=== PATIENT | female | born 1950 | race Caucasian/White ===

== ENCOUNTER 2016-05-23 18:45 | Inpatient (IN) | payer OTHER, MEDICARE ==
[~2016-05-23] VITALS: Ht 162.6 cm; Wt 58.1 kg
[~2016-05-23 18:45] MED LIST: 24 HOUR ALLER15.8 ML INH/SOL; ACIDOPHILUS1 EACH PO; ADULT LOW DOSE81 MG; ALDACTONE25 MG PO; AMLODIPINE BESYL5 M1 PO; AMOXICILLIN875 M1 PO; ANTI-ITCH28 GM; ASPIRIN EC81 M1 PO; ATORVASTATIN CA20 M1 PO; ATORVASTATIN CA80 M1 PO; BAYER CHEWABLE81 MG PO; CALCIUM 600 +1 EA10 PO; CARDIZEM CD120 M2 PO; CARVEDILOL3.125 M1 PO; CLOPIDOGREL75 M1 PO; CO Q-10300 MG PO; COREG6.25 M1 PO; CORLANOR PO; COZAAR100 M1 PO; COZAAR50 M1 PO; DILTIAZEM 24HR120 MG PO; DILTIAZEM 24HR180 MG PO; DULERA 100 MCG/13 GM; EDARBI80 M1 PO; FLUTICASONE PRO16 GM; FUROSEMIDE20 M1; FUROSEMIDE40 M1 PO; HALOBETASOL PRO15 G1; HYDRALAZINE HC100 M1 PO; HYDRALAZINE HCL10 M1 PO; HYDRALAZINE HCL50 M1 PO; ISOSORBIDE MONO30 M1 PO; ISOSORBIDE MONO60 M1 PO; LASIX20 M1 PO; LASIX40 M1 PO; LEVOTHYROXINE25 MCG PO; LIPITOR80 M1 PO; LOSARTAN POTAS100 M1 PO; MAGNESIUM400 M1 PO; METOPROLOL SUCC50 M2 PO; MONTELUKAST SOD10 M1 PO; N-ACETYL-L-CYS600 M1 PO; NAC600 M1 PO; NORVASC2.5 M1 PO; OMEGA 3-6-9 11200 MG PO; OMEPRAZOLE40 M1 PO; PANTOPRAZOLE SO40 M1 PO; PATANASE30.5 GM NASB; PLAVIX75 M1 PO; PREDNISONE10 M2 PO; PREDNISONE20 M1 PO; PROAIR HFA8.5 GM INH; RESTASIS1 EACH OPH; SINGULAIR10 M1 PO; SPIRONOLACTONE50 M1 PO; SYNTHROID25 MCG PO; TESSALON PERLE100 M1 PO; XANAX0.25 M1 PO
--- NOTE | 2016-05-23 19:22 | ED DYSPNEA/ASTHMA COMPLAINT ---
History of Present Illness General Chief Complaint: Dyspnea (COPD, CHF, Other) Stated Complaint: DIFF BREATHING X 1DAY, "I THINK I HAVE CHF" 91%O2 Source: patient Exam Limitations: no limitations Vital Signs & Intake/Output Vital Signs & Intake/Output Vital Signs Date Time Temp Pulse Resp B/P Pulse O2 O2 Flow FiO2 Ox Delivery Rate 05/23 2059 76 20 146/66 95 Nasal 2.0L Cannula 05/23 1959 74 20 144/65 96 Nasal 3.0L Cannula 05/23 1953 97 Nasal 4.0L Cannula 05/23 1936 94 Nasal 4.0L Cannula 05/23 1854 99.2 80 26 126/57 94 Room Air Allergies Coded Allergies: NO KNOWN ALLERGIES (05/13/16) Reconcile Medications Acetylcysteine (NAC) 600 MG CAPSULE 1 CAP PO 0830, 2199 LIVER (Reported) Albuterol Sulfate (Proair Hfa) 90 MCG HFA.AER.AD 2 PUF INH Q4-6 PRN PRN COPD (Reported) Alprazolam (Xanax) 0.25 MG TABLET 1 TAB PO BIDP PRN ANXIETY (Reported) Amlodipine Besylate 5 MG TABLET 1 TAB PO DAILY HYPERTENSION Amoxicillin 875 MG TABLET 1 TAB PO BID sinusitis Aspirin (Herb Chewable Aspirin) 81 MG TAB.CHEW 1 TAB PO 2200 HEART HEALTH ( Reported) Atorvastatin Calcium (Lipitor) 80 MG TABLET 1 TAB PO 2200 HLD (Reported) Benzonatate (Tessalon Perle) 100 MG CAPSULE 1 CAP PO TID cough Clopidogrel Bisulfate (Clopidogrel) 75 MG TABLET 1 TAB PO DAILY CABG ( Reported) Cyclosporine (Restasis) 0.05 % DROPERETTE 1 GTT OPH BID EYES (Reported) Diltiazem HCl (Diltiazem 24HR ER) 180 MG CAP.ER.24H 1 CAP PO DAILY CARDIAC ( Reported) Fluticasone Propionate (24 Hour Allergy Relief) 50 MCG/ACTUATION SPRAY.SUSP 2 SPRAY INH/JOCELYNN 0 EACH NOSTRIL (Reported) Furosemide (Lasix) 40 MG TABLET 1 TAB PO DAILY Diuretic Hydralazine HCl 100 MG TABLET 1 TAB PO TID Hypertension Isosorbide Mononitrate (Isosorbide Mononitrate ER) 60 MG TAB.ER.24H 1.5 TAB PO DAILY Bloood pressure Ivabradine HCl (Corlanor) 5 MG TABLET 1 TAB PO 0830, 2200 CHEST PAIN ( Reported) Lactobacillus Acidophilus (Acidophilus) 1 EACH CAPSULE 1 CAP PO 0830 PROBIOTIC (Reported) Levothyroxine Sodium (Synthroid) 25 MCG TABLET 1 TAB PO 0630 THYOID (Reported ) Losartan (Cozaar) 100 MG TABLET 1 TAB PO 0830 Hypertension Magnesium Oxide (Magnesium) 400 MG CAPSULE 1 CAP PO 2200 SUPPLEMENT (Reported ) Montelukast Sodium (Singulair) 10 MG TABLET 1 TAB PO 0830 BREATHING (Reported ) Pantoprazole Sodium 40 MG TABLET.DR 1 TAB PO 0830 GRED (Reported) Prednisone 10 MG TABLET 0 PO SI COPD Take 2 tabs on 05/03/16 Take 1 tab on 05/04/16 Take 1 tab on 05/05/16 then stop. Prednisone 20 MG TABLET 1 TAB PO BID sinusitis Spironolactone 50 MG TABLET 1 TAB PO DAILY HYPERTENSION Triage Note: PT TO TRIAGE FOR POSSIBLE CHF, C/O SOB SINCE LAST NIGHT PROGRESSIVELY GETTING WORSE. HX OF CHF, CAROTID ARTERY STENOSIS,HTN,HIGH CHOL,CHRONIC KIDNEY DISEASE. PT DENIES CHEST PAIN, ABD PAIN, DENIES EDEMA. O2SAT 94% ON RA, PT UNABLE TO SPEAK FULL SENTENCES. PT TO [facility] FOR EKG. Triage Nurses Notes Reviewed? yes Onset: Abrupt Duration: week(s):, constant, continues in ED Timing: recent history Severity: moderate, severe HPI: 66-year-old female comes into emergency room for further evaluation of shortness of breath. Symptoms have been going on for the past week. Patient was just admitted here in the hospital. Patient has history of congestive heart failure as well as COPD. Patient has had a 3 pound weight gain over the past day. Patient has short of breath with any type of ambulation at all. Denies any chest pain currently. Patient was sick a few weeks ago with a sinus infection as well as CHF. Denies any other associated symptoms at this time. (VICKEY LEE) Past History Travel History Traveled to [place] past 21 day No Medical History Any Pertinent Medical History? see below for history Neurological: NONE EENT: NONE Cardiovascular: CHF, hypertension, HYPERLIPIDEMIA CAROTID ARTERY STENOSIS Respiratory: COPD Gastrointestinal: GERD, EGD 10/11- erosive gastritsin and duodenitis Hepatic: NONE Renal: chronic kidney disease (stage 2 CKD), renal artery stenosis Musculoskeletal: NONE Psychiatric: NONE Endocrine: NONE Blood Disorders: NONE Cancer(s): NONE History of MRSA: No History of VRE: No History of CDIFF: No Surgical History Surgical History: EGD CABG X 2 Psychosocial History Who do you live with Spouse Services at Home None What is your primary language [place] Tobacco Use: Never used Family History Family History, If Any: MOTHER Relation not specified for: FHx: stroke Hx Contributory? No (VICKEY LEE) Review of Systems Review of Systems Constitutional: Reports: no symptoms. EENTM: Reports: no symptoms. Respiratory: Reports: see HPI. Cardiovascular: Reports: see HPI. GI: Reports: no symptoms. Genitourinary: Reports: no symptoms. Musculoskeletal: Reports: no symptoms. Skin: Reports: no symptoms. Neurological/Psychological: Reports: no symptoms. Hematologic/Endocrine: Reports: no symptoms. Immunologic/Allergic: Reports: no symptoms. All Other Systems: Reviewed and Negative (VICKEY LEE) Physical Exam Physical Exam General Appearance: moderate distress Head: atraumatic Eyes: Bilateral: normal appearance, EOMI. Ears, Nose, Throat: normal pharynx, normal ENT inspection Neck: normal inspection, full range of motion Respiratory: decreased breath sounds, wheezing, respiratory distress (moderate) Cardiovascular: regular rate/rhythm Extremities: normal inspection Neurologic/Psych: awake, alert, oriented x 3, normal gait, normal mood/affect Skin: intact, normal color Core Measures ACS in differential dx? No Severe Sepsis Present: No Septic Shock Present: No (VICKEY LEE) Progress Differential Diagnosis: asthma, AMI, bronchitis, costochondritis, CHF, COPD, musculoskeletal pain, pericarditis, pulmonary embolism, pneumonia, pneumothorax, rib fracture, unstable angina Plan of Care: Orders Procedure Date/time Status CBC WITHOUT DIFFERENTIAL 05/24 06 Active BASIC ELECTROLYTES PLUS BUN&CR 05/24 06 Active Admit to inpatient 05/23 2158 Active URINE OSMOLALITY 05/23 2154 Active URINE LYTES, SPOT 05/23 2154 Active URINALYSIS 05/23 2154 Active SERUM OSMOLALITY 05/23 2154 Active Pathway - chart 05/23 2149 Active House Staff 05/23 2149 Active Patient Data 05/23 2149 Active Code Status 05/23 2149 Active Patient Data 05/23 2135 Active TROPONIN LEVEL 05/23 185 Complete COMPREHENSIVE METABOLIC PANEL 05/23 185 Complete CBC WITHOUT DIFFERENTIAL 05/23 1854 Complete B-TYPE NATRIURETIC PEP (BNP) 05/23 1854 Complete EKG 05/23 1849 Active VTE Mechanical Prophylaxis 05/23 UNK Active Telemetry/Behavioral Health Professional 05/23 UNK Active Current Medications Sig/Emmanuel Start time Last Medication Dose Stop Time Status Admin Heparin Sodium 5,000 UNIT Q8 05/24 0600 UNVr (Porcine) Oxycodone HCl 5 MG Q6 05/23 2359 UNVr (Roxicodone) Acetaminophen 650 MG Q6P PRN 05/23 2200 UNVr (Tylenol) Laboratory Tests 05/23/161931: Anion Gap 11, Estimated GFR 28 L, BUN/Creatinine Ratio 23.3, Glucose 117 H, Calcium 9.1, Total Bilirubin 0.7, AST 21, ALT 34, Alkaline Phosphatase 62, Troponin I < 0.01, Sdg-K-Hhqdpljgcts Pept 6600 H, Total Protein 6.8, Albumin 3.8, Globulin 3.0, Albumin/Globulin Ratio 1.3, CBC w Diff NO MAN DIFF REQ, RBC 3.51 L, MCV 84.9, MCH 29.7, RDW 16.0 H, MPV 7.1 L, Gran % 80.4 H, Lymphocytes % 7.0 L, Monocytes % 11.9 H, Eosinophils % 0.6, Basophils % 0.1, Absolute Granulocytes 7.2 H, Absolute Lymphocytes 0.6 L, Absolute Monocytes 1.1 H, Absolute Eosinophils 0.1, Absolute Basophils 0, PUBS MCHC 35.0 Diagnostic Imaging: Viewed by Me: Radiology Read. Discussed w/RAD: Radiology Read. Radiology Impression: EXAM TYPE: RAD - XRY-PORTABLE CHEST XRAY EXAMINATION: XR PORTABLE CHEST CLINICAL INFORMATION: Shortness of breath. COMPARISON: Chest x- ray from 05/13/2016. TECHNIQUE: Portable view of the chest was obtained. FINDINGS: The cardiac silhouette is stable and remains enlarged. Mediastinal contours are normal. Sternotomy wires are in place. No airspace opacities or pleural effusions are seen. There are mild degenerative changes in the AC joints. IMPRESSION: Stable mild cardiomegaly with postsurgical changes. No airspace disease. No acute process. DICTATED BY: FABIAN AGUILAR MD DATE/TIME DICTATED:05/23/162006 LOGISTICS PLANNER:JAMESON DATE/TIME TRANSCRIBED:2006 Initial ED EKG: normal intervals, normal sinus rhythm, rate (73), LBBB (VICKEY LEE) Departure Departure Disposition: STILL A PATIENT Condition: Stable Clinical Impression Primary Impression: COPD exacerbation Secondary Impressions: Hyperkalemia, Hyponatremia, Hypoxia Referrals: ANISH MERINO,NELIDA Monsalve (PCP/Family) Referred to [facility] as new patient No Departure Forms: Customer Survey General Discharge Information Admission Note Spoke With: LANCE BATRES MD Documentation of Exam: Documentation of any treatments & extenuating circumstances including Concerns Regarding Discharge (functional status, medication knowledge or non-compliance, living conditions, etc.) that warrant an admission rather than observation: Patient's O2 saturation 80-99% with minimal ambulation. Patient will require supplemental oxygen. Patient will require repeat blood work. Electrolyte management. High potassium here. Patient will require further workup for low sodium level. Pulmonary consultation. Cardiology consultation. Cardiac telemetry. Patient is high risk. (VICKEY LEE) PA/OUTDOOR POWER EQUIPMENT MECHANIC Co-Sign Statement Statement: ED Attending supervision documentation- [X] I saw and evaluated the patient. I have also reviewed all the pertinent lab results and diagnostic results. I agree with the findings and the plan of care as documented in the PA's/OUTDOOR POWER EQUIPMENT MECHANIC's documentation. [X] I have reviewed the ED Record and agree with the PA's/OUTDOOR POWER EQUIPMENT MECHANIC's documentation. [] Additions or exceptions (if any) to the PAs/OUTDOOR POWER EQUIPMENT MECHANIC's note and plan are summarized below: [Cipriano seen and examined this patient. Patient to be admitted for COPD exacerbation. Patient's potassium is 5.6.] (REYNOLD MERINO,FABIAN Brown) Critical Care Note Critical Care Note Critical Care Time: non-applicable (VICKEY LEE)
[2016-05-23 19:43] LABS: ABSOLUTE BASOPHIL COUNT 0 /CUMM (0.0-0.2); ABSOLUTE EOSINOPHIL COUNT 0.1 /CUMM (0.0-0.7); ABSOLUTE GRANULOCYTE CT 7.2 /CUMM (1.4-6.5); ABSOLUTE LYMPH COUNT 0.6 /CUMM (1.2-3.4); ABSOLUTE MONOCYTE COUNT 1.1 /CUMM (0.10-0.60); BASOPHIL % 0.1 % (0.0-2.0); EOSINOPHIL % 0.6 % (0-5); GRANULOCYTE % 80.4 % (42.2-75.2); HEMATOCRIT 29.8 % (37-47); MEAN CORPUSCULAR HGB 29.7 PG (27.0-31.0); MEAN CORPUSCULAR VOLUME 84.9 FL (81.0-99.0); MEAN PLATELET VOLUME 7.1 FL (7.4-10.4); PLATELET COUNT 348 /CUMM (130-400); RED BLOOD CELL CT 3.51 /CUMM (4.20-5.40)
--- NOTE | 2016-05-23 20:11 | RADIOLOGY REPORT ---
EXAMINATION: XR PORTABLE CHEST CLINICAL INFORMATION: Shortness of breath. COMPARISON: Chest x-ray from 05/13/2016. TECHNIQUE: Portable view of the chest was obtained. FINDINGS: The cardiac silhouette is stable and remains enlarged. Mediastinal contours are normal. Sternotomy wires are in place. No airspace opacities or pleural effusions are seen. There are mild degenerative changes in the AC joints. IMPRESSION: Stable mild cardiomegaly with postsurgical changes. No airspace disease. No acute process.
--- NOTE | 2016-05-23 21:38 | History & Physical ---
See Addendum NAYAN VILLALOBOS MD 05/23/16 2138: General Information and HPI Source of Information: patient Exam Limitations: no limitations History of Present Illness: Patient is a 66-year-old female with past medical history of hypertension, hyperlipidemia, hypothyroidism, chronic kidney disease stage II, COPD not on home oxygen (former smoker, quit in September 2015), left bundle-branch block, cardiomyopathy ,diastolic heart failure,double bypass surgery in October 2015 [facility] was complicated by postop cardiac arrest, bilateral pleural effusion with Pseudomonas, with recent admission on 04/13/2016 and 04/26/2016 for acute CHF, presented with chief complaints of slowely progressive dyspnea since 1 -2 weeks. According to her, she had sinusitis 2 weeks ago and was treated by 5 days course of prednisone and amoxicillin. But as she was not improving, so her PCP, Dr. worrell changed amoxicillin to Augmentin. Despite steroids and antibiotics, she continues to have shortness of breath. She went to CHF clinic, 7 days ago and they found that she is having high blood pressure,otherwise, her cardiac function is normal. But patient continues to feel short of breath, so she came to ED for further management. She denies chest pain, orthopnea but feeling short of breath even a small amount of exertion. She claims that she gained 3 pounds weight over one day. Chest x-ray on 05/23/2016 -showed stable mild cardiomegaly with postsurgical changes. No any acute air space disease. Echo on 09/11/2015 -Anterior/anteroseptal hypokinesis,LVEF-35 to 40 %. No evidence of LV thrombus. Allergies/Medications Allergies: Coded Allergies: NO KNOWN ALLERGIES (05/13/16) Home Med list Acetylcysteine (NAC) 600 MG CAPSULE 1 CAP PO BID DIRECTED (Reported) Alprazolam (Xanax) 0.5 MG TABLET 1 TAB PO BIDP PRN AT NIGHT (Reported) Amlodipine Besylate 5 MG TABLET 1 TAB PO DAILY DIRECTED (Reported) Aspirin (Ecotrin*) 81 MG TABLET.DR 1 TAB PO DAILY DIRECTED (Reported) Atorvastatin Calcium 80 MG TABLET 1 TAB PO DAILY DIRECTED (Reported) Cholecalciferol (Vitamin D3) (Vitamin D) 2,000 UNIT CAPSULE 1 CAP PO DAILY DIRECTED (Reported) Clonidine HCl (Clonidine HCl ER) 0.1 MG TAB.ER.12H 1 TAB PO DAILY DIRECTED (Reported) Clopidogrel Bisulfate (Plavix) 75 MG TABLET 1 TAB PO DAILY Heart Health ( Reported) Cyclosporine (Restasis Multidose) 0.05 % DROPS 1 TAB PO DAILY DIRECTED ( Reported) Diltiazem HCl (Diltiazem 24HR ER) 180 MG CAP.ER.24H 1 CAP PO DAILY DIRECTED (Reported) Fluticasone Propionate (Flovent Hfa) 44 MCG AER.W.ADAP 2 PUF INH Q4-6 PRN Bronchitis (Reported) Fluticasone Propionate 50 MCG/ACTUATION SPRAY.SUSP 2 SPRAY NASB DAILY DIRECTED (Reported) Furosemide (Lasix) 40 MG TABLET 1 TAB PO DAILY DIRECTED (Reported) Hydralazine HCl 100 MG TABLET 1 TAB PO TID DIRECTED (Reported) Isosorbide Mononitrate (Isosorbide Mononitrate ER) 60 MG TAB.ER.24H 1 TAB PO DAILY DIRECTED (Reported) Ivabradine HCl (Corlanor) 5 MG TABLET 1 TAB PO BID DIRECTED (Reported) Lactobacillus Acidophilus (Acidophilus) 1 EACH CAPSULE 1 CAP PO DAILY DIRECTED (Reported) Levothyroxine Sodium 25 MCG TABLET 1 TAB PO DAILY DIRECTED (Reported) Losartan Potassium (Cozaar) 25 MG TABLET 1 TAB PO DAILY Blood Pressure ( Reported) Losartan Potassium (Cozaar) 25 MG TABLET 1 TAB PO DAILY DIRECTED (Reported ) Magnesium Oxide (Magnesium) 400 MG CAPSULE 1 CAP PO DAILY DIRECTED ( Reported) Montelukast Sodium 10 MG TABLET 1 TAB PO DAILY DIRECTED (Reported) Pantoprazole Sodium 40 MG TABLET.DR 1 TAB PO EVERY 3 DAYS DIRECTED ( Reported) Sodium Chloride/Sodium Bicarb (Nasa Mist Saline [place]) 0.9 % SPRAY Nasal Dryness (Reported) Spironolactone 50 MG TABLET 1 TAB PO DAILY DIRECTED (Reported) Tiotropium [place] (Spiriva) 18 MCG CAP.W.DEV 1 CAP INH DAILY DIRECTED ( Reported) Past History Travel History Traveled to [place] past 21 day No Medical History Neurological: NONE EENT: NONE Cardiovascular: CHF, hypertension, HYPERLIPIDEMIA CAROTID ARTERY STENOSIS Respiratory: COPD Gastrointestinal: GERD, EGD 10/11- erosive gastritsin and duodenitis Hepatic: NONE Renal: chronic kidney disease (stage 2 CKD), renal artery stenosis Musculoskeletal: NONE Psychiatric: NONE Endocrine: NONE Blood Disorders: NONE Cancer(s): NONE History of MRSA: No History of VRE: No History of CDIFF: No Surgical History Surgical History: EGD CABG X 2 Past Family/Social History Family History Relations & Conditions if any MOTHER Relation not specified for: FHx: stroke Psychosocial History Who Do You Live With? spouse Services at Home: None Living Will? no Functional Ability ADLs Independent: dressing, eating, toileting, bathing. Ambulation: independent IADLs Independent: shopping, housework, finances, food prep, telephone, transportation , medication admin. Review of Systems Review of Systems Constitutional: Reports: malaise, weakness. Denies: fever. EENTM: Reports: nasal pain, throat pain. Cardiovascular: Reports: palpitations. Denies: chest pain, edema, orthopena, peripheral edema. Respiratory: Reports: cough. Denies: hemoptysis, orthopnea, short of breath, stridor, wheezing. GI: Denies: abdominal pain, bloating, constipation, diarrhea, nausea. Genitourinary: Denies: dysuria, frequency, hematuria, nocturia. Musculoskeletal: Denies: back pain, joint pain. Skin: Denies: no symptoms. Neurological/Psychological: Reports: anxiety, depressed, emotional problems. Exam & Diagnostic Data Last 24 Hrs of Vital Signs/I&O Vital Signs Date Time Temp Pulse Resp B/P Pulse O2 O2 Flow FiO2 Ox Delivery Rate 05/24 0112 92 Nasal 2.0L Cannula 05/24 0035 80 142/68 05/23 2330 Nasal 2.0L Cannula 05/232 99.3 76 20 136/64 93 Nasal 2.0L Cannula 05/23 2059 76 20 146/66 95 Nasal 2.0L Cannula 05/239 74 20 144/65 96 Nasal 3.0L Cannula 05/23 1953 97 Nasal 4.0L Cannula 05/23 193 94 Nasal 4.0L Cannula 05/234 99.2 80 26 126/57 94 Room Air Intake & Output 05/24 0800 05/24 0000 05/23 1600 Intake Total 0 Output Total Balance 0 Intake, Oral 0 Patient 58.74 kg Weight Physical Exam General Appearance Alert, Oriented X3, Cooperative, No Acute Distress Skin No Rashes, No Breakdown HEENT Atraumatic, PERRLA, EOMI Neck Supple, increased JVP Cardiovascular Regular Rate, Normal S1, Normal S2 Lungs decreased air entry bilaterally, bilateral basal crepts Abdomen Normal Bowel Sounds, Soft, No Tenderness Neurological Normal Speech Extremities No Clubbing, No Cyanosis, No Edema, Normal Pulses Vascular Normal Pulses, Pulses Symmetrical Assessment/Plan Assessment: Assessment and plan - Patient is a known case of COPD and chronic CHF. She is complaining of slowly progressive weakness and shortness of breath along with hyponatremia, but there is no any swallowing or pedal edema. She is also having borderline high pottassium and her creatine is 1.8, probably secondary to chronic kidney disease. Problem list- Hyponatremia Hyperkalemia Chronic kidney disease stage II COPD, probably acute exacerbation Chronic Sinusitis Chronic CHF Hypothyroidism Hypertension Hyperlipidemia Chronic sinusitis- * Advised sputum culture and the blood culture * We'll follow the culture and if required,than start on antibiotic * We'll follow sinus x-ray COPD acute exacerbation/? Acute on chronic CHF * Patient is having slowly progressive shortness of breath * We will continue nebulization/TRC * Strict intake output charting * We will take consult from fine dining server and follow their recommendation * We'll start her on injection Solu-Medrol 40mg IV 8hrly * We will continue tablet azithromycin Hyponatremia - * It may be secondary to diuresis of fluid retention * We will restrict her fluid to 1500 mL per day * Strict intake output charting * We will regularly follow serum sodium level Chronic kidney disease stage II/hyperkalemia /high creatinine * We will regularly monitor his serum pottassium and creatinine level * Will take the consult from ventilating expert and follow the recommendation * Strict intake output charting Hypertension - * We'll continue home medication as before Hyperlipidemia - * We'll continue atorvastatin as before Hypothyroidism- We'll continue the levothyroxine as before Diet -heart healthy diet with fluid restriction to 1500 mL DVT prophylaxis-ALP S/heparin CODE STATUS-full code As Ranked By This Provider Problem List: 1. Hyponatremia 2. COPD (chronic obstructive pulmonary disease) 3. CAD (coronary artery disease) 4. Hypothyroid 5. HLD (hyperlipidemia) 6. HTN (hypertension) 7. CHF (congestive heart failure) 8. Hyperkalemia Core Measures/Miscellaneous Acute Coronary Syndrome ACS Diagnosis: No Cerebrovascular Accident CVA/TIA Diagnosis: No Congestive Heart Failure CHF Diagnosis: No Venous Thromboembolism VTE Risk Factors: Age > 40 VTE Prophylaxis Ordered Inpt: Mechanical (ALPS/TEDS) No Mech VTE prophylaxis d/t: No contraindications No VTE Pharm Prophylaxis d/t: No contraindications VTE Diagnosis: No VTE Type: NONE VTE Confirmed by (Test): NONE Severe Sepsis Severe Sepsis Present: No Septic Shock Septic Shock Present: No Miscellaneous Documentation Attending Case Discussed With: NELIDA OCONNELL MD Primary Care Physician: NELIDA OCONNELL MD Patient sees these Specialists fine dining server Level of Patient Care: Telemetry ARIS CARRILLO 05/23/16 2332: Resident Review Statement Resident Statement: examined this patient, discussed with international marketing executive, agreed with international marketing executive Other Findings: Patient is a 66-year-old woman with a past medical history significant for COPD not on home oxygen, history of chronic left bundle branch block,Diastolic HF ( cardiomyopathy), splenic infract, coronary bypass 2 (November 25 2015) at [facility] complicated by cardiac arrest, bilateral pleural effusions with pseudomonas infection with subsequent intubation and admission to ICU, recently admitted to [facility] for CHF exacerbation(March 2016) former smoker presented to the ED with a chief complaints of worsening shortness of breath and sinus related congestion. As per patient she has been having trouble breathing associated with some sinus congestion for the last couple of days. She was prescribed amoxicillin and prednisone 20 mg twice a day by by her primary care physician last week, she took the medication without much improvement in her congestion recently switched to Augmentin for sinus infection, patient took medication for one day and then she stopped taking the medication as she did not feel good(felt as if she was having a reaction from the medication). Today her symptoms gotten worse, could not able to breathe . Also she gained 3 pounds of weight. She took her 20 Lasix(twice), her symptoms did not improve and came to the ED for further assessment. Reported headaches with sinus pain. Denies any fever or chills at home and denied any recent infections denies any recent travels. In the ED patient received one-time dose of Solu-Medrol 125 mg Vitals on admission temperature 99.2, pulse 80, respiratory rate 26, blood pressure 126/57 on room air. On examination General Appearance: moderate distress Head: atraumatic Bilateral: normal appearance, EOMI. Ears, Nose, Throat: Throat appears ,dry positive sinus tenderness Neck: normal inspection, full range of motion Respiratory: Decreased respirations bilaterally with some rhonchi. Cardiovascular: regular rate/rhythm Extremities: normal inspection Neurologic/Psych: awake, alert, oriented x 3, normal gait, normal mood/affect Skin: intact, normal color Pertinent labs on admission sodium low 123,, potassium 5.6, bicarbonate low at 19, BUN/creatinine elevated 42/1.8 with GFR 28, elevated proBNP 6600. Troponin negative Pending urine analysis Chest x-ray:Stable mild cardiomegaly with postsurgical changes. No airspace disease. No acute process. Echocardiogram done in August 2015 Limited Echo with Contrast to exclude LV thrombus. Anterior/anteroseptal hypokinesis is again noted. Left ventricular ejection fraction is estimated at 35 to 40 %. No evidence of LV thrombus. Assessment 1. Acute hypoxic respiratory failure due to possible COPD exacerbation/CHF exacerbation 2. Worsening sinus congestion with low-grade fever 3. CAD and ischemic cardiomyopathy s/p CABG. 4. History of hypothyroidism 5 acute on chronic kidney disease stage IIIB 6. History of hypertension hyperlipidemia. plaN 1. Acute hypoxic respiratory failure due to possible COPD exacerbation/CHF exacerbation: * We'll monitor the patient on telemetry floor * Continue oxygen to keep saturation above 92%. * Patient is no more wheezing after getting IV Solu-Medrol 125 mg in the ED, consider IV Solu-Medrol from the morning. * Consider azithromycin for its anti-inflammation properties. * Continue Spiriva, Flonase. * Chest x-ray done in the ED showed mild stable cardiomegaly, will continue home dose of Lasix 40 mg from morning. Will not give any IV Lasix as patient has an evidence of a JACIEL as well * Monitor in's and O's with daily weight checks. * Will obtain cardiology consult in the morning. 2. Worsening sinus congestion with low-grade fever: * Will obtain sinus x-ray. * If there any evidence of infection we'll start the patient on antibiotics. Send sputum cultures and blood cultures. * Obtain rapid flu, strep and Legionella antigens. * Mucinex for cough. * Continue TRC nebs. 3. Hyponatremia: * Check urine lites, urine osmolality and serum osmolality. * Continue 1500 fluid strictio for now(per her fine dining server for CHF) 4. CAD and ischemic cardiomyopathy s/p CABG. * Continue home medications including aspirin, Lipitor, diltiazem, Imdur, hydralazine. 5. History of hypothyroidism * Continue home dose of levothyroxine. 6.acute on chronic kidney disease stage IV: * Hold losartan * Repeat BEP tomorrow * Avoid any nephrotoxic agents. 6. History of hypertension hyperlipidemia. * Continue medications. 7. DVT prophylaxis with subcutaneous heparin. 8. Mild pain controlled with Tylenol 9. Patient is full code
[2016-05-23] MEDS ORDERED: HYDRALAZINE HC100 M1 PO (23:29)
[2016-05-23 23:30] VITALS: BP 142/64
[2016-05-23] MEDS ORDERED: COZAAR25 M1 PO (23:30)
[2016-05-23] MEDS ORDERED: ISOSORBIDE MONO60 M1 PO (23:33)
[2016-05-23] MEDS ORDERED: LASIX40 M1 PO (23:33)
[2016-05-23] MEDS ORDERED: AMLODIPINE BESYL5 M1 PO (23:34)
[2016-05-23] MEDS ORDERED: LEVOTHYROXINE25 MCG PO (23:35)
[2016-05-23] MEDS ORDERED: SPIRONOLACTONE50 M1 PO (23:35)
[2016-05-23] MEDS ORDERED: PANTOPRAZOLE SO40 M1 PO (23:36)
[2016-05-23] MEDS ORDERED: MONTELUKAST SOD10 M1 PO (23:37)
[2016-05-23] MEDS ORDERED: DILTIAZEM 24HR180 MG PO (23:37)
[2016-05-23] MEDS ORDERED: ASPIRIN EC81 M1 PO (23:38)
[2016-05-23] MEDS ORDERED: CORLANOR PO (23:38)
[2016-05-23] MEDS ORDERED: ATORVASTATIN CA80 M1 PO (23:38)
[2016-05-23] MEDS ORDERED: FLUTICASONE PRO16 GM NASB (23:38)
[2016-05-23] MEDS ORDERED: SPIRIVA18 MCG INH (23:40)
[2016-05-23] MEDS ORDERED: RESTASIS MULTI5.5 ML PO (23:41)
[2016-05-23] MEDS ORDERED: CLONIDINE HCL0.1 M1 PO (23:41)
[2016-05-23] MEDS ORDERED: XANAX0.5 M1 PO (23:42)
[2016-05-23] MEDS ORDERED: ACIDOPHILUS1 EACH PO (23:42)
[2016-05-23] MEDS ORDERED: NAC600 M1 PO (23:43)
[2016-05-23] MEDS ORDERED: MAGNESIUM400 M1 PO (23:43)
[2016-05-23] MEDS ORDERED: VITAMIN D2000 UNIT PO (23:44)
[2016-05-24 08:00] VITALS: BP 170/62
[2016-05-24 08:11] LABS: ABSOLUTE BASOPHIL COUNT 0 /CUMM (0.0-0.2); ABSOLUTE EOSINOPHIL COUNT 0 /CUMM (0.0-0.7); ABSOLUTE GRANULOCYTE CT 4.7 /CUMM (1.4-6.5); ABSOLUTE LYMPH COUNT 0.2 /CUMM (1.2-3.4); ABSOLUTE MONOCYTE COUNT 0 /CUMM (0.10-0.60); BASOPHIL % 0.1 % (0.0-2.0); EOSINOPHIL % 0.1 % (0-5); HEMATOCRIT 28.6 % (37-47); MEAN CORPUSCULAR HGB 29.8 PG (27.0-31.0); MEAN CORPUSCULAR HGB CONC 35.1 G/DL (33.0-37.0); MEAN PLATELET VOLUME 7.5 FL (7.4-10.4); PLATELET COUNT 326 /CUMM (130-400); RBC DISTRIBUTION WIDTH 15.9 % (11.5-14.5); RED BLOOD CELL CT 3.36 /CUMM (4.20-5.40)
[2016-05-24 09:11] LABS: GRANULOCYTE % 94.3 % (42.2-75.2)
--- NOTE | 2016-05-24 09:18 | PN- Housestaff ---
Subjective Follow-up For: CHF Exacerbation Tele-Events Since Last Visit: NSR 81-90 No evevnts Subjective: Patient was seen and examined this morning. She is resting comfortably in bed. Patient states that her symptoms have improved. She continues to be on supplemental oxygen by nasal cannula 3 L. Patient states that her shortness of breath has improved. She states that she was able to get some rest although felt initial anxiety over the welfare director. Patient continues to feel congested attributing this to questionable sinusitis versus URI. Patient denies Fever, chills, nausea, vomiting. Review of Systems Constitutional: Reports: see HPI. Objective Last 24 Hrs of Vital Signs/I&O Vital Signs Date Time Temp Pulse Resp B/P Pulse O2 O2 Flow FiO2 Ox Delivery Rate 05/24 1129 84 150/56 05/24 0833 94 162/58 05/24 0832 94 162/58 05/24 0831 94 162/58 05/24 0800 Nasal 3.0L Cannula 05/24 0800 97.5 93 18 170/62 96 Nasal 3.0L Cannula 05/24 0112 92 Nasal 2.0L Cannula 05/24 0035 80 142/68 05/23 2330 Nasal 2.0L Cannula 05/23 2330 98.2 84 26 142/64 93 Nasal 2.0L Cannula 05/23 2302 99.3 76 20 136/64 93 Nasal 2.0L Cannula 05/23 2059 76 20 146/66 95 Nasal 2.0L Cannula 05/23 1959 74 20 144/65 96 Nasal 3.0L Cannula 05/23 1953 97 Nasal 4.0L Cannula 05/23 1936 94 Nasal 4.0L Cannula 05/23 1854 99.2 80 26 126/57 94 Room Air Intake & Output 05/24 1600 05/24 0800 05/24 0000 Intake Total 300 0 Output Total 500 Balance -200 0 Intake, IV 0 Intake, Oral 300 0 Number 0 Bowel Movements Output, Urine 500 Patient 58.57 kg 58.74 kg Weight Physical Exam General Appearance: Alert, Oriented X3, Mild Distress Cardiovascular: Regular Rate, Normal S1, Normal S2 Lungs: Bilaterral Rhonchi Abdomen: Normal Bowel Sounds, Soft, No Tenderness Neurological: Normal Gait, Normal Speech Extremities: No Edema Vascular: Normal Pulses Current Medications: Current Medications Sig/Emmanuel Start time Last Medication Dose Route Stop Time Status Admin Acetaminophen 650 MG Q6P PRN 05/23 2200 AC PO Acetylcysteine 600 MG BID 05/24 1000 DC 05/24 PO 0834 Albuterol Sulfate 3 ML ONCE ONE 05/24 0430 DC 05/24 INH 05/24 0431 0434 Albuterol Sulfate 3 ML ONCE ONE 05/24 0100 DC 05/24 INH 05/24 0101 0100 Albuterol Sulfate 3 ML ONCE ONE 05/23 1930 DC 05/23 INH 05/23 1931 195 Alprazolam 0.25 MG ONCE ONE 05/24 0500 DC 05/24 PO 05/24 0501 0458 Alprazolam 0.25 MG Q12P PRN 05/23 2345 AC 05/24 PO 05/30 2344 0035 Amlodipine Besylate 5 MG DAILY 05/24 1000 AC 05/24 PO 0833 Aspirin Buffered 81 MG DAILY 05/24 1000 AC 05/24 PO 0832 Atorvastatin Calcium 80 MG 1700 05/24 1700 DC PO Atorvastatin Calcium 80 MG 1700 05/24 1700 CAN PO Atorvastatin Calcium 80 MG 1700 05/24 0030 AC 05/24 PO 0035 Azithromycin 500 MG DAILY 05/24 1000 AC 05/24 Sodium Chloride 250 ML IV 1044 Ceftriaxone Sodium 1,000 MG DAILY 05/24 1322 AC IV Clopidogrel Bisulfate 75 MG DAILY 05/24 1000 AC 05/24 PO 1127 Diltiazem HCl 180 MG DAILY 05/24 1000 AC 05/24 PO 0832 Fluticasone 2 SPRAY QPM 05/24 2200 DC Propionate GRISELDA Fluticasone 2 SPRAY QPM 05/24 0030 AC 05/24 Propionate GRISELDA 0036 Furosemide 40 MG DAILY 05/24 1000 DC 05/24 PO 0833 Heparin Sodium 5,000 UNIT Q8 05/24 0600 AC 05/24 (Porcine) SC 0553 Hydralazine HCl 100 MG TID 05/24 0015 AC 05/24 PO 0831 Ipratropium [place] 2.5 ML ONCE ONE 05/23 1930 DC 05/23 INH 05/23 Isosorbide 60 MG DAILY 05/24 1000 AC 05/24 Mononitrate PO 0832 Levothyroxine Sodium 0.025 MG DAILY AC 05/24 0700 AC 05/24 PO 0505 Losartan Potassium 25 MG DAILY 05/24 1000 AC 05/24 PO 1129 Magnesium Oxide 400 MG DAILY 05/24 1000 AC 05/24 PO 0833 Methylprednisolone 40 MG Q6 05/24 0600 AC 05/24 IV 05/24 2355 112 Methylprednisolone 0 .STK-MED ONE 05/23 2049 DC .ROUTE Methylprednisolone 125 MG ONCE ONE 05/23 2045 DC 05/23 IV 05/23 Montelukast Sodium 10 MG 2200 05/24 2200 AC PO Oxycodone HCl 5 MG Q6 05/23 2359 AC PO Patient Own 0 0900,1700 05/24 0900 AC 05/24 Medication PO 0829 Prednisone 50 MG DAILY 05/25 1000 AC PO Sodium Polystyrene 0 .STK-MED ONE 05/23 2148 DC Sulfonate .ROUTE Sodium Polystyrene 60 ML ONCE ONE 05/23 2115 DC 05/23 Sulfonate PO 05/23 Spironolactone 50 MG DAILY 05/24 1000 AC 05/24 PO 0830 Tiotropium [place] 1 PUF DAILY 05/24 1000 AC 05/24 INH 0834 Last 24 Hrs of Lab/Maged Results Last 24 Hrs of Labs/Mics: Laboratory Tests 05/24/16 0720: Anion Gap 11, Estimated GFR 37 L, BUN/Creatinine Ratio 24.3, Serum Osmolality 281 L, CBC w Diff NO MAN DIFF REQ, RBC 3.36 L, MCV 85.0, MCH 29.8, RDW 15.9 H , MPV 7.5, Gran % 94.3 H, Lymphocytes % 4.6 L, Monocytes % 0.9 L, Eosinophils % 0.1, Basophils % 0.1, Absolute Granulocytes 4.7, Absolute Lymphocytes 0.2 L, Absolute Monocytes 0 L, Absolute Eosinophils 0, Absolute Basophils 0, PUBS MCHC 35.1 05/24/16 0140: pH 7.37, pCO2 29 L, pO2 58 L, HCO3 17 L, ABG O2 Sat (Measured) 88.0 L, P-50 (Temp Corrected) Y, Carboxyhemoglobin 0.3 L, O2 Concentration % 2 LPM, Temperature 98.2, O2 Delivery Method N/C, Phlebotomy Draw Site RIGHT BRACHIAL 05/23/162153: Serum Osmolality Cancelled 05/23/16 193: Anion Gap 11, Estimated GFR 28 L, BUN/Creatinine Ratio 23.3, Glucose 117 H, Calcium 9.1, Total Bilirubin 0.7, AST 21, ALT 34, Alkaline Phosphatase 62, Troponin I < 0.01, Zii-Z-Avpiyppxkyv Pept 6600 H, Total Protein 6.8, Albumin 3.8, Globulin 3.0, Albumin/Globulin Ratio 1.3, CBC w Diff NO MAN DIFF REQ, RBC 3.51 L, MCV 84.9, MCH 29.7, RDW 16.0 H, MPV 7.1 L, Gran % 80.4 H, Lymphocytes % 7.0 L, Monocytes % 11.9 H, Eosinophils % 0.6, Basophils % 0.1, Absolute Granulocytes 7.2 H, Absolute Lymphocytes 0.6 L, Absolute Monocytes 1.1 H, Absolute Eosinophils 0.1, Absolute Basophils 0, PUBS MCHC 35.0 Microbiology 05/24 1046 BLOOD: Blood Culture - RECD 05/24 1001 BLOOD: Blood Culture - RECD 05/24 35 LOWER RESP: Respiratory Culture - COLB 05/24 35 LOWER RESP: Gram Stain - COLB Orders Miscellaneous Findings: PATIENT: ANNEL FUENTES PRESENT AGE: 66 PATIENT ACCOUNT NO: [id number] : 48 LOCATION: [facility] ORDERING PHYSICIAN: ARIS CARRILLO MD SERVICE DATE: 05/24/16- EXAM TYPE: RAD - XRY-SINUSES, COMPLETE EXAMINATION: XR SINUSES CLINICAL INFORMATION: Sinus tenderness and congestion. COMPARISON: None. TECHNIQUE: 4 views of the paranasal sinuses are obtained. FINDINGS: There is no apparent mucosal thickening or air-fluid levels in the paranasal sinuses. No other abnormalities are identified. IMPRESSION: Unremarkable paranasal sinuses. DICTATED BY: SACHI CUEVAS MD DATE/TIME DICTATED:05/24/161403 TELESALES AGENT:JAMESON DATE/TIME TRANSCRIBED:05/24/161403 Assessment/Plan Assessment: 1. Acute hypoxic respiratory failure due to possible COPD exacerbation/CHF exacerbation 2. Worsening sinus congestion with low-grade fever 3. CAD and ischemic cardiomyopathy s/p CABG. 4. History of hypothyroidism 5 acute on chronic kidney disease stage IIIB 6. History of hypertension hyperlipidemia. Acute hypoxic respiratory failure due to possible COPD exacerbation/CHF exacerbation: Continue oxygen to keep saturation above 92%. Patient is no more wheezing after getting IV Solu-Medrol 125 mg in the ED, consider IV Solu-Medrol from the morning. Stop IV Solu-Medrol consider prednisone 50 mg. Consider azithromycin for its anti-inflammation properties. Continue Spiriva, Flonase. Chest x-ray done in the ED showed mild stable cardiomegaly, will continue home dose of Lasix 40 mg from morning. Will not give any IV Lasix as patient has an evidence of a JACIEL as well Monitor in's and O's with daily weight checks. Worsening sinus congestion with low-grade fever: Will obtain sinus x-ray: Continue the patient on IV ceftriaxone, for ?sinusitis. Send sputum cultures and blood cultures. Obtain rapid flu, strep and Legionella antigens. Mucinex for cough. Continue TRC nebs. Hyponatremia: Check urine lites, urine osmolality and serum osmolality. 1000 fluid restriction Hold Lasix for today, already administered this am we can decide whether to administered on 05/25/2016. CAD and ischemic cardiomyopathy s/p CABG. Continue home medications including aspirin, Lipitor, diltiazem, Imdur, hydralazine. History of hypothyroidism Continue home dose of levothyroxine. Acute on chronic kidney disease stage IV: Hold losartan, for now, can likely begin tomorrow. Avoid any nephrotoxic agents. History of hypertension and hyperlipidemia. Continue medications. DVT prophylaxis subcutaneous heparin. Code Full code Problem List: 1. Pancreatitis, acute 2. COPD exacerbation 3. Hypoxia 4. Leukocytosis 5. CHF (congestive heart failure) 6. HTN (hypertension) 7. HLD (hyperlipidemia) 8. CHF (congestive heart failure) 9. Uncontrolled hypertension 10. COPD (chronic obstructive pulmonary disease) case management patient 11. COPD (chronic obstructive pulmonary disease) 12. DVT prophylaxis 13. Full code status 14. CAD (coronary artery disease) 15. Hypothyroid 16. Sinusitis, acute 17. Fever 18. Renal insufficiency 19. Hyponatremia syndrome 20. Hyperkalemia 21. Hyponatremia Pain Ratin Pain Location: No Pain Reported Pain Goal: Remain pain free Pain Plan: Tylenol Tomorrow's Labs & Rationales: BEP for renal function creatinine and BUN.
[2016-05-24] MEDS ORDERED: PLAVIX75 M1 PO (09:21)
[2016-05-24] MEDS ORDERED: FLOVENT HFA10.6 GM INH (09:27)
[2016-05-24] MEDS ORDERED: COZAAR25 M1 PO ×2 (09:28→09:36)
[2016-05-24] MEDS ORDERED: NASA MIST SALIN75 ML (09:36)
--- NOTE | 2016-05-24 10:12 | Cons- Nephrology ---
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 Has had mult episodes of JACIEL on past w baseline Cr low 1s --> found increased 1.8 on admit. Also chronic hyponatremia on po fluid restriction @ home & found 123 on admit. Had recent admit for CHF & outpt meds include ARB, Lasix & spironolactone. Has had brown post nasal drip w cough productive white sputum x last 2 weeks Rx w po antibiotics preadmit. No fever but ? rigors at home & begun on IV antibiotics & steroids here. No NSAIDS, vomiting, or diarrhea. No recent IV contrast or documented hypotension. Renal function & hyponatremia improving this morning. Allergies/Medications Allergies: Coded Allergies: NO KNOWN ALLERGIES (05/13/16) Home Med List: Acetylcysteine (NAC) 600 MG CAPSULE 1 CAP PO BID DIRECTED (Reported) Alprazolam (Xanax) 0.5 MG TABLET 1 TAB PO BIDP PRN AT NIGHT (Reported) Amlodipine Besylate 5 MG TABLET 1 TAB PO DAILY DIRECTED (Reported) Aspirin (Ecotrin*) 81 MG TABLET.DR 1 TAB PO DAILY DIRECTED (Reported) Atorvastatin Calcium 80 MG TABLET 1 TAB PO DAILY DIRECTED (Reported) Cholecalciferol (Vitamin D3) (Vitamin D) 2,000 UNIT CAPSULE 1 CAP PO DAILY DIRECTED (Reported) Clonidine HCl (Clonidine HCl ER) 0.1 MG TAB.ER.12H 1 TAB PO DAILY DIRECTED (Reported) Clopidogrel Bisulfate (Plavix) 75 MG TABLET 1 TAB PO DAILY Heart Health ( Reported) Cyclosporine (Restasis Multidose) 0.05 % DROPS 1 TAB PO DAILY DIRECTED ( Reported) Diltiazem HCl (Diltiazem 24HR ER) 180 MG CAP.ER.24H 1 CAP PO DAILY DIRECTED (Reported) Fluticasone Propionate (Flovent Hfa) 44 MCG AER.W.ADAP 2 PUF INH Q4-6 PRN Bronchitis (Reported) Fluticasone Propionate 50 MCG/ACTUATION SPRAY.SUSP 2 SPRAY NASB DAILY DIRECTED (Reported) Furosemide (Lasix) 40 MG TABLET 1 TAB PO DAILY DIRECTED (Reported) Hydralazine HCl 100 MG TABLET 1 TAB PO TID DIRECTED (Reported) Isosorbide Mononitrate (Isosorbide Mononitrate ER) 60 MG TAB.ER.24H 1 TAB PO DAILY DIRECTED (Reported) Ivabradine HCl (Corlanor) 5 MG TABLET 1 TAB PO BID DIRECTED (Reported) Lactobacillus Acidophilus (Acidophilus) 1 EACH CAPSULE 1 CAP PO DAILY DIRECTED (Reported) Levothyroxine Sodium 25 MCG TABLET 1 TAB PO DAILY DIRECTED (Reported) Losartan Potassium (Cozaar) 25 MG TABLET 1 TAB PO DAILY Blood Pressure ( Reported) Losartan Potassium (Cozaar) 25 MG TABLET 1 TAB PO DAILY DIRECTED (Reported ) Magnesium Oxide (Magnesium) 400 MG CAPSULE 1 CAP PO DAILY DIRECTED ( Reported) Montelukast Sodium 10 MG TABLET 1 TAB PO DAILY DIRECTED (Reported) Pantoprazole Sodium 40 MG TABLET.DR 1 TAB PO EVERY 3 DAYS DIRECTED ( Reported) Sodium Chloride/Sodium Bicarb (Nasa Mist Saline [place]) 0.9 % SPRAY Nasal Dryness (Reported) Spironolactone 50 MG TABLET 1 TAB PO DAILY DIRECTED (Reported) Tiotropium [place] (Spiriva) 18 MCG CAP.W.DEV 1 CAP INH DAILY DIRECTED ( Reported) Current Medications: Current Medications Sig/Emmanuel Start time Last Medication Dose Route Stop Time Status Admin Acetaminophen 650 MG Q6P PRN 05/23 2200 AC PO Acetylcysteine 600 MG BID 05/24 1000 AC 05/24 PO 0834 Albuterol Sulfate 3 ML ONCE ONE 05/24 0430 DC 05/24 INH 05/24 043 0434 Albuterol Sulfate 3 ML ONCE ONE 05/24 0100 DC 05/24 INH 05/24 010 0100 Albuterol Sulfate 3 ML ONCE ONE 05/23 1930 DC 05/23 INH 05/23 1931 195 Alprazolam 0.25 MG ONCE ONE 05/24 0500 DC 05/24 PO 05/24 050 0458 Alprazolam 0.25 MG Q12P PRN 05/23 2345 AC 05/24 PO 05/30 234 0035 Amlodipine Besylate 5 MG DAILY 05/24 1000 AC 05/24 PO 0833 Aspirin Buffered 81 MG DAILY 05/24 1000 AC 05/24 PO 0832 Atorvastatin Calcium 80 MG 1700 05/24 1700 DC PO Atorvastatin Calcium 80 MG 1700 05/24 1700 CAN PO Atorvastatin Calcium 80 MG 1700 05/24 0030 AC 05/24 PO 0035 Azithromycin 500 MG DAILY 05/24 1000 AC Sodium Chloride 250 ML IV Clopidogrel Bisulfate 75 MG DAILY 05/24 1000 AC PO Diltiazem HCl 180 MG DAILY 05/24 1000 AC 05/24 PO 0832 Fluticasone 2 SPRAY QPM 05/24 2200 DC Propionate GRISELDA Fluticasone 2 SPRAY QPM 05/24 0030 AC 05/24 Propionate GRISELDA 0036 Furosemide 40 MG DAILY 05/24 1000 AC 05/24 PO 0833 Heparin Sodium 5,000 UNIT Q8 05/24 0600 AC 05/24 (Porcine) SC 0553 Hydralazine HCl 100 MG TID 05/24 0015 AC 05/24 PO 0831 Ipratropium [place] 2.5 ML ONCE ONE 05/23 1930 DC 05/23 INH 05/23 1931 195 Isosorbide 60 MG DAILY 05/24 1000 AC 05/24 Mononitrate PO 0832 Levothyroxine Sodium 0.025 MG DAILY AC 05/24 0700 AC 05/24 PO 0505 Losartan Potassium 25 MG DAILY 05/24 1000 AC PO Magnesium Oxide 400 MG DAILY 05/24 1000 AC 05/24 PO 0833 Methylprednisolone 40 MG Q6 05/24 0600 AC 05/24 IV 0505 Methylprednisolone 0 .STK-MED ONE 05/23 2049 DC .ROUTE Methylprednisolone 125 MG ONCE ONE 05/23 2045 DC 05/23 IV 05/23 Montelukast Sodium 10 MG 2200 05/24 2200 AC PO Oxycodone HCl 5 MG Q6 05/23 2359 AC PO Patient Own 0 0900,1700 05/24 0900 AC 05/24 Medication PO 0829 Sodium Polystyrene 0 .STK-MED ONE 05/23 2148 DC Sulfonate .ROUTE Sodium Polystyrene 60 ML ONCE ONE 05/23 2115 DC 05/23 Sulfonate PO 05/23 Spironolactone 50 MG DAILY 05/24 1000 AC 05/24 PO 0830 Tiotropium [place] 1 PUF DAILY 05/24 1000 AC 05/24 INH 0834 Review of Systems Review of Systems Constitutional: Reports: chills, malaise. EENTM: Reports: nasal congestion. Cardiovascular: Reports: see HPI. Respiratory: Reports: see HPI. GI: Reports: no symptoms. Genitourinary: Reports: no symptoms. Musculoskeletal: Reports: no symptoms. Skin: Reports: no symptoms. Neurological/Psychological: Reports: no symptoms. Hematologic/Endocrine: Reports: no symptoms. Immunologic/Allergic: Reports: no symptoms. 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 Home Who Do You Live With? spouse Services at Home: None Smoking Status: Former Smoker Living Will? no Functional Ability ADLs Independent: dressing, eating, toileting, bathing. Ambulation: independent IADLs Independent: shopping, housework, finances, food prep, telephone, transportation , medication admin. Exam & Diagnostic Data Vital Signs and I&O Vital Signs Date Time Temp Pulse Resp B/P Pulse O2 O2 Flow FiO2 Ox Delivery Rate 05/24 0833 94 162/58 05/24 0832 94 162/58 05/24 0831 94 162/58 05/24 0800 97.5 93 18 170/62 96 Nasal 3.0L Cannula 05/24 0112 92 Nasal 2.0L Cannula 05/24 0035 80 142/68 05/23 2330 Nasal 2.0L Cannula 05/23 2330 98.2 84 26 142/64 93 Nasal 2.0L Cannula 05/23 2302 99.3 76 20 136/64 93 Nasal 2.0L Cannula 05/23 2059 76 20 146/66 95 Nasal 2.0L Cannula 05/239 74 20 144/65 96 Nasal 3.0L Cannula 05/23 1953 97 Nasal 4.0L Cannula 05/23 1936 94 Nasal 4.0L Cannula 05/23 1854 99.2 80 26 126/57 94 Room Air Intake & Output 05/24 04005/23 Intake Total 300 0 Output Total 500 Balance -200 0 Intake, IV 0 Intake, Oral 300 0 Number 0 Bowel Movements Output, Urine 500 Patient 129 lb 129 lb Weight Physical Exam General Appearance: well developed/nourished, alert Head: atraumatic, normal appearance Eyes: Bilateral: normal appearance. Ears, Nose, Throat: normal ENT inspection Neck: normal inspection, supple Respiratory: decreased breath sounds, rhonchi Cardiovascular: regular rate/rhythm, friction rub (none) Gastrointestinal: normal bowel sounds, soft, non-tender, no organomegaly Back: normal inspection Extremities: no edema Neurologic/Psych: no motor/sensory deficits, awake, alert, oriented x 3 Skin: intact, normal color, warm/dry Lymphatic: no anterior cervical shana Results Pertinent Lab Results: Laboratory Tests 05/24 05/24 0720 0140 Blood Gas pH (7.35 - 7.45 PH) 7.37 pCO2 (35 - 45 TORR) 29 L pO2 (80 - 100 TORR) 58 L HCO3 (21 - 28 MEQ/L) 17 L ABG O2 Sat (Measured) (>96.0 %) 88.0 L P-50 (Temp Corrected) Y Carboxyhemoglobin (1.5 - 5.0 %) 0.3 L O2 Concentration % 2 LPM Temperature (97.0 - 100.0 FARH) 98.2 O2 Delivery Method N/C Chemistry Sodium (137 - 145 mmol/L) 127 L Potassium (3.5 - 5.1 mmol/L) 4.8 Chloride (98 - 107 mmol/L) 94 L Carbon Dioxide (22 - 30 mmol/L) 22 Anion Gap (5 - 16) 11 BUN (7 - 17 mg/dL) 34 H Creatinine (0.5 - 1.0 mg/dL) 1.4 H Estimated GFR (>60 ml/min) 37 L BUN/Creatinine Ratio (7 - 25 %) 24.3 Serum Osmolality (285 - 295 MOSM/KG) 281 L Hematology CBC w Diff NO MAN DIFF REQ WBC (4.8 - 10.8 /CUMM) 5.0 RBC (4.20 - 5.40 /CUMM) 3.36 L Hgb (12.0 - 16.0 G/DL) 10.0 L Hct (37 - 47 %) 28.6 L MCV (81.0 - 99.0 FL) 85.0 MCH (27.0 - 31.0 PG) 29.8 RDW (11.5 - 14.5 %) 15.9 H Plt Count (130 - 400 /CUMM) 326 MPV (7.4 - 10.4 FL) 7.5 Gran % (42.2 - 75.2 %) 94.3 H Lymphocytes % (20.5 - 51.1 %) 4.6 L Monocytes % (1.7 - 9.3 %) 0.9 L Eosinophils % (0 - 5 %) 0.1 Basophils % (0.0 - 2.0 %) 0.1 Absolute Granulocytes (1.4 - 6.5 /CUMM) 4.7 Absolute Lymphocytes (1.2 - 3.4 /CUMM) 0.2 L Absolute Monocytes (0.10 - 0.60 /CUMM) 0 L Absolute Eosinophils (0.0 - 0.7 /CUMM) 0 Absolute Basophils (0.0 - 0.2 /CUMM) 0 PUBS MCHC (33.0 - 37.0 G/DL) 35.1 Miscellaneous Phlebotomy Draw Site RIGHT BRACHIAL 05/23 Chemistry Sodium (137 - 145 mmol/L) 123 L Potassium (3.5 - 5.1 mmol/L) 5.6 H Chloride (98 - 107 mmol/L) 93 L Carbon Dioxide (22 - 30 mmol/L) 19 L Anion Gap (5 - 16) 11 BUN (7 - 17 mg/dL) 42 H Creatinine (0.5 - 1.0 mg/dL) 1.8 H Estimated GFR (>60 ml/min) 28 L BUN/Creatinine Ratio (7 - 25 %) 23.3 Glucose (65 - 99 mg/dL) 117 H Serum Osmolality Cancelled Calcium (8.4 - 10.2 mg/dL) 9.1 Total Bilirubin (0.2 - 1.3 mg/dL) 0.7 AST (14 - 36 U/L) 21 ALT (9 - 52 U/L) 34 Alkaline Phosphatase (<127 U/L) 62 Troponin I (< 0.11 ng/ml) < 0.01 Zsm-A-Ppugmsjxfnv Pept (<125 pg/mL) 6600 H Total Protein (6.3 - 8.2 g/dL) 6.8 Albumin (3.5 - 5.0 g/dL) 3.8 Globulin (1.9 - 4.2 gm/dL) 3.0 Albumin/Globulin Ratio (1.1 - 2.2 %) 1.3 Hematology CBC w Diff NO MAN DIFF REQ WBC (4.8 - 10.8 /CUMM) 9.0 RBC (4.20 - 5.40 /CUMM) 3.51 L Hgb (12.0 - 16.0 G/DL) 10.4 L Hct (37 - 47 %) 29.8 L MCV (81.0 - 99.0 FL) 84.9 MCH (27.0 - 31.0 PG) 29.7 RDW (11.5 - 14.5 %) 16.0 H Plt Count (130 - 400 /CUMM) 348 MPV (7.4 - 10.4 FL) 7.1 L Gran % (42.2 - 75.2 %) 80.4 H Lymphocytes % (20.5 - 51.1 %) 7.0 L Monocytes % (1.7 - 9.3 %) 11.9 H Eosinophils % (0 - 5 %) 0.6 Basophils % (0.0 - 2.0 %) 0.1 Absolute Granulocytes (1.4 - 6.5 /CUMM) 7.2 H Absolute Lymphocytes (1.2 - 3.4 /CUMM) 0.6 L Absolute Monocytes (0.10 - 0.60 /CUMM) 1.1 H Absolute Eosinophils (0.0 - 0.7 /CUMM) 0.1 Absolute Basophils (0.0 - 0.2 /CUMM) 0 PUBS MCHC (33.0 - 37.0 G/DL) 35.0 Imaging/Other Studies: EXAMINATION: XR PORTABLE CHEST CLINICAL INFORMATION: Shortness of breath. COMPARISON: Chest x-ray from 05/13/2016. TECHNIQUE: Portable view of the chest was obtained. FINDINGS: The cardiac silhouette is stable and remains enlarged. Mediastinal contours are normal. Sternotomy wires are in place. No airspace opacities or pleural effusions are seen. There are mild degenerative changes in the AC joints. IMPRESSION: Stable mild cardiomegaly with postsurgical changes. No airspace disease. No acute process. Assessment/Plan Assessment/Recommendations Assessment: 1. JACIEL: prerenal & improving; ? overdiuresis in setting of cardiorenal syndrome. 2. Hyponatremia: improving; can't make dx SIADH in setting of cardiomyopathy & diuretics. Needs continued flluid restriction. 3. CKD: mild - mod, stage 2-3A, due to HTN & RV dx w atrophic L kidney Recommendations: 1. fluid restriction 1000 ml/day 2. hold Lasix today 3. serial renal function
--- NOTE | 2016-05-24 11:56 | Cons- Pulmonary ---
General Information and HPI Consulting Request Date of Consult: 05/24/16 Requested By: ER and pt History of Present Illness: Patient is a 66-year-old female with past medical history of hypertension, hyperlipidemia, hypothyroidism, chronic kidney disease stage II, COPD not on home oxygen (former smoker, quit in September 2015), left bundle-branch block, cardiomyopathy ,diastolic heart failure,double bypass surgery in October 2015 [facility] was complicated by postop cardiac arrest, bilateral pleural effusion with Pseudomonas, with recent admission on 04/13/2016 and 04/26/2016 for acute CHF, presented with chief complaints of slowely progressive dyspnea since 1 -2 weeks. According to her, she had sinusitis 2 weeks ago and was treated by 5 days course of prednisone and amoxicillin. But as she was not improving, so her PCP, Dr. worrell changed amoxicillin to Augmentin. Despite steroids and antibiotics, she continues to have shortness of breath. She went to CHF clinic, 7 days ago and they found that she is having high blood pressure,otherwise, her cardiac function is normal. But patient continues to feel short of breath, so she came to ED for further management. She denies chest pain, orthopnea but feeling short of breath even a small amount of exertion. She claims that she gained 3 pounds weight over one day. Chest x-ray on 05/23/2016 -showed stable mild cardiomegaly with postsurgical changes. No any acute air space disease. Echo on 09/11/2015 -Anterior/anteroseptal hypokinesis,LVEF-35 to 40 %. No evidence of LV thrombus. Review of Systems Constitutional: Reports: malaise, weakness. Denies: fever. EENTM: Reports: nasal pain, throat pain. Cardiovascular: Reports: palpitations. Denies: chest pain, edema, orthopena, peripheral edema. Respiratory: Reports: cough. Denies: hemoptysis, orthopnea, short of breath, stridor, wheezing. GI: Denies: abdominal pain, bloating, constipation, diarrhea, nausea. Genitourinary: Denies: dysuria, frequency, hematuria, nocturia. Musculoskeletal: Denies: back pain, joint pain. Skin: Denies: no symptoms. Neurological/Psychological: Reports: anxiety, depressed, emotional problems. Allergies/Medications Allergies: Coded Allergies: NO KNOWN ALLERGIES (05/13/16) Home Med List: Acetylcysteine (NAC) 600 MG CAPSULE 1 CAP PO BID DIRECTED (Reported) Alprazolam (Xanax) 0.5 MG TABLET 1 TAB PO BIDP PRN AT NIGHT (Reported) Amlodipine Besylate 5 MG TABLET 1 TAB PO DAILY DIRECTED (Reported) Aspirin (Ecotrin*) 81 MG TABLET.DR 1 TAB PO DAILY DIRECTED (Reported) Atorvastatin Calcium 80 MG TABLET 1 TAB PO DAILY DIRECTED (Reported) Cholecalciferol (Vitamin D3) (Vitamin D) 2,000 UNIT CAPSULE 1 CAP PO DAILY DIRECTED (Reported) Clonidine HCl (Clonidine HCl ER) 0.1 MG TAB.ER.12H 1 TAB PO DAILY DIRECTED (Reported) Clopidogrel Bisulfate (Plavix) 75 MG TABLET 1 TAB PO DAILY Heart Health ( Reported) Cyclosporine (Restasis Multidose) 0.05 % DROPS 1 TAB PO DAILY DIRECTED ( Reported) Diltiazem HCl (Diltiazem 24HR ER) 180 MG CAP.ER.24H 1 CAP PO DAILY DIRECTED (Reported) Fluticasone Propionate (Flovent Hfa) 44 MCG AER.W.ADAP 2 PUF INH Q4-6 PRN Bronchitis (Reported) Fluticasone Propionate 50 MCG/ACTUATION SPRAY.SUSP 2 SPRAY NASB DAILY DIRECTED (Reported) Furosemide (Lasix) 40 MG TABLET 1 TAB PO DAILY DIRECTED (Reported) Hydralazine HCl 100 MG TABLET 1 TAB PO TID DIRECTED (Reported) Isosorbide Mononitrate (Isosorbide Mononitrate ER) 60 MG TAB.ER.24H 1 TAB PO DAILY DIRECTED (Reported) Ivabradine HCl (Corlanor) 5 MG TABLET 1 TAB PO BID DIRECTED (Reported) Lactobacillus Acidophilus (Acidophilus) 1 EACH CAPSULE 1 CAP PO DAILY DIRECTED (Reported) Levothyroxine Sodium 25 MCG TABLET 1 TAB PO DAILY DIRECTED (Reported) Losartan Potassium (Cozaar) 25 MG TABLET 1 TAB PO DAILY Blood Pressure ( Reported) Losartan Potassium (Cozaar) 25 MG TABLET 1 TAB PO DAILY DIRECTED (Reported ) Magnesium Oxide (Magnesium) 400 MG CAPSULE 1 CAP PO DAILY DIRECTED ( Reported) Montelukast Sodium 10 MG TABLET 1 TAB PO DAILY DIRECTED (Reported) Pantoprazole Sodium 40 MG TABLET.DR 1 TAB PO EVERY 3 DAYS DIRECTED ( Reported) Sodium Chloride/Sodium Bicarb (Nasa Mist Saline [place]) 0.9 % SPRAY Nasal Dryness (Reported) Spironolactone 50 MG TABLET 1 TAB PO DAILY DIRECTED (Reported) Tiotropium [place] (Spiriva) 18 MCG CAP.W.DEV 1 CAP INH DAILY DIRECTED ( Reported) Review of Systems Review of Systems Constitutional: Reports: see HPI. 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 Home Who Do You Live With? spouse Services at Home: None Smoking Status: Former Smoker Living Will? no Functional Ability ADLs Independent: dressing, eating, toileting, bathing. Ambulation: independent IADLs Independent: shopping, housework, finances, food prep, telephone, transportation , medication admin. Exam & Diagnostic Data Last 24 Hrs of Vital Signs/I&O Vital Signs Date Time Temp Pulse Resp B/P Pulse O2 O2 Flow FiO2 Ox Delivery Rate 05/24 1129 84 150/56 05/24 0833 94 162/58 05/24 0832 94 162/58 05/24 0831 94 162/58 05/24 0800 97.5 93 18 170/62 96 Nasal 3.0L Cannula 05/24 0112 92 Nasal 2.0L Cannula 05/24 0035 80 142/68 05/23 2330 Nasal 2.0L Cannula 05/23 2330 98.2 84 26 142/64 93 Nasal 2.0L Cannula 05/23 2302 99.3 76 20 136/64 93 Nasal 2.0L Cannula 05/239 76 20 146/66 95 Nasal 2.0L Cannula 05/23 1959 74 20 144/65 96 Nasal 3.0L Cannula 05/23 1953 97 Nasal 4.0L Cannula 05/23 1936 94 Nasal 4.0L Cannula 05/234 99.2 80 26 126/57 94 Room Air Intake & Output 05/24 1600 05/24 0800 05/24 0000 Intake Total 300 0 Output Total 500 Balance -200 0 Intake, IV 0 Intake, Oral 300 0 Number 0 Bowel Movements Output, Urine 500 Patient 129 lb 129 lb Weight Last 48 Hrs of Labs/Maged: Laboratory Tests 05/24/16 0720: Anion Gap 11, Estimated GFR 37 L, BUN/Creatinine Ratio 24.3, Serum Osmolality 281 L, CBC w Diff NO MAN DIFF REQ, RBC 3.36 L, MCV 85.0, MCH 29.8, RDW 15.9 H , MPV 7.5, Gran % 94.3 H, Lymphocytes % 4.6 L, Monocytes % 0.9 L, Eosinophils % 0.1, Basophils % 0.1, Absolute Granulocytes 4.7, Absolute Lymphocytes 0.2 L, Absolute Monocytes 0 L, Absolute Eosinophils 0, Absolute Basophils 0, PUBS MCHC 35.1 05/24/16 0140: pH 7.37, pCO2 29 L, pO2 58 L, HCO3 17 L, ABG O2 Sat (Measured) 88.0 L, P-50 (Temp Corrected) Y, Carboxyhemoglobin 0.3 L, O2 Concentration % 2 LPM, Temperature 98.2, O2 Delivery Method N/C, Phlebotomy Draw Site RIGHT BRACHIAL 05/23/164: Serum Osmolality Cancelled 05/23/16 1932: Anion Gap 11, Estimated GFR 28 L, BUN/Creatinine Ratio 23.3, Glucose 117 H, Calcium 9.1, Total Bilirubin 0.7, AST 21, ALT 34, Alkaline Phosphatase 62, Troponin I < 0.01, Bbo-W-Lzcvbialneb Pept 6600 H, Total Protein 6.8, Albumin 3.8, Globulin 3.0, Albumin/Globulin Ratio 1.3, CBC w Diff NO MAN DIFF REQ, RBC 3.51 L, MCV 84.9, MCH 29.7, RDW 16.0 H, MPV 7.1 L, Gran % 80.4 H, Lymphocytes % 7.0 L, Monocytes % 11.9 H, Eosinophils % 0.6, Basophils % 0.1, Absolute Granulocytes 7.2 H, Absolute Lymphocytes 0.6 L, Absolute Monocytes 1.1 H, Absolute Eosinophils 0.1, Absolute Basophils 0, PUBS MCHC 35.0 Assessment/Plan Impression/Plan: Physical Exam General Appearance Alert, Oriented X3, Cooperative, No Acute Distress Skin No Rashes, No Breakdown HEENT Atraumatic, PERRLA, EOMI Neck Supple, increased JVP Cardiovascular Regular Rate, Normal S1, Normal S2 Lungs decreased air entry bilaterally, bilateral basal crepts Abdomen Normal Bowel Sounds, Soft, No Tenderness Neurological Normal Speech Extremities No Clubbing, No Cyanosis, No Edema, Normal Pulses Vascular Normal Pulses, Pulses Symmetrical 65-year-old fever with significant cardiac history as noted in H&P recently had a bypass done at [facility] with subsequent cardiac arrest with subsequent adverse effect to high dose of metoprolol (100mg) with effusions with severe baseline copd with fev1 of .9 (not a retainer) with * Chronic systolic CHF exacerbation 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
--- NOTE | 2016-05-24 14:05 | Admission Certification ---
Admission Certification Certification Statement - As attending physician, I certify that at the time of - admission, based on clinical presentation, severity of - symptoms, need for further diagnostic testing and - therapeutic interventions, and risk of adverse outcomes - without in-hospital treatment, in my clinical assessment, - this patient requires an acute hospital stay for a minimum - of two nights or longer. I have also considered psychsocial - factors such as support system, advanced age, financial - issues, cognitive issues, and failed out-patient treatments, - past re-admission history, safety of patient, and lack of - compliance as applicable. Specific rationale supporting this admission is: Agree shortness of breath laceration of COPD history of congestive heart failure acute renal insufficiency on chronic renal insufficiency hyponatremia
--- NOTE | 2016-05-24 14:09 | PN- Att Addend ---
Attending Addendum Attending Brief Note 66-year-old white female with history of hypertension hyperlipidemia hypothyroidism chronic renal disease stage II, COPD myocardial myopathy diastolic congestive heart failure and coronary artery disease comes in with increased shortness of breath despite medical treatment from Dr. Beckett. She also seems to have acute renal insufficiency on top of her chronic renal disease mild hyponatremic she will be admitted will be seen by nephrology and pulmonary treat accordingly Laboratory Tests 05/24 05/24 0720 0140 Blood Gas pH (7.35 - 7.45 PH) 7.37 pCO2 (35 - 45 TORR) 29 L pO2 (80 - 100 TORR) 58 L HCO3 (21 - 28 MEQ/L) 17 L ABG O2 Sat (Measured) (>96.0 %) 88.0 L P-50 (Temp Corrected) Y Carboxyhemoglobin (1.5 - 5.0 %) 0.3 L O2 Concentration % 2 LPM Temperature (97.0 - 100.0 FARH) 98.2 O2 Delivery Method N/C Chemistry Sodium (137 - 145 mmol/L) 127 L Potassium (3.5 - 5.1 mmol/L) 4.8 Chloride (98 - 107 mmol/L) 94 L Carbon Dioxide (22 - 30 mmol/L) 22 Anion Gap (5 - 16) 11 BUN (7 - 17 mg/dL) 34 H Creatinine (0.5 - 1.0 mg/dL) 1.4 H Estimated GFR (>60 ml/min) 37 L BUN/Creatinine Ratio (7 - 25 %) 24.3 Serum Osmolality (285 - 295 MOSM/KG) 281 L Hematology CBC w Diff NO MAN DIFF REQ WBC (4.8 - 10.8 /CUMM) 5.0 RBC (4.20 - 5.40 /CUMM) 3.36 L Hgb (12.0 - 16.0 G/DL) 10.0 L Hct (37 - 47 %) 28.6 L MCV (81.0 - 99.0 FL) 85.0 MCH (27.0 - 31.0 PG) 29.8 RDW (11.5 - 14.5 %) 15.9 H Plt Count (130 - 400 /CUMM) 326 MPV (7.4 - 10.4 FL) 7.5 Gran % (42.2 - 75.2 %) 94.3 H Lymphocytes % (20.5 - 51.1 %) 4.6 L Monocytes % (1.7 - 9.3 %) 0.9 L Eosinophils % (0 - 5 %) 0.1 Basophils % (0.0 - 2.0 %) 0.1 Absolute Granulocytes (1.4 - 6.5 /CUMM) 4.7 Absolute Lymphocytes (1.2 - 3.4 /CUMM) 0.2 L Absolute Monocytes (0.10 - 0.60 /CUMM) 0 L Absolute Eosinophils (0.0 - 0.7 /CUMM) 0 Absolute Basophils (0.0 - 0.2 /CUMM) 0 PUBS MCHC (33.0 - 37.0 G/DL) 35.1 Miscellaneous Phlebotomy Draw Site RIGHT BRACHIAL 05/23 Chemistry Sodium (137 - 145 mmol/L) 123 L Potassium (3.5 - 5.1 mmol/L) 5.6 H Chloride (98 - 107 mmol/L) 93 L Carbon Dioxide (22 - 30 mmol/L) 19 L Anion Gap (5 - 16) 11 BUN (7 - 17 mg/dL) 42 H Creatinine (0.5 - 1.0 mg/dL) 1.8 H Estimated GFR (>60 ml/min) 28 L BUN/Creatinine Ratio (7 - 25 %) 23.3 Glucose (65 - 99 mg/dL) 117 H Serum Osmolality Cancelled Calcium (8.4 - 10.2 mg/dL) 9.1 Total Bilirubin (0.2 - 1.3 mg/dL) 0.7 AST (14 - 36 U/L) 21 ALT (9 - 52 U/L) 34 Alkaline Phosphatase (<127 U/L) 62 Troponin I (< 0.11 ng/ml) < 0.01 Non-T-Hdgyahurrks Pept (<125 pg/mL) 6600 H Total Protein (6.3 - 8.2 g/dL) 6.8 Albumin (3.5 - 5.0 g/dL) 3.8 Globulin (1.9 - 4.2 gm/dL) 3.0 Albumin/Globulin Ratio (1.1 - 2.2 %) 1.3 Hematology CBC w Diff NO MAN DIFF REQ WBC (4.8 - 10.8 /CUMM) 9.0 RBC (4.20 - 5.40 /CUMM) 3.51 L Hgb (12.0 - 16.0 G/DL) 10.4 L Hct (37 - 47 %) 29.8 L MCV (81.0 - 99.0 FL) 84.9 MCH (27.0 - 31.0 PG) 29.7 RDW (11.5 - 14.5 %) 16.0 H Plt Count (130 - 400 /CUMM) 348 MPV (7.4 - 10.4 FL) 7.1 L Gran % (42.2 - 75.2 %) 80.4 H Lymphocytes % (20.5 - 51.1 %) 7.0 L Monocytes % (1.7 - 9.3 %) 11.9 H Eosinophils % (0 - 5 %) 0.6 Basophils % (0.0 - 2.0 %) 0.1 Absolute Granulocytes (1.4 - 6.5 /CUMM) 7.2 H Absolute Lymphocytes (1.2 - 3.4 /CUMM) 0.6 L Absolute Monocytes (0.10 - 0.60 /CUMM) 1.1 H Absolute Eosinophils (0.0 - 0.7 /CUMM) 0.1 Absolute Basophils (0.0 - 0.2 /CUMM) 0 PUBS MCHC (33.0 - 37.0 G/DL) 35.0 Chest x-ray showed no congestive heart failure or acute infiltrates.
--- NOTE | 2016-05-24 14:12 | PN- Att Addend ---
Attending Addendum Attending Brief Note Covering attending note. Patient feels a little better and less short of breath is okay at rest, but with any little exertion but short of breath appreciate pulmonary's and nephrology input and recommendations will continue fluid restriction continue antibiotic therapy, respiratory therapy, monitor labs continue antibiotic therapy. No major changes on physical but no wheezes or crackles at this time. Current Medications Sig/Emmanuel Start time Last Medication Dose Route Stop Time Status Admin Acetaminophen 650 MG Q6P PRN 05/23 2200 AC PO Acetylcysteine 600 MG BID 05/24 1000 DC 05/24 PO 0834 Albuterol Sulfate 3 ML Q4P PRN 05/24 1415 UNV INH Albuterol Sulfate 3 ML ONCE ONE 05/24 0430 DC 05/24 INH 05/24 0431 0434 Albuterol Sulfate 3 ML ONCE ONE 05/24 0100 DC 05/24 INH 05/24 0101 0100 Albuterol Sulfate 3 ML ONCE ONE 05/23 1930 DC 05/23 INH 05/23 193 1952 Alprazolam 0.25 MG ONCE ONE 05/24 0500 DC 05/24 PO 05/24 0501 0458 Alprazolam 0.25 MG Q12P PRN 05/23 2345 AC 05/24 PO 05/30 2344 0035 Amlodipine Besylate 5 MG DAILY 05/24 1000 AC 05/24 PO 0833 Aspirin Buffered 81 MG DAILY 05/24 1000 AC 05/24 PO 0832 Atorvastatin Calcium 80 MG 1700 05/24 1700 DC PO Atorvastatin Calcium 80 MG 1700 05/24 1700 CAN PO Atorvastatin Calcium 80 MG 1700 05/24 0030 AC 05/24 PO 0035 Azithromycin 500 MG DAILY 05/24 1000 AC 05/24 Sodium Chloride 250 ML IV 1044 Ceftriaxone Sodium 1,000 MG DAILY 05/24 1322 AC IV Clopidogrel Bisulfate 75 MG DAILY 05/24 1000 AC 05/24 PO 1127 Diltiazem HCl 180 MG DAILY 05/24 1000 AC 05/24 PO 0832 Fluticasone 2 SPRAY QPM 05/24 2200 DC Propionate GRISELDA Fluticasone 2 PUF Q4-6 PRN 05/24 1400 UNVr Propionate INH Fluticasone 2 SPRAY QPM 05/24 0030 AC 05/24 Propionate GRISELDA 0036 Furosemide 40 MG DAILY 05/24 1000 DC 05/24 PO 0833 Heparin Sodium 5,000 UNIT Q8 05/24 0600 AC 05/24 (Porcine) SC 0553 Hydralazine HCl 100 MG TID 05/24 0015 AC 05/24 PO 0831 Ipratropium [place] 2.5 ML ONCE ONE 05/23 1930 DC 05/23 INH 05/23 Isosorbide 60 MG DAILY 05/24 1000 AC 05/24 Mononitrate PO 0832 Levothyroxine Sodium 0.025 MG DAILY AC 05/24 0700 AC 05/24 PO 0505 Losartan Potassium 25 MG DAILY 05/24 1000 AC 05/24 PO 1129 Magnesium Oxide 400 MG DAILY 05/24 1000 AC 05/24 PO 0833 Methylprednisolone 40 MG Q6 05/24 0600 AC 05/24 IV 05/24 2355 1126 Methylprednisolone 0 .STK-MED ONE 05/23 2049 DC .ROUTE Methylprednisolone 125 MG ONCE ONE 05/23 2045 DC 05/23 IV 05/23 Montelukast Sodium 10 MG 2200 05/24 2200 AC PO Oxycodone HCl 5 MG Q6 PRN 05/24 1356 UNVr PO Oxycodone HCl 5 MG Q6 05/23 2359 DC PO Patient Own 0 0900,1700 05/24 0900 AC 05/24 Medication PO 0829 Prednisone 50 MG DAILY 05/25 1000 AC PO Sodium Polystyrene 0 .STK-MED ONE 05/23 2148 DC Sulfonate .ROUTE Sodium Polystyrene 60 ML ONCE ONE 05/23 2115 DC 05/23 Sulfonate PO 05/23 2116 214 Spironolactone 50 MG DAILY 05/24 1000 AC 05/24 PO 0830 Tiotropium [place] 1 PUF DAILY 05/24 1000 AC 05/24 INH 0834 Laboratory Tests 05/24/16 0720: Anion Gap 11, Estimated GFR 37 L, BUN/Creatinine Ratio 24.3, Serum Osmolality 281 L, CBC w Diff NO MAN DIFF REQ, RBC 3.36 L, MCV 85.0, MCH 29.8, RDW 15.9 H , MPV 7.5, Gran % 94.3 H, Lymphocytes % 4.6 L, Monocytes % 0.9 L, Eosinophils % 0.1, Basophils % 0.1, Absolute Granulocytes 4.7, Absolute Lymphocytes 0.2 L, Absolute Monocytes 0 L, Absolute Eosinophils 0, Absolute Basophils 0, PUBS MCHC 35.1 05/24/16 0140: pH 7.37, pCO2 29 L, pO2 58 L, HCO3 17 L, ABG O2 Sat (Measured) 88.0 L, P-50 (Temp Corrected) Y, Carboxyhemoglobin 0.3 L, O2 Concentration % 2 LPM, Temperature 98.2, O2 Delivery Method N/C, Phlebotomy Draw Site RIGHT BRACHIAL 05/23/162153: Serum Osmolality Cancelled 05/23/161931: Anion Gap 11, Estimated GFR 28 L, BUN/Creatinine Ratio 23.3, Glucose 117 H, Calcium 9.1, Total Bilirubin 0.7, AST 21, ALT 34, Alkaline Phosphatase 62, Troponin I < 0.01, Dwp-U-Hbkoecorqpt Pept 6600 H, Total Protein 6.8, Albumin 3.8, Globulin 3.0, Albumin/Globulin Ratio 1.3, CBC w Diff NO MAN DIFF REQ, RBC 3.51 L, MCV 84.9, MCH 29.7, RDW 16.0 H, MPV 7.1 L, Gran % 80.4 H, Lymphocytes % 7.0 L, Monocytes % 11.9 H, Eosinophils % 0.6, Basophils % 0.1, Absolute Granulocytes 7.2 H, Absolute Lymphocytes 0.6 L, Absolute Monocytes 1.1 H, Absolute Eosinophils 0.1, Absolute Basophils 0, PUBS MCHC 35.0 Microbiology Date/Time Procedure - Status Source Growth 05/24 1046 Blood Culture - RECD BLOOD 05/24 1001 Blood Culture - RECD BLOOD 05/24 0035 Respiratory Culture - COLB LOWER RESP 05/24 0035 Gram Stain - COLB LOWER RESP Vital Signs Date Time Temp Pulse Resp B/P Pulse O2 O2 Flow FiO2 Ox Delivery Rate 05/24 1400 95 Nasal 3.0L Cannula 05/24 1129 84 150/56 05/24 0833 94 162/58 05/24 0832 94 162/58 05/24 0831 94 162/58 05/24 0800 Nasal 3.0L Cannula 05/24 0800 97.5 93 18 170/62 96 Nasal 3.0L Cannula Intake & Output 05/24 1600 Intake Total Output Total Balance Patient 129 lb Weight
--- NOTE | 2016-05-24 14:23 | RADIOLOGY REPORT ---
EXAMINATION: XR SINUSES CLINICAL INFORMATION: Sinus tenderness and congestion. COMPARISON: None. TECHNIQUE: 4 views of the paranasal sinuses are obtained. FINDINGS: There is no apparent mucosal thickening or air-fluid levels in the paranasal sinuses. No other abnormalities are identified. IMPRESSION: Unremarkable paranasal sinuses.
[2016-05-24 16:21] VITALS: BP 148/55
--- NOTE | 2016-05-24 18:14 | Cons- Cardiology ---
General Information and HPI Consulting Request Date of Consult: 05/24/16 Requested By: NELIDA OCONNELL MD History of Present Illness: Paula is a 66 year old female with history of hypertension, dyslipidemia and coronary artery disease s/p CABG x 2 in 2016. She also carries a history of splenic infarct, carotid disease and COPD. It should be noted that this patient had severe bronchospasm on high doses of Metoprolol that resulted in a cardiac arrest after her bypass. She is also reported to have renal artery stenosis. Over the past four days this patient has noted progressively worsening shortness of breath without definite wheezing. As such, she cannot walk even a short distance. She does have some nasal congestion. These symptoms became progressively worse despite antibiotic, steroid and inhaler therapy promting her presentation to the ER. She denies any chest discomfort, lightheadedness or palpitations. Paula did have concern regarding a weight gain of 2-3 pounds although she did not notice any fluid retention. Her blood pressure has been elevated. It should be recalled that even at the time of this patient's prior MS she did not perceive any chest discomfort. This patient is known to have a decreased EF of 35-40% with anterolateral and anterior wall hypokinesis, mild to moderate MR and trace TR. Allergies/Medications Allergies: Coded Allergies: NO KNOWN ALLERGIES (05/13/16) Home Med List: Acetylcysteine (NAC) 600 MG CAPSULE 1 CAP PO BID DIRECTED (Reported) Alprazolam (Xanax) 0.5 MG TABLET 1 TAB PO BIDP PRN AT NIGHT (Reported) Amlodipine Besylate 5 MG TABLET 1 TAB PO DAILY DIRECTED (Reported) Aspirin (Ecotrin*) 81 MG TABLET.DR 1 TAB PO DAILY DIRECTED (Reported) Atorvastatin Calcium 80 MG TABLET 1 TAB PO DAILY DIRECTED (Reported) Cholecalciferol (Vitamin D3) (Vitamin D) 2,000 UNIT CAPSULE 1 CAP PO DAILY DIRECTED (Reported) Clonidine HCl (Clonidine HCl ER) 0.1 MG TAB.ER.12H 1 TAB PO DAILY DIRECTED (Reported) Clopidogrel Bisulfate (Plavix) 75 MG TABLET 1 TAB PO DAILY Heart Health ( Reported) Cyclosporine (Restasis Multidose) 0.05 % DROPS 1 TAB PO DAILY DIRECTED ( Reported) Diltiazem HCl (Diltiazem 24HR ER) 180 MG CAP.ER.24H 1 CAP PO DAILY DIRECTED (Reported) Fluticasone Propionate (Flovent Hfa) 44 MCG AER.W.ADAP 2 PUF INH Q4-6 PRN Bronchitis (Reported) Fluticasone Propionate 50 MCG/ACTUATION SPRAY.SUSP 2 SPRAY NASB DAILY DIRECTED (Reported) Furosemide (Lasix) 40 MG TABLET 1 TAB PO DAILY DIRECTED (Reported) Hydralazine HCl 100 MG TABLET 1 TAB PO TID DIRECTED (Reported) Isosorbide Mononitrate (Isosorbide Mononitrate ER) 60 MG TAB.ER.24H 1 TAB PO DAILY DIRECTED (Reported) Ivabradine HCl (Corlanor) 5 MG TABLET 1 TAB PO BID DIRECTED (Reported) Lactobacillus Acidophilus (Acidophilus) 1 EACH CAPSULE 1 CAP PO DAILY DIRECTED (Reported) Levothyroxine Sodium 25 MCG TABLET 1 TAB PO DAILY DIRECTED (Reported) Losartan Potassium (Cozaar) 25 MG TABLET 1 TAB PO DAILY Blood Pressure ( Reported) Losartan Potassium (Cozaar) 25 MG TABLET 1 TAB PO DAILY DIRECTED (Reported ) Magnesium Oxide (Magnesium) 400 MG CAPSULE 1 CAP PO DAILY DIRECTED ( Reported) Montelukast Sodium 10 MG TABLET 1 TAB PO DAILY DIRECTED (Reported) Pantoprazole Sodium 40 MG TABLET.DR 1 TAB PO EVERY 3 DAYS DIRECTED ( Reported) Sodium Chloride/Sodium Bicarb (Nasa Mist Saline [place]) 0.9 % SPRAY Nasal Dryness (Reported) Spironolactone 50 MG TABLET 1 TAB PO DAILY DIRECTED (Reported) Tiotropium [place] (Spiriva) 18 MCG CAP.W.DEV 1 CAP INH DAILY DIRECTED ( Reported) Past History Travel History Traveled to [place] past 21 day No Medical History Blood Transfusion Hx: Yes Neurological: NONE EENT: NONE Cardiovascular: CHF, hypertension, HYPERLIPIDEMIA CAROTID ARTERY STENOSIS Respiratory: COPD Gastrointestinal: GERD, EGD 10/11- erosive gastritsin and duodenitis Hepatic: NONE Renal: chronic kidney disease (stage 2 CKD), renal artery stenosis Musculoskeletal: NONE Psychiatric: NONE Endocrine: NONE Blood Disorders: NONE Cancer(s): NONE OLIVE PACKER/Reproductive: NONE Surgical History Surgical History: EGD CABG X 2 Family History Relations & Conditions If Any: MOTHER Relation not specified for: FHx: stroke Psychosocial History Where Do You Live? Home Who Do You Live With? spouse Services at Home: None Smoking Status: Former Smoker Living Will? no Functional Ability ADLs Independent: dressing, eating, toileting, bathing. Ambulation: independent IADLs Independent: shopping, housework, finances, food prep, telephone, transportation , medication admin. Exam & Diagnostic Data Vital Signs and I&O Vital Signs Date Time Temp Pulse Resp B/P Pulse O2 O2 Flow FiO2 Ox Delivery Rate 05/24 1621 83 148/55 05/24 1621 98.7 79 18 148/55 93 Room Air 05/24 1400 Nasal 3.0L Cannula 05/24 1400 95 Nasal 3.0L Cannula 05/24 1129 84 150/56 05/24 0833 94 162/58 05/24 0832 94 162/58 05/24 0831 94 162/58 05/24 0800 Nasal 3.0L Cannula 05/24 0800 97.5 93 18 170/62 96 Nasal 3.0L Cannula 05/24 0112 92 Nasal 2.0L Cannula 05/24 0035 80 142/68 05/23 2330 Nasal 2.0L Cannula 05/23 2330 98.2 84 26 142/64 93 Nasal 2.0L Cannula 05/23 2302 99.3 76 20 136/64 93 Nasal 2.0L Cannula 05/239 76 20 146/66 95 Nasal 2.0L Cannula 05/23 1959 74 20 144/65 96 Nasal 3.0L Cannula 05/23 1953 97 Nasal 4.0L Cannula 05/23 1936 94 Nasal 4.0L Cannula 05/23 1854 99.2 80 26 126/57 94 Room Air Intake & Output 05/24 1600 05/24 0800 05/24 0000 05/23 1600 05/23 0800 05/23 0000 Intake Total 425 300 0 Output Total 1500 500 Balance -1075 -200 0 Intake, IV 0 Intake, Oral 425 300 0 Number 0 Bowel Movements Output, Urine 1500 500 Patient 129 lb 129 lb Weight Physical Exam: General: WD/ WN female in NAD; alert and oriented x 3 HEENT: NC/AT, PERRL, EOMI, clear oropharynx Neck: no JVD, bilateral carotid bruits Heart: RRR with 2/6 systolic murmur at the LLSB and RUSB Lungs: clear bilaterally Abdomen: soft, NT, +ve bowel sounds, +ve renal bruit Extremities: no edema Diagnostic Data EKG Results sinus rhythm with LBBB Assessment/Plan Assessment/Plan * I do not think this patient has evidence of decompensated congestive heart failure. Her lungs are clear. She very likely has shortness of breath due to severe hypertensive excursions. This, in turn, is related to renal artery stenosis. I suspect that her left kidney, although perhaps nor functioning to any significant degree, is secreting large amounts of renin through collateral circulation. This patient needs a renal angiogram with measurement of her renin levels. I would avoid dehydration and would hold her diuretics so that her creatinine does not become elevated to the point of being an issue for angiography. Consult Acknowledgment - Thank you for your consult request.
[2016-05-24 21:21] VITALS: BP 158/52
[2016-05-25 08:40] VITALS: BP 160/72
--- NOTE | 2016-05-25 08:43 | PN- Housestaff ---
Subjective Follow-up For: COPD exacerbation Tele-Events Since Last Visit: NSR. HR 75-82. Episode of bradycardia to 55. Subjective: No acute events overnight. Patient seen and examined this morning. She remains dyspneic with minimal exertion. She complains of congestion and cough productive of green sputum. Review of Systems Constitutional: Denies: chills, fever. Cardiovascular: Denies: chest pain. Respiratory: Reports: cough, short of breath, sputum production. Gastrointestinal: Denies: abdominal pain, constipation, diarrhea, nausea, vomiting. Objective Last 24 Hrs of Vital Signs/I&O Vital Signs Date Time Temp Pulse Resp B/P Pulse O2 O2 Flow FiO2 Ox Delivery Rate 05/25 2120 72 160/52 05/25 1854 95 Nasal 2.0L Cannula 05/25 1600 94 Nasal 2.0L Cannula 05/25 1550 65 128/68 05/25 1530 97.6 61 20 12868 94 Nasal 2.0L Cannula 05/25 0921 80 160/72 05/25 0921 80 160/72 05/25 0921 80 160/72 05/25 0920 80 160/72 05/25 0905 93 Room Air 05/25 0840 98.0 80 20 160/72 94 Room Air 05/25 0800 Room Air Intake & Output 05/25 1600 05/25 0800 05/25 0000 Intake Total 470 50 600 Output Total 950 Balance 470 50 -350 Intake, IV 230 Intake, Oral 240 50 600 Output, Urine 950 Patient 58.173 kg Weight Physical Exam General Appearance: Alert, Oriented X3, No Acute Distress HEENT: Mucous Membr. moist/pink Cardiovascular: Regular Rate, Normal S1, Normal S2 Lungs: Diminished Breath Sounds, Bibasilar Wheezes Abdomen: Soft, No Tenderness, Positive Bowel Sounds Current Medications: Current Medications Sig/Emmanuel Start time Last Medication Dose Route Stop Time Status Admin Acetaminophen 650 MG Q6P PRN 05/23 2200 AC PO Albuterol Sulfate 3 ML Q4P PRN 05/24 1415 AC 05/25 INH 1809 Alprazolam 0.5 MG AT BEDTIME NEED.. 05/25 1345 AC PO 05/30 2344 Alprazolam 0.25 MG Q12P PRN 05/23 2345 DC 05/24 PO 05/30 234 0035 Amlodipine Besylate 5 MG DAILY 05/24 1000 AC 05/25 PO 0921 Aspirin Buffered 81 MG DAILY 05/24 1000 AC 05/25 PO 0921 Atorvastatin Calcium 80 MG 1700 05/24 0030 AC 05/25 PO 1601 Azithromycin 500 MG DAILY 05/24 1000 DC 05/25 Sodium Chloride 250 ML IV 0922 Benzocaine/Menthol 1 NEVIN Q2P PRN 05/25 1100 AC 05/25 PO 1158 Ceftazidime 1,000 MG Q12 05/25 1332 AC 05/25 IV 2122 Ceftriaxone Sodium 1,000 MG DAILY 05/24 1322 DC 05/25 IV 0921 Clopidogrel Bisulfate 75 MG DAILY 05/24 1000 AC 05/25 PO 0921 Diltiazem HCl 180 MG DAILY 05/24 1000 AC 05/25 PO 0921 Fluticasone 2 SPRAY DAILY 05/25 1251 AC 05/25 Propionate GRISELDA 1348 Fluticasone 2 PUF BID 05/24 2200 AC 05/25 Propionate INH 2127 Fluticasone 2 SPRAY QPM 05/24 0030 DC 05/24 Propionate GRISELDA 2114 Guaifenesin 600 MG Q12 05/25 1137 AC 05/25 PO 2120 Heparin Sodium 5,000 UNIT Q8 05/24 0600 AC 05/25 (Porcine) SC 2128 Hydralazine HCl 100 MG TID 05/24 0015 AC 05/25 PO 2120 Isosorbide 60 MG DAILY 05/24 1000 AC 05/25 Mononitrate PO 0921 Levothyroxine Sodium 0.025 MG DAILY AC 05/24 0700 AC 05/24 PO 0505 Losartan Potassium 25 MG DAILY 05/24 1000 AC 05/25 PO 0921 Magnesium Oxide 400 MG DAILY 05/24 1000 AC 05/25 PO 0921 Methylprednisolone 40 MG Q6 05/24 0600 DC 05/24 IV 05/24 2355 1621 Montelukast Sodium 10 MG 2200 05/24 2200 AC 05/25 PO 2120 Moxifloxacin HCl 400 MG DAILY 05/25 1056 DC 05/25 PO 1158 Oxycodone HCl 5 MG Q6P PRN 05/24 1356 AC PO Patient Own 0 0900,1700 05/24 0900 AC 05/25 Medication PO 1601 Prednisone 40 MG DAILY 05/26 1000 AC PO Prednisone 50 MG ONCE ONE 05/25 1330 DC 05/25 PO 05/25 1331 1333 Prednisone 50 MG DAILY 05/25 1000 DC PO Tiotropium [place] 1 PUF DAILY 05/24 1000 AC 05/25 INH 1202 Last 24 Hrs of Lab/Maged Results Last 24 Hrs of Labs/Mics: Laboratory Tests 05/25/16 0715: Anion Gap 16, Estimated GFR 45 L, BUN/Creatinine Ratio 25.0 Sputum Cx (05/25): Gram negative rods Orders Radiology Findings: SINUS X-RAY (05/24): Unremarkable paranasal sinuses. CTA ANGIOGRAM ABODMEN (05/25): 1. Atrophic left kidney with similar appearance to the occlusion of the proximal left renal artery. The distal left renal artery is atretic but reconstitutes. The overall appearance of the left renal artery and left kidney is unchanged from prior. 2. Approximately 50% narrowing of the proximal right renal artery, similar to prior. 3. Severe atherosclerotic disease of the aortoiliac system with near complete occlusion of the proximal right common iliac artery, again similar to prior. 4. 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 Assessment/Plan Assessment: 1. Acute hypoxic respiratory failure due to possible COPD exacerbation/CHF exacerbation 2. Worsening sinus congestion with low-grade fever 3. CAD and ischemic cardiomyopathy s/p CABG. 4. History of hypothyroidism 5 acute on chronic kidney disease stage IIIB 6. History of hypertension hyperlipidemia. Renal artery stenosis: CTA Abdomen with severe atherosclerotic disease including occlusion of the proximal L renal artery, 50% narrowing of the proximal R renal artery, near complete occlusion of the R common iliac artery and celiac arteries. Acute hypoxic respiratory failure due to possible COPD exacerbation/CHF exacerbation: Continue oxygen to keep saturation above 92%. Patient is no more wheezing after getting IV Solu-Medrol 125 mg in the ED. Solumedrol IV discontinued. Switched to PO prednisone. Will administer 50 mg today, followed by 40 mg tomorrow. Sputum Cx growing GNR concerning for Pseudomonas which patient has grown in the past. Patient started on ceftazidime 1 g IV Q12H. Azithromycin and ceftriaxone discontinued. Continue Spiriva, Flonase. Chest x-ray done in the ED showed mild stable cardiomegaly. Will not give any IV Lasix as patient has an evidence of a JACIEL as well Monitor in's and O's with daily weight checks. Sinus X-ray unremarkable. Mucinex and lozenges for symptomatic relief. Continue TRC nebs. Hyponatremia: Check urine lites, urine osmolality and serum osmolality. 1000 fluid restriction Continue to hold Lasix. CAD and ischemic cardiomyopathy s/p CABG. Continue home medications including aspirin, Lipitor, diltiazem, Imdur, hydralazine. History of hypothyroidism Continue home dose of levothyroxine. Acute on chronic kidney disease stage IV: Continue home losartan 25 mg PO QD. Avoid any nephrotoxic agents. History of hypertension and hyperlipidemia. Continue medications. DVT prophylaxis subcutaneous heparin. Code Full code Problem List: 1. Pancreatitis, acute 2. COPD exacerbation 3. Hypoxia 4. Leukocytosis 5. CHF (congestive heart failure) 6. HTN (hypertension) 7. HLD (hyperlipidemia) 8. CHF (congestive heart failure) 9. Uncontrolled hypertension 10. COPD (chronic obstructive pulmonary disease) case management patient 11. COPD (chronic obstructive pulmonary disease) 12. DVT prophylaxis 13. Full code status 14. CAD (coronary artery disease) 15. Hypothyroid 16. Sinusitis, acute 17. Fever 18. Renal insufficiency 19. Hyponatremia syndrome 20. Hyperkalemia 21. Hyponatremia 22. Renal artery stenosis Pain Ratin Pain Location: N/A Pain Goal: Remain pain free Pain Plan: Oxicodone 5 mg PO Q6H PRN for moderate pain (scale 4-6) Tylenol 650 mg PO Q6H PRN for mild pain (scale 1-3) Tomorrow's Labs & Rationales: BMP to monitor lytes and kidney function in the setting of JACIEL on CKD
[2016-05-25] MEDS ORDERED: COZAAR25 M1 PO (10:41)
[2016-05-25] MEDS ORDERED: AZITHROMYCIN250 M1 PO (10:50)
[2016-05-25] MEDS ORDERED: PREDNISONE10 M2 PO (10:50)
--- NOTE | 2016-05-25 11:14 | PN- Att Addend ---
Attending Addendum Attending Brief Note Patient reports persistent shortness of breath and bringing up yellow - green sputum. General Appearance: Alert, No Acute Distress Skin: Grossly normal HEENT: PEERLA Neck: Supple, No JVD Cardiovascular: Regular Rate, Normal S1, Normal S2, No Murmurs Lungs: Mild expiratory wheeze at the base Abdomen: Normal Bowel Sounds, Soft, No Tenderness Neurological: Normal Speech, Strength at 5/5 X4 Ext, Cranial Nerves 3-12 NL, Reflexes 2+ Extremities: No Clubbing, No Cyanosis, No Edema Vascular: Normal Pulses Assessment Patient has persistent shortness of breath and now having green sputum. Given history of Pseudomonas and minimal improvement on penicillin would change antibiotics to cover Pseudomonas. Discussed with pulmonary and we will switch antibiotics to IV ceftazidime. In the meantime continue prednisone taper and relax fluid restriction. Plan Change antibiotic to IV ceftazidime and continue azithromycin Prednisone 40 mg and slow taper Relax fluid restriction to 1200 mL per day Send sputum culture Continue blood pressure medication TRC and nebs DVT prophylaxis Current Medications Sig/Emmanuel Start time Last Medication Dose Route Stop Time Status Admin Acetaminophen 650 MG Q6P PRN 05/23 2200 AC PO Acetylcysteine 600 MG BID 05/24 1000 DC 05/24 PO 0834 Albuterol Sulfate 3 ML Q4P PRN 05/24 1415 AC 05/25 INH 1022 Alprazolam 0.25 MG Q12P PRN 05/23 2345 AC 05/24 PO 05/30 2344 0035 Amlodipine Besylate 5 MG DAILY 05/24 1000 AC 05/25 PO 0921 Aspirin Buffered 81 MG DAILY 05/24 1000 AC 05/25 PO 0921 Atorvastatin Calcium 80 MG 1700 05/24 1700 DC PO Atorvastatin Calcium 80 MG 1700 05/24 0030 AC 05/24 PO 1621 Azithromycin 500 MG DAILY 05/24 1000 DC 05/25 Sodium Chloride 250 ML IV 0922 Benzocaine/Menthol 1 NEVIN Q2P PRN 05/25 1100 AC PO Ceftriaxone Sodium 1,000 MG DAILY 05/24 1322 DC 05/25 IV 0921 Clopidogrel Bisulfate 75 MG DAILY 05/24 1000 AC 05/25 PO 0921 Diltiazem HCl 180 MG DAILY 05/24 1000 AC 05/25 PO 0921 Fluticasone 2 SPRAY QPM 05/24 2200 DC Propionate GRISELDA Fluticasone 2 PUF BID 05/24 2200 AC 05/25 Propionate INH 0923 Fluticasone 2 SPRAY QPM 05/24 0030 AC 05/24 Propionate GRISELDA 2114 Heparin Sodium 5,000 UNIT Q8 05/24 0600 AC 05/24 (Porcine) SC 2114 Hydralazine HCl 100 MG TID 05/24 0015 AC 05/25 PO 0920 Isosorbide 60 MG DAILY 05/24 1000 AC 05/25 Mononitrate PO 0921 Levothyroxine Sodium 0.025 MG DAILY AC 05/24 0700 AC 05/24 PO 0505 Losartan Potassium 25 MG DAILY 05/24 1000 AC 05/25 PO 0921 Magnesium Oxide 400 MG DAILY 05/24 1000 AC 05/25 PO 0921 Methylprednisolone 40 MG Q6 05/24 0600 DC 05/24 IV 05/24 2355 1621 Montelukast Sodium 10 MG 2200 05/24 2200 AC 05/24 PO 2114 Moxifloxacin HCl 400 MG DAILY 05/25 1056 AC PO Oxycodone HCl 5 MG Q6P PRN 05/24 1356 AC PO Oxycodone HCl 5 MG Q6 05/23 2359 DC PO Patient Own 0 0900,1700 05/24 0900 AC 05/25 Medication PO 0805 Prednisone 50 MG DAILY 05/25 1000 AC PO Spironolactone 50 MG DAILY 05/24 1000 DC 05/24 PO 0830 Tiotropium [place] 1 PUF DAILY 05/24 1000 AC 05/24 INH 0834 Laboratory Tests 05/25 05/24 05/24 0715 1420 1420 Chemistry Sodium (137 - 145 mmol/L) 132 L Potassium (3.5 - 5.1 mmol/L) 4.6 Chloride (98 - 107 mmol/L) 92 L Carbon Dioxide (22 - 30 mmol/L) 24 Anion Gap (5 - 16) 16 BUN (7 - 17 mg/dL) 30 H Creatinine (0.5 - 1.0 mg/dL) 1.2 H Estimated GFR (>60 ml/min) 45 L BUN/Creatinine Ratio (7 - 25 %) 25.0 Urines Urine Color (YEL,AMB,STR) STRAW Urine Clarity (CLEAR) CLEAR Urine pH (5.0 - 8.0) 6.0 Ur Specific [place] (1.001 - 1.035) 1.015 Urine Protein (NEG,<30 MG/DL) NEG Urine Ketones (NEG) NEG Urine Nitrite (NEG) NEG Urine Bilirubin (NEG) NEG Urine Urobilinogen (0.1 - 1.0 EU/dl) 0.2 Ur Leukocyte Esterase (NEG) NEG Ur Microscopic EXAM NOT REQUIRED Urine Hemoglobin (NEG) NEG Urine Osmolality (300 - 1000 MOSM/KG) 317 Ur Random Creatinine (mg/dL) 22.3 Ur Random Sodium (30 - 90 mmol/L) 54 Ur Random Potassium (mmol/L) 28.0 Fraction Sodium Excret (<1% %) 2.7 H Urine Glucose (N MG/DL) >=1000 H Vital Signs Date Time Temp Pulse Resp B/P Pulse O2 O2 Flow FiO2 Ox Delivery Rate 05/25 0921 80 160/72 05/25 0921 80 160/72 05/25 0921 80 160/72 05/25 0920 80 160/72 05/25 0905 93 Room Air 05/25 0840 98.0 80 20 160/72 94 Room Air 05/25 0800 Room Air 05/24 2121 98.5 88 20 158/52 92 Room Air 05/24 2114 88 158/52 05/24 1942 93 Room Air Room Air 05/24 1621 83 148/55 05/24 1621 98.7 79 18 148/55 93 Room Air 05/24 1400 Nasal 3.0L Cannula 05/24 1400 95 Nasal 3.0L Cannula 05/24 1129 84 150/56
--- NOTE | 2016-05-25 11:15 | PN- Pulmonary ---
Subjective HPI/Critical Care Issues: Complaints some greenish fluorescence sputum more congested Fatigued Renal function is improving Increasing cough. Objective Current Medications: Current Medications Sig/Emmanuel Start time Last Medication Dose Route Stop Time Status Admin Acetaminophen 650 MG Q6P PRN 05/23 2200 AC PO Acetylcysteine 600 MG BID 05/24 1000 DC 05/24 PO 0834 Albuterol Sulfate 3 ML Q4P PRN 05/24 1415 AC 05/25 INH 1022 Alprazolam 0.25 MG Q12P PRN 05/23 2345 AC 05/24 PO 05/30 2344 0035 Amlodipine Besylate 5 MG DAILY 05/24 1000 AC 05/25 PO 0921 Aspirin Buffered 81 MG DAILY 05/24 1000 AC 05/25 PO 0921 Atorvastatin Calcium 80 MG 1700 05/24 1700 DC PO Atorvastatin Calcium 80 MG 1700 05/24 0030 AC 05/24 PO 1621 Azithromycin 500 MG DAILY 05/24 1000 DC 05/25 Sodium Chloride 250 ML IV 0922 Benzocaine/Menthol 1 NEVIN Q2P PRN 05/25 1100 AC PO Ceftriaxone Sodium 1,000 MG DAILY 05/24 1322 DC 05/25 IV 0921 Clopidogrel Bisulfate 75 MG DAILY 05/24 1000 AC 05/25 PO 0921 Diltiazem HCl 180 MG DAILY 05/24 1000 AC 05/25 PO 0921 Fluticasone 2 SPRAY QPM 05/24 2200 DC Propionate GRISELDA Fluticasone 2 PUF BID 05/24 2200 AC 05/25 Propionate INH 0923 Fluticasone 2 SPRAY QPM 05/24 0030 AC 05/24 Propionate GRISELDA 2114 Heparin Sodium 5,000 UNIT Q8 05/24 0600 AC 05/24 (Porcine) SC 2114 Hydralazine HCl 100 MG TID 05/24 0015 AC 05/25 PO 0920 Isosorbide 60 MG DAILY 05/24 1000 AC 05/25 Mononitrate PO 0921 Levothyroxine Sodium 0.025 MG DAILY AC 05/24 0700 AC 05/24 PO 0505 Losartan Potassium 25 MG DAILY 05/24 1000 AC 05/25 PO 0921 Magnesium Oxide 400 MG DAILY 05/24 1000 AC 05/25 PO 0921 Methylprednisolone 40 MG Q6 05/24 0600 DC 05/24 IV 05/24 2355 1621 Montelukast Sodium 10 MG 2200 05/24 2200 AC 05/24 PO 2114 Moxifloxacin HCl 400 MG DAILY 05/25 1056 AC PO Oxycodone HCl 5 MG Q6P PRN 05/24 1356 AC PO Oxycodone HCl 5 MG Q6 05/23 2359 DC PO Patient Own 0 0900,1700 05/24 0900 AC 05/25 Medication PO 0805 Prednisone 50 MG DAILY 05/25 1000 AC PO Spironolactone 50 MG DAILY 05/24 1000 DC 05/24 PO 0830 Tiotropium [place] 1 PUF DAILY 05/24 1000 AC 05/24 INH 0834 Vital Signs & I&O Last 24 Hrs of Vitals and I&O: Vital Signs Date Time Temp Pulse Resp B/P Pulse O2 O2 Flow FiO2 Ox Delivery Rate 05/25 09 80 160/72 05/25 0921 80 160/72 05/25 0921 80 160/72 05/25 0920 80 160/72 05/25 0905 93 Room Air 05/25 0840 98.0 80 20 160/72 94 Room Air 05/25 0800 Room Air 05/24 2121 98.5 88 20 158/52 92 Room Air 05/24 2114 88 158/52 05/24 1942 93 Room Air Room Air 05/24 1621 83 148/55 05/24 1621 98.7 79 18 148/55 93 Room Air 05/24 1400 Nasal 3.0L Cannula 05/24 1400 95 Nasal 3.0L Cannula 05/24 1129 84 150/56 Intake & Output 05/25 1600 05/25 0800 05/25 0000 Intake Total 50 600 Output Total 950 Balance 50 -350 Intake, Oral 50 600 Output, Urine 950 Patient 128 lb Weight Impression/Plan Impression/Plan Impression/Plan: Physical Exam General Appearance Alert, Oriented X3, Cooperative, No Acute Distress Skin No Rashes, No Breakdown HEENT Atraumatic, PERRLA, EOMI Neck Supple, increased JVP Cardiovascular Regular Rate, Normal S1, Normal S2 Lungs decreased air entry bilaterally, bilateral basal crepts Abdomen Normal Bowel Sounds, Soft, No Tenderness Neurological Normal Speech Extremities No Clubbing, No Cyanosis, No Edema, Normal Pulses Vascular Normal Pulses, Pulses Symmetrical 65-year-old fever with significant cardiac history as noted in H&P recently had a bypass done at [facility] with subsequent cardiac arrest with subsequent adverse effect to high dose of metoprolol (100mg) with effusions with severe baseline copd with fev1 of .9 (not a retainer) with * Increasing greenish sputum suggestive of Pseudomonas infection with bronchitis and sinusitis * Chronic systolic CHF exacerbation 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
--- NOTE | 2016-05-25 11:33 | PN- Cardiology ---
Subjective Subjective: * Patient continues to report a congested cough with poor mobilization of secretions. She remains short of breath. * Improved creatinine Objective Vital Signs and I&Os Vital Signs Date Time Temp Pulse Resp B/P Pulse O2 O2 Flow FiO2 Ox Delivery Rate 05/25 0921 80 160/72 05/25 0921 80 160/72 05/25 0921 80 160/72 05/25 0920 80 160/72 05/25 0905 93 Room Air 05/25 0840 98.0 80 20 160/72 94 Room Air 05/25 0800 Room Air 05/24 2121 98.5 88 20 158/52 92 Room Air 05/24 2114 88 158/52 05/24 1942 93 Room Air Room Air 05/24 1621 83 148/55 05/24 1621 98.7 79 18 14855 93 Room Air 05/24 1400 Nasal 3.0L Cannula 05/24 1400 95 Nasal 3.0L Cannula 05/24 1129 84 150/56 Intake & Output 05/25 1600 05/25 0800 05/25 0000 05/24 1600 05/24 0800 05/24 0000 Intake Total 50 600 425 300 0 Output Total 950 1500 500 Balance 50 -350 -1075 -200 0 Intake, IV 0 Intake, Oral 50 600 425 300 0 Number 0 Bowel Movements Output, Urine 950 1500 500 Patient 128 lb 129 lb 129 lb Weight Physical Exam: General: WD/ WN female in NAD; alert and oriented x 3 HEENT: NC/AT, PERRL, EOMI, clear oropharynx Heart: RRR with 2/6 systolic murmur at the LLSB and RUSB Lungs: clear bilaterally Extremities: no edema Assessment/Plan Assessment/Plan * This patient needs a renal angiogram with renin vein sampling. This is an interventional radiology procedure and is different from the CT angiogram that she just received. We do need to limit contrast unless necessary for diagnosis or treatment. Follow patient's chest X-ray but hold Lasix for now. Follow BUN and creatinine. Continue telemetry? Yes
[2016-05-25 15:30] VITALS: BP 128/68
--- NOTE | 2016-05-25 19:29 | CT SCAN REPORT ---
EXAMINATION: CT ANGIOGRAM ABDOMEN CLINICAL INFORMATION: Rule out worsening renal artery stenosis left kidney. Elevated blood pressures. COMPARISON: CT abdomen and pelvis with contrast 05/01/2016. TECHNIQUE: Multiple axial images were obtained through the abdomen following the administration of 125 mL of Optiray 320 intravenous contrast. Images were reviewed on a dedicated 3-D workstation. DLP: 510.89 mGy-cm. FINDINGS: VASCULAR: 1. 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 There is good opacification of the celiac axis distally, the splenic artery and hepatic arteries are well opacified. There is robust flow through the pancreaticoduodenal arcade attributed through the inferior pancreaticoduodenal artery and GDA suggesting retrograde flow through this collateral system, the appearance is similar to the prior. 2. Renal Arteries: There is occlusion of the proximal left renal artery with reconstitution distally. This appearance is similar to prior, this corresponds with the atrophic left kidney. There is a moderate stenosis (approximately 50% narrowing) at the origin of the right renal artery, the distal right renal artery appears patent. 3. Abdominal Aorta: Severe diffuse atherosclerotic disease throughout the abdominal aorta, most prominent in the distal abdominal aorta extending into the right greater than left iliac arteries. 4. Iliac Arteries: There is diffuse calcified and noncalcified atherosclerotic disease with near complete occlusion of the right common iliac artery at its origin, this appearance is similar to the prior. There is mild to moderate narrowing at the origin of the left common iliac artery. NONVASCULAR: LUNG BASES: Motion artifact degrades image quality in the lung bases. The lung bases are clear. LIVER, GALLBLADDER, AND BILIARY TREE: The liver is normal in size, shape, and attenuation. No focal hepatic lesion or biliary ductal dilatation is present. The gallbladder is unremarkable with no evidence of radiopaque gallstones, gallbladder wall thickening, or obvious pericholecystic inflammatory changes. PANCREAS: Unremarkable. SPLEEN: Unremarkable. ADRENAL GLANDS: Unremarkable. KIDNEYS AND URETERS: The left kidney is atrophic. No hydronephrosis or focal renal lesions are appreciated. No renal calculi are identified. GASTROINTESTINAL TRACT: The small and large bowel are unremarkable. The appendix is not visualized. ABDOMINAL WALL: No significant hernia is appreciated. LYMPH NODES: Normal. OSSEOUS STRUCTURES: No destructive bony lesions. IMPRESSION: 1. Atrophic left kidney with similar appearance to the occlusion of the proximal left renal artery. The distal left renal artery is atretic but reconstitutes. The overall appearance of the left renal artery and left kidney is unchanged from prior. 2. Approximately 50% narrowing of the proximal right renal artery, similar to prior. 3. Severe atherosclerotic disease of the aortoiliac system with near complete occlusion of the proximal right common iliac artery, again similar to prior. 4. 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
--- NOTE | 2016-05-25 20:08 | Patient Discharge Instructions ---
Discharge Instructions General Discharge Information You were seen/treated for: Bronchitis with Pseudomonas Renal artery stenosis Hypertension Chronic systolic congestive heart failure Watch for these problems: Fever, nausea, vomiting, chills, weakness, increased generalized edema. Palpitations. Chest pain. Shortness of breath. If you have any adverse reactions from any of the medications prescribed please inform your primary care physician and you may be required to come back to the emergency department. Thank you for allowing us to be part of your care. Special Instructions: Please follow-up with your primary care physician, Dr Recinos on 06/05/2016. This is for a post hospital discharge follow-up. You will need to speak to your primary care physician about your new medication changes. For now we have recomended that you take your lasix as needed, you will need to inquire with Dr Recinos and your Qc Manager what they would like to do regarding this medication. Please follow-up with the regulatory affairs director on 06/10/2016. We have provided you with a referral. Please follow-up with the agricultural agent on 06/10/2016. We have provided you with a referral. Begin your Flovent when you begin the 5 mg of Prednisone, 06/13/2016. You will need would need oxygen if SA02 is less than 89% upon ambulation Diet Continue normal diet: No Recommended Diet: Heart Healthy Activity Full Activity/No Limits: No Activity Self Limited: Yes (As Tolerated) Acute Coronary Syndrome Inclusion Criteria At DC or during hospital stay patient has or had the following: ACS DIAGNOSIS No Discharge Core Measures Meds if any: Prescribed or Continued at Discharge Meds if any: NOT Prescribed or Continued at Discharge Congestive Heart Failure Inclusion Criteria At DC or during hospital stay patient has or had the following: CHF DIAGNOSIS No Discharge Core Measures Meds if any: Prescribed or Continued at Discharge Meds if any: NOT Prescribed or Continued at Discharge Cerebrovascular accident Inclusion Criteria At DC or during hospital stay patient has or had the following: CVA/TIA Diagnosis No Discharge Core Measures Meds if any: Prescribed or Continued at Discharge Meds if any: NOT Prescribed or Continued at Discharge Venous thromboembolism Inclusion Criteria VTE Diagnosis No VTE Type NONE VTE Confirmed by (Test) NONE Discharge Core Measures - Per Current guidelines, there needs to be overlap - treatment for the first 5 days of Warfarin therapy. - If discharged on Warfarin prior to 5 days of - overlap therapy, the patient will need to be - assessed for post discharge needs including - *Post discharge parental anticoagulation - *Warfarin and/or parental anticoagulation education - *Follow up date to check INR post discharge At least 5 days overlap therapy as Inpatient No Meds if any: Prescribed or Continued at Discharge Note: Overlap Therapy is Warfarin and Anticoagulant Meds if any: NOT Prescribed or Continued at Discharge
[2016-05-25 23:27] VITALS: BP 160/52
--- NOTE | 2016-05-26 06:13 | PN- Housestaff ---
Subjective Follow-up For: Chest Pain Diabetes Tele-Events Since Last Visit: NSR 70s Midnight: QRS Changes Subjective: Ms Fuentes was seen and examined this morning. She states that she feels worse compared to the last 24 hours. Patient states that she is finding very difficult to catch her breath and continues to be dyspneic. Patient also continues to experience a cough. Productive in nature. Patient states she is unable to bring up sputum. Patient states that yesterday she saw evidence of green sputum. Patient states that her throat continues to burn and has received relief from eating an English Ice. Patient reports pain in right shoulder attributed to repeated coughing. Pain is rated 6 out of 10. Improved with positional changes. Patient denies any fever, chills, nausea, vomiting. Review of Systems Constitutional: Reports: see HPI. Denies: chills, fever, malaise. Objective Last 24 Hrs of Vital Signs/I&O Vital Signs Date Time Temp Pulse Resp B/P Pulse O2 O2 Flow FiO2 Ox Delivery Rate 05/26 0806 97.9 76 18 174/60 92 Nasal 2.0L Cannula 05/26 0800 Nasal 2.0L Cannula 05/26 0233 95 Nasal 2.0L Cannula 05/26 0000 93 Nasal 2.0L Cannula 05/25 2327 98.5 72 20 160/52 95 Nasal 2.0L Cannula 05/25 2120 72 160/52 05/25 1854 95 Nasal 2.0L Cannula 05/25 1600 94 Nasal 2.0L Cannula 05/25 1550 65 128/68 05/25 1530 97.6 61 20 128/68 94 Nasal 2.0L Cannula 05/25 0921 80 160/72 05/25 0921 80 160/72 05/25 0921 80 160/72 05/25 0920 80 160/72 05/25 0905 93 Room Air Intake & Output 05/26 1600 05/26 0800 05/26 0000 Intake Total 200 400 Output Total 400 750 Balance -200 -350 Intake, IV 40 Intake, Oral 200 360 Output, Urine 400 750 Patient 59.08 kg Weight Physical Exam General Appearance: Alert, Oriented X3, Cooperative, Moderate Distress Lymphatic: Cervical nl Cardiovascular: Regular Rate, Normal S1, Normal S2 Lungs: Bilateral Expiratory [place] Abdomen: Normal Bowel Sounds, Soft, No Tenderness Neurological: Normal Speech, Strength at 5/5 X4 Ext Extremities: No Clubbing, No Cyanosis, No Edema Current Medications: Current Medications Sig/Emmanuel Start time Last Medication Dose Route Stop Time Status Admin Acetaminophen 650 MG Q6P PRN 05/23 2200 AC PO Albuterol Sulfate 3 ML Q4P PRN 05/24 1415 AC 05/26 INH 0232 Alprazolam 0.25 MG AT BEDTIME NEED.. 05/25 2245 AC 05/26 PO 0217 Alprazolam 0.5 MG AT BEDTIME NEED.. 05/25 1345 DC PO 05/30 2344 Alprazolam 0.25 MG Q12P PRN 05/23 2345 DC 05/24 PO 05/30 2344 0035 Amlodipine Besylate 5 MG DAILY 05/24 1000 AC 05/25 PO 0921 Aspirin Buffered 81 MG DAILY 05/24 1000 AC 05/25 PO 0921 Atorvastatin Calcium 80 MG 1700 05/24 0030 AC 05/25 PO 1601 Azithromycin 500 MG DAILY 05/24 1000 DC 05/25 Sodium Chloride 250 ML IV 0922 Benzocaine/Menthol 1 NEVIN Q2P PRN 05/25 1100 AC 05/25 PO 1158 Bisacodyl 10 MG DAILY 05/26 1000 AC PO Ceftazidime 1,000 MG Q12 05/25 1332 AC 05/25 IV 2122 Ceftriaxone Sodium 1,000 MG DAILY 05/24 1322 DC 05/25 IV 0921 Clopidogrel Bisulfate 75 MG DAILY 05/24 1000 AC 05/25 PO 0921 Diltiazem HCl 180 MG DAILY 05/24 1000 AC 05/25 PO 0921 Fluticasone 2 SPRAY BID 05/26 1000 AC Propionate GRISELDA Fluticasone 2 SPRAY DAILY 05/25 1251 DC 05/25 Propionate GRISELDA 1348 Fluticasone 2 PUF BID 05/24 2200 AC 05/25 Propionate INH 2127 Fluticasone 2 SPRAY QPM 05/24 0030 DC 05/24 Propionate GRISELDA 2114 Guaifenesin 600 MG Q12 05/25 1137 AC 05/25 PO 2120 Heparin Sodium 5,000 UNIT Q8 05/24 0600 AC 05/26 (Porcine) SC 0541 Hydralazine HCl 100 MG TID 05/24 0015 AC 05/25 PO 2120 Isosorbide 60 MG DAILY 05/24 1000 AC 05/25 Mononitrate PO 0921 Levothyroxine Sodium 0.025 MG DAILY AC 05/24 0700 AC 05/26 PO 0541 Lorazepam 0.5 MG .STK-MED ONE 05/25 2238 DC PO 05/25 2239 Losartan Potassium 25 MG DAILY 05/24 1000 AC 05/25 PO 0921 Magnesium Oxide 400 MG DAILY 05/24 1000 AC 05/25 PO 0921 Montelukast Sodium 10 MG 2200 05/24 2200 AC 05/25 PO 2120 Moxifloxacin HCl 400 MG DAILY 05/25 1056 DC 05/25 PO 1158 Nystatin 5 ML 4 TIMES/DAY PRN 05/26 0900 UNVr PO Oxycodone HCl 5 MG Q6P PRN 05/24 1356 AC PO Patient Own 0 0900,1700 05/24 0900 AC 05/26 Medication PO 0806 Polyethylene Glycol 17 GM DAILY 05/26 1000 AC PO Prednisone 40 MG DAILY 05/26 1000 AC PO Prednisone 50 MG ONCE ONE 05/25 1330 DC 05/25 PO 05/25 1331 1333 Prednisone 50 MG DAILY 05/25 1000 DC PO Senna 187 MG AT BEDTIME 05/26 2200 AC PO Tiotropium [place] 1 PUF DAILY 05/24 1000 AC 05/25 INH 1202 Last 24 Hrs of Lab/Maged Results Last 24 Hrs of Labs/Mics: Laboratory Tests 05/26/16 0531: Anion Gap 11, Estimated GFR 49 L, BUN/Creatinine Ratio 29.1 H Orders Miscellaneous Findings: PATIENT: ANNEL FUENTES PRESENT AGE: 66 PATIENT ACCOUNT NO: [id number] : 48 LOCATION: [facility] ORDERING PHYSICIAN: SARAH FUENTES MD SERVICE DATE: 05/26/16- EXAM TYPE: RAD - XRY-PORTABLE CHEST XRAY EXAMINATION: XR PORTABLE CHEST CLINICAL INFORMATION: Dyspnea. COMPARISON: 05/23/2016 TECHNIQUE: Portable view of the chest was obtained. FINDINGS: Lungs are well expanded and clear. Again noted is the large cardiac silhouette. No focal consolidation, pulmonary edema, pleural effusion or pneumothorax. Atherosclerotic calcification of the aorta. Old, healed fractures of right posterior ninth and 10th ribs. IMPRESSION: 1. Cardiomegaly. 2. No acute pulmonary disease compared to 05/23/2016. DICTATED BY: JERRY CALDERÓN MD Assessment/Plan Assessment: 1. Acute hypoxic respiratory failure due to possible COPD exacerbation/CHF exacerbation 2. Worsening sinus congestion with low-grade fever 3. CAD and ischemic cardiomyopathy s/p CABG. 4. History of hypothyroidism 5 acute on chronic kidney disease stage IIIB 6. History of hypertension hyperlipidemia. Renal artery stenosis: CTA Abdomen with severe atherosclerotic disease including occlusion of the proximal L renal artery, 50% narrowing of the proximal R renal artery, near complete occlusion of the R common iliac artery and celiac arteries. Patient might have right renal stent placement as an outpatient. Acute hypoxic respiratory failure due to possible COPD exacerbation/CHF exacerbation: Continue oxygen to keep saturation above 92%. Patient is no more wheezing after getting IV Solu-Medrol 125 mg in the ED. Solumedrol IV discontinued. Switched to PO prednisone. Will administer 50 mg today, followed by 40 mg tomorrow, Patient can get 40 mg on 05/27/2016 and then subsequently reduced by 10 mg for the next 3 days followed by 20mg for the next 3 days. Sputum Cx growing GNR concerning for Pseudomonas which patient has grown in the past. Patient started on ceftazidime 1 g IV Q12H. Azithromycin and ceftriaxone discontinued. Continue Spiriva, Flonase. Chest x-ray done in the ED showed mild stable cardiomegaly. Will not give any IV Lasix as patient has an evidence of a JACIEL as well Monitor in's and O's with daily weight checks. Sinus X-ray unremarkable. Mucinex and lozenges for symptomatic relief. X-ray done 05/26/2016 showed no acute pulmonary change and/or worsening of pulmonary congestion since 05/23/2016. Continue TRC nebs. Questionable Oral candidiasis/thrush Nystatin swish and swallow. 4 times a day. Likely due to prednisone usage. Hyponatremia: Check urine lites, urine osmolality and serum osmolality. 1000 fluid restriction Continue to hold Lasix. CAD and ischemic cardiomyopathy s/p CABG. Continue home medications including aspirin, Lipitor, diltiazem, Imdur, hydralazine. Patient's blood pressure elevated, 174/60, the patient may benefit from revision of amlodipine to 10 mg on 05/27/2016. In the interim we will monitor and patient may get 5 mg of hydralazine if patients remain consistently elevated. History of hypothyroidism Continue home dose of levothyroxine. Acute on chronic kidney disease stage IV: Continue home losartan 25 mg PO QD. Avoid any nephrotoxic agents. History of hypertension and hyperlipidemia. Continue medications. DVT prophylaxis subcutaneous heparin. Code Full code Problem List: 1. Pancreatitis, acute 2. COPD exacerbation 3. Hypoxia 4. Leukocytosis 5. CHF (congestive heart failure) 6. HTN (hypertension) 7. HLD (hyperlipidemia) 8. CHF (congestive heart failure) 9. Uncontrolled hypertension 10. COPD (chronic obstructive pulmonary disease) case management patient 11. COPD (chronic obstructive pulmonary disease) 12. DVT prophylaxis 13. Full code status 14. CAD (coronary artery disease) 15. Hypothyroid 16. Sinusitis, acute 17. Fever 18. Renal insufficiency 19. Hyponatremia syndrome 20. Hyperkalemia 21. Hyponatremia 22. Renal artery stenosis Pain Ratin Pain Location: Right Shoulder Pain Goal: Remain pain free Pain Plan: Tylenol Percocet Tomorrow's Labs & Rationales: BEP: Monitor Renal Function and Na Level.
[2016-05-26 08:06] VITALS: BP 174/60
--- NOTE | 2016-05-26 08:08 | RADIOLOGY REPORT ---
EXAMINATION: XR PORTABLE CHEST CLINICAL INFORMATION: Dyspnea. COMPARISON: 05/23/2016 TECHNIQUE: Portable view of the chest was obtained. FINDINGS: Lungs are well expanded and clear. Again noted is the large cardiac silhouette. No focal consolidation, pulmonary edema, pleural effusion or pneumothorax. Atherosclerotic calcification of the aorta. Old, healed fractures of right posterior ninth and 10th ribs. IMPRESSION: 1. Cardiomegaly. 2. No acute pulmonary disease compared to 05/23/2016.
--- NOTE | 2016-05-26 09:02 | PN- Att Addend ---
Attending Addendum Attending Brief Note Patient reports persistent shortness of breath and bringing up yellow - green sputum. Patient complains of burning in her chest. General Appearance: Alert, No Acute Distress Skin: Grossly normal HEENT: PEERLA Neck: Supple, No JVD Cardiovascular: Regular Rate, Normal S1, Normal S2, No Murmurs Lungs: Mild expiratory wheeze at the base Abdomen: Normal Bowel Sounds, Soft, No Tenderness Neurological: Normal Speech, Strength at 5/5 X4 Ext, Cranial Nerves 3-12 NL, Reflexes 2+ Extremities: No Clubbing, No Cyanosis, No Edema Vascular: Normal Pulses Assessment Patient has persistent shortness of breath. Gram-positive rods in sputum likely pseudomonas she is currently on ceftazidime. In the meantime continue prednisone taper and fluid restriction. CTA suggested similar findings and possible right renal artery may be intervenable. However this will be pursued as outpatient. Possible esophageal candidiasis although sputum culture does not show fungal element. Empirically we will treat with nystatin. Plan IV ceftazidime and continue azithromycin Nystatin swish and swallow 4 times a day Prednisone 40 mg and slow taper fluid restriction to 1200 mL per day and monitor sodium levels Continue blood pressure medication TRC and nebs DVT prophylaxis Current Medications Sig/Emmanuel Start time Last Medication Dose Route Stop Time Status Admin Acetaminophen 650 MG Q6P PRN 05/23 2200 AC PO Albuterol Sulfate 3 ML Q4P PRN 05/24 1415 AC 05/26 INH 0232 Alprazolam 0.25 MG AT BEDTIME NEED.. 05/25 2245 AC 05/26 PO 0217 Alprazolam 0.5 MG AT BEDTIME NEED.. 05/25 1345 DC PO 05/30 2344 Alprazolam 0.25 MG Q12P PRN 05/23 2345 DC 05/24 PO 05/30 2344 0035 Amlodipine Besylate 5 MG DAILY 05/24 1000 AC 05/25 PO 0921 Aspirin Buffered 81 MG DAILY 05/24 1000 AC 05/25 PO 0921 Atorvastatin Calcium 80 MG 1700 05/24 0030 AC 05/25 PO 1601 Azithromycin 500 MG DAILY 05/24 1000 DC 05/25 Sodium Chloride 250 ML IV 0922 Benzocaine/Menthol 1 NEVIN Q2P PRN 05/25 1100 AC 05/25 PO 1158 Bisacodyl 10 MG DAILY 05/26 1000 AC PO Ceftazidime 1,000 MG Q12 05/25 1332 AC 05/25 IV 2122 Ceftriaxone Sodium 1,000 MG DAILY 05/24 1322 DC 05/25 IV 0921 Clopidogrel Bisulfate 75 MG DAILY 05/24 1000 AC 05/25 PO 0921 Diltiazem HCl 180 MG DAILY 05/24 1000 AC 05/25 PO 0921 Fluticasone 2 SPRAY BID 05/26 1000 AC Propionate GRISELDA Fluticasone 2 SPRAY DAILY 05/25 1251 DC 05/25 Propionate GRISELDA 1348 Fluticasone 2 PUF BID 05/24 2200 AC 05/25 Propionate INH 2127 Fluticasone 2 SPRAY QPM 05/24 0030 DC 05/24 Propionate GRISELDA 2114 Guaifenesin 600 MG Q12 05/25 1137 AC 05/25 PO 2120 Heparin Sodium 5,000 UNIT Q8 05/24 0600 AC 05/26 (Porcine) SC 0541 Hydralazine HCl 100 MG TID 05/24 0015 AC 05/25 PO 2120 Isosorbide 60 MG DAILY 05/24 1000 AC 05/25 Mononitrate PO 0921 Levothyroxine Sodium 0.025 MG DAILY AC 05/24 0700 AC 05/26 PO 0541 Lorazepam 0.5 MG .STK-MED ONE 05/25 2238 DC PO 05/25 2239 Losartan Potassium 25 MG DAILY 05/24 1000 AC 05/25 PO 0921 Magnesium Oxide 400 MG DAILY 05/24 1000 AC 05/25 PO 0921 Montelukast Sodium 10 MG 2200 05/24 2200 AC 05/25 PO 2120 Moxifloxacin HCl 400 MG DAILY 05/25 1056 DC 05/25 PO 1158 Nystatin 5 ML 4 TIMES/DAY PRN 05/26 0900 UNVr PO Oxycodone HCl 5 MG Q6P PRN 05/24 1356 AC PO Patient Own 0 0900,1700 05/24 0900 AC 05/26 Medication PO 0806 Polyethylene Glycol 17 GM DAILY 05/26 1000 AC PO Prednisone 40 MG DAILY 05/26 1000 AC PO Prednisone 50 MG ONCE ONE 05/25 1330 DC 05/25 PO 05/25 1331 1333 Prednisone 50 MG DAILY 05/25 1000 DC PO Senna 187 MG AT BEDTIME 05/26 2200 AC PO Tiotropium [place] 1 PUF DAILY 05/24 1000 AC 05/25 INH 1202 Laboratory Tests 05/26 0531 Chemistry Sodium (137 - 145 mmol/L) 129 L Potassium (3.5 - 5.1 mmol/L) 4.9 Chloride (98 - 107 mmol/L) 94 L Carbon Dioxide (22 - 30 mmol/L) 24 Anion Gap (5 - 16) 11 BUN (7 - 17 mg/dL) 32 H Creatinine (0.5 - 1.0 mg/dL) 1.1 H Estimated GFR (>60 ml/min) 49 L BUN/Creatinine Ratio (7 - 25 %) 29.1 H Vital Signs Date Time Temp Pulse Resp B/P Pulse O2 O2 Flow FiO2 Ox Delivery Rate 05/26 0806 97.9 76 18 174/60 92 Nasal 2.0L Cannula 05/26 0800 Nasal 2.0L Cannula 05/26 0233 95 Nasal 2.0L Cannula 05/26 0000 93 Nasal 2.0L Cannula 05/25 2327 98.5 72 20 160/52 95 Nasal 2.0L Cannula 05/25 2120 72 160/52 05/25 1854 95 Nasal 2.0L Cannula 05/25 1600 94 Nasal 2.0L Cannula 05/25 1550 65 128/68 05/25 1530 97.6 61 20 128/68 94 Nasal 2.0L Cannula 05/25 0921 80 160/72 05/25 0921 80 160/72 05/25 0921 80 160/72 05/25 0920 80 160/72 05/25 0905 93 Room Air
--- NOTE | 2016-05-26 09:25 | PN- Pulmonary ---
Subjective HPI/Critical Care Issues: Still coughing and wheezing and short of breath Significantly anxious Afebrile Coughing copious amounts of yellow phlegm Vital signs reviewed On 2 L nasal cannula Laboratory data reviewed creatinine down to 1.1 Sodium up to 129 White count stable at 5 Objective Current Medications: Current Medications Sig/Emmanuel Start time Last Medication Dose Route Stop Time Status Admin Acetaminophen 650 MG Q6P PRN 05/23 2200 AC PO Albuterol Sulfate 3 ML Q4P PRN 05/24 1415 AC 05/26 INH 0232 Alprazolam 0.25 MG AT BEDTIME NEED.. 05/25 2245 AC 05/26 PO 0217 Alprazolam 0.5 MG AT BEDTIME NEED.. 05/25 1345 DC PO 05/30 2344 Alprazolam 0.25 MG Q12P PRN 05/23 2345 DC 05/24 PO 05/30 2344 0035 Amlodipine Besylate 5 MG DAILY 05/24 1000 AC 05/25 PO 0921 Aspirin Buffered 81 MG DAILY 05/24 1000 AC 05/25 PO 0921 Atorvastatin Calcium 80 MG 1700 05/24 0030 AC 05/25 PO 1601 Azithromycin 500 MG DAILY 05/24 1000 DC 05/25 Sodium Chloride 250 ML IV 0922 Benzocaine/Menthol 1 NEVIN Q2P PRN 05/25 1100 AC 05/25 PO 1158 Bisacodyl 10 MG DAILY 05/26 1000 AC PO Ceftazidime 1,000 MG Q12 05/25 1332 AC 05/25 IV 2122 Ceftriaxone Sodium 1,000 MG DAILY 05/24 1322 DC 05/25 IV 0921 Clopidogrel Bisulfate 75 MG DAILY 05/24 1000 AC 05/25 PO 0921 Diltiazem HCl 180 MG DAILY 05/24 1000 AC 05/25 PO 0921 Fluticasone 2 SPRAY BID 05/26 1000 AC Propionate GRISELDA Fluticasone 2 SPRAY DAILY 05/25 1251 DC 05/25 Propionate GRISELDA 1348 Fluticasone 2 PUF BID 05/24 2200 AC 05/25 Propionate INH 2127 Fluticasone 2 SPRAY QPM 05/24 0030 DC 05/24 Propionate GRISELDA 2114 Guaifenesin 600 MG Q12 05/25 1137 AC 05/25 PO 2120 Heparin Sodium 5,000 UNIT Q8 05/24 0600 AC 05/26 (Porcine) SC 0541 Hydralazine HCl 100 MG TID 05/24 0015 AC 05/25 PO 2120 Isosorbide 60 MG DAILY 05/24 1000 AC 05/25 Mononitrate PO 0921 Levothyroxine Sodium 0.025 MG DAILY AC 05/24 0700 AC 05/26 PO 0541 Lorazepam 0.5 MG .STK-MED ONE 05/25 2238 DC PO 05/25 2239 Losartan Potassium 25 MG DAILY 05/24 1000 AC 05/25 PO 0921 Magnesium Oxide 400 MG DAILY 05/24 1000 AC 05/25 PO 0921 Montelukast Sodium 10 MG 2200 05/24 2200 AC 05/25 PO 2120 Moxifloxacin HCl 400 MG DAILY 05/25 1056 DC 05/25 PO 1158 Nystatin 5 ML 4 TIMES/DAY PRN 05/26 0900 AC PO Oxycodone HCl 5 MG Q6P PRN 05/24 1356 AC PO Patient Own 0 0900,1700 05/24 0900 AC 05/26 Medication PO 0806 Polyethylene Glycol 17 GM DAILY 05/26 1000 AC PO Prednisone 40 MG DAILY 05/26 1000 AC PO Prednisone 50 MG ONCE ONE 05/25 1330 DC 05/25 PO 05/25 1331 1333 Prednisone 50 MG DAILY 05/25 1000 DC PO Senna 187 MG AT BEDTIME 05/26 2200 AC PO Tiotropium [place] 1 PUF DAILY 05/24 1000 AC 05/25 INH 1202 Vital Signs & I&O Last 24 Hrs of Vitals and I&O: Vital Signs Date Time Temp Pulse Resp B/P Pulse O2 O2 Flow FiO2 Ox Delivery Rate 05/26 0806 97.9 76 18 174/60 92 Nasal 2.0L Cannula 05/26 0800 Nasal 2.0L Cannula 05/26 0233 95 Nasal 2.0L Cannula 05/26 0000 93 Nasal 2.0L Cannula 05/25 2327 98.5 72 20 160/52 95 Nasal 2.0L Cannula 05/25 2120 72 160/52 05/25 1854 95 Nasal 2.0L Cannula 05/25 1600 94 Nasal 2.0L Cannula 05/25 1550 65 128/68 05/25 1530 97.6 61 20 12868 94 Nasal 2.0L Cannula Intake & Output 05/26 1600 05/26 0800 05/26 0000 Intake Total 200 400 Output Total 400 750 Balance -200 -350 Intake, IV 40 Intake, Oral 200 360 Output, Urine 400 750 Patient 130 lb Weight Impression/Plan Impression/Plan Impression/Plan: Physical Exam General Appearance Alert, Oriented X3, Cooperative, No Acute Distress Skin No Rashes, No Breakdown HEENT Atraumatic, PERRLA, EOMI Neck Supple, increased JVP Cardiovascular Regular Rate, Normal S1, Normal S2 Lungs decreased air entry bilaterally, bilateral basal crepts Abdomen Normal Bowel Sounds, Soft, No Tenderness Neurological Normal Speech Extremities No Clubbing, No Cyanosis, No Edema, Normal Pulses Vascular Normal Pulses, Pulses Symmetrical 65-year-old fever with significant cardiac history as noted in H&P recently had a bypass done at [facility] with subsequent cardiac arrest with subsequent adverse effect to high dose of metoprolol (100mg) with effusions with severe baseline copd with fev1 of .9 (not a retainer) with * Increasing greenish sputum suggestive of Pseudomonas infection with bronchitis and sinusitis * Chronic systolic CHF exacerbation 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
--- NOTE | 2016-05-26 10:49 | PN- Cardiology ---
Subjective Subjective: Patient still complains of shortness of breath along with weakness. She denies chest discomfort. Review of Systems: Eyes no blurred or double vision Ears no deafness or ringing Nose and throat no recurrent sinusitis Lungs per history of present illness Heart per history of present illness Abdomen no nausea vomiting Musculoskeletal occasional muscle and joint pains Psych no anxiety or depression Neuro without recurrent headache or seizures Endocrine no heat or cold intolerance Objective Vital Signs and I&Os Vital Signs Date Time Temp Pulse Resp B/P Pulse O2 O2 Flow FiO2 Ox Delivery Rate 05/26 1008 93 Nasal 2.0L Cannula 05/26 0951 76 174/60 05/26 0951 76 174/60 05/26 0951 76 174/60 05/26 0950 76 174/60 05/26 0806 97.9 76 18 17460 92 Nasal 2.0L Cannula 05/26 0800 Nasal 2.0L Cannula 05/26 0233 95 Nasal 2.0L Cannula 05/26 0000 93 Nasal 2.0L Cannula 05/25 2327 98.5 72 20 160/52 95 Nasal 2.0L Cannula 05/25 2120 72 160/52 05/25 1854 95 Nasal 2.0L Cannula 05/25 1600 94 Nasal 2.0L Cannula 05/25 1550 65 128/68 05/25 1530 97.6 61 20 128/68 94 Nasal 2.0L Cannula Intake & Output 05/26 1600 05/26 0800 05/26 0000 05/25 1600 05/25 0800 05/25 0000 Intake Total 200 400 470 50 600 Output Total 400 750 950 Balance -200 -350 470 50 -350 Intake, IV 40 230 Intake, Oral 200 360 240 50 600 Output, Urine 400 750 950 Patient 130 lb 128 lb Weight Physical Exam: Patient is a well-developed well-nourished female appearing in no acute distress HEENT is unremarkable Neck is supple there is no JVD Lungs diffuse rhonchi and wheezes bilaterally Heart regular rhythm S1 and S2 are normal no murmurs gallops or rubs Abdomen bowel sounds positive Extremities without edema Current Medications: Current Medications Sig/Emmanuel Start time Last Medication Dose Route Stop Time Status Admin Acetaminophen 650 MG Q6P PRN 05/23 2200 AC PO Albuterol Sulfate 3 ML Q4P PRN 05/24 1415 AC 05/26 INH 1005 Alprazolam 0.25 MG AT BEDTIME NEED.. 05/25 2245 AC 05/26 PO 0217 Alprazolam 0.5 MG AT BEDTIME NEED.. 05/25 1345 DC PO 05/30 2344 Alprazolam 0.25 MG Q12P PRN 05/23 2345 DC 05/24 PO 05/30 2344 0035 Amlodipine Besylate 5 MG DAILY 05/24 1000 AC 05/26 PO 0951 Aspirin Buffered 81 MG DAILY 05/24 1000 AC 05/26 PO 0951 Atorvastatin Calcium 80 MG 1700 05/24 0030 AC 05/25 PO 1601 Azithromycin 500 MG DAILY 05/24 1000 DC 05/25 Sodium Chloride 250 ML IV 0922 Benzocaine/Menthol 1 NEVIN Q2P PRN 05/25 1100 AC 05/25 PO 1158 Bisacodyl 10 MG DAILY 05/26 1000 AC 05/26 PO 0952 Ceftazidime 1,000 MG Q12 05/25 1332 AC 05/26 IV 1000 Ceftriaxone Sodium 1,000 MG DAILY 05/24 1322 DC 05/25 IV 0921 Clopidogrel Bisulfate 75 MG DAILY 05/24 1000 AC 05/26 PO 0952 Diltiazem HCl 180 MG DAILY 05/24 1000 AC 05/26 PO 0950 Fluticasone 2 SPRAY BID 05/26 1000 AC 05/26 Propionate GRISELDA 1000 Fluticasone 2 SPRAY DAILY 05/25 1251 DC 05/25 Propionate GRISELDA 1348 Fluticasone 2 PUF BID 05/24 2200 AC 05/25 Propionate INH 2127 Fluticasone 2 SPRAY QPM 05/24 0030 DC 05/24 Propionate GRISELDA 2114 Guaifenesin 600 MG Q12 05/25 1137 AC 05/26 PO 0951 Heparin Sodium 5,000 UNIT Q8 05/24 0600 AC 05/26 (Porcine) SC 0541 Hydralazine HCl 100 MG TID 05/24 0015 AC 05/26 PO 0950 Isosorbide 60 MG DAILY 05/24 1000 AC 05/26 Mononitrate PO 0951 Levothyroxine Sodium 0.025 MG DAILY AC 05/24 0700 AC 05/26 PO 0541 Lorazepam 0.5 MG .STK-MED ONE 05/25 2238 DC PO 05/25 2239 Losartan Potassium 25 MG DAILY 05/24 1000 AC 05/26 PO 0951 Magnesium Oxide 400 MG DAILY 05/24 1000 AC 05/26 PO 0951 Montelukast Sodium 10 MG 2200 05/24 2200 AC 05/25 PO 2120 Moxifloxacin HCl 400 MG DAILY 05/25 1056 DC 05/25 PO 1158 Nystatin 5 ML 4 TIMES/DAY PRN 05/26 0900 AC PO Oxycodone HCl 5 MG Q6P PRN 05/24 1356 AC PO Patient Own 0 0900,1700 05/24 0900 AC 05/26 Medication PO 0806 Polyethylene Glycol 17 GM DAILY 05/26 1000 AC 05/26 PO 0949 Prednisone 40 MG DAILY 05/26 1000 AC 05/26 PO 0952 Prednisone 50 MG ONCE ONE 05/25 1330 DC 05/25 PO 05/25 1331 1333 Prednisone 50 MG DAILY 05/25 1000 DC PO Senna 187 MG AT BEDTIME 05/26 2200 AC PO Tiotropium [place] 1 PUF DAILY 05/24 1000 AC 05/25 INH 1202 Results Last 48 Hrs of Labs/Mics: Laboratory Tests 05/26/16 0531: Anion Gap 11, Estimated GFR 49 L, BUN/Creatinine Ratio 29.1 H 05/25/16 0715: Anion Gap 16, Estimated GFR 45 L, BUN/Creatinine Ratio 25.0 05/24/16 1420: Urine Color STRAW, Urine Clarity CLEAR, Urine pH 6.0, Ur Specific [place] 1.015, Urine Protein NEG, Urine Ketones NEG, Urine Nitrite NEG, Urine Bilirubin NEG, Urine Urobilinogen 0.2, Ur Leukocyte Esterase NEG, Ur Microscopic EXAM NOT REQUIRED, Urine Hemoglobin NEG, Urine Glucose >=1000 H 05/24/16 1420: Urine Osmolality 317, Ur Random Creatinine 22.3, Ur Random Sodium 54, Ur Random Potassium 28.0, Fraction Sodium Excret 2.7 H Telemetry personally reviewed sinus rhythm Assessment/Plan Assessment/Plan 1. Coronary disease status post recent coronary artery bypass surgery 2. Respiratory insufficiency with acute exacerbation of COPD along with bronchitis and sinusitis secondary to Pseudomonas 3. Renal artery stenosis 4. Hypertension 5. Chronic renal insufficiency 6. History of bronchospasm secondary to metoprolol Recommendations 1. Continue aggressive pulmonary management per Dr. Mata 2. Patient will require outpatient workup of her renal artery stenosis with possible stenting 3. Continue current medications. If her blood pressure remains poorly controlled consider increasing amlodipine to 10 mg daily Continue telemetry? Yes
[2016-05-26 16:11] VITALS: BP 158/50
[2016-05-26 22:08] VITALS: BP 144/64
--- NOTE | 2016-05-27 06:10 | PN- Housestaff ---
Subjective Follow-up For: Sinusitis Psedemonas Bronchitis Tele-Events Since Last Visit: Normal sinus rhythm 70s to 80s Subjective: Ms Recio was seen and examined this morning. She was resting comfortably seated on the bed. Patient states overnight she had multiple episodes of being anxious secondary to dyspnea and air hunger. She attributes this to use of humidified oxygen. This morning however the patient does state that she feels that her symptoms have drastically improved. She still has episodes of dyspnea however feels that these episodes are better than they were yesterday. Patient also reports to improve appetite and is currently feeling hungry awaiting breakfast. Patient denies any fever, chills, nausea, vomiting. Patient states she continues to feel right-sided shoulder pain. Pain is rated at a 4 out of 10 in severity. Likely due to attributed to repeated coughing. Patient has requested her Restasis eyedrops to be administered this morning. Review of Systems Constitutional: Reports: see HPI. Denies: chills, fever, weakness. Objective Last 24 Hrs of Vital Signs/I&O Vital Signs Date Time Temp Pulse Resp B/P Pulse O2 O2 Flow FiO2 Ox Delivery Rate 05/27 0148 92 Nasal 2.0L Cannula 05/27 0000 Nasal 2.0L Cannula 05/26 2208 98.2 72 24 144/64 91 Nasal 2.0L Cannula 05/26 2131 75 144/64 05/26 1745 91 Nasal 2.0L Cannula 05/26 1634 74 158/50 05/26 1611 98.1 74 20 158/50 91 Nasal 2.0L Cannula 05/26 1008 93 Nasal 2.0L Cannula 05/26 0951 76 174/60 05/26 0951 76 174/60 05/26 0951 76 174/60 05/26 0950 76 174/60 05/26 0806 97.9 76 18 174/60 92 Nasal 2.0L Cannula 05/26 0800 Nasal 2.0L Cannula Intake & Output 05/27 0800 05/27 0000 05/26 1600 Intake Total 50 480 620 Output Total 550 300 950 Balance -500 180 -330 Intake, IV 0 20 Intake, Oral 50 480 600 Number 1 1 Bowel Movements Output, Urine 550 300 950 Patient 58.287 kg Weight Physical Exam General Appearance: Alert, Oriented X3, Cooperative, No Acute Distress Cardiovascular: Regular Rate, Normal S1, Normal S2 Lungs: Diffuse Expratory Rhonchi and wheezing. Abdomen: Normal Bowel Sounds, Soft, No Tenderness, No Abdominal Bruits Neurological: Normal Speech, Strength at 5/5 X4 Ext Extremities: No Clubbing, No Cyanosis, No Edema Current Medications: Current Medications Sig/Emmanuel Start time Last Medication Dose Route Stop Time Status Admin Acetaminophen 650 MG Q6P PRN 05/23 2200 AC PO Acetylcysteine 600 MG BID 05/27 1000 UNVr PO Albuterol Sulfate 3 ML EVERY 4 HRS/AWAKE 05/26 2000 AC 05/27 INH 0133 Albuterol Sulfate 3 ML Q4P PRN 05/24 1415 DC 05/26 INH 1351 Alprazolam 0.25 MG ONCE ONE 05/27 0115 DC 05/27 PO 05/27 0116 0114 Alprazolam 0.25 MG AT BEDTIME NEED.. 05/25 2245 AC 05/26 PO 2233 Amlodipine Besylate 5 MG DAILY 05/24 1000 AC 05/26 PO 0951 Artificial Tears 2 GTT 4 TIMES/DAY PRN 05/27 0715 AC OPH Aspirin Buffered 81 MG DAILY 05/24 1000 AC 05/26 PO 0951 Atorvastatin Calcium 80 MG 1700 05/24 0030 AC 05/26 PO 1634 Benzocaine/Menthol 1 NEVIN Q2P PRN 05/25 1100 AC 05/25 PO 1158 Bisacodyl 10 MG DAILY 05/26 1000 AC 05/26 PO 0952 Ceftazidime 1,000 MG Q12 05/25 1332 AC 05/26 IV 2142 Clopidogrel Bisulfate 75 MG DAILY 05/24 1000 AC 05/26 PO 0952 Diltiazem HCl 180 MG DAILY 05/24 1000 AC 05/26 PO 0950 Fluticasone 2 SPRAY BID 05/26 1000 AC 05/26 Propionate GRISELDA 2131 Fluticasone 2 PUF BID 05/24 2200 AC 05/25 Propionate INH 2127 Guaifenesin 600 MG Q12 05/25 1137 AC 05/26 PO 2131 Heparin Sodium 5,000 UNIT Q8 05/24 0600 AC 05/27 (Porcine) SC 0535 Hydralazine HCl 100 MG TID 05/24 0015 AC 05/26 PO 2131 Isosorbide 60 MG DAILY 05/24 1000 AC 05/26 Mononitrate PO 0951 Lactobacillus 1 CAP DAILY PRN 05/27 0715 AC Acidophilus PO Levothyroxine Sodium 0.025 MG DAILY AC 05/24 0700 AC 05/27 PO 0535 Losartan Potassium 25 MG DAILY 05/24 1000 AC 05/26 PO 0951 Magnesium Oxide 400 MG DAILY 05/24 1000 AC 05/26 PO 0951 Montelukast Sodium 10 MG 2200 05/24 2200 AC 05/26 PO 2132 Non-Formulary 0 SEE ADMIN CRITERIA 05/27 0745 UNVr Medication ANY Nystatin 5 ML 4 TIMES/DAY 05/26 1141 AC 05/26 PO 2131 Nystatin 5 ML 4 TIMES/DAY PRN 05/26 0900 DC PO Oxycodone HCl 5 MG Q6P PRN 05/24 1356 AC PO Patient Medication 1 ED .STK-MED ONE 05/26 1402 DC Teaching ED 05/26 1403 Patient Own 0 0900,1700 05/24 0900 AC 05/26 Medication PO 1635 Polyethylene Glycol 17 GM DAILY 05/26 1000 AC 05/26 PO 0949 Prednisone 40 MG DAILY 05/26 1000 AC 05/26 PO 0952 Senna 187 MG AT BEDTIME 05/26 2200 AC 05/26 PO 2132 Tiotropium [place] 1 PUF DAILY 05/24 1000 AC 05/25 INH 1202 Last 24 Hrs of Lab/Maged Results Last 24 Hrs of Labs/Mics: Laboratory Tests 05/27/16 0530: Anion Gap 8, Estimated GFR > 60, BUN/Creatinine Ratio 25.6 H Assessment/Plan Assessment: 1. Acute hypoxic respiratory failure due to possible COPD exacerbation/CHF exacerbation 2. Worsening sinus congestion with low-grade fever 3. CAD and ischemic cardiomyopathy s/p CABG. 4. History of hypothyroidism 5 acute on chronic kidney disease stage IIIB 6. History of hypertension hyperlipidemia. Renal artery stenosis: CTA Abdomen with severe atherosclerotic disease including occlusion of the proximal L renal artery, 50% narrowing of the proximal R renal artery, near complete occlusion of the R common iliac artery and celiac arteries. Patient might have right renal stent placement as an outpatient. Acute hypoxic respiratory failure due to possible COPD exacerbation/CHF exacerbation: Continue oxygen to keep saturation above 92%. Patient is no more wheezing after getting IV Solu-Medrol 125 mg in the ED. Solumedrol IV discontinued. Switched to PO prednisone. Will administer 50 mg today, followed by 40 mg tomorrow, Patient can get 40 mg on 05/27/2016 done patient's symptoms we can decide whether patient can benefit from prednisone taper (to 30 mg) versus not. Sputum Cx growing Pseudomonas which patient has grown in the past. Patient started on ceftazidime 1 g IV Q12H. patient will receive last dose of ceftazidime 05/27/2016. Likely will be switched to by mouth ciprofloxacin from 05/28 2016. Azithromycin and ceftriaxone discontinued. Hold Spiriva today. Ipratropium/Atrovent every 6 [id number] reported. Chest x-ray done in the ED showed mild stable cardiomegaly. Will not give any IV Lasix as patient has an evidence of a JACIEL as well Monitor in's and O's with daily weight checks. Sinus X-ray unremarkable. Mucinex and lozenges for symptomatic relief. X-ray done 05/26/2016 showed no acute pulmonary change and/or worsening of pulmonary congestion since 05/23/2016. Continue TRC nebs. Questionable Oral candidiasis/thrush Nystatin swish and swallow. 4 times a day. Likely due to prednisone usage. Hyponatremia: Check urine lites, urine osmolality and serum osmolality. 1200 fluid restriction, likely can be administered today. NA livel today: 132 Will hold patient's Lasix today. CAD and ischemic cardiomyopathy s/p CABG. Continue home medications including aspirin, Lipitor, diltiazem, Imdur, hydralazine 100mg. Patient's blood pressure elevated, 170/74 the patient may benefit from revision of amlodipine to 10 mg on 05/27/2016. In the interim we will monitor and patient may get 5 mg of hydralazine if patients remain consistently elevated. History of hypothyroidism Continue home dose of levothyroxine. Acute on chronic kidney disease stage IV: Continue home losartan 25 mg PO QD. Avoid any nephrotoxic agents. History of hypertension and hyperlipidemia. Continue medications. DVT prophylaxis subcutaneous heparin ALPS and encourage ambulation, patient continues to bleed from abdomen. Code Full code Problem List: 1. Renal artery stenosis 2. Hyponatremia 3. Renal insufficiency 4. Sinusitis, acute 5. CHF (congestive heart failure) 6. COPD (chronic obstructive pulmonary disease) case management patient 7. COPD exacerbation Pain Ratin Pain Location: Right Shoulder Pain Goal: Remain pain free Pain Plan: Tylenol PRN Tomorrow's Labs & Rationales: BEP: Monitor Hyponatremia
[2016-05-27 08:01] VITALS: BP 170/74
--- NOTE | 2016-05-27 09:24 | PN- Att Addend ---
Attending Addendum Attending Brief Note Patient reports improved breathing General Appearance: Alert, No Acute Distress Skin: Grossly normal HEENT: PEERLA Neck: Supple, No JVD Cardiovascular: Regular Rate, Normal S1, Normal S2, No Murmurs Lungs: Mild expiratory wheeze at the base Abdomen: Normal Bowel Sounds, Soft, No Tenderness Neurological: Normal Speech, Strength at 5/5 X4 Ext, Cranial Nerves 3-12 NL, Reflexes 2+ Extremities: No Clubbing, No Cyanosis, No Edema Vascular: Normal Pulses Assessment Sputum culture positive for Pseudomonas. Will transition to oral antibiotics. In the meantime adjust blood pressure medication for optimal blood pressure and observe for 24 hours and likely discharge in a.m. Plan Switch to oral Cipro Prednisone taper fluid restriction to 1200 mL per day and monitor sodium levels Follow consults for accommodation TRC and nebs DVT prophylaxis Current Medications Sig/Emmanuel Start time Last Medication Dose Route Stop Time Status Admin Acetaminophen 650 MG Q6P PRN 05/23 2200 AC PO Acetylcysteine 600 MG BID 05/27 1000 AC 05/27 PO 0913 Albuterol Sulfate 3 ML EVERY 4 HRS/AWAKE 05/26 2000 AC 05/27 INH 0751 Albuterol Sulfate 3 ML Q4P PRN 05/24 1415 DC 05/26 INH 1351 Alprazolam 0.25 MG ONCE ONE 05/27 0115 DC 05/27 PO 05/27 0116 0114 Alprazolam 0.25 MG AT BEDTIME NEED.. 05/25 2245 AC 05/26 PO 2233 Amlodipine Besylate 10 MG DAILY 05/27 1000 AC 05/27 PO 0900 Amlodipine Besylate 5 MG DAILY 05/24 1000 DC 05/26 PO 0951 Artificial Tears 2 GTT 4 TIMES/DAY PRN 05/27 0715 AC 05/27 OPH 0907 Aspirin Buffered 81 MG DAILY 05/24 1000 AC 05/27 PO 0901 Atorvastatin Calcium 80 MG 1700 05/24 0030 AC 05/26 PO 1634 Benzocaine/Menthol 1 NEVIN Q2P PRN 05/25 1100 AC 05/25 PO 1158 Bisacodyl 10 MG DAILY 05/26 1000 AC 05/27 PO 0901 Ceftazidime 1,000 MG Q12 05/25 1332 AC 05/27 IV 0902 Clopidogrel Bisulfate 75 MG DAILY 05/24 1000 AC 05/27 PO 0900 Cyclosporine 1 GTT DAILY 05/27 1000 AC OPH Diltiazem HCl 180 MG DAILY 05/24 1000 AC 05/27 PO 0901 Fluticasone 2 SPRAY BID 05/26 1000 AC 05/27 Propionate GRISELDA 0902 Fluticasone 2 PUF BID 05/24 2200 AC 05/27 Propionate INH 0904 Guaifenesin 600 MG Q12 05/25 1137 AC 05/27 PO 0901 Heparin Sodium 5,000 UNIT Q8 05/24 0600 AC 05/27 (Porcine) SC 0535 Hydralazine HCl 100 MG TID 05/24 0015 AC 05/27 PO 0901 Isosorbide 60 MG DAILY 05/24 1000 AC 05/27 Mononitrate PO 0901 Lactobacillus 1 CAP DAILY PRN 05/27 0715 AC 05/27 Acidophilus PO 0900 Levothyroxine Sodium 0.025 MG DAILY AC 05/24 0700 AC 05/27 PO 0535 Losartan Potassium 25 MG DAILY 05/24 1000 AC 05/27 PO 0901 Magnesium Oxide 400 MG DAILY 05/24 1000 AC 05/27 PO 0901 Montelukast Sodium 10 MG 2200 05/24 2200 AC 05/26 PO 2132 Nystatin 5 ML 4 TIMES/DAY 05/26 1141 AC 05/27 PO 0900 Nystatin 5 ML 4 TIMES/DAY PRN 05/26 0900 DC PO Oxycodone HCl 5 MG Q6P PRN 05/24 1356 AC PO Patient Medication 1 ED .STK-MED ONE 05/26 1402 HI Teaching ED 05/26 1403 Patient Own 0 0900,1700 05/24 0900 AC 05/27 Medication PO 0810 Polyethylene Glycol 17 GM DAILY 05/26 1000 AC 05/26 PO 0949 Prednisone 40 MG DAILY 05/26 1000 AC 05/27 PO 0900 Senna 187 MG AT BEDTIME 05/26 2200 AC 05/26 PO 2132 Tiotropium [place] 1 PUF DAILY 05/24 1000 AC 05/27 INH 0904 Laboratory Tests 05/27 0530 Chemistry Sodium (137 - 145 mmol/L) 132 L Potassium (3.5 - 5.1 mmol/L) 4.9 Chloride (98 - 107 mmol/L) 98 Carbon Dioxide (22 - 30 mmol/L) 27 Anion Gap (5 - 16) 8 BUN (7 - 17 mg/dL) 23 H Creatinine (0.5 - 1.0 mg/dL) 0.9 Estimated GFR (>60 ml/min) > 60 BUN/Creatinine Ratio (7 - 25 %) 25.6 H Vital Signs Date Time Temp Pulse Resp B/P Pulse O2 O2 Flow FiO2 Ox Delivery Rate 05/27 0901 76 170/74 05/27 0901 76 170/74 05/27 0901 76 170/74 05/27 0900 76 170/74 05/27 0801 98.2 76 24 170/74 92 Nasal 3.0L Cannula 05/27 0800 Nasal 2.0L Cannula 05/27 0148 92 Nasal 2.0L Cannula 05/27 0000 Nasal 2.0L Cannula 05/26 2208 98.2 72 24 144/64 91 Nasal 2.0L Cannula 05/26 2131 75 144/64 05/26 1745 91 Nasal 2.0L Cannula 05/26 1634 74 158/50 05/26 1611 98.1 74 20 158/50 91 Nasal 2.0L Cannula 05/26 1008 93 Nasal 2.0L Cannula 05/26 0951 76 174/60 05/26 0951 76 174/60 05/26 0951 76 174/60 05/26 0950 76 174/60
--- NOTE | 2016-05-27 10:09 | PN- Pulmonary ---
Subjective HPI/Critical Care Issues: Still wheezing fatigued afebrile Cough has improved Objective Current Medications: Current Medications Sig/Emmanuel Start time Last Medication Dose Route Stop Time Status Admin Acetaminophen 650 MG Q6P PRN 05/23 2200 AC PO Acetylcysteine 600 MG BID 05/27 1000 AC 05/27 PO 0913 Albuterol Sulfate 3 ML EVERY 4 HRS/AWAKE 05/26 2000 AC 05/27 INH 0751 Albuterol Sulfate 3 ML Q4P PRN 05/24 1415 DC 05/26 INH 1351 Alprazolam 0.25 MG ONCE ONE 05/27 0115 DC 05/27 PO 05/27 0116 0114 Alprazolam 0.25 MG AT BEDTIME NEED.. 05/25 2245 AC 05/26 PO 2233 Amlodipine Besylate 10 MG DAILY 05/27 1000 AC 05/27 PO 0900 Amlodipine Besylate 5 MG DAILY 05/24 1000 DC 05/26 PO 0951 Artificial Tears 2 GTT 4 TIMES/DAY PRN 05/27 0715 AC 05/27 OPH 0907 Aspirin Buffered 81 MG DAILY 05/24 1000 AC 05/27 PO 0901 Atorvastatin Calcium 80 MG 1700 05/24 0030 AC 05/26 PO 1634 Benzocaine/Menthol 1 NEVIN Q2P PRN 05/25 1100 AC 05/25 PO 1158 Bisacodyl 10 MG DAILY 05/26 1000 AC 05/27 PO 0901 Ceftazidime 1,000 MG Q12 05/25 1332 DC 05/27 IV 0902 Ciprofloxacin 500 MG BID 05/27 2200 UNVr PO 05/31 2159 Clopidogrel Bisulfate 75 MG DAILY 05/24 1000 AC 05/27 PO 0900 Cyclosporine 1 GTT 05/27 2200 AC OPH Cyclosporine 1 GTT DAILY 05/27 1000 DC OPH Diltiazem HCl 180 MG DAILY 05/24 1000 AC 05/27 PO 0901 Fluticasone 2 SPRAY BID 05/26 1000 AC 05/27 Propionate GRISELDA 0902 Fluticasone 2 PUF BID 05/24 2200 AC 05/27 Propionate INH 0904 Guaifenesin 600 MG Q12 05/25 1137 AC 05/27 PO 0901 Heparin Sodium 5,000 UNIT Q8 05/24 0600 AC 05/27 (Porcine) SC 0535 Hydralazine HCl 100 MG TID 05/24 0015 AC 05/27 PO 0901 Isosorbide 60 MG DAILY 05/24 1000 AC 05/27 Mononitrate PO 0901 Lactobacillus 1 CAP DAILY PRN 05/27 0715 AC 05/27 Acidophilus PO 0900 Levothyroxine Sodium 0.025 MG DAILY AC 05/24 0700 AC 05/27 PO 0535 Losartan Potassium 25 MG DAILY 05/24 1000 AC 05/27 PO 0901 Magnesium Oxide 400 MG DAILY 05/24 1000 AC 05/27 PO 0901 Montelukast Sodium 10 MG 2200 05/24 2200 AC 05/26 PO 2132 Nystatin 5 ML 4 TIMES/DAY 05/26 1141 AC 05/27 PO 0900 Nystatin 5 ML 4 TIMES/DAY PRN 05/26 0900 DC PO Oxycodone HCl 5 MG Q6P PRN 05/24 1356 AC PO Patient Medication 1 ED .STK-MED ONE 05/26 1402 DC Teaching ED 05/26 1403 Patient Own 0 0900,1700 05/24 0900 AC 05/27 Medication PO 0810 Polyethylene Glycol 17 GM DAILY 05/26 1000 AC 05/26 PO 0949 Prednisone 30 MG DAILY 05/28 1000 UNVr PO Prednisone 40 MG DAILY 05/26 1000 DC 05/27 PO 0900 Senna 187 MG AT BEDTIME 05/26 2200 AC 05/26 PO 2132 Tiotropium [place] 1 PUF DAILY 05/24 1000 AC 05/27 INH 0904 Vital Signs & I&O Last 24 Hrs of Vitals and I&O: Vital Signs Date Time Temp Pulse Resp B/P Pulse O2 O2 Flow FiO2 Ox Delivery Rate 05/27 0933 92 Nasal 3.0L Cannula 05/27 0901 76 170/74 05/27 0901 76 170/74 05/27 0901 76 170/74 05/27 0900 76 170/74 05/27 0801 98.2 76 24 170/74 92 Nasal 3.0L Cannula 05/27 0800 Nasal 2.0L Cannula 05/27 0148 92 Nasal 2.0L Cannula 05/27 0000 Nasal 2.0L Cannula 05/26 2208 98.2 72 24 144/64 91 Nasal 2.0L Cannula 05/26 2131 75 144/64 05/26 1745 91 Nasal 2.0L Cannula 05/26 1634 74 158/50 05/26 1611 98.1 74 20 158/50 91 Nasal 2.0L Cannula 05/26 1008 93 Nasal 2.0L Cannula Intake & Output 05/27 1600 05/27 0800 05/27 0000 Intake Total 50 480 Output Total 550 300 Balance -500 180 Intake, IV 0 Intake, Oral 50 480 Number 1 Bowel Movements Output, Urine 550 300 Patient 129 lb Weight Impression/Plan Impression/Plan Impression/Plan: Physical Exam General Appearance Alert, Oriented X3, Cooperative, No Acute Distress Skin No Rashes, No Breakdown HEENT Atraumatic, PERRLA, EOMI Neck Supple, increased JVP Cardiovascular Regular Rate, Normal S1, Normal S2 Lungs decreased air entry bilaterally, bilateral basal crepts Abdomen Normal Bowel Sounds, Soft, No Tenderness Neurological Normal Speech Extremities No Clubbing, No Cyanosis, No Edema, Normal Pulses Vascular Normal Pulses, Pulses Symmetrical 65-year-old fever with significant cardiac history as noted in H&P recently had a bypass [facility] with subsequent cardiac arrest with subsequent adverse effect to high dose of metoprolol (100mg) with effusions with severe baseline copd with fev1 of .9 (not a retainer) with * Increasing greenish sputum suggestive of Pseudomonas infection with bronchitis and sinusitis * Chronic systolic CHF exacerbation 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
[2016-05-27 10:53] VITALS: BP 198/60
--- NOTE | 2016-05-27 11:25 | Transfer of Care Summary ---
Hospital Course Course Hospital Course: Patient is a 66-year-old woman with a past medical history significant for COPD not on home oxygen, history of chronic left bundle branch block, Diastolic HF ( cardiomyopathy), splenic infract, coronary bypass 2 (November 25 2015) at [facility] complicated by cardiac arrest, bilateral pleural effusions with pseudomonas infection with subsequent intubation and admission to ICU, recently admitted to [facility] for CHF exacerbation(March 2016) former smoker presented to the ED (05/23/2016) with a chief complaints of worsening shortness of breath and sinus related congestion. Assessment: 1. Acute hypoxic respiratory failure due to possible COPD exacerbation/CHF exacerbation 2. Pseudemonal Pneumonia 3. CAD and ischemic cardiomyopathy s/p CABG. 4. History of hypothyroidism 5 Acute on chronic kidney disease stage IIIB 6. History of hypertension hyperlipidemia. #Renal artery stenosis: CTA Abdomen with severe atherosclerotic disease including occlusion of the proximal L renal artery, 50% narrowing of the proximal R renal artery, near complete occlusion of the R common iliac artery and celiac arteries. Patient might have right renal stent placement as an outpatient. #Acute hypoxic respiratory failure due to possible COPD exacerbation/CHF exacerbation: Solumedrol IV discontinued. Switched to PO prednisone. Patient was receiving 50 mg prednisone. On day 4 of admission she was started on 40 mg prednisone which was supposed to be tapered over the next 3 days. She received 40 mg of prednisone on 05/27/2016. Patient also started on Ceftazidime (05/25), after sputum culture was positive for Pseudomonas, sensitivities also include ciprofloxacin, gentamicin, meropenem. Monitor in's and O's with daily weight checks. On 05/19/2016 patient was started on dual nebs and Spiriva was held. Mucinex and lozenges for symptomatic relief. X-ray done 05/26/2016 showed no acute pulmonary change and/or worsening of pulmonary congestion since 05/23/2016. Continue [facility] nebs. #Questionable Oral candidiasis/thrush She has been using prednisone and may have questionable oral thrush. Nystatin swish and swallow. 4 times a day, ordered on 05/26/2016. #Hyponatremia: She has currently been on a fluid restriction due to hyponatremia. Sodium level today was 132. Lasix was being held however this morning was given to her due to her acute change in respiratory function. #CAD and ischemic cardiomyopathy s/p CABG. She has been continued on home medications including Aspirin (81mg), Lipitor ( 80mg), diltiazem (180 mg), Imdur (60mg), hydralazine 100 mg. Patient's blood pressure elevated, 170/74 the patient may benefit from revision of amlodipine to 10 mg which was increased on 05/27/2016. #History of hypothyroidism Continue home dose of levothyroxine 0.025 mg per day. #DVT prophylaxis Patient has been receiving subcutaneous heparin. #Code Full code. Pertinent Lab Results: SERVICE DATE: 05/25/16- EXAM TYPE: CAT - CT ABD ANGIOGRAM EXAMINATION: CT ANGIOGRAM ABDOMEN CLINICAL INFORMATION: Rule out worsening renal artery stenosis left kidney. Elevated blood pressures. COMPARISON: CT abdomen and pelvis with contrast 05/01/2016. TECHNIQUE: Multiple axial images were obtained through the abdomen following the administration of 125 mL of Optiray 320 intravenous contrast. Images were reviewed on a dedicated 3-D workstation. DLP: 510.89 mGy-cm. FINDINGS: VASCULAR: 1. 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 There is good opacification of the celiac axis distally, the splenic artery and hepatic arteries are well opacified. There is robust flow through the pancreaticoduodenal arcade attributed through the inferior pancreaticoduodenal artery and GDA suggesting retrograde flow through this collateral system, the appearance is similar to the prior. 2. Renal Arteries: There is occlusion of the proximal left renal artery with reconstitution distally. This appearance is similar to prior, this corresponds with the atrophic left kidney. There is a moderate stenosis (approximately 50% narrowing) at the origin of the right renal artery, the distal right renal artery appears patent. 3. Abdominal Aorta: Severe diffuse atherosclerotic disease throughout the abdominal aorta, most prominent in the distal abdominal aorta extending into the right greater than left iliac arteries. 4. Iliac Arteries: There is diffuse calcified and noncalcified atherosclerotic disease with near complete occlusion of the right common iliac artery at its origin, this appearance is similar to the prior. There is mild to moderate narrowing at the origin of the left common iliac artery. NONVASCULAR: LUNG BASES: Motion artifact degrades image quality in the lung bases. The lung bases are clear. LIVER, GALLBLADDER, AND BILIARY TREE: The liver is normal in size, shape, and attenuation. No focal hepatic lesion or biliary ductal dilatation is present. The gallbladder is unremarkable with no evidence of radiopaque gallstones, gallbladder wall thickening, or obvious pericholecystic inflammatory changes. PANCREAS: Unremarkable. SPLEEN: Unremarkable. ADRENAL GLANDS: Unremarkable. KIDNEYS AND URETERS: The left kidney is atrophic. No hydronephrosis or focal renal lesions are appreciated. No renal calculi are identified. GASTROINTESTINAL TRACT: The small and large bowel are unremarkable. The appendix is not visualized. ABDOMINAL WALL: No significant hernia is appreciated. LYMPH NODES: Normal. OSSEOUS STRUCTURES: No destructive bony lesions. IMPRESSION: 1. Atrophic left kidney with similar appearance to the occlusion of the proximal left renal artery. The distal left renal artery is atretic but reconstitutes. The overall appearance of the left renal artery and left kidney is unchanged from prior. 2. Approximately 50% narrowing of the proximal right renal artery, similar to prior. 3. Severe atherosclerotic disease of the aortoiliac system with near complete occlusion of the proximal right common iliac artery, again similar to prior. 4. 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 DICTATED BY: VINCE MERINO,CANDICE Vega SERVICE DATE: 05/24/16- EXAM TYPE: RAD - XRY-SINUSES, COMPLETE EXAMINATION: XR SINUSES CLINICAL INFORMATION: Sinus tenderness and congestion. COMPARISON: None. TECHNIQUE: 4 views of the paranasal sinuses are obtained. FINDINGS: There is no apparent mucosal thickening or air-fluid levels in the paranasal sinuses. No other abnormalities are identified. IMPRESSION: Unremarkable paranasal sinuses. DICTATED BY: SACHI CUEVAS MD Assessment/Plan: She has now been transferred to the ICU and is currently in room [address]. Att[address] Mills has been made aware. Norris Mata MD legal arbitrator has also been made aware. Follow-up stat CBC, chest x-ray, ABG, troponin. There is no apparent mucosal thickening or air-fluid levels in the paranasal sinuses. No other abnormalities are identified. IMPRESSION: Unremarkable paranasal sinuses. DICTATED BY: SACHI CUEVAS MD Assessment/Plan: She has now been transferred to the ICU and is currently in room [address]. [address] Mills as been made aware. Norris Mata MD legal arbitrator has also been made aware. Follow-up stat CBC, chest x-ray, ABG, troponin.
[2016-05-27 11:44] LABS: ABSOLUTE BASOPHIL COUNT 0 /CUMM (0.0-0.2); ABSOLUTE EOSINOPHIL COUNT 0 /CUMM (0.0-0.7); ABSOLUTE LYMPH COUNT 1.1 /CUMM (1.2-3.4); ABSOLUTE MONOCYTE COUNT 1.3 /CUMM (0.10-0.60); BASOPHIL % 0.2 % (0.0-2.0); EOSINOPHIL % 0 % (0-5); GRANULOCYTE % 85.8 % (42.2-75.2); MEAN CORPUSCULAR HGB 29.4 PG (27.0-31.0); MEAN CORPUSCULAR HGB CONC 34.7 G/DL (33.0-37.0); MEAN CORPUSCULAR VOLUME 84.7 FL (81.0-99.0); MEAN PLATELET VOLUME 7.2 FL (7.4-10.4); PLATELET COUNT 380 /CUMM (130-400); RBC DISTRIBUTION WIDTH 16.4 % (11.5-14.5); RED BLOOD CELL CT 3.77 /CUMM (4.20-5.40)
--- NOTE | 2016-05-27 11:50 | RADIOLOGY REPORT ---
EXAMINATION: XR PORTABLE CHEST CLINICAL INFORMATION: Worsening congestion COMPARISON: 05/26/2016 also 04/26/2016 and 05/23/2016 TECHNIQUE: AP portable FINDINGS: Mild cephalization of the vasculature.. Similar to previous. No overt failure. Lung elise are grossly clear. No infiltrate. No effusion. IMPRESSION: Mild cephalization of vasculature. This may be baseline however appears slightly more prominent compared to multiple previous exams. No overt failure
--- NOTE | 2016-05-27 13:21 | PN- Cardiology ---
Subjective Subjective: Patient seen on the floor this morning and again in the ICU just now. Earlier today she was very short of breath despite nebulizer tx. She was also very tachypneic. I gave her a dose of IV Lasix x 1 and moved her to the ICU for closer monitoring. I discussed with Dr. Mata and we also gave her a dose of IV Solumedrol as she was bronchospastic. She is feeling a little better now but still with dyspnea and a productive cough. Objective Vital Signs and I&Os Vital Signs Date Time Temp Pulse Resp B/P Pulse O2 O2 Flow FiO2 Ox Delivery Rate 05/27 1200 93 Nasal 3.0L Cannula 05/27 1121 94 Nasal 3.0L Cannula 05/27 1053 76 26 198/60 95 Nasal 3.0L Cannula 05/27 1035 95 Nasal 3.0L Cannula 05/27 0933 92 Nasal 3.0L Cannula 05/27 0901 76 170/74 05/27 0901 76 170/74 05/27 0901 76 170/74 05/27 0900 76 170/74 05/27 0801 98.2 76 24 170/74 92 Nasal 3.0L Cannula 05/27 0800 Nasal 2.0L Cannula 05/27 0148 92 Nasal 2.0L Cannula 05/27 0000 Nasal 2.0L Cannula 05/26 2208 98.2 72 24 144/64 91 Nasal 2.0L Cannula 05/26 2131 75 144/64 05/26 1745 91 Nasal 2.0L Cannula 05/26 1634 74 158/50 05/26 1611 98.1 74 20 158/50 91 Nasal 2.0L Cannula Intake & Output 05/27 1600 05/27 0800 05/27 0000 05/26 1600 05/26 0800 05/26 0000 Intake Total 232 50 480 620 200 400 Output Total 550 300 950 400 750 Balance 232 -500 180 -330 -200 -350 Intake, IV 32 0 20 40 Intake, Oral 200 50 480 600 200 360 Number 1 1 Bowel Movements Output, Urine 550 300 950 400 750 Patient 129 lb 130 lb Weight Physical Exam: General: tachypniec, on nebulizer Eyes: No obvious scleral icterus. HEENT: No jugular venous distention or abnormal jugular venous pulsations. Cardiovascular: Normal intensity S1/S2. Regular. Respiratory: bilateral wheezes noted Abdomen: soft, no rebound tenderness Musculoskeletal: No cyanosis noted, no edema Skin: Warm Neurologic: No gross focal deficits noted. Current Medications: Current Medications Sig/Emmanuel Start time Last Medication Dose Route Stop Time Status Admin Acetaminophen 650 MG Q6P PRN 05/23 2200 AC PO Acetylcysteine 600 MG BID 05/27 1000 AC 05/27 PO 0913 Albuterol Sulfate 3 ML Q6 PRN 05/27 1045 AC 05/27 INH 1105 Albuterol Sulfate 3 ML EVERY 4 HRS/AWAKE 05/26 2000 AC 05/27 INH 1038 Albuterol Sulfate 3 ML Q4P PRN 05/24 1415 DC 05/26 INH 1351 Alprazolam 0.25 MG ONCE PRN 05/27 1015 AC 05/27 PO 06/03 1014 1033 Alprazolam 0.25 MG ONCE ONE 05/27 0115 DC 05/27 PO 05/27 0116 0114 Alprazolam 0.25 MG AT BEDTIME NEED.. 05/25 2245 AC 05/26 PO 2233 Amlodipine Besylate 10 MG DAILY 05/27 1000 AC 05/27 PO 0900 Amlodipine Besylate 5 MG DAILY 05/24 1000 DC 05/26 PO 0951 Artificial Tears 2 GTT 4 TIMES/DAY PRN 05/27 0715 AC 05/27 OPH 0907 Aspirin Buffered 81 MG DAILY 05/24 1000 AC 05/27 PO 0901 Atorvastatin Calcium 80 MG 1700 05/24 0030 AC 05/26 PO 1634 Benzocaine/Menthol 1 NEVIN Q2P PRN 05/25 1100 AC 05/25 PO 1158 Bisacodyl 10 MG DAILY 05/26 1000 AC 05/27 PO 0901 Ceftazidime 1,000 MG ONCE ONE 05/27 2200 AC IV 05/27 2201 Ceftazidime 1,000 MG Q12 05/25 1332 DC 05/27 IV 0902 Ciprofloxacin 500 MG BID 05/28 1000 AC PO 05/31 2159 Clopidogrel Bisulfate 75 MG DAILY 05/24 1000 AC 05/27 PO 0900 Cyclosporine 1 GTT 0 05/27 2200 AC OPH Cyclosporine 1 GTT DAILY 05/27 1000 DC OPH Diltiazem HCl 180 MG DAILY 05/24 1000 AC 05/27 PO 0901 Fluticasone 2 SPRAY BID 05/26 1000 AC 05/27 Propionate GRISELDA 0902 Fluticasone 2 PUF BID 05/24 2200 AC 05/25 Propionate INH 2127 Furosemide 20 MG ONCE ONE 05/27 1100 DC 05/27 IV 05/27 1101 1054 Guaifenesin 600 MG Q12 05/25 1137 AC 05/27 PO 0901 Heparin Sodium 5,000 UNIT Q8 05/24 0600 AC 05/27 (Porcine) SC 0535 Hydralazine HCl 100 MG TID 05/24 0015 AC 05/27 PO 0901 Ipratropium [place] 2.5 ML Q6 05/27 1200 DC 05/27 INH 1037 Isosorbide 60 MG DAILY 05/24 1000 AC 05/27 Mononitrate PO 0901 Lactobacillus 1 CAP DAILY PRN 05/27 0715 AC 05/27 Acidophilus PO 0900 Levothyroxine Sodium 0.025 MG DAILY AC 05/24 0700 AC 05/27 PO 0535 Losartan Potassium 25 MG DAILY 05/24 1000 AC 05/27 PO 0901 Magnesium Oxide 400 MG DAILY 05/24 1000 AC 05/27 PO 0901 Methylprednisolone 60 MG ONCE ONE 05/27 1130 DC 05/27 IV 05/27 1131 1132 Montelukast Sodium 10 MG 2200 05/24 2200 AC 05/26 PO 2132 Nystatin 5 ML 4 TIMES/DAY 05/26 1141 AC 05/26 PO 2131 Oxycodone HCl 5 MG Q6P PRN 05/24 1356 AC PO Patient Medication 1 ED .STK-MED ONE 05/26 1402 [facility] 05/26 1403 Patient Own 0 0900,1700 05/24 0900 AC 05/27 Medication PO 0810 Polyethylene Glycol 17 GM DAILY 05/26 1000 AC 05/26 PO 0949 Prednisone 40 MG DAILY 05/28 1000 AC PO Prednisone 40 MG DAILY 05/26 1000 DC 05/27 PO 0900 Senna 187 MG AT BEDTIME 05/26 2200 AC 05/26 PO 2132 Tiotropium [place] 1 PUF DAILY 05/24 1000 DC 05/25 INH 1202 Results Last 48 Hrs of Labs/Mics: Laboratory Tests 05/27/16 1145: pH 7.43, pCO2 42, pO2 73 L, HCO3 27, ABG O2 Sat (Measured) 95.0 L, Carboxyhemoglobin 0.2 L, O2 Concentration % 3LPM, Temperature 98.2, O2 Delivery Method NC, Phlebotomy Draw Site LEFT RADIAL 05/27/16 1125: Troponin I 0.01 05/27/16 1125: Lactic Acid 1.7, CBC w Diff NO MAN DIFF REQ, RBC 3.77 L, MCV 84.7, MCH 29.4, RDW 16.4 H, MPV 7.2 L, Gran % 85.8 H, Lymphocytes % 6.4 L, Monocytes % 7.6, Eosinophils % 0, Basophils % 0.2, Absolute Granulocytes 15.0 H, Absolute Lymphocytes 1.1 L, Absolute Monocytes 1.3 H, Absolute Eosinophils 0, Absolute Basophils 0, PUBS MCHC 34.7 05/27/16 1106: CBC w Diff Cancelled, WBC Cancelled, RBC Cancelled, Hgb Cancelled, Hct Cancelled , MCV Cancelled, MCH Cancelled, RDW Cancelled, Plt Count Cancelled, MPV Cancelled, PUBS MCHC Cancelled 05/27/16 0530: Anion Gap 8, Estimated GFR > 60, BUN/Creatinine Ratio 25.6 H, Total Bilirubin 0.4, Direct Bilirubin 0.3, AST 29, ALT 44, Alkaline Phosphatase 62, Total Protein 6.4, Albumin 3.6 05/26/16 0531: Anion Gap 11, Estimated GFR 49 L, BUN/Creatinine Ratio 29.1 H Recent Imaging Studies: Telemetry tracings personally reviewed, shows SR with IVCD CXR 05/26 IMPRESSION: 1. Cardiomegaly. 2. No acute pulmonary disease compared to 05/23/2016. Assessment/Plan Assessment/Plan 1. Bronchitis with Pseudomonas 2. Acute on chronic CKD with hyperkalemia, improved 3. Severe COPD with beta paty intolerance 4. Ischemic cardiomyopathy status post recent CABG (EF 30-35%) 5. Chronic LBBB 6. Severe PVD with Hx aortic/vascular disease felt to be the cause of previous splenic infarcts 7. Nicotine dependence, in remission 8. Hypertension, uncontrolled 9. Renal artery stenosis with near occlusion of the left renal artery 10. Chronic systolic congestive heart failure 11. Hypovolemic hyponatremia, improved Patient was in acute respiratory distress when I saw her today despite active nebulizer tx. She was bronchospastic on exam. I gave her a STAT dose of IV Lasix given her hx of recurrent flash pulmonary edema. I moved her to the ICU for closer monitoring but she did not require intubation. I discussed with Dr. Mata and she was given a dose of IV steroids x 1. BP remains above goal and if no objection from Renal I would favor restarting Aldactone 25 mg daily and titrating up her ARB dose while watching her K+ and keeping a strict low K+ diet. Hold additional Lasix for now. Abx/steroid regimen per pulmonary. Clonidine to be used only PRN as per my previous instructions. I had extensive previous discussion with Renal regarding her AIDAN and it was felt that Renal artery intervention was not likely to be of clinical benefit at this time. Follow-up Renal recommendations regarding the AIDAN but I suspect we should maximize the ARB/aldactone if possible before we consider high risk intervention. Foreign Santoyo MD [facility] Continue telemetry? Yes
[2016-05-27 14:05] LABS: WHITE BLOOD CELL COUNT 17.5 /CUMM (4.8-10.8)
[2016-05-27 16:00] VITALS: BP 136/58
[2016-05-28] VITALS: BP 118/68
[2016-05-28 06:05] LABS: ABSOLUTE BASOPHIL COUNT 0 /CUMM (0.0-0.2); ABSOLUTE EOSINOPHIL COUNT 0 /CUMM (0.0-0.7); ABSOLUTE GRANULOCYTE CT 8.5 /CUMM (1.4-6.5); ABSOLUTE LYMPH COUNT 0.7 /CUMM (1.2-3.4); ABSOLUTE MONOCYTE COUNT 0.5 /CUMM (0.10-0.60); BASOPHIL % 0.2 % (0.0-2.0); EOSINOPHIL % 0 % (0-5); HEMATOCRIT 29.1 % (37-47); MEAN CORPUSCULAR HGB 29.5 PG (27.0-31.0); MEAN CORPUSCULAR HGB CONC 34.4 G/DL (33.0-37.0); MEAN CORPUSCULAR VOLUME 85.5 FL (81.0-99.0); MEAN PLATELET VOLUME 7.1 FL (7.4-10.4); PLATELET COUNT 337 /CUMM (130-400); RBC DISTRIBUTION WIDTH 16.1 % (11.5-14.5); WHITE BLOOD CELL COUNT 9.6 /CUMM (4.8-10.8)
--- NOTE | 2016-05-28 07:04 | PN- Att Addend ---
Attending Addendum Attending Brief Note pt feeles better,on BIPAP this am. BP 160/74 S1 S2N lUNGS ,Bilaieral exp wheezing amd some scasttrerd ronchi. Bipedal edema Ass. Acutr Bronchitis , ct current abx do CXR CT WITH BP MEDS PT GOES INTOFLASH PULMONARY EDEMA.
[2016-05-28 08:00] VITALS: BP 170/60
--- NOTE | 2016-05-28 09:33 | PN- Pulmonary ---
Subjective HPI/Critical Care Issues: Went into acute resp failure yesterday Appeared to have had acute flash pulm edema Pt did diuresis and Did receive intravenous Lasix and steroids. She was treated with the low-dose morphine as well and BiPAP was used. Doing much better today. Feels much improved. Cough and wheezing is improved. Vital signs a stable O2 sat 96% on 3 L and blood pressure 168. No chest pain chest discomfort. Patient did have 3 L of diuresis yesterday. Significant data chest x-ray showed mild pulmonary edema blood work revealed a creatinine is 1.0 BUN is 27 sodium 131 and sputum is growing Pseudomonas with the sensitivity to Cipro patient also has a scant growth of mold most likely colonization probably Aspergillus. Objective Current Medications: Current Medications Sig/Emmanuel Start time Last Medication Dose Route Stop Time Status Admin Acetaminophen 650 MG Q6P PRN 05/23 2200 AC PO Acetylcysteine 600 MG BID 05/27 1000 AC 05/28 PO 0854 Albuterol Sulfate 3 ML Q6 PRN 05/27 1045 AC 05/27 INH 1408 Albuterol Sulfate 3 ML EVERY 4 HRS/AWAKE 05/26 2000 AC 05/28 INH 0752 Alprazolam 0.25 MG ONCE PRN 05/27 1015 AC 05/27 PO 06/03 1014 1033 Alprazolam 0.25 MG AT BEDTIME NEED.. 05/25 2245 AC 05/27 PO 2214 Amlodipine Besylate 10 MG DAILY 05/27 1000 AC 05/28 PO 0854 Artificial Tears 2 GTT 4 TIMES/DAY PRN 05/27 0715 AC 05/27 OPH 0907 Aspirin Buffered 81 MG DAILY 05/24 1000 AC 05/28 PO 0853 Atorvastatin Calcium 80 MG 1700 05/24 0030 AC 05/27 PO 1634 Benzocaine/Menthol 1 NEVIN Q2P PRN 05/25 1100 AC 05/25 PO 1158 Bisacodyl 10 MG DAILY 05/26 1000 AC 05/28 PO 0852 Ceftazidime 1,000 MG ONCE ONE 05/27 2200 DC 05/27 IV 05/27 2201 2148 Ceftazidime 1,000 MG Q12 05/25 1332 DC 05/27 IV 0902 Ciprofloxacin 500 MG BID 05/28 1000 AC 05/28 PO 05/31 2159 0852 Clopidogrel Bisulfate 75 MG DAILY 05/24 1000 AC 05/28 PO 0854 Cyclosporine 1 GTT 2200 05/27 2200 AC 05/27 OPH 2148 Cyclosporine 1 GTT DAILY 05/27 1000 DC OPH Diltiazem HCl 180 MG DAILY 05/24 1000 AC 05/28 PO 0852 Fluticasone 2 SPRAY BID 05/26 1000 AC 05/28 Propionate GRISELDA 0857 Fluticasone 2 PUF BID 05/24 2200 AC 05/28 Propionate INH 0856 Furosemide 20 MG ONCE ONE 05/27 1445 DC 05/27 IV 05/27 1446 1452 Furosemide 20 MG ONCE ONE 05/27 1100 DC 05/27 IV 05/27 1101 1054 Furosemide 40 MG .STK-MED ONE 05/27 1045 DC IV 05/27 1046 Glycerin 2 SPRAY Q2P PRN 05/27 1745 AC 05/27 PO 1839 Guaifenesin 10 ML .STK-MED ONE 05/27 1414 DC PO 05/27 1415 Guaifenesin 600 MG Q12 05/25 1137 AC 05/28 PO 0857 Guaifenesin/ 10 ML ONCE ONE 05/27 1415 DC 05/27 Dextromethorphan PO 05/27 1416 1419 Heparin Sodium 5,000 UNIT Q8 05/24 0600 AC 05/28 (Porcine) SC 0555 Hydralazine HCl 100 MG TID 05/24 0015 AC 05/28 PO 0554 Ipratropium [place] 2.5 ML EVERY 4 HRS/AWAKE 05/27 1600 AC 05/28 INH 0752 Ipratropium [place] 2.5 ML Q6 05/27 1200 DC 05/27 INH 1037 Isosorbide 60 MG DAILY 05/24 1000 AC 05/28 Mononitrate PO 0852 Lactobacillus 1 CAP DAILY PRN 05/27 0715 AC 05/27 Acidophilus PO 0900 Levothyroxine Sodium 0.025 MG DAILY AC 05/24 0700 AC 05/28 PO 0553 Losartan Potassium 100 MG DAILY 05/28 1000 AC PO Losartan Potassium 25 MG DAILY 05/24 1000 DC 05/28 PO 0853 Magnesium Oxide 400 MG DAILY 05/24 1000 AC 05/28 PO 0853 Methylprednisolone 60 MG ONCE ONE 05/27 1130 DC 05/27 IV 05/27 1131 1132 Methylprednisolone 80 MG .STK-MED ONE 05/27 1128 DC IM 05/27 1129 Montelukast Sodium 10 MG 2200 05/24 2200 AC 05/27 PO 2148 Morphine Sulfate 2 MG ONCE ONE 05/27 1445 DC 05/27 IV 05/27 1446 1453 Nystatin 5 ML 4 TIMES/DAY 05/26 1141 AC 05/28 PO 0855 Oxycodone HCl 5 MG Q6P PRN 05/24 1356 AC PO Patient Own 0 0900,1700 05/24 0900 AC 05/28 Medication PO 0850 Polyethylene Glycol 17 GM DAILY 05/26 1000 AC 05/28 PO 0855 Prednisone 40 MG DAILY 05/28 1000 AC 05/28 PO 0854 Prednisone 40 MG DAILY 05/26 1000 DC 05/27 PO 0900 Senna 187 MG AT BEDTIME 05/26 2200 AC 05/27 PO 2148 Tiotropium [place] 1 PUF DAILY 05/24 1000 DC 05/25 INH 1202 Vital Signs & I&O Last 24 Hrs of Vitals and I&O: Vital Signs Date Time Temp Pulse Resp B/P Pulse O2 O2 Flow FiO2 Ox Delivery Rate 05/28 0554 97.6 80 20 168/74 05/28 0400 96 Nasal 3.0L Cannula 05/28 0051 80 98 05/28 0000 98 BIPAP 30% 05/28 0000 97.8 84 24 118/68 98 BIPAP 30% 05/27 2227 83 97 05/27 2148 74 122/74 05/27 2000 95 Nasal 3.0L Cannula 05/27 1816 96 Nasal 3.0L Cannula 05/27 1635 69 130/80 05/27 1600 94 BIPAP 30% 05/27 1600 97.9 70 26 136/58 94 BIPAP 30% 05/27 1506 85 95 05/27 1200 93 Nasal 3.0L Cannula 05/27 1121 94 Nasal 3.0L Cannula 05/27 1053 76 26 198/60 95 Nasal 3.0L Cannula 05/27 1035 95 Nasal 3.0L Cannula 05/27 0933 92 Nasal 3.0L Cannula Intake & Output 05/28 1600 05/28 0800 05/28 0000 Intake Total 240 690 Output Total 800 1800 Balance -560 -1110 Intake, IV 30 Intake, Oral 240 660 Output, Urine 800 1800 Impression/Plan Impression/Plan Impression/Plan: Physical Exam General Appearance Alert, Oriented X3, Cooperative, No Acute Distress Skin No Rashes, No Breakdown HEENT Atraumatic, PERRLA, EOMI Neck Supple, increased JVP Cardiovascular Regular Rate, Normal S1, Normal S2 Lungs decreased air entry bilaterally, bilateral basal crepts Abdomen Normal Bowel Sounds, Soft, No Tenderness Neurological Normal Speech Extremities No Clubbing, No Cyanosis, No Edema, Normal Pulses Vascular Normal Pulses, Pulses Symmetrical 65-year-old fever with significant cardiac history as noted in H&P recently had a bypass done at [facility] with subsequent cardiac arrest with subsequent adverse effect to high dose of metoprolol (100mg) with effusions with severe baseline copd with fev1 of .9 (not a retainer) with * acute shortness of breath yesterday due to flash pulmonary edema now much better after diuresis. Suggestive of acute systolic and diastolic heart failure * Increasing greenish sputum suggestive of Pseudomonas infection with bronchitis and sinusitis * Chronic systolic CHF exacerbation. patient now also is growing scant growth of yeast which will identify most likely Aspergillus conization no clinical evidence suggestive of invasive aspergillosis at this time. 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, with AIDAN now with sig HTN now with mild JACIEL due to prerenal state * Previous effusion now resolved (post cabg effusion) * CAD s/p CABG * Chronic Angina/ anxiety/gerd/pafib/htn/hypothyroid on toni supp/HLD with previous sig tobacco use * Sig AIDAN, severe hypertension causing flash pulmonary edema as well and patient is not a great candidate for revascularization REC Prn bipap Prn morphine PO to cipro Prednisone 40 mg daily and wean in 14 days Cont her current inhaler regimen, Start duoneb atc q6hrs, hold spiriva Fluid restriction and hold lasix Adequate bp control Will follow
--- NOTE | 2016-05-28 10:24 | PN- Cardiology ---
Subjective Subjective: Patient is feeling much better today. Denies the shortness of breath now. No chest pain or palpitations. Objective Vital Signs and I&Os Vital Signs Date Time Temp Pulse Resp B/P Pulse O2 O2 Flow FiO2 Ox Delivery Rate 05/28 0800 93 Nasal 3.0L Cannula 05/28 0800 97.9 78 20 170/60 93 Nasal 3.0L Cannula 05/28 0755 94 Nasal 3.0L Cannula 05/28 0554 97.6 80 20 168/74 05/28 0400 96 Nasal 3.0L Cannula 05/28 0051 80 98 05/28 0000 98 BIPAP 30% 05/28 0000 97.8 84 24 118/68 98 BIPAP 30% 05/27 2227 83 97 05/27 2148 74 122/74 05/27 2000 95 Nasal 3.0L Cannula 05/27 1816 96 Nasal 3.0L Cannula 05/27 1635 69 130/80 05/27 1600 94 BIPAP 30% 05/27 1600 97.9 70 26 136/58 94 BIPAP 30% 05/27 1506 85 95 05/27 1200 93 Nasal 3.0L Cannula 05/27 1121 94 Nasal 3.0L Cannula 05/27 1053 76 26 198/60 95 Nasal 3.0L Cannula 05/27 1035 95 Nasal 3.0L Cannula Intake & Output 05/28 1600 05/28 0800 05/28 0000 05/27 1600 05/27 0800 05/27 0000 Intake Total 240 690 437 50 480 Output Total 800 1800 800 550 300 Balance -560 -1110 -363 -500 180 Intake, IV 30 57 0 Intake, Oral 240 660 380 50 480 Number 1 1 Bowel Movements Output, Urine 800 1800 800 550 300 Patient 129 lb Weight Physical Exam: General: No distress Eyes: No obvious scleral icterus. HEENT: No jugular venous distention or abnormal jugular venous pulsations. Cardiovascular: Normal intensity S1/S2. Regular. Respiratory: Trace bilateral wheezes Abdomen: soft, no rebound tenderness Musculoskeletal: No cyanosis noted, no edema Skin: Warm Neurologic: No gross focal deficits noted. Current Medications: Current Medications Sig/Emmanuel Start time Last Medication Dose Route Stop Time Status Admin Acetaminophen 650 MG Q6P PRN 05/23 2200 AC PO Acetylcysteine 600 MG BID 05/27 1000 AC 05/28 PO 0854 Albuterol Sulfate 3 ML Q6 PRN 05/27 1045 AC 05/27 INH 1408 Albuterol Sulfate 3 ML EVERY 4 HRS/AWAKE 05/26 2000 AC 05/28 INH 0752 Alprazolam 0.25 MG ONCE PRN 05/27 1015 AC 05/27 PO 06/03 1014 1033 Alprazolam 0.25 MG AT BEDTIME NEED.. 05/25 2245 AC 05/27 PO 2214 Amlodipine Besylate 10 MG DAILY 05/27 1000 AC 05/28 PO 0854 Artificial Tears 2 GTT 4 TIMES/DAY PRN 05/27 0715 AC 05/27 OPH 0907 Aspirin Buffered 81 MG DAILY 05/24 1000 AC 05/28 PO 0853 Atorvastatin Calcium 80 MG 1700 05/24 0030 AC 05/27 PO 1634 Benzocaine/Menthol 1 NEVIN Q2P PRN 05/25 1100 AC 05/25 PO 1158 Bisacodyl 10 MG DAILY 05/26 1000 AC 05/28 PO 0852 Ceftazidime 1,000 MG ONCE ONE 05/27 2200 DC 05/27 IV 05/27 2201 2148 Ciprofloxacin 500 MG BID 05/28 1000 AC 05/28 PO 05/31 2159 0852 Clopidogrel Bisulfate 75 MG DAILY 05/24 1000 AC 05/28 PO 0854 Cyclosporine 1 GTT 2200 05/27 2200 AC 05/27 OPH 2148 Diltiazem HCl 180 MG DAILY 05/24 1000 AC 05/28 PO 0852 Fluticasone 2 SPRAY BID 05/26 1000 AC 05/28 Propionate GRISELDA 0857 Fluticasone 2 PUF BID 05/24 2200 AC 05/28 Propionate INH 0856 Furosemide 20 MG ONCE ONE 05/27 1445 DC 05/27 IV 05/27 1446 1452 Furosemide 20 MG ONCE ONE 05/27 1100 DC 05/27 IV 05/27 1101 1054 Furosemide 40 MG .STK-MED ONE 05/27 1045 DC IV 05/27 1046 Glycerin 2 SPRAY Q2P PRN 05/27 1745 AC 05/27 PO 1839 Guaifenesin 10 ML .STK-MED ONE 05/27 1414 DC PO 05/27 1415 Guaifenesin 600 MG Q12 05/25 1137 AC 05/28 PO 0857 Guaifenesin/ 10 ML ONCE ONE 05/27 1415 DC 05/27 Dextromethorphan PO 05/27 1416 1419 Heparin Sodium 5,000 UNIT Q8 05/24 0600 AC 05/28 (Porcine) SC 0555 Hydralazine HCl 100 MG TID 05/24 0015 AC 05/28 PO 0554 Ipratropium [place] 2.5 ML EVERY 4 HRS/AWAKE 05/27 1600 AC 05/28 INH 0752 Ipratropium [place] 2.5 ML Q6 05/27 1200 DC 05/27 INH 1037 Isosorbide 60 MG DAILY 05/24 1000 AC 05/28 Mononitrate PO 0852 Lactobacillus 1 CAP DAILY PRN 05/27 0715 AC 05/27 Acidophilus PO 0900 Levothyroxine Sodium 0.025 MG DAILY AC 05/24 0700 AC 05/28 PO 0553 Losartan Potassium 100 MG DAILY 05/28 1000 AC PO Losartan Potassium 25 MG DAILY 05/24 1000 DC 05/28 PO 0853 Magnesium Oxide 400 MG DAILY 05/24 1000 AC 05/28 PO 0853 Methylprednisolone 60 MG ONCE ONE 05/27 1130 DC 05/27 IV 05/27 1131 1132 Methylprednisolone 80 MG .STK-MED ONE 05/27 1128 DC IM 05/27 1129 Montelukast Sodium 10 MG 2200 05/24 2200 AC 05/27 PO 2148 Morphine Sulfate 2 MG ONCE ONE 05/27 1445 DC 05/27 IV 05/27 1446 1453 Nystatin 5 ML 4 TIMES/DAY 05/26 1141 AC 05/28 PO 0855 Oxycodone HCl 5 MG Q6P PRN 05/24 1356 AC PO Patient Own 0 0900,1700 05/24 0900 AC 05/28 [place] PO 0850 Polyethylene Glycol 17 GM DAILY 05/26 1000 AC 05/28 PO 0855 Prednisone 40 MG DAILY 05/28 1000 AC 05/28 PO 0854 Senna 187 MG AT BEDTIME 05/26 2200 AC 05/27 PO 2148 Results Last 48 Hrs of Labs/Mics: Laboratory Tests 05/28/16 0545: Anion Gap 10, Estimated GFR 55 L, Glucose 217 H, Calcium 9.4, Phosphorus 3.2, Magnesium 2.2, Total Bilirubin 0.5, AST 18, ALT 36, Albumin 3.5, CBC w Diff NO MAN DIFF REQ, RBC 3.40 L, MCV 85.5, MCH 29.5, RDW 16.1 H, MPV 7.1 L, Gran % 88.0 H, Lymphocytes % 6.9 L, Monocytes % 4.9, Eosinophils % 0, Basophils % 0.2 , Absolute Granulocytes 8.5 H, Absolute Lymphocytes 0.7 L, Absolute Monocytes 0.5, Absolute Eosinophils 0, Absolute Basophils 0, PUBS MCHC 34.4 05/27/16 1145: pH 7.43, pCO2 42, pO2 73 L, HCO3 27, ABG O2 Sat (Measured) 95.0 L, Carboxyhemoglobin 0.2 L, O2 Concentration % 3LPM, Temperature 98.2, O2 Delivery Method NC, Phlebotomy Draw Site LEFT RADIAL 05/27/16 1125: Troponin I 0.01 05/27/16 1125: Lactic Acid 1.7, CBC w Diff NO MAN DIFF REQ, RBC 3.77 L, MCV 84.7, MCH 29.4, RDW 16.4 H, MPV 7.2 L, Gran % 85.8 H, Lymphocytes % 6.4 L, Monocytes % 7.6, Eosinophils % 0, Basophils % 0.2, Absolute Granulocytes 15.0 H, Absolute Lymphocytes 1.1 L, Absolute Monocytes 1.3 H, Absolute Eosinophils 0, Absolute Basophils 0, PUBS MCHC 34.7 05/27/16 1106: CBC w Diff Cancelled, WBC Cancelled, RBC Cancelled, Hgb Cancelled, Hct Cancelled , MCV Cancelled, MCH Cancelled, RDW Cancelled, Plt Count Cancelled, MPV Cancelled, PUBS MCHC Cancelled 05/27/16 0530: Anion Gap 8, Estimated GFR > 60, BUN/Creatinine Ratio 25.6 H, Total Bilirubin 0.4, Direct Bilirubin 0.3, AST 29, ALT 44, Alkaline Phosphatase 62, Total Protein 6.4, Albumin 3.6 Recent Imaging Studies: Telemetry tracings were personally reviewed and shows sinus rhythm Chest x-ray from yesterday IMPRESSION: Mild cephalization of vasculature. This may be baseline however appears slightly more prominent compared to multiple previous exams. No overt failure Abdominal CT from 05/25 1. Atrophic left kidney with similar appearance to the occlusion of the proximal left renal artery. The distal left renal artery is atretic but reconstitutes. The overall appearance of the left renal artery and left kidney is unchanged from prior. 2. Approximately 50% narrowing of the proximal right renal artery, similar to prior. 3. Severe atherosclerotic disease of the aortoiliac system with near complete occlusion of the proximal right common iliac artery, again similar to prior. 4. 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 Assessment/Plan Assessment/Plan 1. Bronchitis with Pseudomonas 2. Acute on chronic CKD with hyperkalemia, improved 3. Severe COPD with beta paty intolerance 4. Ischemic cardiomyopathy status post recent CABG (EF 30-35%) 5. Chronic LBBB 6. Severe PVD with Hx aortic/vascular disease felt to be the cause of previous splenic infarcts 7. Nicotine dependence, in remission 8. Hypertension, uncontrolled 9. Renal artery stenosis with near occlusion of the left renal artery 10. Chronic systolic congestive heart failure 11. Hypovolemic hyponatremia, improved Patient significantly improved today. Would hold additional Lasix for now. Losartan has been increased. If no objection from renal consider restarting Aldactone 25 mg daily while watching her potassium and keeping a strict low potassium diet. Check metabolic panels daily. Abx/steroid regimen per pulmonary. Clonidine to be used only PRN as per my previous instructions. Recommend increasing the Imdur to 90 mg by mouth daily. Foreign [place] MD [facility] Continue telemetry? Yes
--- NOTE | 2016-05-28 12:30 | RADIOLOGY REPORT ---
EXAMINATION: XR PORTABLE CHEST CLINICAL INFORMATION: Short of breath with cough. COMPARISON: 05/27/2016 and multiple additional prior studies dating back to 06/03/2012 TECHNIQUE: Portable view of the chest was obtained. FINDINGS: No significant interval change. Minimal pulmonary vascular congestion. No focal consolidation, pleural effusion or pneumothorax. Stable mild cardiomegaly. Atherosclerosis thoracic aorta. Anterior chest surgery with median sternotomy wires and mediastinal surgical clips. Healed or healing right posterior rib fractures. IMPRESSION: No interval change and no evidence of acute cardiopulmonary process. Stable mild pulmonary vascular congestion and cardiomegaly.
--- NOTE | 2016-05-28 13:54 | PN- Resident CRCU ---
Subjective HPI/CRCU Issues: Patient is a 66-year-old woman with a past medical history significant for COPD not on home oxygen, history of chronic left bundle branch block, Diastolic HF ( cardiomyopathy), splenic infract, coronary bypass 2 (November 25 2015) at [facility] complicated by cardiac arrest, bilateral pleural effusions with pseudomonas infection with subsequent intubation and admission to ICU, recently admitted to [facility] for CHF exacerbation(March 2016) former smoker presented to the ED (05/23/2016) with a chief complaints of worsening shortness of breath and sinus related congestion. she is admitted to telemetry and got treated for pneudomonas bronchitis/ sinusitis with ceftazidime IV. Yesterday she is found to be acutely short of breath, hypoxic transfered to ICU after recieving a dose of furosemide 20mg for close monitoring. 24 Hour Events: I saw and examined the patient today morning. yesterday patient was given a single dose of IV solumedrol 60mg after coming to ICU. She was better for some time and again started to have shortness of breath with tripod positioning. She is placed on Bipap. Eventually she got better. She was stable through out the night without any acute events. Objective Vital Signs & I&O Last 8 Hrs of Vitals and I&O: Intake & Output 05/28 1600 Intake Total 300 Output Total 400 Balance -100 Intake, IV 0 Intake, Oral 300 Number 1 Bowel Movements Output, Urine 400 Patient 58.287 kg Weight VS stable overnight Afebrile HR 70-88 in SR BP 108-178/74mmHg 3L NC now Currently OFF bipap, IVF and drips I/O - 1355/3400 - net negative balance of 2000 as received 40mg IV lasix Exam General Appearance: well developed/nourished, no apparent distress, alert, awake , comfortable Head: atraumatic, normal appearance Ears, Nose, Throat: normal pharynx, normal ENT inspection, hearing grossly normal Neck: normal inspection, supple Respiratory: chest non-tender, no respiratory distress, diffuse expiratory wheezes present, but much improved compared to yesterday Cardiovascular: regular rate/rhythm, normal peripheral pulses Gastrointestinal: normal bowel sounds, soft, non-tender Extremities: normal inspection, normal capillary refill, normal range of motion Cranial Nerves: normal hearing, normal speech, PERRL Current Medications: Current Medications Sig/Emmanuel Start time Last Medication Dose Route Stop Time Status Admin Acetaminophen 650 MG Q6P PRN 05/23 2200 AC PO Acetylcysteine 600 MG BID 05/27 1000 AC 05/28 PO 0854 Albuterol Sulfate 3 ML Q6 PRN 05/27 1045 AC 05/27 INH 1408 Albuterol Sulfate 3 ML EVERY 4 HRS/AWAKE 05/26 2000 AC 05/28 INH 1727 Alprazolam 0.25 MG ONCE PRN 05/27 1015 AC 05/27 PO 06/03 1014 1033 Alprazolam 0.25 MG AT BEDTIME NEED.. 05/25 2245 AC 05/27 PO 2214 Amlodipine Besylate 10 MG DAILY 05/27 1000 AC 05/28 PO 0854 Artificial Tears 2 GTT 4 TIMES/DAY PRN 05/27 0715 AC 05/27 OPH 0907 Aspirin Buffered 81 MG DAILY 05/24 1000 AC 05/28 PO 0853 Atorvastatin Calcium 80 MG 1700 05/24 0030 AC 05/28 PO 1644 Benzocaine/Menthol 1 NEVIN Q2P PRN 05/25 1100 AC 05/25 PO 1158 Bisacodyl 10 MG DAILY 05/26 1000 AC 05/28 PO 0852 Ceftazidime 1,000 MG ONCE ONE 05/27 2200 DC 05/27 IV 05/27 220 2148 Ciprofloxacin 500 MG BID 05/28 1000 AC 05/28 PO 05/31 2159 0852 Clonidine 0.1 MG DAILY NEEDED PRN 05/28 1115 AC PO Clonidine 0.1 MG FOUR TIMES A DAY PRN 05/28 1100 DC PO Clopidogrel Bisulfate 75 MG DAILY 05/24 1000 AC 05/28 PO 0854 Cyclosporine 1 GTT 2200 05/27 2200 AC 05/27 OPH 2148 Diltiazem HCl 180 MG DAILY 05/24 1000 AC 05/28 PO 0852 Fluticasone 2 SPRAY BID 05/26 1000 AC 05/28 Propionate GRISELDA 0857 Fluticasone 2 PUF BID 05/24 2200 AC 05/28 Propionate INH 0856 Glycerin 2 SPRAY Q2P PRN 05/27 1745 AC 05/27 PO 1839 Guaifenesin 600 MG Q12 05/25 1137 AC 05/28 PO 0857 Heparin Sodium 5,000 UNIT Q8 05/24 0600 AC 05/28 (Porcine) SC 1441 Hydralazine HCl 100 MG TID 05/24 0015 AC 05/28 PO 1645 Ipratropium [place] 2.5 ML EVERY 4 HRS/AWAKE 05/27 1600 AC 05/28 INH 1728 Isosorbide 90 MG DAILY 05/29 1000 AC Mononitrate PO Isosorbide 60 MG DAILY 05/24 1000 DC 05/28 Mononitrate PO 0852 Lactobacillus 1 CAP DAILY PRN 05/27 0715 AC 05/27 Acidophilus PO 0900 Levothyroxine Sodium 0.025 MG DAILY AC 05/24 0700 AC 05/28 PO 0553 Losartan Potassium 100 MG DAILY 05/29 1000 AC PO Losartan Potassium 75 MG ONCE ONE 05/28 1500 DC 05/28 PO 05/28 1501 1646 Losartan Potassium 100 MG DAILY 05/28 1000 DC PO Losartan Potassium 25 MG DAILY 05/24 1000 DC 05/28 PO 0853 Magnesium Oxide 400 MG DAILY 05/24 1000 AC 05/28 PO 0853 Montelukast Sodium 10 MG 2200 05/24 2200 AC 05/27 PO 2148 Nystatin 5 ML 4 TIMES/DAY 05/26 1141 AC 05/28 PO 1751 Oxycodone HCl 5 MG Q6P PRN 05/24 1356 AC PO Patient Own 0 0900,1700 05/24 0900 AC 05/28 Medication PO 1646 Polyethylene Glycol 17 GM DAILY 05/26 1000 AC 05/28 PO 0855 Prednisone 40 MG DAILY 05/28 1000 AC 05/28 PO 0854 Senna 187 MG AT BEDTIME 05/26 2200 AC 05/27 PO 2148 Antibiotics Antibiotic: ciprofloxacin IV/PO? PO Impression/Plan Impression/Problem List Impression: Patient is a 66-year-old woman with a past medical history significant for COPD not on home oxygen, history of chronic left bundle branch block, Diastolic HF ( cardiomyopathy), splenic infract, coronary bypass 2 (November 25 2015) at [facility] complicated by cardiac arrest, bilateral pleural effusions with pseudomonas infection with subsequent intubation and admission to ICU, recently admitted to [facility] for CHF exacerbation(March 2016) former smoker presented to the ED (05/23/2016) with a chief complaints of worsening shortness of breath and sinus related congestion. Assessment: 1. Acute hypoxic respiratory failure due to possible COPD exacerbation/CHF exacerbation 2. Pseudemonal Pneumonia 3. CAD and ischemic cardiomyopathy s/p CABG. 4. History of hypothyroidism 5 Acute on chronic kidney disease stage IIIB 6. History of hypertension hyperlipidemia. Acute hypoxic respiratory failure due to possible COPD exacerbation/CHF exacerbation: * Intially started on IV solumedrol which was switched to oral prednisone, however yesterday received another single dose of IV solumedrol 60mg. * Today we restarted her oral dose of 40mg and would continue for a total of 14days. * Started on Ceftaz initially which was switched to PO cipro today as her cultures are positive for pseudomonas and sensitive for ceftaz and cipro. * On 05/19/2016 patient was started on dual nebs and Spiriva was held. * Mucinex and lozenges for symptomatic relief. * X-ray done 05/26/2016 showed no acute pulmonary change and/or worsening of pulmonary congestion since 05/23/2016. * CXR yesterday demonstrated cephalization of veins - however a repeat CXR today demonstrated no acute changes. * Continue [facility] nebs. ?? Oral candidiasis/thrush * She has been using prednisone and had questionable oral thrush. * Nystatin swish and swallow 4 times a day, ordered on 05/26/2016. Hyponatremia: * She has currently been on a fluid restriction due to hyponatremia. * Sodium level today was 131. * Lasix was being held however yesterday morning was given to her due to her acute change in respiratory function. CAD and ischemic cardiomyopathy s/p CABG. * She has been continued on home medications including Aspirin (81mg), Lipitor ( 80mg), diltiazem (180 mg), Imdur (60mg), hydralazine 100 mg. * Current dose of Imdur increased from 60mg to 90mg today. Her amlodipine dose increased to 10mg - however her BP found to be elevated so after consulting renal her losartan dose increased to 100mg today. * Depending on her creatinine level tomorrow we will consider restarting Aldactone 25mg daily as per renal and cardiac recommendations. Renal artery stenosis: * CTA Abdomen with severe atherosclerotic disease including occlusion of the proximal L renal artery, 50% narrowing of the proximal R renal artery, near complete occlusion of the R common iliac artery and celiac arteries. * Patient might have right renal stent placement as an outpatient. History of hypothyroidism * Continue home dose of levothyroxine 0.025 mg per day. DVT prophylaxis * subcutaneous heparin. Code * Full code. Problem List: 1. COPD exacerbation 2. Leukocytosis 3. CHF (congestive heart failure) 4. Renal artery stenosis 5. Hyponatremia 6. Sinusitis, acute 7. CAD (coronary artery disease) Pain Ratin Tomorrow's Labs & Rationales: ICU bundle and cbc Plan DVT/Prophylaxis: pharmacological, heparin SC Code Status: Full Code
[2016-05-28 16:00] VITALS: BP 140/50
[2016-05-28 20:56] VITALS: BP 162/60
[2016-05-28 23:00] VITALS: BP 130/50
[2016-05-29 06:12] LABS: ABSOLUTE BASOPHIL COUNT 0 /CUMM (0.0-0.2); ABSOLUTE EOSINOPHIL COUNT 0 /CUMM (0.0-0.7); ABSOLUTE GRANULOCYTE CT 6.6 /CUMM (1.4-6.5); ABSOLUTE LYMPH COUNT 1.3 /CUMM (1.2-3.4); ABSOLUTE MONOCYTE COUNT 0.8 /CUMM (0.10-0.60); BASOPHIL % 0.2 % (0.0-2.0); EOSINOPHIL % 0.1 % (0-5); GRANULOCYTE % 75.9 % (42.2-75.2); HEMATOCRIT 27.5 % (37-47); MEAN CORPUSCULAR HGB 29.5 PG (27.0-31.0); MEAN CORPUSCULAR HGB CONC 34.4 G/DL (33.0-37.0); MEAN CORPUSCULAR VOLUME 85.8 FL (81.0-99.0); MEAN PLATELET VOLUME 7.3 FL (7.4-10.4); PLATELET COUNT 320 /CUMM (130-400); RBC DISTRIBUTION WIDTH 15.9 % (11.5-14.5); RED BLOOD CELL CT 3.21 /CUMM (4.20-5.40); WHITE BLOOD CELL COUNT 8.7 /CUMM (4.8-10.8)
--- NOTE | 2016-05-29 07:01 | PN- Att Addend ---
Attending Addendum Attending Brief Note Covering attending note. Patient looks a lot better this morning she is comfortable sitting in the chair, has no shortness of breath mild coughing. Currently on oxygen Vital signs blood pressure Blood pressure is 130/50 heart rate is 65 respirations are 20 temperature is 97.4 O2 sat is 95% on 2 L. I&O's intake is 350 output is 600 On examination patient is awake alert oriented JVD is not raised S1-S2 is normal Lungs shows air entry equal bilaterally with expiratory wheezing and expiration is slightly prolonged no rhonchi present Abdomen is soft nontender bowel sounds are present Labs shows hemoglobin is 9.5 hematocrit is 27.5 Sodium is 129 potassium 5.2 chloride is 94 bicarbonate is 28 Chest x-ray shows no acute cardiothoracic process Assessment History of for acute bronchitis the presence of Pseudomonas infection Acute on chronic systolic and diastolic heart failure. History of renal artery stenosis Per pulmonology questionable Aspergillus:: Isolation. History of severe peripheral vascular disease and previous history of spontaneous infarction the spleen Plan start the patient for ambulation Consider pulmonary rehabilitation at [facility] Patient is to have home oxygen
--- NOTE | 2016-05-29 07:58 | PN- Housestaff ---
Subjective Follow-up For: CAP Tele-Events Since Last Visit: Sinus bradycardia sinus rhythm's 55-71 Subjective: Ms Recio was seen and examined this morning. She is resting comfortably in bed. Patient reports no issues overnight. Feels much better and markedly improved since admission to the ICU. Patient was able to woke up early this morning and have a shower. Patient states that her cough has improved. Cough is dry in nature and nonoproductive. Patient continues to be on supplemental oxygen 3 L. Patient denies any chest pain and chest discomfort. She denies any shortness of breath. She denies any fever, chills, nausea, vomiting. She reports good appetite and is tolerating by mouth intake well. Does report that she would like to discontinue the Mucinex due to general dryness. Review of Systems Constitutional: Reports: see HPI. Denies: chills, fever, malaise. Objective Last 24 Hrs of Vital Signs/I&O Vital Signs Date Time Temp Pulse Resp B/P Pulse O2 O2 Flow FiO2 Ox Delivery Rate 05/29 0000 95 Nasal 3.0L Cannula 05/28 2300 97.4 65 20 130/50 95 Nasal 3.0L Cannula 05/28 2236 65 130/50 05/28 2056 98.2 69 20 162/60 92 Nasal 3.0L Cannula 05/28 1733 95 Nasal 3.0L Cannula 05/28 1600 96 Nasal 3.0L Cannula 05/28 1600 98.7 67 20 140/50 96 Nasal 3.0L Cannula 05/28 1218 95 Nasal 3.0L Cannula 05/28 0800 93 Nasal 3.0L Cannula 05/28 08 97.9 78 20 170/60 93 Nasal 3.0L Cannula Intake & Output 05/29 0800 05/29 0000 05/28 1600 Intake Total 350 300 300 Output Total 600 300 400 Balance -250 0 -100 Intake, IV 0 Intake, Oral 350 300 300 Number 1 Bowel Movements Output, Urine 600 300 400 Patient 58.287 kg Weight Physical Exam General Appearance: Alert, Oriented X3, Cooperative, No Acute Distress Cardiovascular: Regular Rate, Normal S1, Normal S2, No Murmurs Lungs: Mild Expiratory Rhonchi/Wheezing Abdomen: Normal Bowel Sounds, Soft, No Tenderness Neurological: Normal Gait Extremities: No Edema Current Medications: Current Medications Sig/Emmanuel Start time Last Medication Dose Route Stop Time Status Admin Acetaminophen 650 MG Q6P PRN 05/23 2200 AC PO Acetylcysteine 600 MG BID 05/27 1000 AC 05/28 PO 2224 Albuterol Sulfate 3 ML Q6 PRN 05/27 1045 AC 05/27 INH 1408 Albuterol Sulfate 3 ML EVERY 4 HRS/AWAKE 05/26 2000 AC 05/28 INH 2147 Alprazolam 0.25 MG ONCE PRN 05/27 1015 AC 05/27 PO 06/03 1014 1033 Alprazolam 0.25 MG AT BEDTIME NEED.. 05/25 2245 AC 05/28 PO 2224 Amlodipine Besylate 10 MG DAILY 05/27 1000 AC 05/28 PO 0854 Artificial Tears 2 GTT 4 TIMES/DAY PRN 05/27 0715 AC 05/27 OPH 0907 Aspirin Buffered 81 MG DAILY 05/24 1000 AC 05/28 PO 0853 Atorvastatin Calcium 80 MG 1700 05/24 0030 AC 05/28 PO 1644 Benzocaine/Menthol 1 NEVIN Q2P PRN 05/25 1100 AC 05/25 PO 1158 Bisacodyl 10 MG DAILY 05/26 1000 AC 05/28 PO 0852 Ciprofloxacin 500 MG BID 05/28 1000 AC 05/28 PO 05/31 2159 2230 Clonidine 0.1 MG DAILY NEEDED PRN 05/28 1115 AC PO Clonidine 0.1 MG FOUR TIMES A DAY PRN 05/28 1100 DC PO Clopidogrel Bisulfate 75 MG DAILY 05/24 1000 AC 05/28 PO 0854 Cyclosporine 1 GTT 2200 05/27 2200 AC 05/28 OPH 2223 Diltiazem HCl 180 MG DAILY 05/24 1000 AC 05/28 PO 0852 Fluticasone 2 SPRAY BID 05/26 1000 AC 05/28 Propionate GRISELDA 2230 Fluticasone 2 PUF BID 05/24 2200 AC 05/28 Propionate INH 2230 Glycerin 2 SPRAY Q2P PRN 05/27 1745 AC 05/27 PO 1839 Guaifenesin 600 MG Q12 05/25 1137 DC 05/28 PO 2230 Heparin Sodium 5,000 UNIT Q8 05/24 0600 AC 05/29 (Porcine) SC 0534 Hydralazine HCl 100 MG TID 05/24 0015 AC 05/28 PO 2236 Ipratropium [place] 2.5 ML EVERY 4 HRS/AWAKE 05/27 1600 AC 05/28 INH 2148 Isosorbide 90 MG DAILY 05/29 1000 AC Mononitrate PO Isosorbide 60 MG DAILY 05/24 1000 DC 05/28 Mononitrate PO 0852 Lactobacillus 1 CAP DAILY PRN 05/27 0715 AC 05/27 Acidophilus PO 0900 Levothyroxine Sodium 0.025 MG DAILY AC 05/24 0700 AC 05/29 PO 0534 Losartan Potassium 100 MG DAILY 05/29 1000 AC PO Losartan Potassium 75 MG ONCE ONE 05/28 1500 DC 05/28 PO 05/28 1501 1646 Losartan Potassium 100 MG DAILY 05/28 1000 DC PO Losartan Potassium 25 MG DAILY 05/24 1000 DC 05/28 PO 0853 Magnesium Oxide 400 MG DAILY 05/24 1000 AC 05/28 PO 0853 Montelukast Sodium 10 MG 2200 05/24 2200 AC 05/28 PO 2230 Nystatin 5 ML 4 TIMES/DAY 05/26 1141 AC 05/28 PO 2224 Oxycodone HCl 5 MG Q6P PRN 05/24 1356 AC PO Patient Own 0 0900,1700 05/24 0900 AC 05/28 Medication PO 1646 Polyethylene Glycol 17 GM DAILY 05/26 1000 AC 05/28 PO 0855 Prednisone 40 MG DAILY 05/28 1000 AC 05/28 PO 0854 Senna 187 MG AT BEDTIME 05/26 2200 AC 05/27 PO 2148 Last 24 Hrs of Lab/Maged Results Last 24 Hrs of Labs/Mics: Laboratory Tests 05/29/16 0525: Anion Gap 7, Estimated GFR 55 L, Glucose 151 H, Calcium 9.0, Phosphorus 3.2, Magnesium 1.9, Total Bilirubin 0.4, AST 16, ALT 33, Albumin 3.1 L, CBC w Diff NO MAN DIFF REQ, RBC 3.21 L, MCV 85.8, MCH 29.5, RDW 15.9 H, MPV 7.3 L, Gran % 75.9 H, Lymphocytes % 14.8 L, Monocytes % 9.0, Eosinophils % 0.1, Basophils % 0.2, Absolute Granulocytes 6.6 H, Absolute Lymphocytes 1.3, Absolute Monocytes 0.8 H, Absolute Eosinophils 0, Absolute Basophils 0, PUBS MCHC 34.4 Assessment/Plan Assessment: 1. Acute hypoxic respiratory failure due to possible COPD exacerbation/CHF exacerbation 2. Worsening sinus congestion with low-grade fever 3. CAD and ischemic cardiomyopathy s/p CABG. 4. History of hypothyroidism 5 acute on chronic kidney disease stage IIIB 6. History of hypertension hyperlipidemia. Renal artery stenosis: CTA Abdomen with severe atherosclerotic disease including occlusion of the proximal L renal artery, 50% narrowing of the proximal R renal artery, near complete occlusion of the R common iliac artery and celiac arteries. Patient might have right renal stent placement as an outpatient. Acute hypoxic respiratory failure due to possible COPD exacerbation/CHF exacerbation: Continue oxygen to keep saturation above 92%. Patient is no more wheezing after getting IV Solu-Medrol 125 mg in the ED. Solumedrol IV discontinued. Switched to PO prednisone. Will administer 50 mg today, followed by 40 mg tomorrow, Patient can get 40 mg on 05/27/2016 done patient's symptoms we can decide whether patient can benefit from prednisone taper (to 30 mg) versus not. Sputum Cx growing Pseudomonas which patient has grown in the past. Patient started on ceftazidime 1 g IV Q12H. patient will receive last dose of ceftazidime 05/27/2016. Likely will be switched to by mouth ciprofloxacin from 05/28 2016. Azithromycin and ceftriaxone discontinued. Hold Spiriva today. Ipratropium/Atrovent every 6 [id number] reported. Chest x-ray done in the ED showed mild stable cardiomegaly. Will not give any IV Lasix as patient has an evidence of a JACIEL as well Monitor in's and O's with daily weight checks. Sinus X-ray unremarkable. Mucinex and lozenges for symptomatic relief. X-ray done 05/26/2016 showed no acute pulmonary change and/or worsening of pulmonary congestion since 05/23/2016. Continue TRC nebs. Questionable Oral candidiasis/thrush Nystatin swish and swallow. 4 times a day. Likely due to prednisone usage. Hyponatremia: Check urine lites, urine osmolality and serum osmolality. 1200 fluid restriction, likely can be administered today. NA level today: 129 Will hold patient's Lasix today. CAD and ischemic cardiomyopathy s/p CABG. Continue home medications including aspirin, Lipitor, diltiazem, Imdur, hydralazine 100mg. Patient's blood pressure elevated, 170/74 the patient may benefit from revision of amlodipine to 10 mg on 05/27/2016. In the interim we will monitor and patient may get 5 mg of hydralazine if patients remain consistently elevated. Current dose of Imdur increased from 60mg to 90mg 05/28/2016, Her amlodipine dose increased to 10mg - however her BP found to be elevated so after consulting renal her losartan dose increased to 100mg today. Continue 100mg Depending on her creatinine level tomorrow we will consider restarting Aldactone 25mg daily as per renal and cardiac recommendations. We will hold Aldactone for now. History of hypothyroidism Continue home dose of levothyroxine. Acute on chronic kidney disease stage IV: Continue home losartan 100 mg PO QD. Avoid any nephrotoxic agents. History of hypertension and hyperlipidemia. Continue medications. DVT prophylaxis subcutaneous heparin ALPS and encourage ambulation, patient continues to bleed from abdomen. Code Full code Problem List: 1. COPD (chronic obstructive pulmonary disease) 2. CHF (congestive heart failure) 3. Renal artery stenosis 4. Hyponatremia 5. Hyperkalemia Pain Ratin Pain Location: Right Shoulder Pain Goal: Remain pain free Pain Plan: Tylenol PRN Tomorrow's Labs & Rationales: BEP
[2016-05-29 08:37] VITALS: BP 168/62
--- NOTE | 2016-05-29 10:53 | PN- Pulmonary ---
Subjective HPI/Critical Care Issues: Ms Recio was seen and examined this morning. She is resting comfortably in bed. Patient reports no issues overnight. Feels much better and markedly improved since admission to the ICU. Patient was able to woke up early this morning and have a shower. Patient states that her cough has improved. Cough is dry in nature and nonoproductive. Patient continues to be on supplemental oxygen 3 L. Patient denies any chest pain and chest discomfort. She denies any shortness of breath. She denies any fever, chills, nausea, vomiting. She reports good appetite and is tolerating by mouth intake well. Does report that she would like to discontinue the Mucinex due to general dryness. Review of Systems Constitutional: Reports: see HPI. Denies: chills, fever, malaise. Objective Current Medications: Current Medications Sig/Emmanuel Start time Last Medication Dose Route Stop Time Status Admin Acetaminophen 650 MG Q6P PRN 05/23 2200 AC PO Acetylcysteine 600 MG BID 05/27 1000 AC 05/29 PO 0912 Albuterol Sulfate 3 ML Q6 PRN 05/27 1045 AC 05/27 INH 1408 Albuterol Sulfate 3 ML EVERY 4 HRS/AWAKE 05/26 2000 AC 05/29 INH 0819 Alprazolam 0.25 MG ONCE PRN 05/27 1015 AC 05/27 PO 06/03 1014 1033 Alprazolam 0.25 MG AT BEDTIME NEED.. 05/25 2245 AC 05/28 PO 2224 Amlodipine Besylate 10 MG DAILY 05/27 1000 AC 05/29 PO 0911 Artificial Tears 2 GTT 4 TIMES/DAY PRN 05/27 0715 AC 05/27 OPH 0907 Aspirin Buffered 81 MG DAILY 05/24 1000 AC 05/29 PO 0911 Atorvastatin Calcium 80 MG 1700 05/24 0030 AC 05/28 PO 1644 Benzocaine/Menthol 1 NEVIN Q2P PRN 05/25 1100 AC 05/25 PO 1158 Bisacodyl 10 MG DAILY 05/26 1000 AC 05/28 PO 0852 Ciprofloxacin 500 MG BID 05/28 1000 AC 05/29 PO 05/31 2159 0910 Clonidine 0.1 MG DAILY NEEDED PRN 05/28 1115 AC PO Clonidine 0.1 MG FOUR TIMES A DAY PRN 05/28 1100 DC PO Clopidogrel Bisulfate 75 MG DAILY 05/24 1000 AC 05/29 PO 0911 Cyclosporine 1 GTT 2200 05/27 2200 AC 05/28 OPH 2223 Diltiazem HCl 180 MG DAILY 05/24 1000 AC 05/29 PO 0910 Fluticasone 2 SPRAY BID 05/26 1000 AC 05/29 Propionate GRISELDA 0909 Fluticasone 2 PUF BID 05/24 2200 AC 05/29 Propionate INH 0909 Glycerin 2 SPRAY Q2P PRN 05/27 1745 AC 05/27 PO 1839 Guaifenesin 600 MG Q12 05/25 1137 DC 05/28 PO 2230 Heparin Sodium 5,000 UNIT Q8 05/24 0600 AC 05/29 (Porcine) SC 0534 Hydralazine HCl 100 MG TID 05/24 0015 AC 05/29 PO 0910 Ipratropium [place] 2.5 ML EVERY 4 HRS/AWAKE 05/27 1600 AC 05/29 INH 0820 Isosorbide 90 MG DAILY 05/29 1000 AC 05/29 Mononitrate PO 0910 Isosorbide 60 MG DAILY 05/24 1000 DC 05/28 Mononitrate PO 0852 Lactobacillus 1 CAP DAILY PRN 05/27 0715 AC 05/27 Acidophilus PO 0900 Levothyroxine Sodium 0.025 MG DAILY AC 05/24 0700 AC 05/29 PO 0534 Losartan Potassium 100 MG DAILY 05/29 1000 AC 05/29 PO 0910 Losartan Potassium 75 MG ONCE ONE 05/28 1500 DC 05/28 PO 05/28 1501 1646 Losartan Potassium 100 MG DAILY 05/28 1000 DC PO Magnesium Oxide 400 MG DAILY 05/24 1000 AC 05/29 PO 0911 Montelukast Sodium 10 MG 0 05/24 2200 AC 05/28 PO 2230 Nystatin 5 ML 4 TIMES/DAY 05/26 1141 AC 05/29 PO 0909 Oxycodone HCl 5 MG Q6P PRN 05/24 1356 AC PO Patient Own 0 0900,1700 05/24 0900 AC 05/29 Medication PO 0832 Polyethylene Glycol 17 GM DAILY 05/26 1000 AC 05/28 PO 0855 Prednisone 40 MG DAILY 05/28 1000 AC 05/29 PO 0911 Senna 187 MG AT BEDTIME 05/26 2200 AC 05/27 PO 2148 Vital Signs & I&O Last 24 Hrs of Vitals and I&O: Laboratory Tests 05/29 05/28 0525 0545 Chemistry Sodium (137 - 145 mmol/L) 129 L 131 L Potassium (3.5 - 5.1 mmol/L) 5.2 H 5.1 Chloride (98 - 107 mmol/L) 94 L 91 L Carbon Dioxide (22 - 30 mmol/L) 28 30 Anion Gap (5 - 16) 7 10 BUN (7 - 17 mg/dL) 30 H 27 H Creatinine (0.5 - 1.0 mg/dL) 1.0 1.0 Estimated GFR (>60 ml/min) 55 L 55 L Glucose (65 - 99 mg/dL) 151 H 217 H Calcium (8.4 - 10.2 mg/dL) 9.0 9.4 Phosphorus (2.5 - 4.5 mg/dL) 3.2 3.2 Magnesium (1.6 - 2.3 mg/dL) 1.9 2.2 Total Bilirubin (0.2 - 1.3 mg/dL) 0.4 0.5 AST (14 - 36 U/L) 16 18 ALT (9 - 52 U/L) 33 36 Albumin (3.5 - 5.0 g/dL) 3.1 L 3.5 Hematology CBC w Diff NO MAN DIFF REQ NO MAN DIFF REQ WBC (4.8 - 10.8 /CUMM) 8.7 9.6 RBC (4.20 - 5.40 /CUMM) 3.21 L 3.40 L Hgb (12.0 - 16.0 G/DL) 9.5 L 10.0 L Hct (37 - 47 %) 27.5 L 29.1 L MCV (81.0 - 99.0 FL) 85.8 85.5 MCH (27.0 - 31.0 PG) 29.5 29.5 RDW (11.5 - 14.5 %) 15.9 H 16.1 H Plt Count (130 - 400 /CUMM) 320 337 MPV (7.4 - 10.4 FL) 7.3 L 7.1 L Gran % (42.2 - 75.2 %) 75.9 H 88.0 H Lymphocytes % (20.5 - 51.1 %) 14.8 L 6.9 L Monocytes % (1.7 - 9.3 %) 9.0 4.9 Eosinophils % (0 - 5 %) 0.1 0 Basophils % (0.0 - 2.0 %) 0.2 0.2 Absolute Granulocytes (1.4 - 6.5 /CUMM) 6.6 H 8.5 H Absolute Lymphocytes (1.2 - 3.4 /CUMM) 1.3 0.7 L Absolute Monocytes (0.10 - 0.60 /CUMM) 0.8 H 0.5 Absolute Eosinophils (0.0 - 0.7 /CUMM) 0 0 Absolute Basophils (0.0 - 0.2 /CUMM) 0 0 PUBS MCHC (33.0 - 37.0 G/DL) 34.4 34.4 05/27 05/27 05/27 1145 1125 1125 Blood Gas pH (7.35 - 7.45 PH) 7.43 pCO2 (35 - 45 TORR) 42 pO2 (80 - 100 TORR) 73 L HCO3 (21 - 28 MEQ/L) 27 ABG O2 Sat (Measured) (>96.0 %) 95.0 L Carboxyhemoglobin (1.5 - 5.0 %) 0.2 L O2 Concentration % 3LPM Temperature (97.0 - 100.0 FARH) 98.2 O2 Delivery Method NC Chemistry Lactic Acid (0.7 - 2.1 mmol/L) 1.7 Troponin I (< 0.11 ng/ml) 0.01 Hematology CBC w Diff NO MAN DIFF REQ WBC (4.8 - 10.8 /CUMM) 17.5 H RBC (4.20 - 5.40 /CUMM) 3.77 L Hgb (12.0 - 16.0 G/DL) 11.1 L Hct (37 - 47 %) 32.0 L MCV (81.0 - 99.0 FL) 84.7 MCH (27.0 - 31.0 PG) 29.4 RDW (11.5 - 14.5 %) 16.4 H Plt Count (130 - 400 /CUMM) 380 MPV (7.4 - 10.4 FL) 7.2 L Gran % (42.2 - 75.2 %) 85.8 H Lymphocytes % (20.5 - 51.1 %) 6.4 L Monocytes % (1.7 - 9.3 %) 7.6 Eosinophils % (0 - 5 %) 0 Basophils % (0.0 - 2.0 %) 0.2 Absolute Granulocytes (1.4 - 6.5 /CUMM) 15.0 H Absolute Lymphocytes (1.2 - 3.4 /CUMM) 1.1 L Absolute Monocytes (0.10 - 0.60 /CUMM) 1.3 H Absolute Eosinophils (0.0 - 0.7 /CUMM) 0 Absolute Basophils (0.0 - 0.2 /CUMM) 0 PUBS MCHC (33.0 - 37.0 G/DL) 34.7 Miscellaneous Phlebotomy Draw Site LEFT RADIAL 05/27 1106 Hematology CBC w Diff Cancelled WBC Cancelled RBC Cancelled Hgb Cancelled Hct Cancelled MCV Cancelled MCH Cancelled RDW Cancelled Plt Count Cancelled MPV Cancelled PUBS MCHC Cancelled Microbiology Date/Time Procedure - Status Source Growth 05/27 1730 Surveillance Culture - RECD GI 05/27 1125 Surveillance Culture - COMP UPPER RESP Vital Signs Date Time Temp Pulse Resp B/P Pulse O2 O2 Flow FiO2 Ox Delivery Rate 05/29 0911 61 168/62 05/29 0910 61 168/62 05/29 0910 61 168/62 05/29 0910 61 168/62 05/29 0837 98.0 61 20 168/62 98 Nasal Cannula 05/29 0821 95 Nasal 1.0L Cannula 05/29 0800 98 Nasal 3.0L Cannula 05/29 0000 95 Nasal 3.0L Cannula 05/28 2300 97.4 65 20 130/50 95 Nasal 3.0L Cannula 05/28 2236 65 130/50 05/28 2056 98.2 69 20 162/60 92 Nasal 3.0L Cannula 05/28 1733 95 Nasal 3.0L Cannula 05/28 1600 96 Nasal 3.0L Cannula 05/28 1600 98.7 67 20 140/50 96 Nasal 3.0L Cannula 05/28 1218 95 Nasal 3.0L Cannula Intake & Output 05/29 1600 05/29 0800 05/29 0000 Intake Total 350 300 Output Total 600 300 Balance -250 0 Intake, Oral 350 300 Output, Urine 600 300 Impression/Plan Impression/Plan Impression/Plan: Physical Exam General Appearance Alert, Oriented X3, Cooperative, No Acute Distress Skin No Rashes, No Breakdown HEENT Atraumatic, PERRLA, EOMI Neck Supple, increased JVP Cardiovascular Regular Rate, Normal S1, Normal S2 Lungs decreased air entry bilaterally, bilateral basal crepts Abdomen Normal Bowel Sounds, Soft, No Tenderness Neurological Normal Speech Extremities No Clubbing, No Cyanosis, No Edema, Normal Pulses Vascular Normal Pulses, Pulses Symmetrical 65-year-old fever with significant cardiac history as noted in H&P recently had a bypass done at [facility] with subsequent cardiac arrest with subsequent adverse effect to high dose of metoprolol (100mg) with effusions with severe baseline copd with fev1 of .9 (not a retainer) with * Resovled acute hypoxic resp failure due to flash pulmonary edema now much better after diuresis. Suggestive of acute systolic and diastolic heart failure * Pseudomonas infection with bronchitis and sinusitis. Patient now also is growing scant growth of yeast which will identify most likely Aspergillus conization no clinical evidence suggestive of invasive aspergillosis at this time. * ACOPDE * Chronic systolic CHF exacerbation. 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
--- NOTE | 2016-05-29 11:37 | PN- Cardiology ---
Subjective Subjective: Mild dyspnea today. No chest pain or palpitations. Still with productive cough. Objective Vital Signs and I&Os Vital Signs Date Time Temp Pulse Resp B/P Pulse O2 O2 Flow FiO2 Ox Delivery Rate 05/29 0911 61 168/62 05/29 0910 61 168/62 05/29 0910 61 168/62 05/29 0910 61 168/62 05/29 0837 98.0 61 20 168/62 98 Nasal Cannula 05/29 0821 95 Nasal 1.0L Cannula 05/29 0800 98 Nasal 3.0L Cannula 05/29 0000 95 Nasal 3.0L Cannula 05/28 2300 97.4 65 20 130/50 95 Nasal 3.0L Cannula 05/28 2236 65 130/50 05/28 2056 98.2 69 20 162/60 92 Nasal 3.0L Cannula 05/28 1733 95 Nasal 3.0L Cannula 05/28 1600 96 Nasal 3.0L Cannula 05/28 1600 98.7 67 20 140/50 96 Nasal 3.0L Cannula 05/28 1218 95 Nasal 3.0L Cannula Intake & Output 05/29 1600 05/29 0800 05/29 0000 05/28 1600 05/28 0800 05/28 0000 Intake Total 350 300 300 240 690 Output Total 600 300 247 602 3920 Balance -250 0 -100 -560 -1110 Intake, IV 0 30 Intake, Oral 350 300 300 240 660 Number 1 Bowel Movements Output, Urine 600 300 [phone] Patient 129 lb Weight Physical Exam: General: No distress, on nasal cannula Eyes: No obvious scleral icterus. HEENT: No jugular venous distention or abnormal jugular venous pulsations. Cardiovascular: Normal intensity S1/S2. Regular. Respiratory: Coarse upper respiratory sounds Abdomen: soft, no rebound tenderness Musculoskeletal: No cyanosis noted, no edema Skin: Warm Neurologic: No gross focal deficits noted. Current Medications: Current Medications Sig/Emmanuel Start time Last Medication Dose Route Stop Time Status Admin Acetaminophen 650 MG Q6P PRN 05/23 2200 AC PO Acetylcysteine 600 MG BID 05/27 1000 AC 05/29 PO 0912 Albuterol Sulfate 3 ML Q6 PRN 05/27 1045 AC 05/27 INH 1408 Albuterol Sulfate 3 ML EVERY 4 HRS/AWAKE 05/26 2000 AC 05/29 INH 0819 Alprazolam 0.25 MG ONCE PRN 05/27 1015 AC 05/27 PO 06/03 1014 1033 Alprazolam 0.25 MG AT BEDTIME NEED.. 05/25 2245 AC 05/28 PO 2224 Amlodipine Besylate 10 MG DAILY 05/27 1000 AC 05/29 PO 0911 Artificial Tears 2 GTT 4 TIMES/DAY PRN 05/27 0715 AC 05/27 OPH 0907 Aspirin Buffered 81 MG DAILY 05/24 1000 AC 05/29 PO 0911 Atorvastatin Calcium 80 MG 1700 05/24 0030 AC 05/28 PO 1644 Benzocaine/Menthol 1 NEVIN Q2P PRN 05/25 1100 AC 05/25 PO 1158 Bisacodyl 10 MG DAILY 05/26 1000 AC 05/28 PO 0852 Ciprofloxacin 500 MG BID 05/28 1000 AC 05/29 PO 05/31 2159 0910 Clonidine 0.1 MG DAILY NEEDED PRN 05/28 1115 AC PO Clopidogrel Bisulfate 75 MG DAILY 05/24 1000 AC 05/29 PO 0911 Cyclosporine 1 GTT 2200 05/27 2200 AC 05/28 OPH 2223 Diltiazem HCl 180 MG DAILY 05/24 1000 AC 05/29 PO 0910 Fluticasone 2 SPRAY BID 05/26 1000 AC 05/29 Propionate GRISELDA 0909 Fluticasone 2 PUF BID 05/24 2200 AC 05/29 Propionate INH 0909 Glycerin 2 SPRAY Q2P PRN 05/27 1745 AC 05/27 PO 1839 Guaifenesin 600 MG Q12 05/25 1137 DC 05/28 PO 2230 Heparin Sodium 5,000 UNIT Q8 05/24 0600 AC 05/29 (Porcine) SC 0534 Hydralazine HCl 100 MG TID 05/24 0015 AC 05/29 PO 0910 Ipratropium [place] 2.5 ML EVERY 4 HRS/AWAKE 05/27 1600 AC 05/29 INH 0820 Isosorbide 90 MG DAILY 05/29 1000 AC 05/29 Mononitrate PO 0910 Lactobacillus 1 CAP DAILY PRN 05/27 0715 AC 05/27 Acidophilus PO 0900 Levothyroxine Sodium 0.025 MG DAILY AC 05/24 0700 AC 05/29 PO 0534 Losartan Potassium 100 MG DAILY 05/29 1000 AC 05/29 PO 0910 Losartan Potassium 75 MG ONCE ONE 05/28 1500 DC 05/28 PO 05/28 1501 1646 Losartan Potassium 100 MG DAILY 05/28 1000 DC PO Magnesium Oxide 400 MG DAILY 05/24 1000 AC 05/29 PO 0911 Montelukast Sodium 10 MG 2200 05/24 2200 AC 05/28 PO 2230 Nystatin 5 ML 4 TIMES/DAY 05/26 1141 AC 05/29 PO 0909 Oxycodone HCl 5 MG Q6P PRN 05/24 1356 AC PO Patient Own 0 0900,1700 05/24 0900 AC 05/29 Med[place] PO 0832 Polyethylene Glycol 17 GM DAILY 05/26 1000 AC 05/28 PO 0855 Prednisone 40 MG DAILY 05/28 1000 AC 05/29 PO 0911 Senna 187 MG AT BEDTIME 05/26 2200 AC 05/27 PO 2148 Results Last 48 Hrs of Labs/Mics: Laboratory Tests 05/29/16 0525: Anion Gap 7, Estimated GFR 55 L, Glucose 151 H, Calcium 9.0, Phosphorus 3.2, Magnesium 1.9, Total Bilirubin 0.4, AST 16, ALT 33, Albumin 3.1 L, CBC w Diff NO MAN DIFF REQ, RBC 3.21 L, MCV 85.8, MCH 29.5, RDW 15.9 H, MPV 7.3 L, Gran % 75.9 H, Lymphocytes % 14.8 L, Monocytes % 9.0, Eosinophils % 0.1, Basophils % 0.2, Absolute Granulocytes 6.6 H, Absolute Lymphocytes 1.3, Absolute Monocytes 0.8 H, Absolute Eosinophils 0, Absolute Basophils 0, PUBS MCHC 34.4 05/28/16 0545: Anion Gap 10, Estimated GFR 55 L, Glucose 217 H, Calcium 9.4, Phosphorus 3.2, Magnesium 2.2, Total Bilirubin 0.5, AST 18, ALT 36, Albumin 3.5, CBC w Diff NO MAN DIFF REQ, RBC 3.40 L, MCV 85.5, MCH 29.5, RDW 16.1 H, MPV 7.1 L, Gran % 88.0 H, Lymphocytes % 6.9 L, Monocytes % 4.9, Eosinophils % 0, Basophils % 0.2 , Absolute Granulocytes 8.5 H, Absolute Lymphocytes 0.7 L, Absolute Monocytes 0.5, Absolute Eosinophils 0, Absolute Basophils 0, PUBS MCHC 34.4 05/27/16 1145: pH 7.43, pCO2 42, pO2 73 L, HCO3 27, ABG O2 Sat (Measured) 95.0 L, Carboxyhemoglobin 0.2 L, O2 Concentration % 3LPM, Temperature 98.2, O2 Delivery Method NC, Phlebotomy Draw Site LEFT RADIAL 05/27/16 112: Troponin I 0.01 05/27/16 1125: Lactic Acid 1.7, CBC w Diff NO MAN DIFF REQ, RBC 3.77 L, MCV 84.7, MCH 29.4, RDW 16.4 H, MPV 7.2 L, Gran % 85.8 H, Lymphocytes % 6.4 L, Monocytes % 7.6, Eosinophils % 0, Basophils % 0.2, Absolute Granulocytes 15.0 H, Absolute Lymphocytes 1.1 L, Absolute Monocytes 1.3 H, Absolute Eosinophils 0, Absolute Basophils 0, PUBS MCHC 34.7 Microbiology 05/27 1730 GI: Surveillance Culture - COMP VANC RESIST ENTEROCOCCUS 05/27 112 UPPER RESP: Surveillance Culture - COMP Recent Imaging Studies: Telemetry tracings were personally reviewed and show sinus rhythm with left bundle-branch block Assessment/Plan Assessment/Plan 1. Bronchitis with Pseudomonas 2. Acute on chronic CKD with hyperkalemia, improved 3. Severe COPD with beta paty intolerance 4. Ischemic cardiomyopathy status post recent CABG (EF 30-35%) 5. Chronic LBBB 6. Severe PVD with Hx aortic/vascular disease felt to be the cause of previous splenic infarcts 7. Nicotine dependence, in remission 8. Hypertension, uncontrolled 9. Renal artery stenosis with near occlusion of the left renal artery 10. Chronic systolic congestive heart failure 11. Hyponatremia Still with a productive cough. Potassium 5.2 so would hold off on restarting the Aldactone while continuing the ARB. Sodium still low. Would follow-up with renal , probably need to continue holding Lasix. Check metabolic panels daily. Abx/ steroid regimen per pulmonary. Clonidine to be used only PRN. Foreign Santoyo MD [facility] Continue telemetry? Yes
[2016-05-29 13:00] VITALS: BP 198/58
--- NOTE | 2016-05-29 16:05 | PN- Nephrology ---
Assessment/Plan Assessment: known severe vascular disease with atrophic L kidney and occluded L renal artery. Agree that no role for angioplasty of kidney given small kidney ( essentially [facility] Kidney). Prior to ACEI nephrectomy sometimes helped with HTN related to this but typically use of ACEI/ARB should counteract the hypertensive effects of renin release. Given K 5.2 would not add aldactone at this time. If K improves could consider adding aldactone at some point in the future. Discussed with housestaff. Suggestion: . Subjective Subjective: Asked to resee pt re addition of aldactone. Pt with persistent HTN. Losartan increased to 100 mg yesterday. Objective Vital Signs and I&Os F on Bipap 198/59 98 T 98 Lungs clear Cor RRR Abd soft Ext neg edema Results Pertinent Lab Results: 129 / 94 / 30 5.2 / 28 / 1.0\
[2016-05-29 16:45] VITALS: BP 140/52
[2016-05-30] VITALS: BP 148/50
--- NOTE | 2016-05-30 08:06 | PN- Housestaff ---
GINA MERINO,[facility] 05/30/16 0805: Subjective Follow-up For: CAP Tele-Events Since Last Visit: SR- SB 57-70 No Events Subjective: Patient seen and examined. Resting comfortably. Patiet states she slept very well last night and feels markedly better. She denies any acute events overnight. Patient denies any SOB or dyspnea. She denies any fever, chills, nausea, vomiting. Review of Systems Constitutional: Reports: see HPI. Objective Last 24 Hrs of Vital Signs/I&O Vital Signs Date Time Temp Pulse Resp B/P Pulse O2 O2 Flow FiO2 Ox Delivery Rate 05/30 1747 96 Nasal 3.0L Cannula 05/30 1622 120/60 05/30 1613 93 Nasal 1.0L Cannula 05/30 1557 97.6 57 20 124/56 92 05/30 1040 65 156/60 05/30 1040 65 156/60 05/30 1040 156/60 05/30 1038 156/60 05/30 0843 96.9 67 20 152/62 94 Nasal 1.0L Cannula 05/30 0809 95 Nasal 1.0L Cannula 05/30 0800 Nasal 3.0L Cannula 05/30 0000 93 Nasal 3.0L Cannula 05/30 0000 97.5 71 20 148/50 93 Nasal 3.0L Cannula 05/29 2129 71 148/50 Intake & Output 05/30 1600 05/30 0800 05/30 0000 Intake Total 500 400 640 Output Total 1000 1000 550 Balance -500 -600 90 Intake, Oral 500 400 640 Output, Urine 1000 1000 550 Patient 58.627 kg Weight Physical Exam General Appearance: Alert, Oriented X3, Cooperative Cardiovascular: Regular Rate, Normal S1, Normal S2 Lungs: Clear to Auscultation Abdomen: Normal Bowel Sounds, Soft, No Tenderness Neurological: Normal Gait, Normal Speech, Strength at 5/5 X4 Ext Extremities: No Edema Vascular: Normal Pulses Current Medications: Current Medications Sig/Emmanuel Start time Last Medication Dose Route Stop Time Status Admin Acetaminophen 650 MG Q6P PRN 05/23 2200 AC PO Acetylcysteine 600 MG BID 05/27 1000 AC 05/30 PO 1039 Albuterol Sulfate 3 ML Q6 PRN 05/27 1045 AC 05/27 INH 1408 Albuterol Sulfate 3 ML EVERY 4 HRS/AWAKE 05/26 2000 AC 12/31 INH 1612 Alprazolam 0.25 MG ONCE PRN 05/27 1015 AC 05/27 PO 06/03 1014 1033 Alprazolam 0.25 MG AT BEDTIME NEED.. 05/25 2245 AC 05/30 PO 0045 Amlodipine Besylate 10 MG DAILY 05/27 1000 AC 05/30 PO 1040 Artificial Tears 2 GTT 4 TIMES/DAY PRN 05/27 0715 AC 05/27 OPH 0907 Aspirin Buffered 81 MG DAILY 05/24 1000 AC 05/30 PO 1037 Atorvastatin Calcium 80 MG 1700 05/24 0030 AC 05/30 PO 1617 Benzocaine/Menthol 1 NEVIN Q2P PRN 05/25 1100 AC 05/25 PO 1158 Bisacodyl 10 MG DAILY 05/26 1000 AC 05/30 PO 1038 Ciprofloxacin 500 MG BID 05/28 1000 AC 05/30 PO 05/31 2159 1037 Clonidine 0.1 MG DAILY NEEDED PRN 05/28 1115 AC 05/29 PO 1313 Clopidogrel Bisulfate 75 MG DAILY 05/24 1000 AC 05/30 PO 1037 Cyclosporine 1 GTT 2200 05/27 2200 AC 05/29 OPH 2115 Diltiazem HCl 180 MG DAILY 05/24 1000 AC 05/30 PO 1041 Fluticasone 2 SPRAY BID 05/26 1000 AC 05/30 Propionate GRISELDA 1031 Fluticasone 2 PUF BID 05/24 2200 AC 05/30 Propionate INH 1033 Glycerin 2 SPRAY Q2P PRN 05/27 1745 AC 05/27 PO 1839 Heparin Sodium 5,000 UNIT Q8 05/24 0600 AC 05/30 (Porcine) SC 1434 Hydralazine HCl 100 MG TID 05/24 0015 AC 05/30 PO 1622 Ipratropium [place] 2.5 ML EVERY 4 HRS/AWAKE 05/27 1600 AC 05/30 INH 1612 Isosorbide 90 MG DAILY 05/29 1000 AC 05/30 Mononitrate PO 1038 Lactobacillus 1 CAP DAILY PRN 05/27 0715 AC 05/27 Acidophilus PO 0900 Levothyroxine Sodium 0.025 MG DAILY AC 05/24 0700 AC 05/30 PO 0657 Losartan Potassium 100 MG DAILY 05/29 1000 AC 05/30 PO 1040 Magnesium Oxide 400 MG DAILY 05/24 1000 AC 05/30 PO 1037 Montelukast Sodium 10 MG 2200 05/24 2200 AC 05/29 PO 2115 Nystatin 5 ML 4 TIMES/DAY 05/26 1141 DC 05/30 PO 1035 Oxycodone HCl 5 MG Q6P PRN 05/24 1356 AC PO Patient Own 0 0900,1700 05/24 0900 AC 05/30 Medication PO 1623 Polyethylene Glycol 17 GM DAILY 05/26 1000 AC 05/28 PO 0855 Prednisone 40 MG DAILY 05/28 1000 AC 05/30 PO 1038 Senna 187 MG AT BEDTIME 05/26 2200 AC 05/27 PO 2148 Last 24 Hrs of Lab/Maged Results Last 24 Hrs of Labs/Mics: Laboratory Tests 05/30/16 0640: Anion Gap 4 L, Estimated GFR 55 L, BUN/Creatinine Ratio 30.0 H, CBC w Diff NO MAN DIFF REQ, RBC 3.28 L, MCV 84.9, MCH 29.7, RDW 16.1 H, MPV 7.3 L, Gran % 73.3, Lymphocytes % 16.4 L, Monocytes % 9.6 H, Eosinophils % 0.5, Basophils % 0.2, Absolute Granulocytes 5.5, Absolute Lymphocytes 1.2, Absolute Monocytes 0.7 H, Absolute Eosinophils 0, Absolute Basophils 0, PUBS MCHC 35.0 Assessment/Plan Assessment: 1. Acute hypoxic respiratory failure due to possible COPD exacerbation/CHF exacerbation 2. Worsening sinus congestion with low-grade fever 3. CAD and ischemic cardiomyopathy s/p CABG. 4. History of hypothyroidism 5 acute on chronic kidney disease stage IIIB 6. History of hypertension hyperlipidemia. Renal artery stenosis: CTA Abdomen with severe atherosclerotic disease including occlusion of the proximal L renal artery, 50% narrowing of the proximal R renal artery, near complete occlusion of the R common iliac artery and celiac arteries. Patient might have right renal stent placement as an outpatient. Acute hypoxic respiratory failure due to possible COPD exacerbation/CHF exacerbation: Continue oxygen to keep saturation above 92%. Patient is no more wheezing after getting IV Solu-Medrol 125 mg in the ED. Solumedrol IV discontinued. Switched to PO prednisone. Will administer 50 mg today, followed by 40 mg tomorrow, Patient can get 40 mg on 05/27/2016 done patient's symptoms we can decide whether patient can benefit from prednisone taper (to 30 mg) versus not. Sputum Cx growing Pseudomonas which patient has grown in the past. Patient started on ceftazidime 1 g IV Q12H. patient will receive last dose of ceftazidime 05/27/2016. Continue Predinone 40MG. Likely will be switched to by mouth ciprofloxacin from 05/28 2016. Azithromycin and ceftriaxone discontinued. Hold Spiriva today. Ipratropium/Atrovent every 6 [id number] reported. Chest x-ray done in the ED showed mild stable cardiomegaly. Will not give any IV Lasix as patient has an evidence of a JACIEL as well Monitor in's and O's with daily weight checks. Sinus X-ray unremarkable. Mucinex and lozenges for symptomatic relief. X-ray done 05/26/2016 showed no acute pulmonary change and/or worsening of pulmonary congestion since 05/23/2016. Continue TRC nebs. Questionable Oral candidiasis/thrush Nystatin swish and swallow. 4 times a day. Likely due to prednisone usage. Hyponatremia: Check urine lites, urine osmolality and serum osmolality. 1200 fluid restriction, likely can be administered today. NA level today: 128 Will hold patient's Lasix today. CAD and ischemic cardiomyopathy s/p CABG. Continue home medications including aspirin, Lipitor, diltiazem, Imdur, hydralazine 100mg. Patient's blood pressure elevated, 124/56 the patient may benefit from revision of amlodipine to 10 mg on 05/27/2016. In the interim we will monitor and patient may get 5 mg of hydralazine if patients remain consistently elevated. Current dose of Imdur increased from 60mg to 90mg 05/28/2016, Her amlodipine dose increased to 10mg - however her BP found to be elevated so after consulting renal her losartan dose increased to 100mg today. Continue 100mg Depending on her creatinine level tomorrow we will consider restarting Aldactone 25mg daily as per renal and cardiac recommendations. We will hold Aldactone for now. History of hypothyroidism Continue home dose of levothyroxine. Acute on chronic kidney disease stage IV: Continue home losartan 100 mg PO QD. Avoid any nephrotoxic agents. History of hypertension and hyperlipidemia. Continue medications. DVT prophylaxis subcutaneous heparin ALPS and encourage ambulation, patient continues to bleed from abdomen. Code Full code Problem List: 1. Pancreatitis, acute 2. COPD exacerbation 3. Hypoxia 4. Leukocytosis 5. CHF (congestive heart failure) 6. HTN (hypertension) 7. HLD (hyperlipidemia) 8. CHF (congestive heart failure) 9. Uncontrolled hypertension 10. COPD (chronic obstructive pulmonary disease) case management patient 11. COPD (chronic obstructive pulmonary disease) 12. DVT prophylaxis 13. Full code status 14. CAD (coronary artery disease) 15. Hypothyroid 16. Sinusitis, acute 17. Fever 18. Renal insufficiency 19. Hyponatremia syndrome 20. Hyperkalemia 21. Hyponatremia 22. Renal artery stenosis Pain Ratin Pain Location: NA Pain Goal: Remain pain free Pain Plan: tylenol PRN Tomorrow's Labs & Rationales: CBC: Monitor H/H and WBC in the setting of CAP BEP: monitor CR and K levels CANDICE AMOS MD 05/30/16 1400: Attending MD Review Statement Attending Statement Attending MD Statement: examined this patient, agreed w/resident/PA/[employer], discussed with family, reviewed EMR data (avail), amended to note Attending Assessment/Plan: Mrs. Recio was interviewed and examined with members of her family present. Her EMR was reviewed. She still notes productive cough and is concerned about her labile blood pressures. She states at approximately 1600 hrs. yesterday she had an episode of elevated blood pressure which was accompanied by flash pulmonary edema. She is afebrile. Blood pressure is in the mid 150's systolic.and O2 sats are stable on supplemental oxygen. Pulmonary exam shows decreased breath sounds but no rales, rhonchi, or wheezes are appreciated. Cardiovascular exam is benign area Her potassium level today is 5.0. She had a very short run of asymptomatic ventricular tachycardia at approximately 0930 hrs. this At present we should continue her present antihypertensive regimen including clonidine when necessary. We should continue to withhold her spironolactone as her potassium remains borderline elevated. We should continue her ciprofloxacin for her Pseudomonas pulmonary infection. We should also increase the patient's activity level. Other maintenance medications and modalities will be continued.
[2016-05-30 08:08] LABS: ABSOLUTE BASOPHIL COUNT 0 /CUMM (0.0-0.2); ABSOLUTE EOSINOPHIL COUNT 0 /CUMM (0.0-0.7); ABSOLUTE GRANULOCYTE CT 5.5 /CUMM (1.4-6.5); ABSOLUTE LYMPH COUNT 1.2 /CUMM (1.2-3.4); ABSOLUTE MONOCYTE COUNT 0.7 /CUMM (0.10-0.60); BASOPHIL % 0.2 % (0.0-2.0); EOSINOPHIL % 0.5 % (0-5); GRANULOCYTE % 73.3 % (42.2-75.2); HEMATOCRIT 27.9 % (37-47); MEAN CORPUSCULAR HGB 29.7 PG (27.0-31.0); MEAN CORPUSCULAR VOLUME 84.9 FL (81.0-99.0); MEAN PLATELET VOLUME 7.3 FL (7.4-10.4); PLATELET COUNT 302 /CUMM (130-400); RBC DISTRIBUTION WIDTH 16.1 % (11.5-14.5); RED BLOOD CELL CT 3.28 /CUMM (4.20-5.40); WHITE BLOOD CELL COUNT 7.6 /CUMM (4.8-10.8)
[2016-05-30 08:43] VITALS: BP 152/62
--- NOTE | 2016-05-30 12:48 | PN- Cardiology ---
Subjective Subjective: Feeling better. Shortness of breath improving. Still with intermittent cough. No chest pain. No palpitations. No diaphoresis. No nausea or vomiting. Objective Vital Signs and I&Os Vital Signs Date Time Temp Pulse Resp B/P Pulse O2 O2 Flow FiO2 Ox Delivery Rate 05/30 1040 65 156/60 05/30 1040 65 156/60 05/30 1040 156/60 05/30 1038 156/60 05/30 0843 96.9 67 20 152/62 94 Nasal 1.0L Cannula 05/30 0809 95 Nasal 1.0L Cannula 05/30 0000 93 Nasal 3.0L Cannula 05/30 0000 97.5 71 20 148/50 93 Nasal 3.0L Cannula 05/29 2129 71 148/50 05/29 1657 60 140/52 05/29 1645 97.4 60 20 140/52 93 Nasal 3.0L Cannula 05/29 1644 95 Nasal 2.0L Cannula 05/29 1320 98 96 05/29 1313 88 198/59 05/29 1300 86 24 198/58 91 Nasal 1.0L Cannula Intake & Output 05/30 1600 05/30 0800 05/30 0000 05/29 1600 05/29 0800 05/29 0000 Intake Total 400 640 600 350 300 Output Total 1000 550 600 300 Balance -600 90 600 -250 0 Intake, Oral 400 640 600 350 300 Number 1 Bowel Movements Output, Urine 1000 550 600 300 Patient 129 lb Weight Physical Exam: General: No distress, on nasal cannula Eyes: No obvious scleral icterus. HEENT: No jugular venous distention or abnormal jugular venous pulsations. Cardiovascular: Normal intensity S1/S2. Regular. Respiratory: Coarse upper respiratory sounds Abdomen: soft, no rebound tenderness Musculoskeletal: No cyanosis noted, no edema Skin: Warm Neurologic: No gross focal deficits noted. Current Medications: Current Medications Sig/Emmanuel Start time Last Medication Dose Route Stop Time Status Admin Acetaminophen 650 MG Q6P PRN 05/23 2200 AC PO Acetylcysteine 600 MG BID 05/27 1000 AC 05/30 PO 1039 Albuterol Sulfate 3 ML Q6 PRN 05/27 1045 AC 05/27 INH 1408 Albuterol Sulfate 3 ML EVERY 4 HRS/AWAKE 05/26 2000 AC 05/30 INH 1143 Alprazolam 0.25 MG ONCE PRN 05/27 1015 AC 05/27 PO 06/03 1014 1033 Alprazolam 0.25 MG AT BEDTIME NEED.. 05/25 2245 AC 05/30 PO 0045 Amlodipine Besylate 10 MG DAILY 05/27 1000 AC 05/30 PO 1040 Artificial Tears 2 GTT 4 TIMES/DAY PRN 05/27 0715 AC 05/27 OPH 0907 Aspirin Buffered 81 MG DAILY 05/24 1000 AC 05/30 PO 1037 Atorvastatin Calcium 80 MG 1700 05/24 0030 AC 05/29 PO 1657 Benzocaine/Menthol 1 NEVIN Q2P PRN 05/25 1100 AC 05/25 PO 1158 Bisacodyl 10 MG DAILY 05/26 1000 AC 05/30 PO 1038 Ciprofloxacin 500 MG BID 05/28 1000 AC 05/30 PO 05/31 2159 1037 Clonidine 0.1 MG DAILY NEEDED PRN 05/28 1115 AC 05/29 PO 1313 Clopidogrel Bisulfate 75 MG DAILY 05/24 1000 AC 05/30 PO 1037 Cyclosporine 1 GTT 2200 05/27 2200 AC 05/29 OPH 2115 Diltiazem HCl 180 MG DAILY 05/24 1000 AC 05/30 PO 1041 Fluticasone 2 SPRAY BID 05/26 1000 AC 05/30 Propionate GRISELDA 1031 Fluticasone 2 PUF BID 05/24 2200 AC 05/30 Propionate INH 1033 Glycerin 2 SPRAY Q2P PRN 05/27 1745 AC 05/27 PO 1839 Heparin Sodium 5,000 UNIT Q8 05/24 0600 AC 05/30 (Porcine) SC 0658 Hydralazine HCl 100 MG TID 05/24 0015 AC 05/30 PO 1040 Ipratropium [place] 2.5 ML EVERY 4 HRS/AWAKE 05/27 1600 AC 05/30 INH 1143 Isosorbide 90 MG DAILY 05/29 1000 AC 05/30 Mononitrate PO 1038 Lactobacillus 1 CAP DAILY PRN 05/27 0715 AC 05/27 Acidophilus PO 0900 Levothyroxine Sodium 0.025 MG DAILY AC 05/24 0700 AC 05/30 PO 0657 Losartan Potassium 100 MG DAILY 05/29 1000 AC 05/30 PO 1040 Magnesium Oxide 400 MG DAILY 05/24 1000 AC 05/30 PO 1037 Montelukast Sodium 10 MG 2200 05/24 2200 AC 05/29 PO 2115 Nystatin 5 ML 4 TIMES/DAY 05/26 1141 DC 05/30 PO 1035 Oxycodone HCl 5 MG Q6P PRN 05/24 1356 AC PO Patient Own 0 0900,1700 05/24 0900 AC 05/30 Medication PO 0846 Polyethylene Glycol 17 GM DAILY 05/26 1000 AC 05/28 PO 0855 Prednisone 40 MG DAILY 05/28 1000 AC 05/30 PO 1038 Senna 187 MG AT BEDTIME 05/26 2200 AC 05/27 PO 2148 Results Last 48 Hrs of Labs/Mics: Laboratory Tests 05/30/16 0640: Anion Gap 4 L, Estimated GFR 55 L, BUN/Creatinine Ratio 30.0 H, CBC w Diff NO MAN DIFF REQ, RBC 3.28 L, MCV 84.9, MCH 29.7, RDW 16.1 H, MPV 7.3 L, Gran % 73.3, Lymphocytes % 16.4 L, Monocytes % 9.6 H, Eosinophils % 0.5, Basophils % 0.2, Absolute Granulocytes 5.5, Absolute Lymphocytes 1.2, Absolute Monocytes 0.7 H, Absolute Eosinophils 0, Absolute Basophils 0, PUBS MCHC 35.0 05/29/16 0525: Anion Gap 7, Estimated GFR 55 L, Glucose 151 H, Calcium 9.0, Phosphorus 3.2, Magnesium 1.9, Total Bilirubin 0.4, AST 16, ALT 33, Albumin 3.1 L, CBC w Diff NO MAN DIFF REQ, RBC 3.21 L, MCV 85.8, MCH 29.5, RDW 15.9 H, MPV 7.3 L, Gran % 75.9 H, Lymphocytes % 14.8 L, Monocytes % 9.0, Eosinophils % 0.1, Basophils % 0.2, Absolute Granulocytes 6.6 H, Absolute Lymphocytes 1.3, Absolute Monocytes 0.8 H, Absolute Eosinophils 0, Absolute Basophils 0, PUBS MCHC 34.4 Recent Imaging Studies: Chest x-ray: No interval change and no evidence of acute cardiopulmonary process. Stable mild pulmonary vascular congestion and cardiomegaly. Assessment/Plan Assessment/Plan 1. Bronchitis with Pseudomonas 2. Acute on chronic CKD with hyperkalemia, improved 3. Severe COPD with beta paty intolerance 4. Ischemic cardiomyopathy status post recent CABG (EF 30-35%) 5. Chronic LBBB 6. Severe PVD with Hx aortic/vascular disease felt to be the cause of previous splenic infarcts 7. Nicotine dependence, in remission 8. Hypertension, uncontrolled 9. Renal artery stenosis with near occlusion of the left renal artery 10. Chronic systolic congestive heart failure 11. Hyponatremia Plan: * Continue current dose of losartan. * Continue clonidine, Imdur, and amlodipine. * Blood pressure mildly elevated this morning. Will continue to monitor and adjust medications as necessary. Continue telemetry? Yes
[2016-05-30 15:57] VITALS: BP 124/56
[2016-05-31 01:00] VITALS: BP 112/54
[2016-05-31 08:10] VITALS: BP 128/64
[2016-05-31 08:58] LABS: ABSOLUTE BASOPHIL COUNT 0 /CUMM (0.0-0.2); ABSOLUTE EOSINOPHIL COUNT 0 /CUMM (0.0-0.7); ABSOLUTE GRANULOCYTE CT 6.3 /CUMM (1.4-6.5); ABSOLUTE LYMPH COUNT 1.1 /CUMM (1.2-3.4); ABSOLUTE MONOCYTE COUNT 0.7 /CUMM (0.10-0.60); BASOPHIL % 0.1 % (0.0-2.0); EOSINOPHIL % 0.2 % (0-5); GRANULOCYTE % 77.4 % (42.2-75.2); HEMATOCRIT 29.9 % (37-47); MEAN CORPUSCULAR HGB 29.6 PG (27.0-31.0); MEAN CORPUSCULAR HGB CONC 34.7 G/DL (33.0-37.0); MEAN CORPUSCULAR VOLUME 85.3 FL (81.0-99.0); MEAN PLATELET VOLUME 7.5 FL (7.4-10.4); PLATELET COUNT 305 /CUMM (130-400); RBC DISTRIBUTION WIDTH 16.2 % (11.5-14.5); WHITE BLOOD CELL COUNT 8.1 /CUMM (4.8-10.8)
--- NOTE | 2016-05-31 14:44 | PN- Cardiology ---
Subjective Subjective: The patient complains of severe sore throat. No further palpitations. No chest pain. No diaphoresis. No shortness of breath. ekg monitor reveals a 6 beat run of ventricular tachycardia at 8:00 AM on May 30 with no further ventricular tachycardia since that time. Objective Vital Signs and I&Os Vital Signs Date Time Temp Pulse Resp B/P Pulse O2 O2 Flow FiO2 Ox Delivery Rate 05/31 1000 78 118/60 05/31 1000 78 118/60 05/31 0959 78 118/60 05/31 0959 78 118/60 05/31 0810 98.0 78 20 128/64 96 Nasal 1.0L Cannula 05/31 0802 95 Nasal 1.0L Cannula 05/31 0800 95 Nasal 1.0L Cannula 05/31 0100 97.7 76 20 112/54 94 Nasal 1.0L Cannula 05/31 0000 93 Nasal 2.0L Cannula 05/30 2157 72 120/60 05/30 1747 96 Nasal 3.0L Cannula 05/30 1622 120/60 05/30 1613 93 Nasal 1.0L Cannula 05/30 1557 97.6 57 20 124/56 92 Intake & Output 05/31 1600 05/31 0800 05/31 0000 05/30 1600 05/30 0800 05/30 0000 Intake Total 50 100 500 400 640 Output Total 364 066 8616 1000 550 Balance -850 -300 -500 -600 90 Intake, Oral 50 100 500 400 640 Output, Urine 217 737 7361 1000 550 Patient 126 lb 129 lb Weight Physical Exam: General: No distress, on nasal cannula Eyes: No obvious scleral icterus. HEENT: No jugular venous distention or abnormal jugular venous pulsations. Cardiovascular: Normal intensity S1/S2. Regular. Respiratory: Coarse upper respiratory sounds Abdomen: soft, no rebound tenderness Musculoskeletal: No cyanosis noted, no edema Skin: Warm Neurologic: No gross focal deficits noted. Current Medications: Current Medications Sig/Emmanuel Start time Last Medication Dose Route Stop Time Status Admin Acetaminophen 650 MG Q6P PRN 05/23 2200 AC PO Acetylcysteine 600 MG BID 05/27 1000 AC 05/31 PO 1000 Albuterol Sulfate 3 ML Q6 PRN 05/27 1045 AC 05/27 INH 1408 Albuterol Sulfate 3 ML EVERY 4 HRS/AWAKE 05/26 2000 AC 05/31 INH 1110 Alprazolam 0.25 MG ONCE PRN 05/27 1015 AC 05/31 PO 06/03 1014 0321 Alprazolam 0.25 MG AT BEDTIME NEED.. 05/25 2245 AC 05/30 PO 2208 Amlodipine Besylate 10 MG DAILY 05/27 1000 AC 05/31 PO 1000 Artificial Tears 2 GTT 4 TIMES/DAY PRN 05/27 0715 AC 05/27 OPH 0907 Aspirin Buffered 81 MG DAILY 05/24 1000 AC 05/31 PO 1000 Atorvastatin Calcium 80 MG 1700 05/24 0030 AC 05/30 PO 1617 Benzocaine/Menthol 1 NEVIN Q2P PRN 05/25 1100 AC 05/25 PO 1158 Bisacodyl 10 MG DAILY 05/26 1000 AC 05/31 PO 0959 Ciprofloxacin 500 MG BID 05/28 1000 AC 05/31 PO 05/31 2159 1000 Clonidine 0.1 MG DAILY NEEDED PRN 05/28 1115 AC 05/29 PO 1313 Clopidogrel Bisulfate 75 MG DAILY 05/24 1000 AC 05/31 PO 1000 Cyclosporine 1 GTT 2200 05/27 2200 AC 05/30 OPH 2159 Diltiazem HCl 180 MG DAILY 05/24 1000 AC 05/31 PO 1000 Fluticasone 2 SPRAY BID 05/26 1000 AC 05/31 Propionate GRISELDA 1003 Fluticasone 2 PUF BID 05/24 2200 AC 05/31 Propionate INH 1004 Glycerin 2 SPRAY Q2P PRN 05/27 1745 AC 05/27 PO 1839 Heparin Sodium 5,000 UNIT Q8 05/24 0600 AC 05/31 (Porcine) SC 1354 Hydralazine HCl 100 MG TID 05/24 0015 AC 05/31 PO 0959 Ipratropium [place] 2.5 ML EVERY 4 HRS/AWAKE 05/27 1600 AC 05/31 INH 1109 Isosorbide 90 MG DAILY 05/29 1000 AC 05/31 Mononitrate PO 0959 Lactobacillus 1 CAP DAILY PRN 05/27 0715 AC 05/27 Acidophilus PO 0900 Levothyroxine Sodium 0.025 MG DAILY AC 05/31 0700 AC 05/31 PO 0653 Levothyroxine Sodium 0.025 MG DAILY AC 05/24 0700 DC 05/30 PO 0657 Losartan Potassium 100 MG DAILY 05/29 1000 AC 05/31 PO 1000 Magnesium Oxide 400 MG DAILY 05/24 1000 AC 05/31 PO 1000 Montelukast Sodium 10 MG 2200 12/25 2200 AC 05/30 PO 2200 Oxycodone HCl 5 MG Q6P PRN 05/24 1356 DC PO Patient Own 0 0900,1700 05/24 0900 AC 05/31 Medication PO 0842 Polyethylene Glycol 17 GM DAILY 05/26 1000 AC 05/28 PO 0855 Prednisone 40 MG DAILY 05/28 1000 AC 05/31 PO 1000 Senna 187 MG AT BEDTIME 05/26 2200 AC 05/30 PO 2200 Results Last 48 Hrs of Labs/Mics: Laboratory Tests 05/31/16 0630: Anion Gap 10, Estimated GFR 55 L, BUN/Creatinine Ratio 30.0 H, CBC w Diff NO MAN DIFF REQ, RBC 3.50 L, MCV 85.3, MCH 29.6, RDW 16.2 H, MPV 7.5, Gran % 77.4 H, Lymphocytes % 13.3 L, Monocytes % 9.0, Eosinophils % 0.2, Basophils % 0.1, Absolute Granulocytes 6.3, Absolute Lymphocytes 1.1 L, Absolute Monocytes 0.7 H, Absolute Eosinophils 0, Absolute Basophils 0, PUBS MCHC 34.7 05/30/16 0640: Anion Gap 4 L, Estimated GFR 55 L, BUN/Creatinine Ratio 30.0 H, CBC w Diff NO MAN DIFF REQ, RBC 3.28 L, MCV 84.9, MCH 29.7, RDW 16.1 H, MPV 7.3 L, Gran % 73.3, Lymphocytes % 16.4 L, Monocytes % 9.6 H, Eosinophils % 0.5, Basophils % 0.2, Absolute Granulocytes 5.5, Absolute Lymphocytes 1.2, Absolute Monocytes 0.7 H, Absolute Eosinophils 0, Absolute Basophils 0, PUBS MCHC 35.0 Assessment/Plan Assessment/Plan 1. Bronchitis with Pseudomonas 2. Acute on chronic CKD with hyperkalemia, improved 3. Severe COPD with beta paty intolerance 4. Ischemic cardiomyopathy status post recent CABG (EF 30-35%) 5. Chronic LBBB 6. Severe PVD with Hx aortic/vascular disease felt to be the cause of previous splenic infarcts 7. Nicotine dependence, in remission 8. Hypertension, uncontrolled 9. Renal artery stenosis with near occlusion of the left renal artery 10. Chronic systolic congestive heart failure 11. 6 beat run of ventricular tachycardia noted, with no recurrence Plan: * Continue current dose of losartan. * Continue clonidine, Imdur, and amlodipine. The blood pressure is under control. * Monitor for further ventricular arrhythmias. Continue telemetry? Yes
--- NOTE | 2016-05-31 14:59 | PN- Att Addend ---
Attending Addendum Attending Brief Note Mrs. Recio notesa severe sore throat and nasal stuffiness today. She also notes that she isdeconditioned is and is having difficulty ambulating. Blood pressures over the last 24 hours have been in the 120+ or -10 range systolically. We should continue her current antihypertensive regimen. We should also continue with physical therapy. A throat culture should be obtained, saline gargles and nasal lavage should also be initiated.
[2016-05-31 15:00] VITALS: BP 98/44
[2016-05-31 23:00] VITALS: BP 150/52
[2016-06-01 07:51] LABS: ABSOLUTE BASOPHIL COUNT 0 /CUMM (0.0-0.2); ABSOLUTE EOSINOPHIL COUNT 0 /CUMM (0.0-0.7); ABSOLUTE GRANULOCYTE CT 7.9 /CUMM (1.4-6.5); ABSOLUTE LYMPH COUNT 1.1 /CUMM (1.2-3.4); ABSOLUTE MONOCYTE COUNT 0.7 /CUMM (0.10-0.60); BASOPHIL % 0.2 % (0.0-2.0); EOSINOPHIL % 0.3 % (0-5); GRANULOCYTE % 80.8 % (42.2-75.2); MEAN CORPUSCULAR HGB 29.8 PG (27.0-31.0); MEAN CORPUSCULAR HGB CONC 34.6 G/DL (33.0-37.0); MEAN PLATELET VOLUME 7.5 FL (7.4-10.4); PLATELET COUNT 307 /CUMM (130-400); RBC DISTRIBUTION WIDTH 16.7 % (11.5-14.5); RED BLOOD CELL CT 4.06 /CUMM (4.20-5.40); WHITE BLOOD CELL COUNT 9.8 /CUMM (4.8-10.8)
[2016-06-01 09:02] VITALS: BP 158/68
--- NOTE | 2016-06-01 09:18 | PN- Housestaff ---
Subjective Follow-up For: CAP Tele-Events Since Last Visit: NSR. HR 60-70s. No events. Subjective: No acute events overnight. Patient seen and examined this morning. She complains of nasal congestion and sore throat. She continues to have shortness of breath and cough productive of yellowish sputum. Respiratory treatments have been helping. Review of Systems Constitutional: Reports: see HPI. Objective Last 24 Hrs of Vital Signs/I&O Vital Signs Date Time Temp Pulse Resp B/P Pulse O2 O2 Flow FiO2 Ox Delivery Rate 06/01 2231 77 130/60 06/01 1635 90/58 06/01 1530 98.0 77 20 90/50 92 Room Air 06/01 0946 73 158/68 06/01 0944 73 158/68 06/01 0943 73 158/68 06/01 0942 73 158/68 06/01 0908 95 Room Air 06/01 0902 98.3 73 18 158/68 94 Nasal 1.0L Cannula 06/01 0800 94 Room Air 06/01 0000 94 Nasal 1.0L Cannula 05/31 2300 98.0 70 20 150/52 94 Nasal 1.0L Cannula Intake & Output 06/01 1600 06/01 0800 06/01 0000 Intake Total 660 240 460 Output Total 700 200 500 Balance -40 40 -40 Intake, Oral 660 240 460 Number 1 Bowel Movements Output, Urine 700 200 500 Patient 57.606 kg Weight Physical Exam General Appearance: Alert, Oriented X3, No Acute Distress HEENT: Mucous Membr. moist/pink Cardiovascular: Regular Rate, Normal S1, Normal S2 Lungs: Coarse Breath Sounds and Expiratory Wheezes, Diminished Breath Sounds Abdomen: Soft, No Tenderness, Positive Bowel Sounds Extremities: No Clubbing, No Cyanosis, No Edema Current Medications: Current Medications Sig/Emmanuel Start time Last Medication Dose Route Stop Time Status Admin Acetaminophen 650 MG Q6P PRN 05/23 2200 AC PO Acetylcysteine 600 MG BID 05/27 1000 AC 06/01 PO 2229 Albuterol Sulfate 3 ML Q6 PRN 05/27 1045 AC 05/27 INH 1408 Albuterol Sulfate 3 ML EVERY 4 HRS/AWAKE 05/26 2000 AC 06/01 INH 2200 Alprazolam 0.25 MG ONCE PRN 05/27 1015 AC 05/31 PO 06/03 1014 2128 Alprazolam 0.25 MG AT BEDTIME NEED.. 05/25 2245 AC 05/30 PO 2208 Amlodipine Besylate 10 MG DAILY 05/27 1000 AC 06/01 PO 0946 Artificial Tears 2 GTT 4 TIMES/DAY PRN 05/27 0715 AC 05/27 OPH 0907 Aspirin Buffered 81 MG DAILY 05/24 1000 AC 06/01 PO 0944 Atorvastatin Calcium 80 MG 1700 05/24 0030 AC 06/01 PO 1636 Benzocaine/Menthol 1 NEVIN Q2P PRN 05/25 1100 AC 05/25 PO 1158 Bisacodyl 10 MG DAILY 05/26 1000 AC 05/31 PO 0959 Ciprofloxacin 500 MG BID 06/01 2200 AC 06/01 PO 06/05 2159 2230 Clonidine 0.1 MG DAILY NEEDED PRN 05/28 1115 AC 05/29 PO 1313 Clopidogrel Bisulfate 75 MG DAILY 05/24 1000 AC 06/01 PO 0944 Cyclosporine 1 GTT 2200 05/27 2200 AC 06/01 OPH 2233 Diltiazem HCl 180 MG DAILY 05/24 1000 AC 06/01 PO 0943 Fluticasone 2 SPRAY BID 05/26 1000 AC 06/01 Propionate GRISELDA 2232 Fluticasone 2 PUF BID 05/24 2200 AC 06/01 Propionate INH 2232 Glycerin 2 SPRAY Q2P PRN 05/27 1745 AC 05/27 PO 1839 Heparin Sodium 5,000 UNIT Q8 05/24 0600 AC 06/01 (Porcine) SC 2232 Hydralazine HCl 100 MG TID 05/24 0015 AC 06/01 PO 2231 Ipratropium [place] 2.5 ML EVERY 4 HRS/AWAKE 05/27 1600 AC 06/01 INH 2200 Isosorbide 90 MG DAILY 05/29 1000 AC 06/01 Mononitrate PO 0943 Lactobacillus 1 CAP DAILY PRN 05/27 0715 AC 05/27 Acidophilus PO 0900 Levothyroxine Sodium 0.025 MG DAILY AC 05/31 0700 AC 06/01 PO 0558 Losartan Potassium 100 MG DAILY 05/29 1000 AC 06/01 PO 0944 Magnesium Oxide 400 MG ONE ONE 06/01 1530 DC 06/01 PO 06/01 1531 1636 Magnesium Oxide 400 MG DAILY 05/24 1000 AC 06/01 PO 0944 Montelukast Sodium 10 MG 2200 05/24 2200 AC 06/01 PO 2228 Patient Medication 1 UNIT 2200 06/01 2199 [place] 06/01 Teaching ED 06/01 2200 2231 Patient Own 0 0900,1700 05/24 0900 AC 06/01 Medication PO 1635 Polyethylene Glycol 17 GM DAILY 05/26 1000 AC 05/28 PO 0855 Prednisone 40 MG DAILY 05/28 1000 AC 06/01 PO 0944 Senna 187 MG AT BEDTIME 05/26 2200 AC 05/30 PO 2200 Sodium Chloride 2 SPRAY Q4P PRN 05/31 1815 AC 05/31 GRISELDA 1911 Last 24 Hrs of Lab/Maged Results Last 24 Hrs of Labs/Mics: Laboratory Tests 06/01/16 0620: Anion Gap 12, Estimated GFR 55 L, BUN/Creatinine Ratio 33.0 H, Magnesium 1.9, CBC w Diff NO MAN DIFF REQ, RBC 4.06 L, MCV 86.0, MCH 29.8, RDW 16.7 H, MPV 7.5, Gran % 80.8 H, Lymphocytes % 11.3 L, Monocytes % 7.4, Eosinophils % 0.3, Basophils % 0.2, Absolute Granulocytes 7.9 H, Absolute Lymphocytes 1.1 L, Absolute Monocytes 0.7 H, Absolute Eosinophils 0, Absolute Basophils 0, PUBS MCHC 34.6 Assessment/Plan Assessment: 1. Acute hypoxic respiratory failure due to possible COPD exacerbation/CHF exacerbation 2. Worsening sinus congestion with low-grade fever 3. CAD and ischemic cardiomyopathy s/p CABG. 4. History of hypothyroidism 5 acute on chronic kidney disease stage IIIB 6. History of hypertension hyperlipidemia. Renal artery stenosis: CTA Abdomen with severe atherosclerotic disease including occlusion of the proximal L renal artery, 50% narrowing of the proximal R renal artery, near complete occlusion of the R common iliac artery and celiac arteries. Patient might have right renal stent placement as an outpatient. Acute hypoxic respiratory failure due to possible COPD exacerbation/CHF exacerbation: Continue oxygen to keep saturation above 92%. Patient is currently on prednisone 40 mg QD. Depending on patient's symptoms it will be decided whether patient can benefit from prednisone taper (to 30 mg) versus not. Sputum Cx growing Pseudomonas which patient has grown in the past. Patient received ceftazidime 1 g IV Q12H and was later switched to ciprofloxacin. Continue to hold Spiriva. Ipratropium/Atrovent every 6 [id number] reported. Chest x-ray done in the ED showed mild stable cardiomegaly. Will not give any IV Lasix as patient has an evidence of a JACIEL as well Monitor in's and O's with daily weight checks. Sinus X-ray unremarkable. Mucinex and lozenges for symptomatic relief. X-ray done 05/26/2016 showed no acute pulmonary change and/or worsening of pulmonary congestion since 05/23/2016. Continue TRC nebs. Deconditioning From prolonged hospitalization. Patient will need aggressive physical therapy. Questionable Oral candidiasis/thrush Nystatin swish and swallow. 4 times a day. Likely due to prednisone usage. Hyponatremia: Check urine lites, urine osmolality and serum osmolality. 1200 fluid restriction, likely can be administered today. NA level today: 130 Will hold patient's Lasix today. CAD and ischemic cardiomyopathy s/p CABG. Continue home medications including aspirin, Lipitor, diltiazem, Imdur, hydralazine 100mg. Blood pressure is currently under control. Current dose of Imdur increased from 60mg to 90mg 05/28/2016, Her amlodipine dose increased to 10mg - however her BP found to be elevated so after consulting renal her losartan dose increased to 100mg today. Continue 100mg Depending on her creatinine level tomorrow we will consider restarting Aldactone 25mg daily as per renal and cardiac recommendations. We will hold Aldactone for now. History of hypothyroidism Continue home dose of levothyroxine. Acute on chronic kidney disease stage IV: Continue home losartan 100 mg PO QD. Avoid any nephrotoxic agents. History of hypertension and hyperlipidemia. Continue medications. DVT prophylaxis subcutaneous heparin ALPS and encourage ambulation, patient continues to bleed from abdomen. Code Full code Problem List: 1. Pancreatitis, acute 2. COPD exacerbation 3. Hypoxia 4. Leukocytosis 5. CHF (congestive heart failure) 6. HTN (hypertension) 7. HLD (hyperlipidemia) 8. CHF (congestive heart failure) 9. Uncontrolled hypertension 10. COPD (chronic obstructive pulmonary disease) case management patient 11. COPD (chronic obstructive pulmonary disease) 12. DVT prophylaxis 13. Full code status 14. CAD (coronary artery disease) 15. Hypothyroid 16. Sinusitis, acute 17. Fever 18. Renal insufficiency 19. Hyponatremia syndrome 20. Hyperkalemia 21. Hyponatremia 22. Renal artery stenosis 23. Physical deconditioning Pain Ratin Pain Location: N/A Pain Goal: Remain pain free Pain Plan: Tylenol 650 mg PO Q6H PRN for mild pain (scale 1-3) Tomorrow's Labs & Rationales: BMP and Mg to monitor lytes and kidney function in the setting of electrolyte disturbances
--- NOTE | 2016-06-01 09:30 | PN- Att Addend ---
Attending Addendum Attending Brief Note Attending note. Still has a lot of cough and congestion and hoarseness of voice. Oral examination was essentially normal suspect the patient of candidiasis. She is using the bipap at night, has got chronic cough and shortness of breath and deconditioned can barely walk a few steps. Blood pressure is 158/60 heart rate is 70 respirations are 20 temperature is 98.3 Oral examination was fairly normal S1-S2 is normal Lungs shows diminished air entry with coarse breath sounds and expiratory wheezing Labs Sodium is improving to 130 Assessment #1 chronic respiratory failure secondary to severe COPD, this is one of for multiple admissions to the hospital for chronic respiratory failure secondary to severe COPD as well as CHF combination. She had multiple admissions to the ICU as well as to telemetry secondary to this chronic respiratory failure Patient might benefit the outpatient the acute rehabilitation at [facility]. #2 fluctuation of blood pressure secondary to renal artery stenosis causing flash pulmonary edema but that has been stable for a while now. #3 deconditioning from prolonged hospitalization patient is not able to walk bili 10 steps will need aggressive physical therapy.
[2016-06-01 10:07] LABS: HEMATOCRIT 34.9 % (37-47)
--- NOTE | 2016-06-01 13:40 | PN- Cardiology ---
Subjective Subjective: Feeling better. Sore throat is improving. No chest pain. No palpitations. Shortness of breath is improving. She is currently receiving a nebulizer treatment. Objective Vital Signs and I&Os Vital Signs Date Time Temp Pulse Resp B/P Pulse O2 O2 Flow FiO2 Ox Delivery Rate 06/01 0946 73 158/68 06/01 0944 73 158/68 06/01 0943 73 158/68 06/01 0942 73 158/68 06/01 0908 95 Room Air 06/01 0902 98.3 73 18 158/68 94 Nasal 1.0L Cannula 06/01 0800 94 Room Air 06/01 0000 94 Nasal 1.0L Cannula 05/31 2300 98.0 70 20 150/52 94 Nasal 1.0L Cannula 05/31 2127 70 158/52 05/31 1750 67 98/44 05/31 1718 93 Nasal 1.0L Cannula 05/31 1500 98.4 67 20 98/44 90 Nasal 1.0L Cannula Intake & Output 06/01 1600 06/01 0800 06/01 0000 05/31 1600 05/31 0800 05/31 0000 Intake Total 240 460 360 50 100 Output Total 200 500 900 900 400 Balance 40 -40 -540 -850 -300 Intake, Oral 240 460 360 50 100 Number 1 1 Bowel Movements Output, Urine 200 500 900 900 400 Patient 127 lb 126 lb Weight Physical Exam: General: No distress, on nasal cannula Eyes: No obvious scleral icterus. HEENT: No jugular venous distention or abnormal jugular venous pulsations. Cardiovascular: Normal intensity S1/S2. Regular. Respiratory: Coarse upper respiratory sounds Abdomen: soft, no rebound tenderness Musculoskeletal: No cyanosis noted, no edema Skin: Warm Neurologic: No gross focal deficits noted. Current Medications: Current Medications Sig/Emmanuel Start time Last Medication Dose Route Stop Time Status Admin Acetaminophen 650 MG Q6P PRN 05/23 2200 AC PO Acetylcysteine 600 MG BID 05/27 1000 AC 06/01 PO 0944 Albuterol Sulfate 3 ML Q6 PRN 05/27 1045 AC 05/27 INH 1408 Albuterol Sulfate 3 ML EVERY 4 HRS/AWAKE 05/26 2000 AC 06/01 INH 1336 Alprazolam 0.25 MG ONCE PRN 05/27 1015 AC 05/31 PO 06/03 1014 2128 Alprazolam 0.25 MG AT BEDTIME NEED.. 05/25 2245 AC 05/30 PO 2208 Amlodipine Besylate 10 MG DAILY 05/27 1000 AC 06/01 PO 0946 Artificial Tears 2 GTT 4 TIMES/DAY PRN 05/27 0715 AC 05/27 OPH 0907 Aspirin Buffered 81 MG DAILY 05/24 1000 AC 06/01 PO 0944 Atorvastatin Calcium 80 MG 1700 05/24 0030 AC 05/31 PO 1749 Benzocaine/Menthol 1 NEVIN Q2P PRN 05/25 1100 AC 05/25 PO 1158 Bisacodyl 10 MG DAILY 05/26 1000 AC 05/31 PO 0959 Ciprofloxacin 500 MG BID 06/01 2200 AC PO 06/05 2159 Ciprofloxacin 500 MG BID 05/28 1000 DC 05/31 PO 05/31 2159 1000 Clonidine 0.1 MG DAILY NEEDED PRN 05/28 1115 AC 05/29 PO 1313 Clopidogrel Bisulfate 75 MG DAILY 05/24 1000 AC 06/01 PO 0944 Cyclosporine 1 GTT 0 05/27 2200 AC 05/31 OPH 2128 Diltiazem HCl 180 MG DAILY 05/24 1000 AC 06/01 PO 0943 Fluticasone 2 SPRAY BID 05/26 1000 AC 06/01 Propionate GRISELDA 0944 Fluticasone 2 PUF BID 05/24 2200 AC 05/31 Propionate INH 2127 Glycerin 2 SPRAY Q2P PRN 05/27 1745 AC 05/27 PO 1839 Heparin Sodium 5,000 UNIT Q8 05/24 0600 AC 06/01 (Porcine) SC 0559 Hydralazine HCl 100 MG TID 05/24 0015 AC 06/01 PO 0942 Ipratropium [place] 2.5 ML EVERY 4 HRS/AWAKE 05/27 1600 AC 06/01 INH 1337 Isosorbide 90 MG DAILY 05/29 1000 AC 06/01 Mononitrate PO 0943 Lactobacillus 1 CAP DAILY PRN 05/27 0715 AC 05/27 Acidophilus PO 0900 Levothyroxine Sodium 0.025 MG DAILY AC 05/31 0700 AC 06/01 PO 0558 Losartan Potassium 100 MG DAILY 05/29 1000 AC 06/01 PO 0944 Magnesium Oxide 400 MG DAILY 05/24 1000 AC 06/01 PO 0944 Montelukast Sodium 10 MG 2200 05/24 2200 AC 05/31 PO 2128 Oxycodone HCl 5 MG Q6P PRN 05/24 1356 DC PO Patient Medication 1 UNIT 0 06/01 2199 Teaching ED 06/01 2200 Patient Own 0 0900,1700 05/24 0900 AC 06/01 Medication PO 0819 Polyethylene Glycol 17 GM DAILY 05/26 1000 AC 05/28 PO 0855 Prednisone 40 MG DAILY 05/28 1000 AC 06/01 PO 0944 Senna 187 MG AT BEDTIME 05/26 2200 AC 05/30 PO 2200 Sodium Chloride 2 SPRAY Q4P PRN 05/31 1815 AC 05/31 GRISELDA 1911 Results Last 48 Hrs of Labs/Mics: Laboratory Tests 06/01/16 0620: Anion Gap 12, Estimated GFR 55 L, BUN/Creatinine Ratio 33.0 H, CBC w Diff NO MAN DIFF REQ, RBC 4.06 L, MCV 86.0, MCH 29.8, RDW 16.7 H, MPV 7.5, Gran % 80.8 H, Lymphocytes % 11.3 L, Monocytes % 7.4, Eosinophils % 0.3, Basophils % 0.2, Absolute Granulocytes 7.9 H, Absolute Lymphocytes 1.1 L, Absolute Monocytes 0.7 H, Absolute Eosinophils 0, Absolute Basophils 0, PUBS MCHC 34.6 05/31/16 0630: Anion Gap 10, Estimated GFR 55 L, BUN/Creatinine Ratio 30.0 H, CBC w Diff NO MAN DIFF REQ, RBC 3.50 L, MCV 85.3, MCH 29.6, RDW 16.2 H, MPV 7.5, Gran % 77.4 H, Lymphocytes % 13.3 L, Monocytes % 9.0, Eosinophils % 0.2, Basophils % 0.1, Absolute Granulocytes 6.3, Absolute Lymphocytes 1.1 L, Absolute Monocytes 0.7 H, Absolute Eosinophils 0, Absolute Basophils 0, PUBS MCHC 34.7 Assessment/Plan Assessment/Plan 1. Bronchitis with Pseudomonas 2. Acute on chronic CKD with hyperkalemia, improved 3. Severe COPD with beta paty intolerance 4. Ischemic cardiomyopathy status post recent CABG (EF 30-35%) 5. Chronic LBBB 6. Severe PVD with Hx aortic/vascular disease felt to be the cause of previous splenic infarcts 7. Nicotine dependence, in remission 8. Hypertension, uncontrolled 9. Renal artery stenosis with near occlusion of the left renal artery 10. Chronic systolic congestive heart failure 11. 6 beat run of ventricular tachycardia noted, with no recurrence Plan: * Continue current dose of losartan. * Continue clonidine, Imdur, and amlodipine. The blood pressure is under control. * Monitor for further ventricular arrhythmias. Continue telemetry? Yes
[2016-06-01 15:30] VITALS: BP 90/50
[2016-06-01 22:00] VITALS: BP 130/60
--- NOTE | 2016-06-02 05:52 | PN- Housestaff ---
Subjective Follow-up For: CAP Tele-Events Since Last Visit: NSR [id number] Subjective: Ms Recio was seen and examined this morning. She is seated comfortably in bed. Patient reports that she feels remarkably better since yesterday. Patient denies any shortness of breath and difficulty breathing. Patient continues to be on oxygen via nasal cannula. Continues to report of coughing mildly productive of yellowish and greenish sputum. Patient reports a good appetite although reports weight loss. She states she's lost approximately 10 kg since been admitted. Patient denies any fever, chills, nausea, vomiting. Review of Systems Constitutional: Reports: see HPI. Denies: chills, fever, weakness. Objective Last 24 Hrs of Vital Signs/I&O Vital Signs Date Time Temp Pulse Resp B/P Pulse O2 O2 Flow FiO2 Ox Delivery Rate 06/01 2231 77 130/60 06/01 2200 7.8 77 20 130/60 97 Room Air 06/01 1750 93 Nasal 1.0L Cannula 06/01 1635 90/58 /02 1530 98.0 77 20 90/50 92 Room Air 06/01 0946 73 158/68 06/01 0944 73 158/68 06/01 0943 73 158/68 / 0942 73 158/68 /02 0908 95 Room Air 06/01 0902 98.3 73 18 158/68 94 Nasal 1.0L Cannula 06/01 0800 94 Room Air Intake & Output 06/02 0800 06/02 0000 06/01 1600 Intake Total 100 340 660 Output Total 1400 700 700 Balance -1300 -360 -40 Intake, Oral 100 340 660 Output, Urine 1400 700 700 Patient 57.379 kg Weight Physical Exam General Appearance: Alert, Oriented X3, Cooperative HEENT: ?White Discoloration on room of mouth Cardiovascular: Regular Rate, Normal S1, Normal S2 Lungs: Clear to Auscultation Abdomen: Normal Bowel Sounds, Soft, No Tenderness Neurological: Normal Gait, Normal Speech, Strength at 5/5 X4 Ext Extremities: No Edema Vascular: Normal Pulses Current Medications: Current Medications Sig/Emmanuel Start time Last Medication Dose Route Stop Time Status Admin Acetaminophen 650 MG Q6P PRN 05/23 2200 AC PO Acetylcysteine 600 MG BID 05/27 1000 AC 06/01 PO 2229 Albuterol Sulfate 3 ML Q6 PRN 05/27 1045 AC 05/27 INH 1408 Albuterol Sulfate 3 ML EVERY 4 HRS/AWAKE 05/26 2000 AC 06/01 INH 2200 Alprazolam 0.25 MG ONCE PRN 05/27 1015 AC 06/02 PO 06/03 1014 0144 Alprazolam 0.25 MG AT BEDTIME NEED.. 05/25 2245 AC 06/01 PO 2241 Amlodipine Besylate 10 MG DAILY 05/27 1000 AC 06/01 PO 0946 Artificial Tears 2 GTT 4 TIMES/DAY PRN 05/27 0715 AC 05/27 OPH 0907 Aspirin Buffered 81 MG DAILY 05/24 1000 AC 06/01 PO 0944 Atorvastatin Calcium 80 MG 1700 05/24 0030 AC 06/01 PO 1636 Benzocaine/Menthol 1 NEVIN Q2P PRN 05/25 1100 AC 05/25 PO 1158 Bisacodyl 10 MG DAILY 05/26 1000 AC 05/31 PO 0959 Ciprofloxacin 500 MG BID 06/01 2200 AC 06/01 PO 06/05 2159 2230 Clonidine 0.1 MG DAILY NEEDED PRN 05/28 1115 AC 05/29 PO 1313 Clopidogrel Bisulfate 75 MG DAILY 05/24 1000 AC 06/01 PO 0944 Cyclosporine 1 GTT 2200 05/27 2200 AC 06/01 OPH 2233 Diltiazem HCl 180 MG DAILY 05/24 1000 AC 06/01 PO 0943 Fluticasone 2 SPRAY BID 05/26 1000 AC 06/01 Propionate GRISELDA 2232 Fluticasone 2 PUF BID 05/24 2200 AC 06/01 Propionate INH 2232 Glycerin 2 SPRAY Q2P PRN 05/27 1745 AC 05/27 PO 1839 Heparin Sodium 5,000 UNIT Q8 05/24 0600 AC 06/01 (Porcine) SC 2232 Hydralazine HCl 100 MG TID 05/24 0015 AC 06/01 PO 2231 Ipratropium [place] 2.5 ML EVERY 4 HRS/AWAKE 05/27 1600 AC 06/01 INH 2200 Isosorbide 90 MG DAILY 05/29 1000 AC 06/01 Mononitrate PO 0943 Lactobacillus 1 CAP DAILY PRN 05/27 0715 AC 05/27 Acidophilus PO 0900 Levothyroxine Sodium 0.025 MG DAILY AC 05/31 0700 AC 06/01 PO 0558 Losartan Potassium 100 MG DAILY 12/30 1000 AC 06/01 PO 0944 Magnesium Oxide 400 MG ONE ONE 06/01 1530 DC 06/01 PO 06/01 1531 1636 Magnesium Oxide 400 MG DAILY 05/24 1000 AC 06/01 PO 0944 Montelukast Sodium 10 MG 05/24 2200 AC 06/01 PO 2228 Patient Medication 1 UNIT 06/010 DC 06/01 Teaching ED 06/01 2201 2231 Patient Own 0 0900,1700 05/24 0900 AC 06/01 Medication PO 1635 Polyethylene Glycol 17 GM DAILY 05/26 1000 AC 05/28 PO 0855 Prednisone 40 MG DAILY 05/28 1000 AC 06/01 PO 0944 Senna 187 MG AT BEDTIME 05/26 2200 AC 05/30 PO 2200 Sodium Chloride 2 SPRAY Q4P PRN 05/31 1815 AC 05/31 GRISELDA 1911 Last 24 Hrs of Lab/Maged Results Last 24 Hrs of Labs/Mics: Laboratory Tests 06/02/16 0625: Sodium Pending, Potassium Pending, Chloride Pending, Carbon Dioxide Pending, Anion Gap Pending, BUN Pending, Creatinine Pending, BUN/Creatinine Ratio Pending , Magnesium Pending Assessment/Plan Assessment: 1. Acute hypoxic respiratory failure due to possible COPD exacerbation/CHF exacerbation 2. Worsening sinus congestion with low-grade fever 3. CAD and ischemic cardiomyopathy s/p CABG. 4. History of hypothyroidism 5 acute on chronic kidney disease stage IIIB 6. History of hypertension hyperlipidemia. Renal artery stenosis: CTA Abdomen with severe atherosclerotic disease including occlusion of the proximal L renal artery, 50% narrowing of the proximal R renal artery, near complete occlusion of the R common iliac artery and celiac arteries. Patient might have right renal stent placement as an outpatient. Acute hypoxic respiratory failure due to possible COPD exacerbation/CHF exacerbation: Continue oxygen to keep saturation above 92%. Sputum Cx growing Pseudomonas which patient has grown in the past. Patient received ceftazidime 1 g IV Q12H and was later switched to ciprofloxacin. Ciprofloxacin 500mg, Total antibiotics of 14 days. Prednisone 30mg. Continue to hold Spiriva. Ipratropium/Atrovent every 6 [id number] reported. Chest x-ray done in the ED showed mild stable cardiomegaly. Will not give any IV Lasix as patient has evidence of a JACIEL as well Monitor in's and O's with daily weight checks. Sinus X-ray unremarkable. Mucinex and lozenges for symptomatic relief. X-ray done 05/26/2016 showed no acute pulmonary change and/or worsening of pulmonary congestion since 05/23/2016. Continue TRC nebs. Deconditioning From prolonged hospitalization. Patient will need aggressive physical therapy. Questionable Oral candidiasis/thrush Nystatin swish and swallow. 4 times a day. Likely due to prednisone usage. Throat culture taken, we will await recomendations from ENT. Hyponatremia: Check urine lites, urine osmolality and serum osmolality. 1200 fluid restriction, likely can be administered today. NA level today: 128 Continue to hold patient's Lasix today. CAD and ischemic cardiomyopathy s/p CABG. Continue home medications including aspirin, Lipitor, diltiazem, Imdur, hydralazine 100mg. Blood pressure is currently under control. Current dose of Imdur increased from 60mg to 90mg 05/28/2016, Her amlodipine dose increased to 10mg - however her BP found to be elevated so after consulting renal her losartan dose increased to 100mg today. Continue 100mg Depending on her creatinine level tomorrow we will consider restarting Aldactone 25mg daily as per renal and cardiac recommendations. We will hold Aldactone for now. #History of hypothyroidism Continue home dose of levothyroxine. #Acute on chronic kidney disease stage IV: Continue home losartan 100 mg PO QD. Avoid any nephrotoxic agents. #History of hypertension and hyperlipidemia. Continue medications. #DVT prophylaxis subcutaneous heparin ALPS and encourage ambulation, #Code Full code Problem List: 1. Physical deconditioning 2. Renal artery stenosis 3. Hyponatremia 4. Renal insufficiency 5. CAD (coronary artery disease) 6. COPD (chronic obstructive pulmonary disease) 7. CHF (congestive heart failure) Pain Ratin Pain Location: No Pain Pain Goal: Remain pain free Pain Plan: Tylenol PRN Tomorrow's Labs & Rationales: BEP: Monitor Na in the setting of Hyponatremia. Monitor Cr
--- NOTE | 2016-06-02 07:59 | PN- Att Addend ---
Attending Addendum Attending Brief Note Laboratory Tests 06/02 624 Chemistry Sodium Pending Potassium Pending Chloride Pending Carbon Dioxide Pending Anion Gap Pending BUN Pending Creatinine Pending BUN/Creatinine Ratio Pending Magnesium Pending Vital Signs Date Time Temp Pulse Resp B/P Pulse O2 O2 Flow FiO2 Ox Delivery Rate 06/01 2231 77 130/60 06/01 2200 7.8 77 20 130/60 97 Room Air 06/01 1750 93 Nasal 1.0L Cannula 06/01 1635 90/58 / 1530 98.0 77 20 90/50 92 Room Air 06/01 0946 73 158/68 06/01 0944 73 158/68 06/01 0943 73 158/68 06/01 0942 73 158/68 06/01 0908 95 Room Air 06/01 0902 98.3 73 18 158/68 94 Nasal 1.0L Cannula 06/01 0800 94 Room Air Intake & Output 06/02 0800 06/02 0000 06/01 1600 Intake Total 100 340 660 Output Total 1400 700 700 Balance -1300 -360 -40 Intake, Oral 100 340 660 Output, Urine 1400 700 700 Patient 127 lb Weight Attending note. Patient has got hoarseness of voice dysphonia of for hernia as well as pain while speaking and also swallowing. Obtained ENT consult to for direct laryngoscopy. On examination there was no evidence of candidiasis. Chronic systolic heart failure slight improvement chest x-ray is clearing up CVS stage IV COPD with exacerbation patient is slightly getting better but needs pulmonary rehabilitation suggested patient go to [place] for pulmonary rehabilitation as patient has multiple admissions to the ICU in the past 3 months for exacerbation of COPD as well as flash pulmonary edema secondary to uncontrolled hypertension secondary to renal artery stenosis.
[2016-06-02 09:22] VITALS: BP 140/60
--- NOTE | 2016-06-02 09:26 | PN- Cardiology ---
Subjective Subjective: Patient still complains of fatigue along with the store throat. She finds it difficult to swallow. She denies chest pain. Review of Systems: Eyes no blurred or double vision Ears no deafness or ringing Nose and throat pain with difficulty swallowing Lungs per history of present illness Heart per history of present illness Abdomen no nausea vomiting Musculoskeletal occasional muscle and joint pains Psych no anxiety or depression Neuro without recurrent headache or seizures Endocrine no heat or cold intolerance Objective Vital Signs and I&Os Vital Signs Date Time Temp Pulse Resp B/P Pulse O2 O2 Flow FiO2 Ox Delivery Rate 06/02 0922 98.1 64 20 140/60 95 Room Air 06/02 0903 64 140/60 06/02 0903 64 140/60 06/02 0903 64 140/60 06/02 0902 64 140/60 06/02 0818 95 Room Air Room Air 06/01 2231 77 130/60 06/01 2200 7.8 77 20 130/60 97 Room Air 06/01 1750 93 Nasal 1.0L Cannula 06/01 1635 90/58 06/01 1530 98.0 77 20 90/50 92 Room Air 06/01 0946 73 158/68 06/01 0944 73 158/68 06/01 0943 73 158/68 06/01 0942 73 158/68 Intake & Output 06/02 1600 06/02 0800 06/02 0000 06/01 1600 06/01 0800 06/01 0000 Intake Total 100 340 660 240 460 Output Total 1400 700 700 200 500 Balance -1300 -360 -40 40 -40 Intake, Oral 100 340 660 240 460 Number 1 Bowel Movements Output, Urine 1400 700 700 200 500 Patient 127 lb 127 lb Weight Physical Exam: Patient is a well-developed well-nourished female appearing in no acute distress HEENT is unremarkable Neck is supple there is no JVD Lungs decreased air entry bilaterally Heart regular rhythm S1 and S2 are normal no murmurs gallops or rubs Abdomen bowel sounds positive Extremities without edema Current Medications: Current Medications Sig/Emmanuel Start time Last Medication Dose Route Stop Time Status Admin Acetaminophen 650 MG Q6P PRN 05/23 2200 AC PO Acetylcysteine 600 MG BID 05/27 1000 AC 06/02 PO 0901 Albuterol Sulfate 3 ML Q6 PRN 05/27 1045 AC 05/27 INH 1408 Albuterol Sulfate 3 ML EVERY 4 HRS/AWAKE 05/26 2000 AC 06/02 INH 0814 Alprazolam 0.25 MG ONCE PRN 05/27 1015 AC 06/02 PO 06/03 1014 0144 Alprazolam 0.25 MG AT BEDTIME NEED.. 05/25 2245 AC 06/01 PO 2241 Amlodipine Besylate 10 MG DAILY 05/27 1000 AC 06/02 PO 0903 Artificial Tears 2 GTT 4 TIMES/DAY PRN 05/27 0715 AC 05/27 OPH 0907 Aspirin Buffered 81 MG DAILY 05/24 1000 AC 06/02 PO 0903 Atorvastatin Calcium 80 MG 1700 05/24 0030 AC 06/01 PO 1636 Benzocaine/Menthol 1 NEVIN Q2P PRN 05/25 1100 AC 05/25 PO 1158 Bisacodyl 10 MG DAILY 05/26 1000 AC 05/31 PO 0959 Ciprofloxacin 500 MG BID 06/01 2200 AC 06/02 PO 06/05 2159 0903 Clonidine 0.1 MG DAILY NEEDED PRN 05/28 1115 AC 05/29 PO 1313 Clopidogrel Bisulfate 75 MG DAILY 05/24 1000 AC 06/02 PO 0904 Cyclosporine 1 GTT 2200 05/27 2200 AC 06/01 OPH 2233 Diltiazem HCl 180 MG DAILY 05/24 1000 AC 06/02 PO 0903 Fluticasone 2 SPRAY BID 05/26 1000 AC 06/01 Propionate GRISELDA 2232 Fluticasone 2 PUF BID 05/24 2200 AC 06/01 Propionate INH 2232 Glycerin 2 SPRAY Q2P PRN 05/27 1745 AC 05/27 PO 1839 Heparin Sodium 5,000 UNIT Q8 05/24 0600 AC 06/02 (Porcine) SC 0600 Hydralazine HCl 100 MG TID 05/24 0015 AC 06/02 PO 0902 Ipratropium [place] 2.5 ML EVERY 4 HRS/AWAKE 05/27 1600 AC 06/02 INH 0814 Isosorbide 90 MG DAILY 05/29 1000 AC 06/02 Mononitrate PO 0903 Lactobacillus 1 CAP DAILY PRN 05/27 0715 AC 05/27 Acidophilus PO 0900 Levothyroxine Sodium 0.025 MG DAILY AC 05/31 0700 AC 06/02 PO 0700 Losartan Potassium 100 MG DAILY 05/29 1000 AC 06/02 PO 0903 Magnesium Oxide 400 MG ONE ONE 06/01 1530 DC 06/01 PO 06/01 1531 1636 Magnesium Oxide 400 MG DAILY 05/24 1000 AC 06/02 PO 0903 Montelukast Sodium 10 MG 2200 05/240 AC 06/01 PO 2228 Patient Medication 1 UNIT 0 06/01 2199 AL 06/01 Teaching ED 06/01 2200 2231 Patient Own 0 0900,1700 05/24 0900 AC 06/02 Medication PO 0901 Polyethylene Glycol 17 GM DAILY 05/26 1000 AC 05/28 PO 0855 Prednisone 40 MG DAILY 05/28 1000 AC 06/02 PO 0904 Senna 187 MG AT BEDTIME 05/26 2200 AC 05/30 PO 2200 Sodium Chloride 2 SPRAY Q4P PRN 05/31 1815 AC 05/31 GRISELDA 1911 Results Last 48 Hrs of Labs/Mics: Laboratory Tests 06/02/16 0625: Anion Gap 9, Estimated GFR 55 L, BUN/Creatinine Ratio 28.0 H, Magnesium 1.9 06/01/16 0620: Anion Gap 12, Estimated GFR 55 L, BUN/Creatinine Ratio 33.0 H, Magnesium 1.9, CBC w Diff NO MAN DIFF REQ, RBC 4.06 L, MCV 86.0, MCH 29.8, RDW 16.7 H, MPV 7.5, Gran % 80.8 H, Lymphocytes % 11.3 L, Monocytes % 7.4, Eosinophils % 0.3, Basophils % 0.2, Absolute Granulocytes 7.9 H, Absolute Lymphocytes 1.1 L, Absolute Monocytes 0.7 H, Absolute Eosinophils 0, Absolute Basophils 0, PUBS MCHC 34.6 Telemetry reviewed sinus rhythm Assessment/Plan Assessment/Plan 1. Coronary disease status post recent coronary artery bypass surgery 2. Respiratory insufficiency with acute exacerbation of COPD along with bronchitis and sinusitis secondary to Pseudomonas 3. Renal artery stenosis 4. Hypertension 5. Chronic renal insufficiency 6. History of bronchospasm secondary to metoprolol Recommendations 1. Continue aggressive pulmonary management per Dr. Mata 2. Patient will require outpatient workup of her renal artery stenosis with possible stenting 3. Continue current medications. 4. ENT consult is pending Continue telemetry? Yes
--- NOTE | 2016-06-02 10:59 | Discharge Summary ---
See Addendum Visit Information Visit Dates Admission Date: 05/23/16 Discharge Date: 06/04/16 Hospital Course Course Attending Physician: NELIDA OCONNELL MD Primary Care Physician: NELIDA OCONNELL MD Hospital Course: Paula 58-year-old woman with a medical history of COPD (not oxygen dependent), old left bundle branch block diastolic heart failure splenic infarction coronary bypass 2 coronary artery disease bilateral pleural effusions with pseudomonal pneumonia requiring intubation admission to ICU, recent admission in March 2016 for CHF exacerbation who was admitted to the telemetry floor yet again with acute hypoxic respiratory failure due to possible CRPS patient CHF exacerbation, she did have worsening sinus congestion with a low-grade fever. Sputum cultures did grow pseudomonas aeruginosa, she did have a surveillance culture (rectal) positive for VRE. She was treated with ceftazidime and steroids, diuresis with Lasix. She was briefly monitored in the ICU, however no intubation required. CT angiogram there is occlusion of the proximal left renal artery with reconstitution distally, there is moderate stenosis proximally percent narrowing at the origin of the right renal artery no require outpatient workup for renal artery stenosis. The patient was transitioned to oral ciprofloxacin after improvement in her cardiopulmonary status. She will need pulmonary rehabilitation and [place]. Problems Pseudomonal pneumonia Acute congestive heart failure COPD exacerbation Unilateral renal artery stenosis Allergies: Coded Allergies: NO KNOWN ALLERGIES (06/01/16) Disposition Summary Disposition Principal Diagnosis: Pseudomonal pneumonia Additional Diagnosis: Acute congestive heart failure COPD exacerbation Unilateral renal artery stenosis Discharge Disposition: str Discharge Instructions General Discharge Information Code Status: Full Code Patient's Diet: Heart failure diet Patient's Activity: Self-limited Follow-Up Instructions/Appts: Follow-up with Yusuf Santoyo MD (cardiology), Diana Mata MD (pulmonary), Ag Haynes MD (nephrology), Nelida Oconnell MD (primary medical doctor) Medications at Discharge Discharge Medications: Stop taking the following medications: Furosemide (Lasix) 40 MG TABLET ORAL DAILY Amlodipine Besylate (Amlodipine Besylate) 5 MG TABLET ORAL DAILY Qty = 30 Spironolactone (Spironolactone) 50 MG TABLET ORAL DAILY Qty = 30 Alprazolam (Xanax) 0.5 MG TABLET ORAL 2 x Daily as needed as needed for AT NIGHT Losartan Potassium (Cozaar) 25 MG TABLET ORAL DAILY Continue taking these medications: Hydralazine HCl (Hydralazine HCl) 100 MG TABLET 1 Tablet ORAL THREE TIMES DAILY Qty = 90 Instructions: Do not take if Systolic Blood Pressure is < 120 mmhg. Comments: Last Taken: 06/04/16 Time: 8:15 AM Isosorbide Mononitrate (Isosorbide Mononitrate ER) 60 MG TAB.ER.24H 1 Tablet ORAL DAILY Comments: Last Taken: 06/04/16 Time: 815 AM Levothyroxine Sodium (Levothyroxine Sodium) 25 MCG TABLET 1 Tablet ORAL DAILY Days = 90 Comments: Last Taken: 06/04/16 Time: 7:15 AM Pantoprazole Sodium (Pantoprazole Sodium) 40 MG TABLET.DR 1 Tablet ORAL EVERY 3 DAYS Days = 30 Comments: Last Taken: 06/04/16 Time: 7:15 AM Diltiazem HCl (Diltiazem 24HR ER) 180 MG CAP.ER.24H 1 Capsule ORAL DAILY Comments: Last Taken: 06/04/16 Time: 815 PM Montelukast Sodium (Montelukast Sodium) 10 MG TABLET 1 Tablet ORAL DAILY Comments: Last Taken: 06/03/16 Time: 10 PM Ivabradine HCl (Corlanor) 5 MG TABLET 1 Tablet ORAL TWICE DAILY Comments: NOT GIVEN IN THE HOSPITAL Atorvastatin Calcium (Atorvastatin Calcium) 80 MG TABLET 1 Tablet ORAL DAILY Comments: Last Taken: 06/03/16 Time: 5 PM Aspirin (Ecotrin*) 81 MG TABLET.DR 1 Tablet ORAL DAILY Comments: Last Taken: 06/04/16 Time: 815 AM Fluticasone Propionate (Fluticasone Propionate) 50 MCG/ACTUATION SPRAY.SUSP [address] [place] Both sides of nose DAILY Comments: NOT GIVEN IN THE HOSPITAL Tiotropium [place] (Spiriva) 18 MCG CAP.W.DEV 1 Capsule Inhale through mouth DAILY Comments: NOT GIVEN IN THE HOSPITAL Clonidine HCl (Clonidine HCl ER) 0.1 MG TAB.ER.12H 1 Tablet ORAL DAILY Instructions: To be taken is Systolic Blood Pressure is above 180mmHg Comments: Last Taken: 05/29/16 Time: 1:15 PM Cyclosporine (Restasis Multidose) 0.05 % DROPS 1 Tablet ORAL DAILY Days = 15 Comments: Last Taken: 06/03/16 Time: 10 PM Lactobacillus Acidophilus (Acidophilus) 1 EACH CAPSULE 1 Capsule ORAL DAILY Comments: Last Taken: 05/27/16 Time: 9 AM Acetylcysteine (NAC) 600 MG CAPSULE 1 Capsule ORAL TWICE DAILY Comments: Last Taken: 06/04/16 Time: 815 AM Magnesium Oxide (Magnesium) 400 MG CAPSULE 1 Capsule ORAL DAILY Comments: Last Taken: 06/04/16 Time: 8:15 AM Cholecalciferol (Vitamin D3) (Vitamin D) 2,000 UNIT CAPSULE 1 Capsule ORAL DAILY Comments: NOT GIVEN IN THE HOSPITAL Fluticasone Propionate (Flovent Hfa) 44 MCG AER.W.ADAP 2 Puff Inhale through mouth EVERY 4-6 HOURS as needed for Bronchitis Comments: Last Taken: 06/01/16 Time: 1030 PM Sodium Chloride/Sodium Bicarb ([place] Saline [place]) 0.9 % SPRAY Comments: Last Taken: 05/31/16 Time: 7 PM Clopidogrel Bisulfate (Plavix) 75 MG TABLET 1 Tablet ORAL DAILY Days = 30 This prescription has been renewed Start taking the following new medications: Ciprofloxacin HCl (Cipro) 500 MG TABLET 1 Tablet ORAL TWICE DAILY Days = 4 No Refills Comments: Last Taken: 06/04/16 Time: 8:15 AM Prednisone (Prednisone) 10 MG TABLET 1 Tablet ORAL TWICE DAILY Qty = 15 No Refills Instructions: Please take the following: From: 06/05 to 06/06, please take three tablets daily. From: 06/07 to 06/09, please take two tablets daily From: 06/10 to 06/12, please take one tablet daily From: 06/13 to 06/15, please take 5 mg, we have provided you with a separate prescription. Comments: Last Taken: 06/04/16 Time: 8:15 AM Albuterol Sulfate (Albuterol Sulfate) 2.5 MG/3 ML (0.083 %) VIAL.NEB 3 [place] Inhale through mouth NEEDED as needed for COPD Days = 30 No Refills Comments: Last Taken: 06/04/16 Time: 7:45 AM Amlodipine Besylate (Norvasc) 10 MG TABLET 10 [place] ORAL DAILY Days = 30 No Refills Comments: Last Taken: 06/04/16 Time: 8:15 AM Alprazolam (Xanax) 0.25 MG TABLET 0.25 [place] ORAL AT BEDTIME NEEDED as needed for ANXIETY Days = 30 No Refills Hydralazine HCl (Hydralazine HCl) 50 MG TABLET 100 [place] ORAL THREE TIMES DAILY Days = 30 No Refills Prednisone (Prednisone) 5 MG TABLET 1 Tablet ORAL DAILY Days = 3 No Refills Instructions: Please take this medication from 06/13/2016 to 06/16/2016. Losartan (Cozaar) 100 MG TABLET 1 Tablet ORAL DAILY Qty = 30 No Refills Comments: Last Taken: 06/04/16 Time: 8:15 AM Nystatin (Nystatin) 100,000 UNIT/ML ORAL.SUSP 5 [place] ORAL 4 TIMES A DAY Qty = 200 No Refills Comments: Last Taken: 06/04/16 Time: 8:15 AM Furosemide (Lasix) 40 MG TABLET 1 Tablet ORAL DAILY as needed for Volume Overload Qty = 30 No Refills Instructions: Please use this medication as needed to prevent volume overload. Comments: NOT GIVEN IN THE HOSPITAL Copies To: ANISH MERINO,NELIDA Monsalve; MALLORY MERINO,AG [place]; RAHEEL MERINO,DIAAN [place]; OSVALDO MERINO, [facility]
--- NOTE | 2016-06-02 15:47 | PN- Pulmonary ---
Subjective HPI/Critical Care Issues: Still has dyspnea Fatigue Anxious about going home Ros other murphy neg Oxygenation improving Objective Current Medications: Current Medications Sig/Emmanuel Start time Last Medication Dose Route Stop Time Status Admin Acetaminophen 650 MG Q6P PRN 05/23 2200 AC PO Acetylcysteine 600 MG BID 05/27 1000 AC 06/02 PO 0901 Albuterol Sulfate 3 ML Q6 06/02 1800 AC INH Albuterol Sulfate 3 ML Q6 PRN 05/27 1045 AC 05/27 INH 06/02 1759 1408 Albuterol Sulfate 3 ML EVERY 4 HRS/AWAKE 05/26 2000 AC 06/02 INH 1229 Alprazolam 0.25 MG ONCE ONE 06/02 1245 DC PO 06/02 1246 Alprazolam 0.25 MG ONCE PRN 05/27 1015 AC 06/02 PO 06/03 1014 0144 Alprazolam 0.25 MG AT BEDTIME NEED.. 05/25 2245 AC 06/01 PO 2241 Amlodipine Besylate 10 MG DAILY 05/27 1000 AC 06/02 PO 0903 Artificial Tears 2 GTT 4 TIMES/DAY PRN 05/27 0715 AC 05/27 OPH 0907 Aspirin Buffered 81 MG DAILY 05/24 1000 AC 06/02 PO 0903 Atorvastatin Calcium 80 MG 1700 05/24 0030 AC 06/01 PO 1636 Benzocaine/Menthol 1 NEVIN Q2P PRN 05/25 1100 AC 05/25 PO 1158 Bisacodyl 10 MG DAILY 05/26 1000 AC 05/31 PO 0959 Ciprofloxacin 500 MG BID 06/01 2200 AC 06/02 PO 06/05 2159 0903 Clonidine 0.1 MG DAILY NEEDED PRN 05/28 1115 AC 05/29 PO 1313 Clopidogrel Bisulfate 75 MG DAILY 05/24 1000 AC 06/02 PO 0904 Cyclosporine 1 GTT 0 05/27 2200 AC 06/01 OPH 2233 Diltiazem HCl 180 MG DAILY 05/24 1000 AC 06/02 PO 0903 Fluticasone 2 SPRAY BID 05/26 1000 AC 06/01 Propionate GRISELDA 2232 Fluticasone 2 PUF BID 05/24 2200 AC 06/01 Propionate INH 2232 Glycerin 2 SPRAY Q2P PRN 05/27 1745 AC 05/27 PO 1839 Heparin Sodium 5,000 UNIT Q8 05/24 0600 AC 01/03 (Porcine) SC 1452 Hydralazine HCl 100 MG TID 05/24 0015 AC 06/02 PO 0902 Hydromorphone HCl 1 MG Q6 PRN 06/02 1500 AC PO Ipratropium [place] 2.5 ML EVERY 4 HRS/AWAKE 05/27 1600 AC 06/02 INH 1231 Isosorbide 90 MG DAILY 05/29 1000 AC 06/02 Mononitrate PO 0903 Lactobacillus 1 CAP DAILY PRN 05/27 0715 AC 05/27 Acidophilus PO 0900 Levothyroxine Sodium 0.025 MG DAILY AC 05/31 0700 AC 06/02 PO 0700 Losartan Potassium 100 MG DAILY 05/29 1000 AC 06/02 PO 0903 Magnesium Oxide 400 MG DAILY 05/24 1000 AC 06/02 PO 0903 Montelukast Sodium 10 MG 05/24 2200 AC 06/01 PO 2228 Patient Medication 1 UNIT 06/01 AL 06/01 Teaching ED 06/01 220 2231 Patient Own 0 0900,1700 05/24 0900 AC 06/02 Medication PO 0901 Polyethylene Glycol 17 GM DAILY 05/26 1000 AC 05/28 PO 0855 Prednisone 40 MG DAILY 05/28 1000 AC 06/02 PO 0904 Senna 187 MG AT BEDTIME 05/26 2200 AC 05/30 PO 2200 Sodium Chloride 2 SPRAY Q4P PRN 05/31 1815 AC 05/31 GRISELDA 1911 Laboratory Tests 06/02 06/01 0625 0620 Chemistry Sodium (137 - 145 mmol/L) 128 L 130 L Potassium (3.5 - 5.1 mmol/L) 4.4 4.5 Chloride (98 - 107 mmol/L) 95 L 93 L Carbon Dioxide (22 - 30 mmol/L) 24 25 Anion Gap (5 - 16) 9 12 BUN (7 - 17 mg/dL) 28 H 33 H Creatinine (0.5 - 1.0 mg/dL) 1.0 1.0 Estimated GFR (>60 ml/min) 55 L 55 L BUN/Creatinine Ratio (7 - 25 %) 28.0 H 33.0 H Magnesium (1.6 - 2.3 mg/dL) 1.9 1.9 Hematology CBC w Diff NO MAN DIFF REQ WBC (4.8 - 10.8 /CUMM) 9.8 RBC (4.20 - 5.40 /CUMM) 4.06 L Hgb (12.0 - 16.0 G/DL) 12.1 Hct (37 - 47 %) 34.9 L MCV (81.0 - 99.0 FL) 86.0 MCH (27.0 - 31.0 PG) 29.8 RDW (11.5 - 14.5 %) 16.7 H Plt Count (130 - 400 /CUMM) 307 MPV (7.4 - 10.4 FL) 7.5 Gran % (42.2 - 75.2 %) 80.8 H Lymphocytes % (20.5 - 51.1 %) 11.3 L Monocytes % (1.7 - 9.3 %) 7.4 Eosinophils % (0 - 5 %) 0.3 Basophils % (0.0 - 2.0 %) 0.2 Absolute Granulocytes (1.4 - 6.5 /CUMM) 7.9 H Absolute Lymphocytes (1.2 - 3.4 /CUMM) 1.1 L Absolute Monocytes (0.10 - 0.60 /CUMM) 0.7 H Absolute Eosinophils (0.0 - 0.7 /CUMM) 0 Absolute Basophils (0.0 - 0.2 /CUMM) 0 PUBS MCHC (33.0 - 37.0 G/DL) 34.6 Microbiology Date/Time Procedure - Status Source Growth 06/02 1050 Head/Neck Culture - RES HEAD/NECK 06/02 1050 Gram Stain - RES HEAD/NECK 06/02 1050 Upper Respiratory Culture - RECD UPPER RESP Vital Signs & I&O Last 24 Hrs of Vitals and I&O: Vital Signs Date Time Temp Pulse Resp B/P Pulse O2 O2 Flow FiO2 Ox Delivery Rate 06/02 0922 98.1 64 20 140/60 95 Room Air 06/02 0903 64 140/60 06/02 0903 64 140/60 06/02 0903 64 140/60 06/02 0902 64 140/60 06/02 0818 95 Room Air Room Air 06/01 2231 77 130/60 06/01 2200 7.8 77 20 130/60 97 Room Air 06/01 1750 93 Nasal 1.0L Cannula 06/01 1635 90/58 Intake & Output 06/02 1600 06/02 0800 06/02 0000 Intake Total 100 340 Output Total 1400 700 Balance -1300 -360 Intake, Oral 100 340 Output, Urine 1400 700 Patient 127 lb Weight Impression/Plan Impression/Plan Impression/Plan: Physical Exam General Appearance Alert, Oriented X3, Cooperative, No Acute Distress Skin No Rashes, No Breakdown HEENT Atraumatic, PERRLA, EOMI Neck Supple, increased JVP Cardiovascular Regular Rate, Normal S1, Normal S2 Lungs decreased air entry bilaterally, bilateral basal crepts Abdomen Normal Bowel Sounds, Soft, No Tenderness Neurological Normal Speech Extremities No Clubbing, No Cyanosis, No Edema, Normal Pulses Vascular Normal Pulses, Pulses Symmetrical 65-year-old fever with significant cardiac history as noted in H&P recently had a bypass done at [facility] with subsequent cardiac arrest with subsequent adverse effect to high dose of metoprolol (100mg) with effusions with severe baseline copd with fev1 of .9 (not a retainer) with * Resovled acute hypoxic resp failure due to flash pulmonary edema now much better after diuresis. Suggestive of acute systolic and diastolic heart failure * Pseudomonas infection with bronchitis and sinusitis. Patient now also is growing scant growth of yeast which will identify most likely Aspergillus conization no clinical evidence suggestive of invasive aspergillosis at this time. * ACOPDE * Chronic systolic CHF exacerbation. 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, with AIDAN now with sig HTN now with mild JACIEL due to prerenal state * Previous effusion now resolved (post cabg effusion) * CAD s/p CABG * Chronic Angina/ anxiety/gerd/pafib/htn/hypothyroid on toni supp/HLD with previous sig tobacco use * Sig AIDAN, severe hypertension causing flash pulmonary edema as well and patient is not a great candidate for revascularization * Hoarse voice with no sig thrush REC Dc bipap Prn dilautid po PO to cipro for total abx of 14 days Prednisone 30 mg daily and wean in 14 days Cont her current inhaler regimen, Start duoneb atc q6hrs, hold spiriva Adequate bp control Pt would need home oxygen and then would need out pt pulm rehab Will follow
[2016-06-02] MEDS ORDERED: PREDNISONE10 M2 PO (16:08)
[2016-06-02] MEDS ORDERED: CIPRO500 M1 PO (16:11)
[2016-06-02 16:30] VITALS: BP 102/56
--- NOTE | 2016-06-02 18:56 | Cons- Ear,Nose&Throat ---
General Information and HPI Consulting Request Date of Consult: 06/02/16 Requested By: NELIDA OCONNELL MD Reason for Consult: Throat pain, difficulty swallowing, hoarseness Source of Information: patient Exam Limitations: no limitations History of Present Illness: 66-year-old female with multiple medical problems admitted to [facility] for COPD exacerbation and pneumonia. The patient was saw placed on the nebulizers Solu-Medrol and antibiotics. Her breathing has gotten somewhat better. Within the last 4 days patient to have throat pain and difficulty swallowing. This was accompanied by hoarseness. Allergies/Medications Allergies: Coded Allergies: NO KNOWN ALLERGIES (06/01/16) Home Med List: Acetylcysteine (NAC) 600 MG CAPSULE 1 CAP PO BID DIRECTED (Reported) Alprazolam (Xanax) 0.5 MG TABLET 1 TAB PO BIDP PRN AT NIGHT (Reported) Amlodipine Besylate 5 MG TABLET 1 TAB PO DAILY DIRECTED (Reported) Aspirin (Ecotrin*) 81 MG TABLET.DR 1 TAB PO DAILY DIRECTED (Reported) Atorvastatin Calcium 80 MG TABLET 1 TAB PO DAILY DIRECTED (Reported) Cholecalciferol (Vitamin D3) (Vitamin D) 2,000 UNIT CAPSULE 1 CAP PO DAILY DIRECTED (Reported) Ciprofloxacin HCl (Cipro) 500 MG TABLET 1 TAB PO BID Pneumonia Clonidine HCl (Clonidine HCl ER) 0.1 MG TAB.ER.12H 1 TAB PO DAILY DIRECTED (Reported) Clopidogrel Bisulfate (Plavix) 75 MG TABLET 1 TAB PO DAILY Heart Health ( Reported) Cyclosporine (Restasis Multidose) 0.05 % DROPS 1 TAB PO DAILY DIRECTED ( Reported) Diltiazem HCl (Diltiazem 24HR ER) 180 MG CAP.ER.24H 1 CAP PO DAILY DIRECTED (Reported) Fluticasone Propionate (Flovent Hfa) 44 MCG AER.W.ADAP 2 PUF INH Q4-6 PRN Bronchitis (Reported) Fluticasone Propionate 50 MCG/ACTUATION SPRAY.SUSP 2 SPRAY NASB DAILY DIRECTED (Reported) Furosemide (Lasix) 40 MG TABLET 1 TAB PO DAILY DIRECTED (Reported) Hydralazine HCl 100 MG TABLET 1 TAB PO TID DIRECTED (Reported) Isosorbide Mononitrate (Isosorbide Mononitrate ER) 60 MG TAB.ER.24H 1 TAB PO DAILY DIRECTED (Reported) Ivabradine HCl (Corlanor) 5 MG TABLET 1 TAB PO BID DIRECTED (Reported) Lactobacillus Acidophilus (Acidophilus) 1 EACH CAPSULE 1 CAP PO DAILY DIRECTED (Reported) Levothyroxine Sodium 25 MCG TABLET 1 TAB PO DAILY DIRECTED (Reported) Losartan Potassium (Cozaar) 25 MG TABLET 1 TAB PO DAILY Blood Pressure ( Reported) Magnesium Oxide (Magnesium) 400 MG CAPSULE 1 CAP PO DAILY DIRECTED ( Reported) Montelukast Sodium 10 MG TABLET 1 TAB PO DAILY DIRECTED (Reported) Pantoprazole Sodium 40 MG TABLET.DR 1 TAB PO EVERY 3 DAYS DIRECTED ( Reported) Prednisone 10 MG TABLET 1 TAB PO BID COPD Exacerbation Please take the following: From: 06/04 to 06/09, please take three tablets daily. From: 06/10 to 06/12, please take two tablets daily From: 06/13 to 06/15, please take one tablet daily Then Stop. Sodium Chloride/Sodium Bicarb ([place]asa Mist Saline [place]) 0.9 % SPRAY Nasal Dryness (Reported) Spironolactone 50 MG TABLET 1 TAB PO DAILY DIRECTED (Reported) Tiotropium [place] (Spiriva) 18 MCG CAP.W.DEV 1 CAP INH DAILY DIRECTED ( Reported) Current Medications: Current Medications Sig/Emmanuel Start time Last Medication Dose Route Stop Time Status Admin Acetaminophen 650 MG Q6P PRN 05/23 2200 AC PO Acetylcysteine 600 MG BID 05/27 1000 AC 06/02 PO 0901 Albuterol Sulfate 3 ML Q6 06/02 1800 DC INH Albuterol Sulfate 3 ML Q6 PRN 05/27 1045 DC 05/27 INH 06/02 1759 1408 Albuterol Sulfate 3 ML EVERY 4 HRS/AWAKE 05/26 2000 AC 06/02 INH 1619 Alprazolam 0.25 MG ONCE ONE 06/02 1245 DC 06/02 PO 06/02 1246 1230 Alprazolam 0.25 MG ONCE PRN 05/27 1015 AC 06/02 PO 06/03 1014 0144 Alprazolam 0.25 MG AT BEDTIME NEED.. 05/25 2245 AC 06/01 PO 2241 Amlodipine Besylate 10 MG DAILY 05/27 1000 AC 06/02 PO 0903 Artificial Tears 2 GTT 4 TIMES/DAY PRN 05/27 0715 AC 05/27 OPH 0907 Aspirin Buffered 81 MG DAILY 05/24 1000 AC 06/02 PO 0903 Atorvastatin Calcium 80 MG 1700 05/24 0030 AC 06/02 PO 1647 Benzocaine/Menthol 1 NEVIN Q2P PRN 05/25 1100 AC 05/25 PO 1158 Bisacodyl 10 MG DAILY 05/26 1000 AC 05/31 PO 0959 Ciprofloxacin 500 MG BID 06/01 2200 AC 06/02 PO 06/05 2159 0903 Clonidine 0.1 MG DAILY NEEDED PRN 05/28 1115 AC 05/29 PO 1313 Clopidogrel Bisulfate 75 MG DAILY 05/24 1000 AC 06/02 PO 0904 Cyclosporine 1 GTT 05/27 2200 AC 06/01 OPH 2233 Diltiazem HCl 180 MG DAILY 05/24 1000 AC 06/02 PO 0903 Fluticasone 2 SPRAY BID 05/26 1000 AC 06/01 Propionate GRISELDA 2232 Fluticasone 2 PUF BID 05/24 2200 AC 06/01 Propionate INH 2232 Glycerin 2 SPRAY Q2P PRN 05/27 1745 AC 05/27 PO 1839 Heparin Sodium 5,000 UNIT Q8 05/24 0600 AC 06/02 (Porcine) SC 1452 Hydralazine HCl 100 MG TID 05/24 0015 AC 06/02 PO 0902 Hydromorphone HCl 1 MG Q6 PRN 06/02 1500 AC PO Ipratropium [place] 2.5 ML EVERY 4 HRS/AWAKE 05/27 1600 AC 06/02 INH 1619 Isosorbide 90 MG DAILY 05/29 1000 AC 06/02 Mononitrate PO 0903 Lactobacillus 1 CAP DAILY PRN 05/27 0715 AC 05/27 Acidophilus PO 0900 Levothyroxine Sodium 0.025 MG DAILY AC 05/31 0700 AC 06/02 PO 0700 Losartan Potassium 100 MG DAILY 05/29 1000 AC 06/02 PO 0903 Magnesium Oxide 400 MG DAILY 05/24 1000 AC 06/02 PO 0903 Montelukast Sodium 10 MG 05/24 2200 AC 06/01 PO 2228 Patient Medication 1 UNIT 06/01 DC 06/01 Teaching ED 06/01 2200 223 Patient Own 0 0900,1700 05/24 0900 AC 06/02 Medication PO 0901 Polyethylene Glycol 17 GM DAILY 05/26 1000 AC 05/28 PO 0855 Prednisone 30 MG DAILY 06/03 1000 AC PO Prednisone 40 MG DAILY 05/28 1000 DC 06/02 PO 0904 Senna 187 MG AT BEDTIME 05/26 2200 AC 05/30 PO 2200 Sodium Chloride 2 SPRAY Q4P PRN 05/31 1815 AC 05/31 GRISELDA 1911 Past History Medical History Blood Transfusion Hx: Yes Neurological: NONE EENT: NONE Cardiovascular: CHF, hypertension, HYPERLIPIDEMIA CAROTID ARTERY STENOSIS Respiratory: COPD Gastrointestinal: GERD, EGD 10/11- erosive gastritsin and duodenitis Hepatic: NONE Renal: chronic kidney disease (stage 2 CKD), renal artery stenosis Musculoskeletal: NONE Psychiatric: NONE Endocrine: NONE Blood Disorders: NONE Cancer(s): NONE 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 Home Who Do You Live With? spouse Services at Home: None Smoking Status: Former Smoker Living Will? no Functional Ability ADLs Independent: dressing, eating, toileting, bathing. Ambulation: independent IADLs Independent: shopping, housework, finances, food prep, telephone, transportation , medication admin. Review of Systems Review of Systems: Noncontributory Exam & Diagnostic Data Vital Signs and I&O Vital Signs Date Time Temp Pulse Resp B/P Pulse O2 O2 Flow FiO2 Ox Delivery Rate 06/02 1647 102/56 06/02 1630 98.5 68 20 102/56 94 Room Air 06/02 1620 95 Room Air Room Air 06/02 0922 98.1 64 20 140/60 95 Room Air 06/02 0903 64 140/60 06/02 0903 64 140/60 06/02 0903 64 140/60 06/02 0902 64 140/60 06/02 0818 95 Room Air Room Air 06/02 0800 95 Room Air Room Air 06/01 2231 77 130/60 06/01 2200 7.8 77 20 130/60 97 Room Air Intake & Output 06/02 1600 06/02 0800 06/02 0000 06/01 1600 06/01 0806/01 0000 Intake Total 410 100 340 660 240 460 Output Total 350 1400 700 700 200 500 Balance 60 -1300 -360 -40 40 -40 Intake, Oral 410 100 340 660 240 460 Number 1 Bowel Movements Output, Urine 350 1400 700 700 200 500 Patient 127 lb 127 lb Weight Well-developed, well-nourished female without acute distress Head: normocephalic, atraumatic Ears: Canals- clear; Tympanic Membranes- clear Nose: Septum- midline ; Turbinates- mild hypertrophy ; Airway-adequate Oral cavity: Mucosa-mild scattered cheesy white exudates, Tongue- cheesy white exudates Oropharynx: Posterior wall- clear Neck: supple Fiberoptic laryngoscopy: Fiberoptic scope inserted via left nostril Nasal fossa: Turbinates- hypertrophied, erythema, thickened secretions Nasopharynx: Diffuse mucosal erythema Hypopharynx: Piriform sinuses-Clear; posterior wall-; mucosa- scattered thickened secretions, cheesy white exudates Larynx: Epiglottis- intact; vocal cords-mobile, mild edema, no erythema; posterior commissure-clear; esophageal inlet-intact Assessment/Plan Assessment/Plan 1. Acute sinusitis Patient is currently on antibiotics and steroids 2. Acute laryngitis Most likely viral in etiology rec supportive therapy such high humidity face mask, room humidifier 3. Dysphagia, secondary to r/o mild hypopharyngeal, supraglottic candidiasis rec oral cavity cultures, already done Please consider restarting nystatin at this time, especially since patient is on antibiotics and steroids Aloevera juice for comfort Consult Acknowledgment - Thank you for your consult request. Attending MD Review Statement Attending Statement Attending MD Statement: examined this patient, discuss w/resident/PA/COMMERCIAL REAL ESTATE ATTORNEY
[2016-06-02 23:00] VITALS: BP 108/58
--- NOTE | 2016-06-03 05:39 | PN- Housestaff ---
Subjective Follow-up For: CAP Bronchitis Flash Pulmonary Edema Tele-Events Since Last Visit: NSR 60's - 70's Subjective: Ms Recio was seen and examined this morning. She is resting comfortably in bed. She reports no issues overnight and was able to sleep well. Patient continues to complain of throat pain. Pain is rated at an 8 out of 10 in severity. Described as a raw pain. She was seen yesterday by Dr. Payan recommended oral nystatin, the patient has begun. She denies any shortness of breath wheezing or dyspnea. Patient also reports mild GERD symptoms. Improved with administration of PPI. Patient denies any fever, chills, nausea, vomiting. Review of Systems Constitutional: Denies: chills, diaphoresis, fever, malaise. Objective Last 24 Hrs of Vital Signs/I&O Vital Signs Date Time Temp Pulse Resp B/P Pulse O2 O2 Flow FiO2 Ox Delivery Rate 06/03 0000 Room Air 06/02 2300 97.3 74 24 108/58 95 Room Air 06/02 2206 75 108/56 06/02 1647 102/56 06/02 1630 98.5 68 20 102/56 94 Room Air 06/02 1620 95 Room Air Room Air 06/02 0922 98.1 64 20 140/60 95 Room Air 06/02 0903 64 140/60 06/02 0903 64 140/60 06/02 0903 64 140/60 06/02 0902 64 140/60 06/02 0818 95 Room Air Room Air 06/02 0800 95 Room Air Room Air Intake & Output 06/03 0800 06/03 0000 06/02 1600 Intake Total 300 410 Output Total 650 350 Balance -350 60 Intake, IV 0 Intake, Oral 300 410 Number 0 Bowel Movements Output, Urine 650 350 Patient 58.06 kg Weight Physical Exam General Appearance: Alert, Oriented X3, Cooperative Cardiovascular: Regular Rate, Normal S1, Normal S2 Lungs: Clear to Auscultation Abdomen: Normal Bowel Sounds, Soft, No Tenderness Neurological: Normal Gait, Normal Speech Extremities: No Edema Vascular: Normal Pulses Current Medications: Current Medications Sig/Emmanuel Start time Last Medication Dose Route Stop Time Status Admin Acetaminophen 650 MG Q6P PRN 05/23 2200 AC PO Acetylcysteine 600 MG BID 05/27 1000 AC 06/02 PO 2201 Albuterol Sulfate 3 ML Q6 06/02 1800 DC INH Albuterol Sulfate 3 ML Q6 PRN 05/27 1045 DC 05/27 INH 06/02 1759 1408 Albuterol Sulfate 3 ML EVERY 4 HRS/AWAKE 05/26 2000 AC 06/02 INH 2010 Alprazolam 0.25 MG ONCE ONE 06/02 1245 DC 06/02 PO 06/02 1246 1230 Alprazolam 0.25 MG ONCE PRN 05/27 1015 AC 06/02 PO 06/03 1014 0144 Alprazolam 0.25 MG AT BEDTIME NEED.. 05/25 2245 AC 06/02 PO 2201 Amlodipine Besylate 10 MG DAILY 05/27 1000 AC 06/02 PO 0903 Artificial Tears 2 GTT 4 TIMES/DAY PRN 05/27 0715 AC 05/27 OPH 0907 Aspirin Buffered 81 MG DAILY 05/24 1000 AC 06/02 PO 0903 Atorvastatin Calcium 80 MG 1700 05/24 0030 AC 06/02 PO 1647 Benzocaine/Menthol 1 NEVIN Q2P PRN 05/25 1100 AC 05/25 PO 1158 Bisacodyl 10 MG DAILY 05/26 1000 AC 05/31 PO 0959 Ciprofloxacin 500 MG BID 06/01 2200 AC 06/02 PO 06/05 2159 2201 Clonidine 0.1 MG DAILY NEEDED PRN 05/28 1115 AC 05/29 PO 1313 Clopidogrel Bisulfate 75 MG DAILY 05/24 1000 AC 06/02 PO 0904 Cyclosporine 1 GTT 2200 05/27 2200 AC 06/02 OPH 2205 Diltiazem HCl 180 MG DAILY 05/24 1000 AC 06/02 PO 0903 Fluticasone 2 SPRAY BID 05/26 1000 AC 06/01 Propionate GRISELDA 2232 Fluticasone 2 PUF BID 05/24 2200 AC 06/01 Propionate INH 2232 Glycerin 2 SPRAY Q2P PRN 05/27 1745 AC 05/27 PO 1839 Heparin Sodium 5,000 UNIT Q8 05/24 0600 AC 06/03 (Porcine) SC 0645 Hydralazine HCl 100 MG TID 05/24 0015 AC 06/02 PO 0902 Hydromorphone HCl 1 MG Q6 PRN 06/02 1500 AC PO Ipratropium [place] 2.5 ML EVERY 4 HRS/AWAKE 05/27 1600 AC 06/02 INH 2011 Isosorbide 90 MG DAILY 05/29 1000 AC 06/02 Mononitrate PO 0903 Lactobacillus 1 CAP DAILY PRN 05/27 0715 AC 05/27 Acidophilus PO 0900 Levothyroxine Sodium 0.025 MG DAILY AC 05/31 0700 AC 06/03 PO 0645 Losartan Potassium 100 MG DAILY 05/29 1000 AC 06/02 PO 0903 Magnesium Oxide 400 MG DAILY 05/24 1000 AC 06/02 PO 0903 Montelukast Sodium 10 MG 2200 05/24 2200 AC 06/02 PO 2201 Nystatin 5 ML 4 TIMES/DAY 06/02 1941 AC 06/02 PO 2202 Patient Own 0 0900,1700 05/24 0900 AC 06/02 Medication PO 0901 Polyethylene Glycol 17 GM DAILY 05/26 1000 AC 05/28 PO 0855 Prednisone 30 MG DAILY 06/03 1000 AC PO Prednisone 40 MG DAILY 05/28 1000 DC 06/02 PO 0904 Senna 187 MG AT BEDTIME 05/26 2200 AC 06/02 PO 2201 Sodium Chloride 2 SPRAY Q4P PRN 05/31 1815 AC 05/31 GRISELDA 1911 Last 24 Hrs of Lab/Maged Results Last 24 Hrs of Labs/Mics: Laboratory Tests 06/03/16 0620: Sodium Pending, Potassium Pending, Chloride Pending, Carbon Dioxide Pending, Anion Gap Pending, BUN Pending, Creatinine Pending, BUN/Creatinine Ratio Pending , Magnesium Pending Microbiology 06/02 1050 HEAD/NECK: Head/Neck Culture - RES 06/02 1050 HEAD/NECK: Gram Stain - RES 06/02 1050 UPPER RESP: Upper Respiratory Culture - RECD Assessment/Plan Assessment: 1. Acute hypoxic respiratory failure due to possible COPD exacerbation/CHF exacerbation 2. Worsening sinus congestion with low-grade fever 3. CAD and ischemic cardiomyopathy s/p CABG. 4. History of hypothyroidism 5 acute on chronic kidney disease stage IIIB 6. History of hypertension hyperlipidemia. Renal artery stenosis: CTA Abdomen with severe atherosclerotic disease including occlusion of the proximal L renal artery, 50% narrowing of the proximal R renal artery, near complete occlusion of the R common iliac artery and celiac arteries. Patient might have right renal stent placement as an outpatient. Acute hypoxic respiratory failure due to possible COPD exacerbation/CHF exacerbation: Continue oxygen to keep saturation above 92%. Sputum Cx growing Pseudomonas which patient has grown in the past. Patient received ceftazidime 1 g IV Q12H and was later switched to ciprofloxacin. Ciprofloxacin 500mg, Total antibiotics of 14 days. Prednisone 30mg, this will be tapered down every three days. Continue to hold Spiriva. Ipratropium/Atrovent every 6 [id number] reported. Chest x-ray done in the ED showed mild stable cardiomegaly. Will not give any IV Lasix as patient has evidence of a JACIEL as well Monitor in's and O's with daily weight checks. Sinus X-ray unremarkable. Mucinex and lozenges for symptomatic relief. X-ray done 05/26/2016 showed no acute pulmonary change and/or worsening of pulmonary congestion since 05/23/2016. Continue TRC nebs. Deconditioning From prolonged hospitalization. Patient will need aggressive physical therapy. Questionable Oral candidiasis/thrush Continue Nystatin swish and swallow. 4 times a day. Likely due to prednisone usage. Throat culture taken. Awaiting Results Hyponatremia: Check urine lites, urine osmolality and serum osmolality. 1200 fluid restriction, likely can be administered today. NA level today: 129 Continue to hold patient's Lasix today. CAD and ischemic cardiomyopathy s/p CABG. Continue home medications including aspirin, Lipitor, diltiazem, Imdur, hydralazine 100mg. Blood pressure is currently under control. Current dose of Imdur increased from 60mg to 90mg 05/28/2016, Her amlodipine dose increased to 10mg - however her BP found to be elevated so after consulting renal her losartan dose increased to 100mg today. Continue 100mg Depending on her creatinine level tomorrow we will consider restarting Aldactone 25mg daily as per renal and cardiac recommendations. We will hold Aldactone for now. Received recommendations from cardiology verbally about patient's medications. #History of hypothyroidism Continue home dose of levothyroxine. #Acute on chronic kidney disease stage IV: Continue home losartan 100 mg PO QD. Avoid any nephrotoxic agents. #History of hypertension and hyperlipidemia. Continue medications. #DVT prophylaxis subcutaneous heparin ALPS and encourage ambulation, #Code Full code Problem List: 1. Physical deconditioning 2. Renal artery stenosis 3. Renal insufficiency 4. Sinusitis, acute 5. COPD (chronic obstructive pulmonary disease) Pain Ratin Pain Location: NA Pain Goal: Remain pain free Pain Plan: Tylenol PRN Tomorrow's Labs & Rationales: NoNE
--- NOTE | 2016-06-03 07:09 | PN- Att Addend ---
Attending Addendum Attending Brief Note Laboratory Tests 06/03 06 Chemistry Sodium Pending Potassium Pending Chloride Pending Carbon Dioxide Pending Anion Gap Pending BUN Pending Creatinine Pending BUN/Creatinine Ratio Pending Magnesium Pending Microbiology Date/Time Procedure - Status Source Growth 06/02 1050 Head/Neck Culture - RES HEAD/NECK 06/02 1050 Gram Stain - RES HEAD/NECK 06/02 1050 Upper Respiratory Culture - RECD UPPER RESP Vital Signs Date Time Temp Pulse Resp B/P Pulse O2 O2 Flow FiO2 Ox Delivery Rate 06/03 0000 Room Air 06/02 2300 97.3 74 24 108/58 95 Room Air 06/02 2206 75 108/56 06/02 1647 102/56 06/02 1630 98.5 68 20 102/56 94 Room Air 06/02 1620 95 Room Air Room Air 06/02 0922 98.1 64 20 140/60 95 Room Air 06/02 0903 64 140/60 06/02 0903 64 140/60 06/02 0903 64 140/60 06/02 0902 64 140/60 06/02 0818 95 Room Air Room Air 06/02 0800 95 Room Air Room Air Intake & Output 06/03 0800 06/03 0000 06/02 1600 Intake Total 300 410 Output Total 650 350 Balance -350 60 Intake, IV 0 Intake, Oral 300 410 Number 0 Bowel Movements Output, Urine 650 350 Patient 128 lb Weight Attending note. Had direct laryngoscopy by ENT no evidence of any laryngitis or any evidence of for infection in the records. Had cultures obtained from the throat as well as the vocal cords results are pending. Patient still has aphonia dysphonia. Breathing is fairly stable now. Case episodes of extreme shortness of breath or near Syncope Feeling during Physical Therapy Etiology Is Not Very Clear On examination Heart sounds S1-S2 is normal Lungs shows diminished air entry bilateral expiratory wheezing and expiration is prolonged Abdomen is soft nontender bowel sounds are present. Assessment Severe COPD We'll obtain pulmonary input about possible discharge tomorrow what she needs at home in terms of respiratory therapy as well as home oxygen orders CPAP unit. Flash pulmonary edema secondary to severe hypertension secondary to renal artery stenosis Will obtain cardiology input about possible discharge tomorrow and resume medications.
[2016-06-03 08:23] VITALS: BP 148/80
--- NOTE | 2016-06-03 09:38 | PN- Pulmonary ---
Subjective HPI/Critical Care Issues: DOing better afebrile ent note reviewed Still has dysphonia Much improved Objective Current Medications: Current Medications Sig/Emmanuel Start time Last Medication Dose Route Stop Time Status Admin Acetaminophen 650 MG Q6P PRN 05/23 2200 AC PO Acetylcysteine 600 MG BID 05/27 1000 AC 06/02 PO 2201 Albuterol Sulfate 3 ML Q6 06/02 1800 DC INH Albuterol Sulfate 3 ML Q6 PRN 05/27 1045 DC 05/27 INH 06/02 1759 1408 Albuterol Sulfate 3 ML EVERY 4 HRS/AWAKE 05/26 2000 AC 06/03 INH 0854 Alprazolam 0.25 MG ONCE ONE 06/02 1245 DC 06/02 PO 06/02 1246 1230 Alprazolam 0.25 MG ONCE PRN 05/27 1015 AC 06/02 PO 06/03 1014 0144 Alprazolam 0.25 MG AT BEDTIME NEED.. 05/25 2245 AC 06/02 PO 2201 Amlodipine Besylate 10 MG DAILY 05/27 1000 AC 06/02 PO 0903 Artificial Tears 2 GTT 4 TIMES/DAY PRN 05/27 0715 AC 05/27 OPH 0907 Aspirin Buffered 81 MG DAILY 05/24 1000 AC 06/02 PO 0903 Atorvastatin Calcium 80 MG 1700 05/24 0030 AC 06/02 PO 1647 Benzocaine/Menthol 1 NEVIN Q2P PRN 05/25 1100 AC 05/25 PO 1158 Bisacodyl 10 MG DAILY 05/26 1000 AC 05/31 PO 0959 Ciprofloxacin 500 MG BID 06/01 2200 AC 06/02 PO 06/05 2159 2201 Clonidine 0.1 MG DAILY NEEDED PRN 05/28 1115 AC 05/29 PO 1313 Clopidogrel Bisulfate 75 MG DAILY 05/24 1000 AC 06/02 PO 0904 Cyclosporine 1 GTT 0 05/27 2200 AC 06/02 OPH 2205 Diltiazem HCl 180 MG DAILY 05/24 1000 AC 06/02 PO 0903 Fluticasone 2 SPRAY BID 05/26 1000 AC 06/01 Propionate GRISELDA 2232 Fluticasone 2 PUF BID 05/24 2200 AC 06/01 Propionate INH 2232 Glycerin 2 SPRAY Q2P PRN 05/27 1745 AC 05/27 PO 1839 Heparin Sodium 5,000 UNIT Q8 05/24 0600 AC 06/03 (Porcine) SC 0645 Hydralazine HCl 100 MG TID 05/24 0015 AC 06/02 PO 0902 Hydromorphone HCl 1 MG Q6 PRN 06/02 1500 AC PO Ipratropium [place] 2.5 ML EVERY 4 HRS/AWAKE 05/27 1600 AC 06/03 INH 0854 Isosorbide 90 MG DAILY 05/29 1000 AC 06/02 Mononitrate PO 0903 Lactobacillus 1 CAP DAILY PRN 05/27 0715 AC 05/27 Acidophilus PO 0900 Levothyroxine Sodium 0.025 MG DAILY AC 05/31 0700 AC 06/03 PO 0645 Losartan Potassium 100 MG DAILY 05/29 1000 AC 06/02 PO 0903 Magnesium Oxide 400 MG DAILY 05/24 1000 AC 06/02 PO 0903 Montelukast Sodium 10 MG 2200 05/24 2200 AC 06/02 PO 2201 Nystatin 5 ML 4 TIMES/DAY 06/02 1941 AC 06/02 PO 2202 Omeprazole 40 MG DAILY AC 06/03 0713 AC 06/03 PO 0803 Patient Own 0 0900,1700 05/24 0900 AC 06/02 Medication PO 0901 Polyethylene Glycol 17 GM DAILY 05/26 1000 AC 05/28 PO 0855 Prednisone 30 MG DAILY 06/03 1000 AC PO Prednisone 40 MG DAILY 05/28 1000 DC 06/02 PO 0904 Senna 187 MG AT BEDTIME 05/26 2200 AC 06/02 PO 2201 Sodium Chloride 2 SPRAY Q4P PRN 05/31 1815 AC 05/31 GRISELDA 1911 Vital Signs & I&O Last 24 Hrs of Vitals and I&O: Vital Signs Date Time Temp Pulse Resp B/P Pulse O2 O2 Flow FiO2 Ox Delivery Rate 06/03 0854 98 Room Air Room Air 06/03 08 98.5 73 20 148/80 96 Room Air 06/03 0000 Room Air 06/02 2300 97.3 74 24 108/58 95 Room Air 06/02 2206 75 108/56 06/02 1647 102/56 06/02 1630 98.5 68 20 102/56 94 Room Air 06/02 1620 95 Room Air Room Air Intake & Output 06/03 1600 06/03 0800 06/03 0000 Intake Total 100 300 Output Total 1400 650 Balance -1300 -350 Intake, IV 0 0 Intake, Oral 100 300 Number 0 0 Bowel Movements Output, Urine 1400 650 Patient 128 lb Weight Impression/Plan Impression/Plan Impression/Plan: Physical Exam General Appearance Alert, Oriented X3, Cooperative, No Acute Distress Skin No Rashes, No Breakdown HEENT Atraumatic, PERRLA, EOMI Neck Supple, increased JVP Cardiovascular Regular Rate, Normal S1, Normal S2 Lungs decreased air entry bilaterally, bilateral basal crepts Abdomen Normal Bowel Sounds, Soft, No Tenderness Neurological Normal Speech Extremities No Clubbing, No Cyanosis, No Edema, Normal Pulses Vascular Normal Pulses, Pulses Symmetrical 65-year-old fever with significant cardiac history as noted in H&P recently had a bypass done at [facility] with subsequent cardiac arrest with subsequent adverse effect to high dose of metoprolol (100mg) with effusions with severe baseline copd with fev1 of .9 (not a retainer) with * Resovled acute hypoxic resp failure due to flash pulmonary edema now much better after diuresis. Suggestive of acute systolic and diastolic heart failure * Pseudomonas infection with bronchitis and sinusitis. Patient now also is growing scant growth of yeast which will identify most likely Aspergillus conization no clinical evidence suggestive of invasive aspergillosis at this time. * ACOPDE * Chronic systolic CHF exacerbation. 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, with AIDAN now with sig HTN now with mild JACIEL due to prerenal state * Previous effusion now resolved (post cabg effusion) * CAD s/p CABG * Chronic Angina/ anxiety/gerd/pafib/htn/hypothyroid on toni supp/HLD with previous sig tobacco use * Sig AIDAN, severe hypertension causing flash pulmonary edema as well and patient is not a great candidate for revascularization * Hoarse voice with no sig thrush REC Cont nebs prn Can dc with nebs albuterol prn, spiriva qd and flovent bid (flovent should be started when she is down to 5 mg po prednisone) Prn dilautid po PO to cipro for total abx of 14 days (from the first day of ceftaz) Prednisone 30 mg daily for three, 20 for 3, 10 for 3 and 5 mg for 3 days Adequate bp control Pt would need home oxygen and then would need out pt pulm rehab Will follow as out pt Pt would need oxygen if sa02 is less than 89 upon ambulation
[2016-06-03] MEDS ORDERED: ALBUTEROL2.5 MG/3 M INH (11:09)
[2016-06-03] MEDS ORDERED: HYDROMORPHONE HC2 M1 PO (11:09)
[2016-06-03] MEDS ORDERED: PREDNISONE10 M2 PO ×2 (11:14→20:23)
[2016-06-03] MEDS ORDERED: PREDNISONE5 M1 PO (11:16)
[2016-06-03] MEDS ORDERED: COZAAR100 M1 PO (11:18)
[2016-06-03] MEDS ORDERED: CIPRO500 M1 PO ×2 (13:31→20:23)
--- NOTE | 2016-06-03 16:20 | PN- Cardiology ---
Subjective Subjective: Feeling well. Mild residual sore throat. Breathing appears close to baseline. She was able to ambulate today and felt steady on her feet. No chest pain or palpitations. Has been kept off Lasix. Objective Vital Signs and I&Os Vital Signs Date Time Temp Pulse Resp B/P Pulse O2 O2 Flow FiO2 Ox Delivery Rate 06/03 1051 74 144/62 06/03 1051 74 144/62 06/03 1051 74 144/62 06/03 1050 74 144/62 06/03 0854 98 Room Air Room Air 06/03 0823 98.5 73 20 148/80 96 Room Air 06/03 0000 Room Air 06/02 2300 97.3 74 24 108/58 95 Room Air 06/02 2206 75 108/56 06/02 1647 102/56 06/02 1630 98.5 68 20 102/56 94 Room Air 06/02 1620 95 Room Air Room Air Intake & Output 06/03 1600 06/03 0800 06/03 0000 06/02 1600 06/02 0800 06/02 0000 Intake Total 100 300 410 100 340 Output Total 1400 919 845 6718 700 Balance -1300 -350 60 -1300 -360 Intake, IV 0 0 Intake, Oral 100 300 410 100 340 Number 0 0 Bowel Movements Output, Urine 1400 222 349 0932 700 Patient 128 lb 127 lb Weight Physical Exam: General: No distress at rest. Eyes: No obvious scleral icterus. HEENT: No jugular venous distention or abnormal jugular venous pulsations. Cardiovascular: Normal intensity S1/S2. Regular. Respiratory: trace wheezes Abdomen: soft, no rebound tenderness Musculoskeletal: No cyanosis noted, no edema Skin: Warm Neurologic: No gross focal deficits noted. Current Medications: Current Medications Sig/Emmanuel Start time Last Medication Dose Route Stop Time Status Admin Acetaminophen 650 MG Q6P PRN 05/23 2200 AC PO Acetylcysteine 600 MG BID 05/27 1000 AC 06/03 PO 1047 Albuterol Sulfate 3 ML Q6 06/02 1800 DC INH Albuterol Sulfate 3 ML Q6 PRN 05/27 1045 DC 05/27 INH 06/02 1759 1408 Albuterol Sulfate 3 ML EVERY 4 HRS/AWAKE 05/26 2000 AC 06/03 INH 1320 Alprazolam 0.25 MG ONCE PRN 05/27 1015 DC 06/02 PO 06/03 1014 0144 Alprazolam 0.25 MG AT BEDTIME NEED.. 05/25 2245 AC 06/02 PO 2201 Amlodipine Besylate 10 MG DAILY 05/27 1000 AC 06/03 PO 1051 Artificial Tears 2 GTT 4 TIMES/DAY PRN 05/27 0715 AC 05/27 OPH 0907 Aspirin Buffered 81 MG DAILY 05/24 1000 AC 06/03 PO 1048 Atorvastatin Calcium 80 MG 1700 05/24 0030 AC 06/02 PO 1647 Benzocaine/Menthol 1 NEVIN Q2P PRN 05/25 1100 AC 05/25 PO 1158 Bisacodyl 10 MG DAILY 05/26 1000 AC 05/31 PO 0959 Ciprofloxacin 500 MG BID 06/01 2200 AC 06/03 PO 06/05 2159 1048 Clonidine 0.1 MG DAILY NEEDED PRN 05/28 1115 AC 05/29 PO 1313 Clopidogrel Bisulfate 75 MG DAILY 05/24 1000 AC 06/03 PO 1048 Cyclosporine 1 GTT 0 05/27 2200 AC 06/02 OPH 2205 Diltiazem HCl 180 MG DAILY 05/24 1000 AC 06/03 PO 1048 Fluticasone 2 SPRAY BID 05/26 1000 AC 06/01 Propionate GRISELDA 2232 Fluticasone 2 PUF BID 05/24 2200 AC 06/01 Propionate INH 2232 Glycerin 2 SPRAY Q2P PRN 05/27 1745 AC 05/27 PO 1839 Heparin Sodium 5,000 UNIT Q8 05/24 0600 AC 06/03 (Porcine) SC 1459 Hydralazine HCl 100 MG TID 05/24 0015 AC 06/03 PO 1050 Hydromorphone HCl 1 MG Q6 PRN 06/02 1500 AC PO Ipratropium [place] 2.5 ML EVERY 4 HRS/AWAKE 05/27 1600 AC 06/03 INH 1320 Isosorbide 90 MG DAILY 05/29 1000 AC 06/03 Mononitrate PO 1051 Lactobacillus 1 CAP DAILY PRN 05/27 0715 AC 05/27 Acidophilus PO 0900 Levothyroxine Sodium 0.025 MG DAILY AC 05/31 0700 AC 06/03 PO 0645 Losartan Potassium 100 MG DAILY 05/29 1000 AC 06/03 PO 1051 Magnesium Oxide 400 MG DAILY 05/24 1000 AC 06/03 PO 1048 Montelukast Sodium 10 MG 2200 05/24 2200 AC 06/02 PO 2201 Nystatin 5 ML 4 TIMES/DAY 06/02 1941 AC 06/03 PO 1459 Omeprazole 40 MG DAILY AC 06/03 0713 AC 06/03 PO 0803 Patient Own 0 0900,1700 05/24 0900 AC 06/03 Medication PO 1052 Polyethylene Glycol 17 GM DAILY 05/26 1000 AC 05/28 PO 0855 Prednisone 30 MG DAILY 06/03 1000 AC 06/03 PO 1047 Senna 187 MG AT BEDTIME 05/26 2200 AC 06/02 PO 2201 Sodium Chloride 2 SPRAY Q4P PRN 05/31 1815 AC 05/31 GRISELDA 1911 Results Last 48 Hrs of Labs/Mics: Laboratory Tests 06/03/16 0620: Anion Gap 11, Estimated GFR 55 L, BUN/Creatinine Ratio 30.0 H, Magnesium 1.8 06/02/16 0625: Anion Gap 9, Estimated GFR 55 L, BUN/Creatinine Ratio 28.0 H, Magnesium 1.9 Recent Imaging Studies: Telemetry shows Sinus rhythm Assessment/Plan Assessment/Plan 1. Bronchitis with Pseudomonas 2. Acute on chronic CKD with hyperkalemia, improved 3. Severe COPD with beta paty intolerance 4. Ischemic cardiomyopathy status post recent CABG (EF 30-35%) 5. Chronic LBBB 6. Severe PVD with Hx aortic/vascular disease felt to be the cause of previous splenic infarcts 7. Nicotine dependence, in remission 8. Hypertension, uncontrolled 9. Renal artery stenosis with near occlusion of the left renal artery 10. Chronic systolic congestive heart failure 11. Hyponatremia ENT input reviewed. Feels well and close to baseline. BP still labile and sometimes low but denies symptoms with the mild hypotension. Expect her BP to be labile in the setting of AIDAN. Remains euvolemic despite holding Lasix. Still with mild hyponatremia. Would not restart standing Lasix at this time, we can use it PRN for now. Continue current cardiac regimen, Clonidine PRN for SPB > 180 mmHg and hold Hydralazine when SBP < 120 mmHg. She monitors her BP at home and at cardiac Rehab. Hold Aldactone given intermittent hyperkalemia. Creatinine stable. Will defer to outpatient Renal follow-up if low dose Aldactone should be tried again in the future. Continue dual CCB and ivabradine (home med). HR well controlled which should help to optimize LV filling. Continue Imdur daily. Pulmonary input reviewed. She is on Abx and oral Prednisone taper. Keep on telemetry until discharge. She has follow-up with Renal (Dr. Chavez) and with me, both visits are scheduled for next week. Will plan for repeat EF assessment in my office as outpatient. Likely stable for discharge from cardiac standpoint tomorrow if remains stable. Foreign [place] MD [facility] Continue telemetry? Yes
[2016-06-03 16:58] VITALS: BP 100/56
[2016-06-03 22:23] VITALS: BP 100/42
--- NOTE | 2016-06-04 06:09 | PN- Housestaff ---
Subjective Follow-up For: Bronchitis with Pseudomonas. Tele-Events Since Last Visit: Sinus Rhythm 71-76 Subjective: She was seen and examined this morning. Resting comfortably in bed. Patient reports no issues overnight. She feels content about being possibly discharge this morning. Patient denies any shortness of breath, dyspnea, orthopnea and palpitations. Patient denies any chest pain or chest discomfort. Patient denies any fever, chills, nausea, vomiting. Review of Systems Constitutional: Reports: see HPI. Denies: chills, diaphoresis, fever. Objective Last 24 Hrs of Vital Signs/I&O Vital Signs Date Time Temp Pulse Resp B/P Pulse O2 O2 Flow FiO2 Ox Delivery Rate 06/04 0818 66 160/60 06/04 0817 66 160/60 06/04 0815 66 160/60 06/04 0814 66 160/60 06/04 0800 97.9 66 20 160/60 97 Room Air 06/04 0749 96 Room Air 06/03 2223 98.0 69 20 100/42 99 Room Air 06/03 2158 69 100/42 06/03 1850 94 Room Air Intake & Output 06/04 1600 06/04 0800 06/04 0000 Intake Total 100 620 Output Total 600 500 Balance -500 120 Intake, Oral 100 620 Output, Urine 600 500 Physical Exam General Appearance: Alert, Oriented X3, Cooperative, No Acute Distress Lymphatic: Cervical nl Cardiovascular: Regular Rate, Normal S1, Normal S2 Lungs: Clear to Auscultation Abdomen: Normal Bowel Sounds, Soft, No Tenderness Neurological: Normal Gait, Normal Speech, Strength at 5/5 X4 Ext Extremities: No Edema, Normal Pulses Current Medications: Current Medications Sig/Emmanuel Start time Last Medication Dose Route Stop Time Status Admin Acetaminophen 650 MG Q6P PRN 05/23 2200 DCD PO Acetylcysteine 600 MG BID 05/27 1000 DCD 06/04 PO 0817 Albuterol Sulfate 3 ML EVERY 4 HRS/AWAKE 05/26 2000 DCD 06/04 INH 0747 Alprazolam 0.25 MG AT BEDTIME NEED.. 05/25 2245 DCD 06/03 PO 2156 Amlodipine Besylate 10 MG DAILY 05/27 1000 DCD 06/04 PO 0817 Artificial Tears 2 GTT 4 TIMES/DAY PRN 05/27 0715 DCD 05/27 OPH 0907 Aspirin Buffered 81 MG DAILY 05/24 1000 DCD 06/04 PO 0814 Atorvastatin Calcium 80 MG 1700 05/24 0030 DCD 06/03 PO 1704 Benzocaine/Menthol 1 NEVIN Q2P PRN 05/25 1100 DCD 05/25 PO 1158 Bisacodyl 10 MG DAILY 05/26 1000 DCD / PO 0815 Ciprofloxacin 500 MG BID 06/01 2200 DCD 06/04 PO 06/05 2159 0815 Clonidine 0.1 MG DAILY NEEDED PRN 05/28 1115 DCD 05/29 PO 1313 Clopidogrel Bisulfate 75 MG DAILY 05/24 1000 DCD / PO 0814 Cyclosporine 1 GTT 22005/27 2200 DCD 06/03 OPH 2156 Diltiazem HCl 180 MG DAILY 05/24 1000 DCD 06/04 PO 0815 Fluticasone 2 SPRAY BID 05/26 1000 DCD 06/01 Propionate GRISELDA 2232 Fluticasone 2 PUF BID 05/24 2200 DCD 06/01 Propionate INH 2232 Glycerin 2 SPRAY Q2P PRN 05/27 1745 DCD 05/27 PO 1839 Heparin Sodium 5,000 UNIT Q8 05/24 0600 DCD 06/04 (Porcine) SC 0715 Hydralazine HCl 100 MG TID 05/24 0015 DCD 06/04 PO 0818 Hydromorphone HCl 1 MG Q6 PRN 06/02 1500 DCD PO Ipratropium [place] 2.5 ML EVERY 4 HRS/AWAKE 05/27 1600 DCD 06/04 INH 0747 Isosorbide 90 MG DAILY 05/29 1000 DCD 06/04 Mononitrate PO 0815 Lactobacillus 1 CAP DAILY PRN 05/27 0715 DCD 05/27 Acidophilus PO 0900 Levothyroxine Sodium 0.025 MG DAILY AC 05/31 0700 DCD 06/04 PO 0715 Losartan Potassium 100 MG DAILY 05/29 1000 DCD 06/04 PO 0814 Magnesium Oxide 400 MG DAILY 05/24 1000 DCD 06/04 PO 0816 Montelukast Sodium 10 MG 2200 05/24 2200 DCD 06/03 PO 2157 Nystatin 5 ML 4 TIMES/DAY 06/02 1941 DCD 06/04 PO 0817 Omeprazole 40 MG DAILY AC 06/03 0713 DCD 06/04 PO 0715 Patient Medication 1 ED .STK-MED ONE 06/04 1301 [facility] ED 06/04 1302 Patient Own 0 0900,1700 05/24 0900 DCD 06/04 Medication PO 0819 Polyethylene Glycol 17 GM DAILY 05/26 1000 DCD 06/04 PO 0817 Prednisone 30 MG DAILY 06/03 1000 DCD 06/04 PO 0814 Senna 187 MG AT BEDTIME 05/26 2200 DCD 06/03 PO 2157 Sodium Chloride 2 SPRAY Q4P PRN 05/31 1815 DCD 05/31 GRISELDA 1911 Assessment/Plan Assessment: 1. Acute hypoxic respiratory failure due to possible COPD exacerbation/CHF exacerbation 2. Worsening sinus congestion with low-grade fever 3. CAD and ischemic cardiomyopathy s/p CABG. 4. History of hypothyroidism 5 acute on chronic kidney disease stage IIIB 6. History of hypertension hyperlipidemia. Renal artery stenosis: CTA Abdomen with severe atherosclerotic disease including occlusion of the proximal L renal artery, 50% narrowing of the proximal R renal artery, near complete occlusion of the R common iliac artery and celiac arteries. Patient might have right renal stent placement as an outpatient. Acute hypoxic respiratory failure due to possible COPD exacerbation/CHF exacerbation: Continue oxygen to keep saturation above 92%. Sputum Cx growing Pseudomonas which patient has grown in the past. Patient received ceftazidime 1 g IV Q12H and was later switched to ciprofloxacin. Patient stable to be discharged today. See my extensively reviewed with attending physician, patient and nursing staff. Ciprofloxacin 500mg, Total antibiotics of 14 days. Prednisone 30mg, this will be tapered down every three days. Continue to hold Spiriva. Ipratropium/Atrovent every 6 [id number] reported. Chest x-ray done in the ED showed mild stable cardiomegaly. Will not give any IV Lasix as patient has evidence of a JACIEL as well Monitor in's and O's with daily weight checks. Sinus X-ray unremarkable. Mucinex and lozenges for symptomatic relief. X-ray done 05/26/2016 showed no acute pulmonary change and/or worsening of pulmonary congestion since 05/23/2016. Continue TRC nebs. Deconditioning From prolonged hospitalization. Patient will need aggressive physical therapy. Questionable Oral candidiasis/thrush Continue Nystatin swish and swallow. 4 times a day. Likely due to prednisone usage. Throat culture taken. Awaiting Results Hyponatremia: Check urine lites, urine osmolality and serum osmolality. Continue to hold patient's Lasix today. CAD and ischemic cardiomyopathy s/p CABG. Continue home medications including aspirin, Lipitor, diltiazem, Imdur, hydralazine 100mg. Blood pressure is currently under control. Current dose of Imdur increased from 60mg to 90mg 05/28/2016, Her amlodipine dose increased to 10mg - however her BP found to be elevated so after consulting renal her losartan dose increased to 100mg today. Continue 100mg Depending on her creatinine level tomorrow we will consider restarting Aldactone 25mg daily as per renal and cardiac recommendations. We will hold Aldactone for now. Received recommendations from cardiology verbally about patient's medications. #History of hypothyroidism Continue home dose of levothyroxine. #Acute on chronic kidney disease stage IV: Continue home losartan 100 mg PO QD. Avoid any nephrotoxic agents. #History of hypertension and hyperlipidemia. Continue medications. #DVT prophylaxis subcutaneous heparin ALPS and encourage ambulation, #Code Full code Problem List: 1. Renal artery stenosis 2. Hyponatremia syndrome 3. Renal insufficiency 4. COPD (chronic obstructive pulmonary disease) 5. CHF (congestive heart failure) Pain Ratin Pain Location: NA Pain Goal: Remain pain free Pain Plan: NA Tomorrow's Labs & Rationales: NA
[2016-06-04] MEDS ORDERED: NYSTATIN100000 UNI PO (06:54)
--- NOTE | 2016-06-04 07:07 | PN- Att Addend ---
Attending Addendum Attending Brief Note Intake & Output 06/04 0806/04 0000 06/03 1600 Intake Total 100 620 400 Output Total 600 500 200 Balance -500 120 200 Intake, Oral 100 620 400 Output, Urine 600 500 200 Current Medications Sig/Emmanuel Start time Last Medication Dose Route Stop Time Status Admin Acetaminophen 650 MG Q6P PRN 05/23 2200 AC PO Acetylcysteine 600 MG BID 05/27 1000 AC 06/03 PO 2156 Albuterol Sulfate 3 ML EVERY 4 HRS/AWAKE 05/26 2000 AC 06/03 INH 2150 Alprazolam 0.25 MG ONCE PRN 05/27 1015 DC 06/02 PO 06/03 1014 0144 Alprazolam 0.25 MG AT BEDTIME NEED.. 05/25 2245 AC 06/03 PO 2156 Amlodipine Besylate 10 MG DAILY 05/27 1000 AC 06/03 PO 1051 Artificial Tears 2 GTT 4 TIMES/DAY PRN 05/27 0715 AC 05/27 OPH 0907 Aspirin Buffered 81 MG DAILY 05/24 1000 AC 06/03 PO 1048 Atorvastatin Calcium 80 MG 1700 05/24 0030 AC 06/03 PO 1704 Benzocaine/Menthol 1 NEVIN Q2P PRN 05/25 1100 AC 05/25 PO 1158 Bisacodyl 10 MG DAILY 05/26 1000 AC 05/31 PO 0959 Ciprofloxacin 500 MG BID 06/01 2200 AC 06/03 PO 06/05 2159 2156 Clonidine 0.1 MG DAILY NEEDED PRN 05/28 1115 AC 05/29 PO 1313 Clopidogrel Bisulfate 75 MG DAILY 05/24 1000 AC 06/03 PO 1048 Cyclosporine 1 GTT 05/27 2200 AC 06/03 OPH 2156 Diltiazem HCl 180 MG DAILY 05/24 1000 AC 06/03 PO 1048 Fluticasone 2 SPRAY BID 05/26 1000 AC 06/01 Propionate GRISELDA 2232 Fluticasone 2 PUF BID 05/24 2200 AC 06/01 Propionate INH 2232 Glycerin 2 SPRAY Q2P PRN 05/27 1745 AC 05/27 PO 1839 Heparin Sodium 5,000 UNIT Q8 05/24 0600 AC 06/03 (Porcine) SC 2156 Hydralazine HCl 100 MG TID 05/24 0015 AC 06/03 PO 1050 Hydromorphone HCl 1 MG Q6 PRN 06/02 1500 AC PO Ipratropium [place] 2.5 ML EVERY 4 HRS/AWAKE 05/27 1600 AC 06/03 INH 2150 Isosorbide 90 MG DAILY 05/29 1000 AC 06/03 Mononitrate PO 1051 Lactobacillus 1 CAP DAILY PRN 05/27 0715 AC 05/27 Acidophilus PO 0900 Levothyroxine Sodium 0.025 MG DAILY AC 05/31 0700 AC 06/03 PO 0645 Losartan Potassium 100 MG DAILY 05/29 1000 AC 06/03 PO 1051 Magnesium Oxide 400 MG DAILY 05/24 1000 AC 06/03 PO 1048 Montelukast Sodium 10 MG 2200 05/24 2200 AC 06/03 PO 2157 Nystatin 5 ML 4 TIMES/DAY 06/02 1941 AC 06/03 PO 2156 Omeprazole 40 MG DAILY AC 06/03 0713 AC 06/03 PO 0803 Patient Own 0 0900,1700 05/24 0900 AC 06/03 Medication PO 1704 Polyethylene Glycol 17 GM DAILY 05/26 1000 AC 05/28 PO 0855 Prednisone 30 MG DAILY 06/03 1000 AC 06/03 PO 1047 Senna 187 MG AT BEDTIME 05/26 2200 AC 06/03 PO 2157 Sodium Chloride 2 SPRAY Q4P PRN 05/31 1815 AC 05/31 GRISELDA 1911 Vital Signs Date Time Temp Pulse Resp B/P Pulse O2 O2 Flow FiO2 Ox Delivery Rate 06/033 98.0 69 20 100/42 99 Room Air 06/03 2158 69 100/42 06/03 1850 94 Room Air 06/03 1707 64 90/50 06/03 1658 98.1 62 20 100/56 95 Room Air 06/03 1051 74 144/62 06/03 1051 74 144/62 06/03 1051 74 144/62 06/03 1050 74 144/62 06/03 0854 98 Room Air Room Air 06/03 0823 98.5 73 20 148/80 96 Room Air Intake & Output 06/04 0800 06/04 0000 06/03 1600 Intake Total 100 620 400 Output Total 600 500 200 Balance -500 120 200 Intake, Oral 100 620 400 Output, Urine 600 500 200 Attending note. Patient feels a lot better she is more cheerful comfortable breathing. Afebrile Vital signs are stable. S1-S2 is normal Lungs air entry equal bilaterally with expiratory wheezing No pedal edema. Assessment/plan #1 she is got severe COPD he's intolerant to beta blockers. Continue with the respiratory management per tapering off antibiotics and prednisone. #2 bronchitis secondary to Pseudomonas continue with antibiotics per recommendation of fifth hand #3 ischemic cardiomyopathy ejection fraction 30-35% restart Lasix and a smaller dose 40 mg in a maintenance dose because she she does volume loaded very quickly. #4 severe hypertension uncontrolled but now is fairly stable secondary to renal artery stenosis. On multiple medications. #5 atherosclerotic heart disease with peripheral vascular disease with multiple splenic infarcts. #6 is chronic left bundle branch block. Plan is to discharge home today.
[2016-06-04 08:00] VITALS: BP 160/60
[2016-06-04] MEDS ORDERED: NORVASC10 M1 PO (08:11)
[2016-06-04] MEDS ORDERED: LASIX40 M1 PO (08:11)
[2016-06-04 08:18] VITALS: BP 160/60
[2016-06-04] MEDS ORDERED: ALBUTEROL2.5 MG/3 M INH (08:45)
[2016-06-04] MEDS ORDERED: XANAX0.25 M1 PO (10:35)
[2016-06-04] MEDS ORDERED: PLAVIX75 M1 PO (10:40)
[2016-06-04] MEDS ORDERED: HYDRALAZINE HCL50 M1 PO (10:40)
--- NOTE | 2016-06-04 11:39 | PN- Pulmonary ---
Subjective HPI/Critical Care Issues: Doing better Back to baseline Objective Current Medications: Current Medications Sig/Emmanuel Start time Last Medication Dose Route Stop Time Status Admin Acetaminophen 650 MG Q6P PRN 05/23 2200 AC PO Acetylcysteine 600 MG BID 05/27 1000 AC 06/04 PO 0817 Albuterol Sulfate 3 ML EVERY 4 HRS/AWAKE 05/26 2000 AC 06/04 INH 0747 Alprazolam 0.25 MG AT BEDTIME NEED.. 05/25 2245 AC 06/03 PO 2156 Amlodipine Besylate 10 MG DAILY 05/27 1000 AC 06/04 PO 0817 Artificial Tears 2 GTT 4 TIMES/DAY PRN 05/27 0715 AC 05/27 OPH 0907 Aspirin Buffered 81 MG DAILY 05/24 1000 AC 06/04 PO 0814 Atorvastatin Calcium 80 MG 1700 05/24 0030 AC 06/03 PO 1704 Benzocaine/Menthol 1 NEVIN Q2P PRN 05/25 1100 AC 05/25 PO 1158 Bisacodyl 10 MG DAILY 05/26 1000 AC 06/04 PO 0815 Ciprofloxacin 500 MG BID 06/01 2200 AC 06/04 PO 06/05 2159 0815 Clonidine 0.1 MG DAILY NEEDED PRN 05/28 1115 AC 05/29 PO 1313 Clopidogrel Bisulfate 75 MG DAILY 05/24 1000 AC 06/04 PO 0814 Cyclosporine 1 GTT 22005/27 2200 AC 06/03 OPH 2156 Diltiazem HCl 180 MG DAILY 05/24 1000 AC 06/04 PO 0815 Fluticasone 2 SPRAY BID 05/26 1000 AC 06/01 Propionate GRISELDA 2232 Fluticasone 2 PUF BID 05/24 2200 AC 06/01 Propionate INH 2232 Glycerin 2 SPRAY Q2P PRN 05/27 1745 AC 05/27 PO 1839 Heparin Sodium 5,000 UNIT Q8 05/24 0600 AC 06/04 (Porcine) SC 0715 Hydralazine HCl 100 MG TID 05/24 0015 AC 06/04 PO 0818 Hydromorphone HCl 1 MG Q6 PRN 06/02 1500 AC PO Ipratropium [place] 2.5 ML EVERY 4 HRS/AWAKE 05/27 1600 AC 06/04 INH 0747 Isosorbide 90 MG DAILY 05/29 1000 AC 06/04 Mononitrate PO 0815 Lactobacillus 1 CAP DAILY PRN 05/27 0715 AC 05/27 Acidophilus PO 0900 Levothyroxine Sodium 0.025 MG DAILY AC 05/31 0700 AC 06/04 PO 0715 Losartan Potassium 100 MG DAILY 05/29 1000 AC 06/04 PO 0814 Magnesium Oxide 400 MG DAILY 05/24 1000 AC 06/04 PO 0816 Montelukast Sodium 10 MG 2200 05/24 2200 AC 06/03 PO 2157 Nystatin 5 ML 4 TIMES/DAY 06/02 194 AC 06/04 PO 0817 Omeprazole 40 MG DAILY AC 06/03 07 AC 06/04 PO 0715 Patient Own 0 0900,1700 05/24 09 AC 06/04 Medication PO 0819 Polyethylene Glycol 17 GM DAILY 05/26 1000 AC 06/04 PO 0817 Prednisone 30 MG DAILY 06/03 1000 AC 06/04 PO 0814 Senna 187 MG AT BEDTIME 05/26 2200 AC 06/03 PO 2157 Sodium Chloride 2 SPRAY Q4P PRN 05/31 1815 AC 05/31 GRISELDA 1911 Vital Signs & I&O Last 24 Hrs of Vitals and I&O: Vital Signs Date Time Temp Pulse Resp B/P Pulse O2 O2 Flow FiO2 Ox Delivery Rate 06/04 0818 66 160/60 06/04 0817 66 160/60 06/04 0815 66 160/60 06/04 0814 66 160/60 06/04 0800 97.9 66 20 160/60 97 Room Air 06/04 0749 96 Room Air 06/03 2223 98.0 69 20 100/42 99 Room Air 06/03 2158 69 100/42 06/03 1850 94 Room Air 06/03 1707 64 90/50 06/03 1658 98.1 62 20 100/56 95 Room Air Intake & Output 06/04 1600 06/04 0800 06/04 0000 Intake Total 100 620 Output Total 600 500 Balance -500 120 Intake, Oral 100 620 Output, Urine 600 500 Impression/Plan Impression/Plan Impression/Plan: Physical Exam General Appearance Alert, Oriented X3, Cooperative, No Acute Distress Skin No Rashes, No Breakdown HEENT Atraumatic, PERRLA, EOMI Neck Supple, increased JVP Cardiovascular Regular Rate, Normal S1, Normal S2 Lungs decreased air entry bilaterally, bilateral basal crepts Abdomen Normal Bowel Sounds, Soft, No Tenderness Neurological Normal Speech Extremities No Clubbing, No Cyanosis, No Edema, Normal Pulses Vascular Normal Pulses, Pulses Symmetrical 65-year-old fever with significant cardiac history as noted in H&P recently had a bypass done at [facility] with subsequent cardiac arrest with subsequent adverse effect to high dose of metoprolol (100mg) with effusions with severe baseline copd with fev1 of .9 (not a retainer) with * Resovled acute hypoxic resp failure due to flash pulmonary edema now much better after diuresis. Suggestive of acute systolic and diastolic heart failure * Pseudomonas infection with bronchitis and sinusitis. Patient now also is growing scant growth of yeast which will identify most likely Aspergillus conization no clinical evidence suggestive of invasive aspergillosis at this time. * ACOPDE * Chronic systolic CHF exacerbation. 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, with AIDAN now with sig HTN now with mild JACIEL due to prerenal state * Previous effusion now resolved (post cabg effusion) * CAD s/p CABG * Chronic Angina/ anxiety/gerd/pafib/htn/hypothyroid on toni supp/HLD with previous sig tobacco use * Sig AIDAN, severe hypertension causing flash pulmonary edema as well and patient is not a great candidate for revascularization * Hoarse voice with no sig thrush REC Cont nebs prn Can dc with nebs albuterol prn, spiriva qd and flovent bid (flovent should be started when she is down to 5 mg po prednisone) PO to cipro for total abx of 14 days (from the first day of ceftaz) Prednisone 30 mg daily for three, 20 for 3, 10 for 3 and 5 mg for 3 days Adequate bp control Pt would need home oxygen in the future and then would need out pt pulm rehab Will follow as out pt Pt would need oxygen if sa02 is less than 89 upon ambulation
--- NOTE | 2016-06-05 18:13 | Event Note ---
Event Note Event Note: 06/05/2016. Received a call from continuing care inquiring about this patient's daily Lasix dose and whether this should have been administered to her daily upon discharge. I explained further recommendations from cardiology recommended that the patient take this medication when necessary. The note from the attending on the following day (06/04) stated that the patient should be taking this medication daily. Inquired from the attending physician whether this patient should be on a when necessary dose versus daily dose. Dr. Recnios responded that the patient needed a daily dose. Contacted the patient on her home number and spoke with her and explained to her the recommendations. I apologized for any confusion. She stated that she understood this. No further questions and was clear about these instructions. Patient was instructed that should she have any other questions, she can inquire from the retail sales vitamin consultant service of Dr. Recinos and will come back to the emergency department.
== END 2016-06-04 11:35 | disposition home health service (06) | DRG 190 ==
LOC: ERH 18:45 → 1NO 21:58 → CRI 21:58 → ERHI 21:58 → 1NO 23:10 → CRI 05-27 11:11 → 1NO 05-28 20:40
PROVIDERS: Internal Medicine; Physician Assistant Medical; Student in an Organized Health Care Education/Training Program; ADMIT Internal Medicine
DX: J44.1 Chronic obstructive pulmonary disease with (acute) exacerbation (principal); J96.01 Acute respiratory failure with hypoxia; I50.43 Acute on chronic combined systolic (congestive) and diastolic (congestive) heart failure; N17.9 Acute kidney failure, unspecified; J15.1 Pneumonia due to Pseudomonas; I42.9 Cardiomyopathy, unspecified; N18.4 Chronic kidney disease, stage 4 (severe); I13.0 Hypertensive heart and chronic kidney disease with heart failure and stage 1 through stage 4 chronic kidney disease, or unspecified chronic kidney disease; E87.1 Hypo-osmolality and hyponatremia; I70.1 Atherosclerosis of renal artery; J44.0 Chronic obstructive pulmonary disease with (acute) lower respiratory infection; J32.9 Chronic sinusitis, unspecified; J20.8 Acute bronchitis due to other specified organisms; R49.0 Dysphonia; E78.5 Hyperlipidemia, unspecified; E03.9 Hypothyroidism, unspecified; Z87.891 Personal history of nicotine dependence; Z95.1 Presence of aortocoronary bypass graft; K21.9 Gastro-esophageal reflux disease without esophagitis; E87.5 Hyperkalemia; J04.0 Acute laryngitis
CPT/HCPCS: 1NP; 84133; 84300; 87106; 87107; 87143; 87149; 87186; CCU; 36415; 70220; 74175; 81003; 82436; 82570; 87040; 87070; 87071; 93005; 93010; 94799; 96374; 97002-GP; 97110-GO; 97116-GO; J0456; J0696; J0713; J1644; J1940; J2920; J2930; J3490; J7040; J7512

== ENCOUNTER 2016-07-22 21:23 | Emergency (ER) | payer OTHER, MEDICARE ==
[~2016-07-22 21:23] MED LIST changes: +ALBUTEROL2.5 MG/3 M INH; +AZITHROMYCIN250 M1 PO; +CIPRO500 M1 PO; +CLONIDINE HCL0.1 M1 PO; +COZAAR25 M1 PO; +FLOVENT HFA10.6 GM INH; +FLUTICASONE PRO16 GM NASB; +HYDROMORPHONE HC2 M1 PO; +NASA MIST SALIN75 ML; +NORVASC10 M1 PO; +NYSTATIN100000 UNI PO; +PREDNISONE5 M1 PO; +RESTASIS MULTI5.5 ML PO; +SPIRIVA18 MCG INH; +VITAMIN D2000 UNIT PO; +XANAX0.5 M1 PO
[2016-07-22 21:48] LABS: ABSOLUTE BASOPHIL COUNT 0.1 /CUMM (0.0-0.2); ABSOLUTE EOSINOPHIL COUNT 0.1 /CUMM (0.0-0.7); ABSOLUTE GRANULOCYTE CT 4.4 /CUMM (1.4-6.5); ABSOLUTE LYMPH COUNT 1.4 /CUMM (1.2-3.4); ABSOLUTE MONOCYTE COUNT 0.9 /CUMM (0.10-0.60); EOSINOPHIL % 1.1 % (0-5); GRANULOCYTE % 63.8 % (42.2-75.2); HEMATOCRIT 33.6 % (37-47); MEAN CORPUSCULAR HGB 29.8 PG (27.0-31.0); MEAN CORPUSCULAR VOLUME 87.5 FL (81.0-99.0); MEAN PLATELET VOLUME 8.2 FL (7.4-10.4); PLATELET COUNT 238 /CUMM (130-400); RBC DISTRIBUTION WIDTH 17.5 % (11.5-14.5); RED BLOOD CELL CT 3.84 /CUMM (4.20-5.40); WHITE BLOOD CELL COUNT 6.9 /CUMM (4.8-10.8)
--- NOTE | 2016-07-22 21:57 | ED GENERAL ADULT ---
History of Present Illness General Chief Complaint: General Adult Stated Complaint: CLAMMY, DIFF BREATHING, HIGH BP PER PT Source: patient, family, old records Exam Limitations: no limitations Vital Signs & Intake/Output Vital Signs & Intake/Output Vital Signs Date Time Temp Pulse Resp B/P Pulse O2 O2 Flow FiO2 Ox Delivery Rate 07/23 0230 97.0 61 20 164/68 94 Room Air Room Air 07/22 2320 97.0 56 18 152/60 97 Room Air Room Air 07/22 2219 61 166/60 07/22 2201 99 Nasal 2.0L Cannula 07/226 96.4 69 22 198/78 97 Room Air Allergies Coded Allergies: NO KNOWN ALLERGIES (06/01/16) Reconcile Medications Acetylcysteine (NAC) 600 MG CAPSULE 1 CAP PO BID DIRECTED (Reported) Albuterol Sulfate 2.5 MG/3 ML (0.083 %) VIAL.NEB 3 ML INH NEEDED PRN COPD Alprazolam (Xanax) 0.25 MG TABLET 0.25 MG PO AT BEDTIME NEEDED PRN ANXIETY Amlodipine Besylate (Norvasc) 10 MG TABLET 10 MG PO DAILY HTN Aspirin (Ecotrin*) 81 MG TABLET.DR 1 TAB PO DAILY DIRECTED (Reported) Atorvastatin Calcium 80 MG TABLET 1 TAB PO DAILY DIRECTED (Reported) Cholecalciferol (Vitamin D3) (Vitamin D) 2,000 UNIT CAPSULE 1 CAP PO DAILY DIRECTED (Reported) Ciprofloxacin HCl (Cipro) 500 MG TABLET 1 TAB PO BID Bronchitis Clonidine HCl (Clonidine HCl ER) 0.1 MG TAB.ER.12H 1 TAB PO DAILY DIRECTED (Reported) To be taken is Systolic Blood Pressure is above 180mmHg Clopidogrel Bisulfate (Plavix) 75 MG TABLET 1 TAB PO DAILY Heart Health Cyclosporine (Restasis Multidose) 0.05 % DROPS 1 TAB PO DAILY DIRECTED ( Reported) Diltiazem HCl (Diltiazem 24HR ER) 180 MG CAP.ER.24H 1 CAP PO DAILY DIRECTED (Reported) Fluticasone Propionate 50 MCG/ACTUATION SPRAY.SUSP 2 SPRAY NASB DAILY DIRECTED (Reported) Fluticasone Propionate (Flovent Hfa) 44 MCG AER.W.ADAP 2 PUF INH Q4-6 PRN Bronchitis (Reported) Furosemide (Lasix) 40 MG TABLET 1 TAB PO DAILY PRN Volume Overload Please use this medication as needed to prevent volume overload. Hydralazine HCl 100 MG TABLET 1 TAB PO TID DIRECTED (Reported) Do not take if Systolic Blood Pressure is < 120 mmhg. Hydralazine HCl 50 MG TABLET 100 MG PO TID High Blood Pressure Isosorbide Mononitrate (Isosorbide Mononitrate ER) 60 MG TAB.ER.24H 1 TAB PO DAILY DIRECTED (Reported) Ivabradine HCl (Corlanor) 5 MG TABLET 1 TAB PO BID DIRECTED (Reported) Lactobacillus Acidophilus (Acidophilus) 1 EACH CAPSULE 1 CAP PO DAILY DIRECTED (Reported) Levothyroxine Sodium 25 MCG TABLET 1 TAB PO DAILY DIRECTED (Reported) Losartan (Cozaar) 100 MG TABLET 1 TAB PO DAILY HTN Magnesium Oxide (Magnesium) 400 MG CAPSULE 1 CAP PO DAILY DIRECTED ( Reported) Montelukast Sodium 10 MG TABLET 1 TAB PO DAILY DIRECTED (Reported) Nystatin 100,000 UNIT/ML ORAL.SUSP 5 ML PO 4 TIMES/DAY Candidiasis Pantoprazole Sodium 40 MG TABLET.DR 1 TAB PO EVERY 3 DAYS DIRECTED ( Reported) Prednisone 5 MG TABLET 1 TAB PO DAILY COPD Exacerbation Please take this medication from 06/13/2016 to 06/16/2016. Prednisone 10 MG TABLET 1 TAB PO BID COPD Exacerbation Please take the following: From: 06/05 to 06/06, please take three tablets daily. From: 06/07 to 06/09, please take two tablets daily From: 06/10 to 06/12, please take one tablet daily From: 06/13 to 06/15, please take 5 mg, we have provided you with a separate prescription. Sodium Chloride/Sodium Bicarb (Nasa Mist Saline [place]) 0.9 % SPRAY Nasal Dryness (Reported) Tiotropium [place] (Spiriva) 18 MCG CAP.W.DEV 1 CAP INH DAILY DIRECTED ( Reported) Triage Nurses Notes Reviewed? yes HPI: Patient presents complaining of hypertension, feeling clammy and short of breath. Patient states that she has known hypertension and her doctors are in the process of trying to figure medication to control it. Patient was recently restarted on Aldactone. Patient was told to take clonidine twice a day and uses hydralazine whenever her blood pressure goes up. This evening her blood pressure was elevated so she took 100 of hydralazine. One hour later her blood pressure 1 up even higher so she took a second and then subsequently a third dose of hydralazine. Patient took her evening dose of clonidine her blood pressure continued to go up. At this point the patient a candidate feel nervous because when it went too high she wanted to flash pulmonary edema in the past. Patient comes in for evaluation. Patient denies any headache or blurry vision. There is no nausea or vomiting. The patient denies any chest pain. Patient states that she does feel slightly short of breath but denies any dyspnea on exertion or orthopnea. (REYNOLD MERINO,FABIAN Brown) Past History Travel History Traveled to [place] past 21 day No Medical History Any Pertinent Medical History? 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 No (FABIAN FLAHERTY MD) Review of Systems Review of Systems Constitutional: Reports: no symptoms. EENTM: Reports: no symptoms. Respiratory: Reports: see HPI, short of breath. Cardiovascular: Reports: no symptoms. GI: Reports: no symptoms. Genitourinary: Reports: no symptoms. Musculoskeletal: Reports: no symptoms. Skin: Reports: see HPI. Neurological/Psychological: Reports: no symptoms. Hematologic/Endocrine: Reports: no symptoms. Immunologic/Allergic: Reports: no symptoms. All Other Systems: Reviewed and Negative (REYNOLD MERINO,FABIAN Brown) Physical Exam Physical Exam General Appearance: well developed/nourished, alert, awake, anxious, moderate distress Head: atraumatic, normal appearance Eyes: Bilateral: PERRL, EOMI. Ears, Nose, Throat: normal pharynx, normal ENT inspection, hearing grossly normal Neck: normal inspection, supple, full range of motion, NO JVD Respiratory: normal breath sounds, chest non-tender, lungs clear, respiratory distress Cardiovascular: regular rate/rhythm, normal peripheral pulses Gastrointestinal: normal bowel sounds, soft, non-tender, no organomegaly Back: normal inspection Extremities: normal inspection, normal capillary refill, normal range of motion, LLE 1+ EDEMA, CHRONIC PER PT Neurologic/Psych: no motor/sensory deficits, awake, alert, oriented x 3, normal mood/affect Skin: diaphoresis Lymphatic: no anterior cervical shana Core Measures ACS in differential dx? No CVA/TIA Diagnosis: No Severe Sepsis Present: No Septic Shock Present: No (REYNOLD MERINO,FABIAN Brown) Progress Differential Diagnoses I considered the following diagnoses in my evaluation of the patient: [ Hypertensive urgency, all other abnormality, ND, pulmonary edema] Plan of Care: Orders Procedure Date/time Status EKG 07/23 0111 Active TROPONIN LEVEL 07/23 010 Complete Telemetry/Aerodynamics Engineer 07/22 2155 Active TROPONIN LEVEL 07/22 2136 Complete COMPREHENSIVE METABOLIC PANEL 07/22 2136 Complete CBC WITHOUT DIFFERENTIAL 07/22 2136 Complete EKG 07/22 2125 Active Laboratory Tests 07/23/16 0105: Troponin I 0.02 07/22/162155: Urine Color Cancelled, Urine Clarity Cancelled, Urine pH Cancelled, Ur Specific [place] Cancelled, Urine Protein Cancelled, Urine Ketones Cancelled, Urine Nitrite Cancelled, Urine Bilirubin Cancelled, Urine Urobilinogen Cancelled, Ur Leukocyte Esterase Cancelled, Ur Microscopic Cancelled, Urine Hemoglobin Cancelled, Urine Glucose Cancelled 07/22/162139: Anion Gap 14, Estimated GFR 45 L, BUN/Creatinine Ratio 22.5, Glucose 123 H, Calcium 10.3 H, Total Bilirubin 0.6, AST 22, ALT 27, Alkaline Phosphatase 77, Troponin I < 0.01, Total Protein 7.1, Albumin 4.4, Globulin 2.7, Albumin/ Globulin Ratio 1.6, CBC w Diff NO MAN DIFF REQ, RBC 3.84 L, MCV 87.5, MCH 29.8, RDW 17.5 H, MPV 8.2, Gran % 63.8, Lymphocytes % 20.4 L, Monocytes % 13.7 H, Eosinophils % 1.1, Basophils % 1.0, Absolute Granulocytes 4.4, Absolute Lymphocytes 1.4, Absolute Monocytes 0.9 H, Absolute Eosinophils 0.1, Absolute Basophils 0.1, PUBS MCHC 34.0 Diagnostic Imaging: Viewed by Me: Radiology Read. Discussed w/RAD: Radiology Read. Initial ED EKG: NSR, LVH, nonspecific ST T wave chg Prior EKG: unchanged Rhythm Strip: normal sinus rhythm Hand-Off Endorsed To: MEGAN RAIN MD Endorsed Time: 2334 Pending: labs (REYNOLD MERINO,FABIAN Brown) Departure Departure Disposition: STILL A PATIENT Condition: Stable Clinical Impression Primary Impression: Hypertension Referrals: NELIDA OCONNELL MD (PCP/Family) Departure Forms: Customer Survey General Discharge Information (REYNOLD MERINO,FABIAN Brown) Departure Comments 07/23/16, 2:30am.... trop negative x 2. blood pressure stable... no chest pain both prior and throughout ed stay... pt safe for discharge with close follow up by his loss prevention consultant. (BRISEYDA MERINO,MEGAN Sabillon) Critical Care Note Critical Care Note Critical Care Time: non-applicable (REYNOLD MERINO,FABIAN Brown)
--- NOTE | 2016-07-22 23:11 | RADIOLOGY REPORT ---
EXAMINATION: XR CHEST CLINICAL INFORMATION: Chest pain. COMPARISON: Portable chest x-ray 05/28/2016. TECHNIQUE: 2 views of the chest were obtained. FINDINGS: The lungs are well-expanded and clear without focal airspace consolidation. No pleural effusions or pneumothoraces are identified. Cardiomediastinal contours are within normal limits. There are median sternotomy wires and evidence of prior CABG. Soft tissues are unremarkable. No acute osseous abnormality is identified. There are chronic appearing right-sided rib fractures. IMPRESSION: No acute pulmonary process.
[2016-07-23 02:30] VITALS: BP 164/68
== END 2016-07-23 02:37 ==
LOC: ERH 21:23
PROVIDERS: Emergency Medicine
DX: I10 Essential (primary) hypertension (principal)
CPT/HCPCS: 93005; 93010